=== PATIENT | female | born 1955 | race African-American/Black ===

== ENCOUNTER 2016-05-19 10:50 | Inpatient (IN) | payer MEDICAID ==
[~2016-05-19] VITALS: Ht 160 cm; Wt 102.1 kg
[2016-05-19] VITALS (16 sets, daily range): BP systolic 92–150; BP diastolic 53–95; PULSE 111–154; RESP 22–25; TEMP 98.1–100.8; O2SAT 91–100
[~2016-05-19 10:50] MED LIST: ALBU0.08 NEB; DOXY100C PO; ENAL10TA PO; HYDR-3583 PO; LANTUS2P SQ; LYRI150C PO; NOVOLOGP2 SQ; PRED10PA PO; SYMB160A INH
[2016-05-19] MEDS ORDERED: SODIUM CHLOR 0.9% 1000 ML INJ 1,000 ML IV ONE ×3 (11:00→13:15)
[2016-05-19] MEDS ORDERED: ACETAMINOPHEN 325 MG TAB PO ONE (11:00)
[2016-05-19] MEDS ORDERED: methylPREDNISolone SOD SUCC 125 MG/2 ML VIAL IV PUSH ONE (11:00)
--- NOTE | 2016-05-19 11:05 | PD ---
HPI Chief Complaint: Cold / Flu Symptoms Time Seen by Provider: 11:00 Travel History International Travel<30 days: No Contact w/Intl Traveler<30days: No Traveled to known affect area: No History of Present Illness HPI 61-year-old female with history of COPD, diabetes, hypertension, presents to the ER today for 2 days history of malaise, coughing, shortness of breath, nausea, body aches, lower back discomfort. She is not sure whether she has a fever. She does not know of any sick contacts or any other symptoms. She has tried to use her own nebulizers without significant relief. Modifying Factors: None Associated Signs & Symptoms: Coughing, malaise, shortness of breath, nausea, body aches Risk Factors: COPD PFSH Past Medical History Arthritis: Yes (RHEUMATOID) Asthma: No Autoimmune Disease: Yes Blood Disorders: No Anxiety: No Depression: No Heart Rhythm Problems: No Cancer: No Cardiovascular Problems: Yes (HTN) High Cholesterol: Yes Chemotherapy: No Chest Pain: No Congestive Heart Failure: No COPD: Yes (wears oxygen at home 2L) Cerebrovascular Accident: No Coronary Artery Disease: Yes ("DENIES") Diabetes: Yes Diminished Hearing: No Endocrine: Yes Gastrointestinal Disorders: Yes GERD: No Glaucoma: No Gout: Yes Genitourinary: No Headaches: Yes Hepatitis: Yes (HEPATITIS C) Hiatal Hernia: No Hypertension: Yes Immune Disorder: No Implanted Vascular Access Dvce: No Kidney Stones: No Musculoskeletal: Yes (chronic pain, RA, Gout ) Neurologic: Yes Psychiatric: No Reproductive: No Respiratory: Yes (COPD) Immunizations Current: Yes Migraines: No Myocardial Infarction: No Pneumonia: Yes Radiation Therapy: No Renal Failure: No Seizures: No Sickle Cell Disease: No Sleep Apnea: No Thyroid Disease: No Ulcer: No PNEUMOCCOCAL Vaccine (Year): 2 ?: Not Menopausal: Yes : 0 Para: 0 Miscarriage: 0 : 0 Past Surgical History Abdominal Surgery: No AICD: No Appendectomy: No Arteriovenous Shunt: No Cardiac Surgery: Yes Cholecystectomy: No Ear Surgery: No Endocrine Surgery: No Eye Surgery: No Genitourinary Surgery: No Gynecologic Surgery: No Insulin Pump: No Joint Replacement: No Neurologic Surgery: No Oral Surgery: No Pacemaker: No Thoracic Surgery: No Other Surgery: Yes (right knee gout drain infection) Social History Alcohol Use: No Tobacco Use: No Substance Use: No Allergies-Medications (Allergen,Severity, Reaction): Coded Allergies: *MDRO Multi-Drug Resistant Organism (Verified Adverse Reaction, Unknown, 05/19/16) MRSA wound 11/2012. MRSA PCR Screen negative 11/03/14 and 11/05/14. Cleared per Infection Control MRSA PCR Screen NEGATIVE - 04/30/2015 Reported Meds & Prescriptions Reported Meds & Active Scripts Active Prednisone (21) 10 mg tab Dose Pack (Prednisone) 10 Mg Pack 10 Mg PO DIRECTED Hydrocodone-Acetaminophen 10-325 mg Tab 1 Tab PO TID PRN Reported Indomethacin 50 Mg Cap 50 Mg PO TID Take with food, milk, or antacids to decrease stomach adverse effects. Enalapril (Enalapril Maleate) 10 Mg Tab 10 Mg PO DAILY PRN Lyrica (Pregabalin) 150 Mg Cap 150 Mg PO TID Lantus Inj (Insulin Glargine) 1,000 Unit/10 Ml Vial 40 Units SQ BID Novolog Inj (Insulin Aspart) 1,000 Unit/10 Ml Vial Unknown Dose SQ ACHS Max dose at bedtime ( ) units; sugars less than 70,(0) units; sugars 150-199,(2) units; sugars 200-249,(4) units; sugars 250-299,(7) units; sugars 300-349,(10) units; sugars greater than 349,(12)units Symbicort Inh (Budesonide/Formoterol Fumarate) 160-4.5 Mcg/Act Aero 2 Puff INH DAILY Albuterol Neb (Albuterol Sulfate) 2.5 Mg/3 Ml Neb 2.5 Mg NEB Q6HR PRN While awake Review of Systems Except as stated in HPI: all other systems reviewed are Neg Physical Exam Narrative GENERAL: Well-nourished, well-developed elderly -[place] female patient in mild respiratory distress. SKIN: Warm and dry. HEAD: Normocephalic. EYES: No scleral icterus. No injection or drainage. NECK: Supple, trachea midline. CARDIOVASCULAR: Fast and regular without murmurs, gallops, or rubs. RESPIRATORY: Breath sounds equal but decreased throughout bilaterally. Mild accessory muscle use. GASTROINTESTINAL: Abdomen soft, non-tender, nondistended. MUSCULOSKELETAL: No cyanosis, or edema. BACK: Nontender without obvious deformity. No CVA tenderness. Data Data Last Documented VS Vital Signs Date Time Temp Pulse Resp B/P Pulse Ox O2 Delivery O2 Flow Rate FiO2 05/19/16 12:54 138 22 99/57 95 Nasal Cannula 3 05/19/16 12:03 99.7 Orders Electrocardiogram (05/19/16 11:00) Complete Blood Count With Diff (05/19/16 11:00) Comprehensive Metabolic Panel (05/19/16 11:00) Lactic Acid Sepsis Protocol (05/19/16 11:00) Urinalysis - C+S If Indicated (05/19/16 11:00) Influenzae A/B Antigen (05/19/16 11:00) Blood Culture (05/19/16 11:00) Chest, Single Ap (05/19/16 11:00) Arterial Blood Gas (Abg) (05/19/16 11:00) Blood Glucose (05/19/16 11:00) Ecg Monitoring (05/19/16 11:00) Iv Access Insert/Monitor (05/19/16 11:00) Oximetry (05/19/16 11:00) Oxygen Administration (05/19/16 11:00) Acetaminophen (Tylenol) (05/19/16 11:00) Sodium Chlor 0.9% 1000 Ml Inj (Ns 1000 M (05/19/16 11:00) Methylprednisolone So Succ Inj (Solumedr (05/19/16 11:00) Albuterol-Ipratropium Neb (Duoneb Neb) (05/19/16 11:00) Cefepime Inj (Maxipime Inj) (05/19/16 12:18) Urine Culture (05/19/16 12:22) Albuterol-Ipratropium Neb (Duoneb Neb) (05/19/16 13:00) Admit Order (Ed Use Only) (05/19/16 13:12) Labs Laboratory Tests Test 05/19/16 05/19/16 05/19/16 11:00 12:00 12:22 White Blood Count 17.8 TH/MM3 Red Blood Count 6.73 MIL/MM3 Hemoglobin 17.1 GM/DL Hematocrit 51.4 % Mean Corpuscular Volume 76.3 FL Mean Corpuscular Hemoglobin 25.4 PG Mean Corpuscular Hemoglobin 33.2 % Concent Red Cell Distribution Width 17.1 % Platelet Count 246 TH/MM3 Mean Platelet Volume 9.0 FL Neutrophils (%) (Auto) 78.2 % Lymphocytes (%) (Auto) 9.5 % Monocytes (%) (Auto) 11.8 % Eosinophils (%) (Auto) 0.1 % Basophils (%) (Auto) 0.4 % Neutrophils # (Auto) 13.9 TH/MM3 Lymphocytes # (Auto) 1.7 TH/MM3 Monocytes # (Auto) 2.1 TH/MM3 Eosinophils # (Auto) 0.0 TH/MM3 Basophils # (Auto) 0.1 TH/MM3 CBC Comment DIFF FINAL Differential Comment Sodium Level 140 MEQ/L Potassium Level 3.6 MEQ/L Chloride Level 106 MEQ/L Carbon Dioxide Level 22.6 MEQ/L Anion Gap 11 MEQ/L Blood Urea Nitrogen 11 MG/DL Creatinine 1.16 MG/DL Estimat Glomerular Filtration 57 ML/MIN Rate Random Glucose 75 MG/DL Lactic Acid Level 2.5 mmol/L Calcium Level 8.5 MG/DL Total Bilirubin 0.9 MG/DL Aspartate Amino Transf 46 U/L (AST/SGOT) Alanine Aminotransferase 35 U/L (ALT/SGPT) Alkaline Phosphatase 171 U/L Total Protein 7.8 GM/DL Albumin 2.1 GM/DL Blood Gas Puncture Site RT RADIAL Blood Gas Patient Temperature 98.6 Blood Gas HCO3 20 mmol/L Blood Gas Base Excess -2.7 mmol/L Blood Gas Oxygen Saturation 90 % Arterial Blood pH 7.50 Arterial Blood Partial 26 mmHg Pressure CO2 Arterial Blood Partial 64 mmHG Pressure O2 Arterial Blood Oxygen Content 20.1 Vol % Arterial Blood 2.8 % Carboxyhemoglobin Arterial Blood Methemoglobin 2.4 % Blood Gas Hemoglobin 15.8 G/DL Oxygen Delivery Device NASAL CANNULA Blood Gas Liter Flow 4 L/M Urine Color YELLOW Urine Turbidity HAZY Urine pH 6.0 Urine Specific [place] 1.013 Urine Protein 300 mg/dL Urine Glucose (UA) NEG mg/dL Urine Ketones 10 mg/dL Urine Occult Blood LARGE Urine Nitrite NEG Urine Bilirubin NEG Urine Urobilinogen 2.0 MG/DL Urine Leukocyte Esterase NEG Urine RBC 12 /hpf Urine WBC 4 /hpf Urine Squamous Epithelial 1 /hpf Cells Urine Amorphous Sediment FEW Urine Bacteria MOD /hpf Urine Mucus FEW /lpf Urine Yeast (Budding) OCC Microscopic Urinalysis Comment CATH-CULTURE IND MDM Medical Decision Making Medical Screen Exam Complete: Yes Emergency Medical Condition: Yes Medical Record Reviewed: Yes Interpretation(s) EKG shows sinus tachycardia at a rate of 140 bpm with no signs of acute ST-T changes. Laboratory Tests Test 05/19/16 05/19/16 05/19/16 11:00 12:00 12:22 White Blood Count 17.8 TH/MM3 (4.0-11.0) Red Blood Count 6.73 MIL/MM3 (4.00-5.30) Hemoglobin 17.1 GM/DL (11.6-15.3) Hematocrit 51.4 % (35.0-46.0) Mean Corpuscular Volume 76.3 FL (80.0-100.0) Mean Corpuscular Hemoglobin 25.4 PG (27.0-34.0) Neutrophils (%) (Auto) 78.2 % (16.0-70.0) Monocytes (%) (Auto) 11.8 % (0.0-8.0) Neutrophils # (Auto) 13.9 TH/MM3 (1.8-7.7) Monocytes # (Auto) 2.1 TH/MM3 (0-0.9) Creatinine 1.16 MG/DL (0.50-1.00) Estimat Glomerular Filtration 57 ML/MIN (>89) Rate Lactic Acid Level 2.5 mmol/L (0.4-2.0) Aspartate Amino Transf 46 U/L (15-37) (AST/SGOT) Alkaline Phosphatase 171 U/L (45-117) Albumin 2.1 GM/DL (3.4-5.0) Blood Gas HCO3 20 mmol/L (22-26) Blood Gas Base Excess -2.7 mmol/L (-2-2) Arterial Blood pH 7.50 (7.380-7.420) Arterial Blood Partial 26 mmHg (38-42) Pressure CO2 Arterial Blood Oxygen Content 20.1 Vol % (12.0-20.0) Arterial Blood Methemoglobin 2.4 % (0-2) Urine Turbidity HAZY (CLEAR) Urine Protein 300 mg/dL (NEG-TRACE) Urine Ketones 10 mg/dL (NEG) Urine Occult Blood LARGE (NEG) Urine RBC 12 /hpf (0-3) Urine Bacteria MOD /hpf (NONE) Urine Mucus FEW /lpf (OCC) Urine Yeast (Budding) OCC (NONE) Last 24 hours Impressions Chest X-Ray 05/19/16 1100 Signed Impressions: Service Date/Time: Thursday, May 19, 2016 11:13 - CONCLUSION: No acute disease. Zack Jim MD Differential Diagnosis Cough, shortness of breath, malaise, body aches, nauseainfluenza versus sepsis versus pneumonia versus UTI/pyelonephritis versus dehydration versus metabolic issues versus COPD exacerbation Narrative Course She is febrile in the ER and there is concerns of sepsis. She was given IV antibiotics after cultures were drawn. She was given Solu-Medrol and treatment for COPD. After several doses of DuoNeb's, patient is still feeling short of breath. She has been in recently regarding similar symptoms and had a CTA done which all have been negative so far. At this point, I am uncertain what is causing her sepsis but patient will need further treatment and my plan would be to admit her for further treatment. The case was discussed with Dr. Lucio for admission. She was given IV fluids in the ER. Considering her significant signs of sepsis, my plan would also be to admit her for critical care initially. Sepsis Criteria SIRS Criteria (2 or more): Temp > 100.9 or < 96.8, Heart rate over 90, WBC > 64684, < 4000 or > 10% bands Severe Sepsis (+one): Hypotension, Lactate >2 Criteria Outcome: Meets severe sepsis criteria Diagnosis Primary Impression: COPD (chronic obstructive pulmonary disease) Additional Impression: SEVERE SEPSIS WITHOUT SEPTIC SHOCK Admitting Information Admitting Physician Requests: Admit Demetrio Leary MD May 19, 2016 11:05
[2016-05-19 11:21] LABS: AUTOMATED NEUTROPHIL # 13.9 TH/MM3 (1.8-7.7); BASOPHIL # 0.1 TH/MM3 (0-0.2); BASOPHIL % 0.4 % (0.0-2.0); EOSINOPHIL % 0.1 % (0.0-4.0); HEMATOCRIT 51.4 % (35.0-46.0); HEMO FLAGS DIFF FINAL; LYMPH % 9.5 % (9.0-44.0); LYMPHOCYTE # 1.7 TH/MM3 (1.0-4.8); MEAN CELL VOLUME 76.3 FL (80.0-100.0); MEAN CORPUSCULAR HEMOGLOBIN 25.4 PG (27.0-34.0); MEAN CORPUSCULAR HGB CONC 33.2 % (32.0-36.0); MONO % 11.8 % (0.0-8.0); NEUT % 78.2 % (16.0-70.0); PLATELET COUNT 246 TH/MM3 (150-450); RED BLOOD COUNT 6.73 MIL/MM3 (4.00-5.30); RED CELL DISTRIBUTION WIDTH 17.1 % (11.6-17.2); WHITE BLOOD COUNT 17.8 TH/MM3 (4.0-11.0)
[2016-05-19] MEDS: RESP: ALBUTEROL 2.5 MG/IPRATROPIUM 0.5 MG NEB (SCH) INH ×2 (11:22→13:05)
--- NOTE | 2016-05-19 11:32 | RADRPT ---
EXAM DATE/TIME: 05/19/2016 11:13 [facility] COMPARISON: CHEST SINGLE AP, April 23, 2016, 16:28. INDICATIONS : Shortness of breath for 24 hours MEDICAL HISTORY : Hypertension. Chronic obstructive pulmonary disease. Diabetes mellitus type 2. Cardiovascular disease . SURGICAL HISTORY : None. ENCOUNTER: Initial ACUITY: 1 day PAIN SCORE: 0/10 LOCATION: Bilateral chest FINDINGS: A single view of the chest demonstrates the lungs to be symmetrically aerated without evidence of mas s, infiltrate or effusion. There is mild streaky opacity again noted most consistent with scarring. T he cardiomediastinal contours are unremarkable. Osseous structures are intact. CONCLUSION: No acute disease. Zack Jim MD on May 19, 2016 at 11:26 Board Certified Radiologist. This report was verified electronically.
[2016-05-19 11:45] LABS: ALKALINE PHOSPHATASE 171 U/L (45-117); TOTAL BILIRUBIN ADULT 0.9 MG/DL (0.2-1.0)
[2016-05-19 11:48] LABS: ALT (GPT) 35 U/L (10-53); ANION GAP 11 MEQ/L (5-15); AST (GOT) 46 U/L (15-37); BICARBONATE 22.6 MEQ/L (21.0-32.0); BLOOD UREA NITROGEN 11 MG/DL (7-18); CHLORIDE 106 MEQ/L (98-107); GLOMERULAR FILTRATION RATE 57 ML/MIN (>89); POTASSIUM 3.6 MEQ/L (3.5-5.1); SODIUM (NA) 140 MEQ/L (136-145)
[2016-05-19 12:14] LABS: BLOOD GAS BASE EXCESS -2.7 mmol/L (-2-2); BLOOD GAS CARBOXYHEMOGLOBIN 2.8 % (0-4); BLOOD GAS HCO3 20 mmol/L (22-26); BLOOD GAS METHEMOGLOBIN 2.4 % (0-2); BLOOD GAS O2 HGB SATURATION 90 % (90-100); BLOOD GAS OXYGEN CONTENT 20.1 Vol % (12.0-20.0); BLOOD GAS PCO2 26 mmHg (38-42); BLOOD GAS PO2 64 mmHG (61-120); BLOOD GAS TOTAL HGB 15.8 G/DL (12.0-16.0); TEMP CORR TO 98.6
[2016-05-19 12:15] LABS: CRITICAL VALUE NO; DRAW SITE RT RADIAL; LITER FLOW 4 L/M; NUMBER OF ARTERIAL PUNCTURES 1; OXYGEN DEVICE NASAL CANNULA; STAT YES; ULNAR PULSE PRESENT
[2016-05-19] MEDS ORDERED: CEFEPIME INJ 2,000 MG in SODIUM CHLORIDE 0.9% INJ 100 ML IV STA (12:18)
[2016-05-19] MEDS ORDERED: INDO50CA PO (12:25)
[2016-05-19 12:37] LABS: BACTERIA, URINE MOD /hpf; BLOOD, URINE LARGE (NEG); COMMENT (UR) CATH-CULTURE IND; CULTURE IF INDICATED CATH CULTURE IND; GLUCOSE,URINE NEG (NEG); KETONE, URINE 10 mg/dL (NEG); MUCUS URINE FEW /lpf (OCC); NITRITE,URINE NEG (NEG); SQUAMOUS EPITHELIAL CELL URINE 1 /hpf (0-5); URINE COLOR YELLOW (YELLW/STRAW)
[2016-05-19 13:15] LABS: LACTIC ACID GHOST NOT REPORTABLE
[2016-05-19] MEDS ORDERED: ACETAMINOPHEN 325 MG TAB PO PRN (13:15)
[2016-05-19] MEDS ORDERED: ONDANSETRON HCL 4 MG/2 ML VIAL IVP PRN (13:15)
[2016-05-19] MEDS ORDERED: SENNOSIDES 8.6 MG TAB PO PRN (13:15)
[2016-05-19] MEDS ORDERED: MAGNESIUM HYDROXIDE SUSP 30 ML CUP PO PRN (13:15)
[2016-05-19] MEDS ORDERED: NALOXONE HCL 0.4 MG/ML AMP IV PRN ×2 (13:15→13:30)
[2016-05-19] MEDS ORDERED: BISACODYL 10 MG SUPP PR PRN (13:15)
[2016-05-19] MEDS ORDERED: Custom Consult Pharmacy 1 EA OTHER SCH (13:30)
--- NOTE | 2016-05-19 13:46 | EKG ---
Date Performed: 05/19/2016 Time Performed: 11:04:20 PTAGE: 61 years EKG: SINUS TACHYCARDIA NONSPECIFIC ST WAVE CHANGE ABNORMAL RHYTHM ECG Compared to PREVIOUS TRACING , the heart rate has increased from 131 to 147. Otherwise no significant change. PREVIOUS TRACIN04/23/2016 16.41 DOCTOR: Oj Malhotra Interpretating Date/Time 05/19/2016 13:44:50
[2016-05-19] MEDS ORDERED: LEVOFLOXACIN 750 MG PREMIX INJ 150 ML IV ONE (14:00)
[2016-05-19] MEDS: DOCUSATE SODIUM 100 MG CAP PO SCH ×2 (14:49→19:42)
[2016-05-19] MEDS: HEPARIN SODIUM - SQ 10,000 UNITS/ML VIAL SQ SCH ×2 (14:49→19:43)
--- NOTE | 2016-05-19 15:01 | HHI.HP ---
[facility] Shaggy Landry MD Admission Diagnosis COPD exacerbation/severe sepsis Diagnoses: Chief Complaint: Short of breath Travel History International Travel<30 Days: No Contact w/Intl Traveler <30 Da: No Traveled to Known Affected Are: No History of Present Illness 61 years of Afro-[place] female with history of COPD diabetes mellitus hypertension who recently discharged from the hospital earlier this month, presented with history of malaise cough and short of breath for the last 2 days along with body aching especially in the lower back, patient has been on Medrol Dosepak, also for rheumatoid arthritis. Patient in general poor historian, not sure if she did have fever or chills or pain around people, she uses oxygen and nebulizer at home. Currently she denied chest pain but reported back pain. She is not able to give any further specific info. Review of Systems Other All 10 systems reviewed and was positive for what is mentioned in history of present illness otherwise negative Past Family Social History Past Medical History COPD Rheumatoid arthritis Hypertension Diabetes mellitus Hyperlipidemia Possible coronary artery disease Hepatitis C Past Surgical History Patient is poor historian, there is a mentioning of history of right knee arthroscopy Allergies: Coded Allergies: *MDRO Multi-Drug Resistant Organism (Verified Adverse Reaction, Unknown, 05/19/16) MRSA wound 11/2012. MRSA PCR Screen negative 11/03/14 and 11/05/14. Cleared per Infection Control MRSA PCR Screen NEGATIVE - 04/30/2015 Family History Poor historian, denied being aware of significant disease in the family Social History Used to smoke 2 pack per day since age 14 but stated she quit recently, no alcohol or illicit drug abuse Physical Exam Vital Signs Vital Signs Date Time Temp Pulse Resp B/P Pulse Ox O2 Delivery O2 Flow Rate FiO2 05/19/16 14:35 100.4 05/19/16 14:01 136 24 101/58 100 Nasal Cannula 3 05/19/16 13:27 94 Nasal Cannula 4.00 05/19/16 12:54 138 22 99/57 95 Nasal Cannula 3 05/19/16 12:25 139 25 107/66 94 Nasal Cannula 3 05/19/16 12:03 99.7 144 25 107/61 93 Nasal Cannula 3 05/19/16 11:04 150 25 150/92 96 Room Air 2 05/19/16 11:04 99 Nasal Cannula 2 05/19/16 10:59 100 Nasal Cannula 2 05/19/16 10:59 154 25 150/92 97 Nasal Cannula 2 05/19/16 10:54 100.8 152 126/95 91 Physical Exam GENERAL: This is a well-nourished, well-developed patient, in no apparent distress. SKIN: No rashes, ecchymoses or lesions. Cool and dry. HEAD: Atraumatic. Normocephalic. No temporal or scalp tenderness. EYES: Pupils equal round and reactive. Extraocular motions intact. No scleral icterus. No injection or drainage. ENT: Nose without bleeding, purulent drainage or septal hematoma. Throat without erythema, tonsillar hypertrophy or exudate. Uvula midline. Airway patent. NECK: Trachea midline. No JVD or lymphadenopathy. Supple, CARDIOVASCULAR: Regular tachycardic without murmurs, gallops, or rubs. RESPIRATORY: Slightly diminished breath sounds with bilateral wheezes GASTROINTESTINAL: Abdomen soft, non-tender, nondistended. No hepato-splenomegaly , or palpable masses. No guarding. MUSCULOSKELETAL: Extremities without clubbing, cyanosis, or edema. No joint tenderness, effusion, or edema noted. NEUROLOGICAL: Awake and alert oriented to place and time. Moves all extremities. Normal speech. Laboratory Laboratory Tests Test 05/19/16 05/19/16 05/19/16 11:00 12:00 12:22 White Blood Count 17.8 Red Blood Count 6.73 Hemoglobin 17.1 Hematocrit 51.4 Mean Corpuscular Volume 76.3 Mean Corpuscular Hemoglobin 25.4 Mean Corpuscular Hemoglobin 33.2 Concent Red Cell Distribution Width 17.1 Platelet Count 246 Mean Platelet Volume 9.0 Neutrophils (%) (Auto) 78.2 Lymphocytes (%) (Auto) 9.5 Monocytes (%) (Auto) 11.8 Eosinophils (%) (Auto) 0.1 Basophils (%) (Auto) 0.4 Neutrophils # (Auto) 13.9 Lymphocytes # (Auto) 1.7 Monocytes # (Auto) 2.1 Eosinophils # (Auto) 0.0 Basophils # (Auto) 0.1 CBC Comment DIFF FINAL Differential Comment Sodium Level 140 Potassium Level 3.6 Chloride Level 106 Carbon Dioxide Level 22.6 Anion Gap 11 Blood Urea Nitrogen 11 Creatinine 1.16 Estimat Glomerular Filtration 57 Rate Random Glucose 75 Lactic Acid Level 2.5 Calcium Level 8.5 Total Bilirubin 0.9 Aspartate Amino Transf 46 (AST/SGOT) Alanine Aminotransferase 35 (ALT/SGPT) Alkaline Phosphatase 171 Total Protein 7.8 Albumin 2.1 Blood Gas Puncture Site RT RADIAL Blood Gas Patient Temperature 98.6 Blood Gas HCO3 20 Blood Gas Base Excess -2.7 Blood Gas Oxygen Saturation 90 Arterial Blood pH 7.50 Arterial Blood Partial 26 Pressure CO2 Arterial Blood Partial 64 Pressure O2 Arterial Blood Oxygen Content 20.1 Arterial Blood 2.8 Carboxyhemoglobin Arterial Blood Methemoglobin 2.4 Blood Gas Hemoglobin 15.8 Oxygen Delivery Device NASAL CANNULA Blood Gas Liter Flow 4 Urine Color YELLOW Urine Turbidity HAZY Urine pH 6.0 Urine Specific [place] 1.013 Urine Protein 300 Urine Glucose (UA) NEG Urine Ketones 10 Urine Occult Blood LARGE Urine Nitrite NEG Urine Bilirubin NEG Urine Urobilinogen 2.0 Urine Leukocyte Esterase NEG Urine RBC 12 Urine WBC 4 Urine Squamous Epithelial 1 Cells Urine Amorphous Sediment FEW Urine Bacteria MOD Urine Mucus FEW Urine Yeast (Budding) OCC Microscopic Urinalysis Comment CATH-CULTURE IND Date/Time Procedure Status Source Growth 05/19/16 12:22 Urine Culture Received Urine Clean Catch Pending 05/19/16 11:47 Influenza Types A,B Antigen (JUANITA) - Final Complete Nasal Washing NEGATIVE FOR FLU A AND B ANTIGEN.... 05/19/16 11:10 Aerobic Blood Culture Received Blood Peripheral Pending 05/19/16 11:10 Anaerobic Blood Culture Received Blood Peripheral Pending 05/19/16 11:00 Influenza Types A,B Antigen (JUANITA) Received Nasal Washing Pending Result Diagram: 05/19/16 1100 05/19/16 1100 Imaging Last Impressions Chest X-Ray 05/19/16 1100 Signed Impressions: Service Date/Time: Thursday, May 19, 2016 11:13 - CONCLUSION: No acute disease. Zack Jim MD Assessment and Plan Assessment and Plan 61 years old Afro-[place] female with history of COPD who was recently discharged earlier this month admitted with shortness of breath and chest tightness Sepsis with suspected respiratory infection source(leukocytosis with left shift , tachycardia, hypotension, lactic acidosis) Acute hypoxic respiratory failure COPD exacerbation Lactic acidosis FREDERIC on CKD Leukocytosis with left shift Diabetes mellitus History of rheumatoid arthritis patient on prednisone, possible underlying immunosuppressive status DVT prophylaxis with heparin Plan: Admit to ICU for close monitoring Receive 2 L of normal saline in ED will continue on maintenance Monitor lactic acid level Monitor BMP and CBC Patient received cefepime in ED will continue with Levaquin and vancomycin, considering possible underlying immunosuppressive status, and recent hospitalization Chest x-ray, urinalysis, personally reviewed by me unremarkable ABGs reviewed by me showing respiratory alkalosis Monitor vital signs Consider pulmonology, ID consultation Consider CT chest without contrast due to FREDERIC Accu-Chek and insulin sliding scale, diabetic diet, resume basal insulin from med rec Hold enalapril due to low blood pressure, resume when blood pressure case picker Discussed Condition With ED physician Physician Certification 2 Midnight Certification Type: Admission for Inpatient Services Order for Inpatient Services The services are ordered in accordance with Medicare regulations or non- Medicare payer requirements, as applicable. In the case of services not specified as inpatient-only, they are appropriately provided as inpatient services in accordance with the 2-midnight benchmark. Estimated LOS (days): 3 days is the estimated time the patient will need to remain in the hospital, assuming treatment plan goals are met and no additional complications. Post-Hospital Plan: Not yet determined Yaya Lucio MD May 19, 2016 15:01
[2016-05-19] MEDS: ACETAMINOPHEN/HYDROcodone 325 MG/7.5 MG TAB PO PRN ×2 (15:57→20:35)
[2016-05-19] MEDS: PREGABALIN 75 MG CAP PO SCH (18:35)
[2016-05-19] MEDS: SODIUM CHLORIDE 0.9% FLUSH 5 ML FLUSH FLUSH SCH (19:42)
[2016-05-19] MEDS ORDERED: GLUCAGON 1 MG/ML VIAL OTHER PRN (20:00)
[2016-05-19] MEDS ORDERED: DEXTROSE 50% IN WATER 50 ML VIAL(D50) IV PUSH PRN (20:00)
[2016-05-19] MEDS: INSULIN ASPART SUPPLEMENTAL SCALE SQ SCH (20:35)
[2016-05-20] VITALS (14 sets, daily range): BP systolic 110–136; BP diastolic 69–88; PULSE 97–124; RESP 16–30; TEMP 97.8–98.9; O2SAT 96–100
[2016-05-20] MEDS: ACETAMINOPHEN/HYDROcodone 325 MG/7.5 MG TAB PO PRN ×3 (00:37→21:18)
[2016-05-20] MEDS: ZOLPIDEM TARTRATE 5 MG TAB PO PRN (02:08)
[2016-05-20] MEDS: RESP: ALBUTEROL 2.5 MG/IPRATROPIUM 0.5 MG NEB (PRN) NEB ×4 (02:40→15:30)
[2016-05-20 04:38] LABS: AUTOMATED NEUTROPHIL # 18.8 TH/MM3 (1.8-7.7); BASOPHIL % 0.1 % (0.0-2.0); HEMATOCRIT 42.1 % (35.0-46.0); HEMO FLAGS DIFF FINAL; LYMPH % 4.9 % (9.0-44.0); LYMPHOCYTE # 1.1 TH/MM3 (1.0-4.8); MEAN CELL VOLUME 76.8 FL (80.0-100.0); MEAN CORPUSCULAR HEMOGLOBIN 25.4 PG (27.0-34.0); MONO % 8.8 % (0.0-8.0); NEUT % 86.2 % (16.0-70.0); PLATELET COUNT 199 TH/MM3 (150-450); RED BLOOD COUNT 5.48 MIL/MM3 (4.00-5.30); RED CELL DISTRIBUTION WIDTH 17.2 % (11.6-17.2); WHITE BLOOD COUNT 21.9 TH/MM3 (4.0-11.0)
[2016-05-20] MEDS: HEPARIN SODIUM - SQ 10,000 UNITS/ML VIAL SQ SCH ×3 (05:01→19:56)
[2016-05-20 05:02] LABS: BICARBONATE 18.8 MEQ/L (21.0-32.0); INDIRECT BILIRUBIN 0.3 MG/DL (0.0-0.8); POTASSIUM 3.8 MEQ/L (3.5-5.1); TOTAL BILIRUBIN ADULT 0.5 MG/DL (0.2-1.0)
[2016-05-20] MEDS: INSULIN ASPART SUPPLEMENTAL SCALE SQ SCH ×4 (06:06→19:56)
[2016-05-20] MEDS ORDERED: Vancomycin Consult Pharmacy 1 EA OTHER SCH (08:45)
[2016-05-20] MEDS ORDERED: SODIUM CHLORID 0.9% 500 ML INJ 500 ML IV ONE ×2 (08:45)
[2016-05-20] MEDS ORDERED: INSULIN DETEMIR 100 UNITS/ML VIAL SQ SCH (09:00)
[2016-05-20] MEDS: BUDESONIDE-FORMOTEROL 160/4.5 MCG INHALER INH SCH (09:00)
[2016-05-20] MEDS: DOCUSATE SODIUM 100 MG CAP PO SCH ×2 (09:11→19:56)
[2016-05-20] MEDS: PREGABALIN 75 MG CAP PO SCH ×3 (09:11→19:57)
--- NOTE | 2016-05-20 09:30 | HHI.PR ---
Subjective Remarks Follow up on acute respiratory failure with sepsis Patient still looks sick with wheezing on 3 L oxygen feel tightness in her chest today, she is eating her breakfast Still poor historian, afebrile overnight However leukocytosis and lactic acid worsening Objective Vitals Vital Signs Date Time Temp Pulse Resp B/P Pulse Ox O2 Delivery O2 Flow Rate FiO2 05/20/16 07:55 97 Nasal Cannula 3.00 05/20/16 06:00 108 05/20/16 04:00 97.9 109 19 117/79 96 05/20/16 04:00 109 05/20/16 02:00 114 05/20/16 00:00 110 05/20/16 00:00 98.0 110 30 110/69 98 05/19/16 22:00 111 05/19/16 20:00 120 05/19/16 20:00 98.3 120 24 120/71 96 05/19/16 19:48 98 Nasal Cannula 3.00 05/19/16 18:15 115 24 95/68 98 05/19/16 18:00 117 05/19/16 17:04 96 Nasal Cannula 3.00 05/19/16 15:17 98.1 127 25 92/53 98 05/19/16 14:35 100.4 05/19/16 14:01 136 24 101/58 100 Nasal Cannula 3 05/19/16 13:27 94 Nasal Cannula 4.00 05/19/16 12:54 138 22 99/57 95 Nasal Cannula 3 05/19/16 12:25 139 25 107/66 94 Nasal Cannula 3 05/19/16 12:03 99.7 144 25 107/61 93 Nasal Cannula 3 05/19/16 11:04 150 25 150/92 96 Room Air 2 05/19/16 11:04 99 Nasal Cannula 2 05/19/16 10:59 100 Nasal Cannula 2 05/19/16 10:59 154 25 150/92 97 Nasal Cannula 2 05/19/16 10:54 100.8 152 126/95 91 I/O 05/19/16 05/19/16 05/19/16 05/20/16 05/20/16 05/20/16 07:00 15:00 23:00 07:00 15:00 23:00 Intake Total 1078 ml 1019 ml Output Total 500 ml Balance 1078 ml 519 ml Intake Oral 240 ml 240 ml IV Total 838 ml 779 ml Output Urine Total 500 ml # Voids 1 Result Diagram: 05/20/16 0327 05/20/16 0327 Imaging Last Impressions Chest X-Ray 05/19/16 1100 Signed Impressions: Service Date/Time: Thursday, May 19, 2016 11:13 - CONCLUSION: No acute disease. Zack Jim MD Objective Remarks - - GENERAL: This is a well-nourished, well-developed patient, in no apparent distress. CARDIOVASCULAR: Tachycardic without murmurs, gallops, or rubs. RESPIRATORY: Diffuse expiratory wheezes, diminish breath sounds bilaterally. GASTROINTESTINAL: Abdomen soft, non-tender,nondistended. Normal active bowel sounds MUSCULOSKELETAL: Extremities without clubbing, cyanosis, or edema. NEURO: Awake alert oriented to place. Moves all ext x4 A/P Assessment and Plan 61 years old Afro-Beninese female with history of COPD who was recently discharged earlier this month admitted with shortness of breath and chest tightness Sepsis with suspected respiratory infection source(leukocytosis with left shift , tachycardia, hypotension, lactic acidosis) Acute hypoxic respiratory failure: however hypocapnic COPD exacerbation Lactic acidosis: worsening, will give another liter of fluid, continue on maintenance, continue monitoring lactic acid level FREDERIC on CKD: Baseline creatinine around 0.9-1, Creatinine increasing, possibly due to sepsis avoid nephrotoxins, continue IVF fluid hydration, Leukocytosis with left shift: Worsening Diabetes mellitus: Not controlled History of rheumatoid arthritis patient on prednisone, possible underlying immunosuppressive status: Follow up as an outpatient DVT prophylaxis with heparin Plan: 05/20: resume her basal insulin, Accu-Chek with insulin sliding scale, diabetic diet Ordered BMP, lactic acid, ABG Continue cefepime, Levaquin and Vanco Continue monitoring blood culture and urine culture Ordered CT chest without contrast Low probability for PE, will avoid CTA chest due to FREDERIC pulmonology, ID consultation Also discussed with on either inspector receiving, with her hypocapnia patient may need intubation D/W nurse Admitted to ICU for close monitoring Receive 2 L of normal saline in ED , continued on maintenance Patient received cefepime in ED will continue with Levaquin and vancomycin, considering possible underlying immunosuppressive status, and recent hospitalization Chest x-ray, urinalysis, personally reviewed by me unremarkable ABGs reviewed by me showing respiratory alkalosis Monitor vital signs Hold enalapril due to low blood pressure, resume when blood pressure leaf size picker Addendum: Personally Reviewed ABG, new BMP which showed improvement, resolving of metabolic acidosis, and respiratory alkalosis Awaiting CT chest, lactic acid level Yaya Lucio MD May 20, 2016 09:30
[2016-05-20] MEDS: SODIUM CHLORIDE 0.9% FLUSH 5 ML FLUSH FLUSH SCH ×2 (09:40→19:56)
[2016-05-20] MEDS: INSULIN DETEMIR 100 UNITS/ML VIAL SQ SCH ×2 (09:41→19:55)
[2016-05-20] MEDS: methylPREDNISolone SOD SUCC 40 MG/1 ML VIAL IV PUSH SCH ×3 (09:42→19:56)
[2016-05-20] MEDS ORDERED: INFLUENZA VIRUS VACCINE (QUADRIVALENT) 0.5 ML SYR IM ONE (10:00)
[2016-05-20] MEDS ORDERED: PNEUMOCOCCAL POLYVALENT INJ 25 MCG/0.5 ML SYR IM ONE (10:00)
[2016-05-20] MEDS ORDERED: VANCOMYCIN INJ 1,250 MG in SODIUM CHLOR 0.9% 250 ML INJ 250 ML IV SCH (10:00)
[2016-05-20 10:44] LABS: BICARBONATE 23.1 MEQ/L (21.0-32.0); POTASSIUM 3.6 MEQ/L (3.5-5.1)
[2016-05-20 10:44] LABS: BLOOD GAS BASE EXCESS -4.8 mmol/L (-2-2); BLOOD GAS CARBOXYHEMOGLOBIN 1.4 % (0-4); BLOOD GAS HCO3 19 mmol/L (22-26); BLOOD GAS METHEMOGLOBIN 1.2 % (0-2); BLOOD GAS O2 HGB SATURATION 94 % (90-100); BLOOD GAS OXYGEN CONTENT 19.5 Vol % (12.0-20.0); BLOOD GAS PCO2 34 mmHg (38-42); BLOOD GAS PO2 88 mmHg (61-120); BLOOD GAS TOTAL HGB 14.7 G/DL (12.0-16.0); TEMP CORR TO 98.6
[2016-05-20 10:45] LABS: CRITICAL VALUE NO; DRAW SITE RT RADIAL; LITER FLOW 3 L/M; NUMBER OF ARTERIAL PUNCTURES 1; OXYGEN DEVICE NASAL CANNULA; STAT NO; ULNAR PULSE PRESENT
--- NOTE | 2016-05-20 11:01 | PD.CONS ---
History of Present Illness Service Infectious Disease Consult Requested By Dr Germaine Lucio Reason for Consult Eval patient for sepsis Primary Care Physician Shaggy Landry MD Diagnoses: History of Present Illness Patient seen and examined. Records reviewed. Patient is a 61-year-old female with known COPD, oxygen dependent, admitted to the hospital with 2 day history of cough, increasing shortness of breath, body aches, as well as fevers. She brings up whitish to occasional flecks of green phlegm. She also has some chest tightness when she gets short of breath. Has no exposure to any sick child. She has no pets. Patient was recently hospitalized April 23 to April 27 and at that time she was admitted for worsening shortness of breath. CTA of the chest did not show any infiltrate or pulmonary embolism. She was treated as bronchitis as well as COPD exacerbation. Patient follows with a software development test engineer and she was seen about 3 days prior to admission and she was doing okay at that time. Since admission she has had some low-grade temps. Her initial WBC was 17,000. Chest x-ray did not show any acute infiltrate. Patient denies any GI or any urinary complaints. She complains of myalgias and joint pains which seem to be chronic and related to her known rheumatoid arthritis. She has not really noticed any significant worsening. Her hemodynamics currently are stable. She is currently on 4 L nasal O2. Normally she is on 2 L nasal O2 at home 24 are sedated. Infectious disease consultation has been requested to evaluate the patient for sepsis. Review of Systems Constitutional: COMPLAINS OF: Fever, Chills Eyes: DENIES: Eye pain Ears, nose, mouth, throat: DENIES: Nasal discharge, Oral lesions, Throat pain, Ear Pain, Running Nose, Sinus Pain Respiratory: COMPLAINS OF: Cough, Wheezing, Sputum production, Shortness of breath Cardiovascular: COMPLAINS OF: Chest pain, Palpitations, Dyspnea on Exertion Gastrointestinal: DENIES: Abdominal pain, Diarrhea, Nausea, Vomiting, Difficulty Swallowing Genitourinary: DENIES: Urinary frequency, Dysuria Musculoskeletal: COMPLAINS OF: Joint pain, Muscle aches, Stiffness, Back pain Integumentary: DENIES: Rash Neurologic: DENIES: Headache Psychiatric: COMPLAINS OF: Anxiety, DENIES: Confusion Past Family Social History Allergies: Coded Allergies: *MDRO Multi-Drug Resistant Organism (Verified Adverse Reaction, Unknown, 05/19/16) MRSA wound 11/2012. MRSA PCR Screen negative 11/03/14 and 11/05/14. Cleared per Infection Control MRSA PCR Screen NEGATIVE - 04/30/2015 Past Medical History COPD Rheumatoid arthritis Hypertension Diabetes mellitus Hyperlipidemia Possible coronary artery disease Hepatitis C Gout Osteoporosis Past Surgical History Arthroscopy and washout for right knee septic arthritis. Active Ordered Medications Tylenol Bozman Albuterol Dulcolax Symbicort Cefepime Colace Heparin Insulin Levaquin MOM Solu-Medrol Morphine Zofran Lyrica Senokot Vancomycin Ambien Social History Smoker No alcohol abuse Remote history of using crack cocaine Physical Exam Vital Signs Vital Signs Date Time Temp Pulse Resp B/P Pulse Ox O2 Delivery O2 Flow Rate FiO2 05/20/16 07:55 97 Nasal Cannula 3.00 05/20/16 06:00 108 05/20/16 04:00 97.9 109 19 117/79 96 05/20/16 04:00 109 05/20/16 02:00 114 05/20/16 00:00 110 05/20/16 00:00 98.0 110 30 110/69 98 05/19/16 22:00 111 05/19/16 20:00 120 05/19/16 20:00 98.3 120 24 120/71 96 05/19/16 19:48 98 Nasal Cannula 3.00 05/19/16 18:15 115 24 95/68 98 05/19/16 18:00 117 05/19/16 17:04 96 Nasal Cannula 3.00 05/19/16 15:17 98.1 127 25 92/53 98 05/19/16 14:35 100.4 05/19/16 14:01 136 24 101/58 100 Nasal Cannula 3 05/19/16 13:27 94 Nasal Cannula 4.00 05/19/16 12:54 138 22 99/57 95 Nasal Cannula 3 05/19/16 12:25 139 25 107/66 94 Nasal Cannula 3 05/19/16 12:03 99.7 144 25 107/61 93 Nasal Cannula 3 05/19/16 11:04 150 25 150/92 96 Room Air 2 05/19/16 11:04 99 Nasal Cannula 2 05/19/16 10:59 100 Nasal Cannula 2 05/19/16 10:59 154 25 150/92 97 Nasal Cannula 2 05/19/16 10:54 100.8 152 126/95 91 Physical Exam GENERAL: This is a well-nourished, well-developed female, awake and alert, gets easily SOB with min exertion, ok at rest. SKIN: Cool and dry. No generalized rash or ecchymosis. HEAD: Atraumatic. Normocephalic. No temporal or scalp tenderness. EYES: [place] conjunctivae. Pupils equal round and reactive. Extraocular motions intact. No scleral icterus. Has mild conjunctival injection in the left thigh. ENT: Nose without bleeding, or purulent drainage. Slightly dry oral mucosa with some mild white coating on the tongue. Throat without erythema, or exudate. Uvula midline. Airway patent. NECK: Trachea midline. No JVD or lymphadenopathy. Supple, nontender, no meningeal signs. CARDIOVASCULAR: Regular rate and rhythm without murmurs, gallops, or rubs. RESPIRATORY: Decreased breath sounds on the right side, has wheezing on the left side. GASTROINTESTINAL: Abdomen soft, non-tender, nondistended. Bowel sounds are present and normoactive. No hepato-splenomegaly, or palpable masses. No guarding. MUSCULOSKELETAL: Extremities without clubbing, cyanosis, or edema. No joint tenderness, effusion, or edema noted. No calf tenderness. Negative Homans sign bilaterally. NEUROLOGICAL: Awake and alert. Cranial nerves II through XII intact. Motor and sensory grossly within normal limits. Five out of 5 muscle strength in all muscle groups. Normal speech. PSYCH: Normal affect, calm and cooperative LINE: PIV with no evidence of infection Laboratory Laboratory Tests Test 05/19/16 05/19/16 05/19/16 05/19/16 11:00 12:00 12:22 15:15 White Blood Count 17.8 Red Blood Count 6.73 Hemoglobin 17.1 Hematocrit 51.4 Mean Corpuscular Volume 76.3 Mean Corpuscular Hemoglobin 25.4 Mean Corpuscular Hemoglobin 33.2 Concent Red Cell Distribution Width 17.1 Platelet Count 246 Mean Platelet Volume 9.0 Neutrophils (%) (Auto) 78.2 Lymphocytes (%) (Auto) 9.5 Monocytes (%) (Auto) 11.8 Eosinophils (%) (Auto) 0.1 Basophils (%) (Auto) 0.4 Neutrophils # (Auto) 13.9 Lymphocytes # (Auto) 1.7 Monocytes # (Auto) 2.1 Eosinophils # (Auto) 0.0 Basophils # (Auto) 0.1 CBC Comment DIFF FINAL Differential Comment Sodium Level 140 Potassium Level 3.6 Chloride Level 106 Carbon Dioxide Level 22.6 Anion Gap 11 Blood Urea Nitrogen 11 Creatinine 1.16 Estimat Glomerular Filtration 57 Rate Random Glucose 75 Lactic Acid Level 2.5 Calcium Level 8.5 Total Bilirubin 0.9 Aspartate Amino Transf 46 (AST/SGOT) Alanine Aminotransferase 35 (ALT/SGPT) Alkaline Phosphatase 171 Total Protein 7.8 Albumin 2.1 Blood Gas Puncture Site RT RADIAL Blood Gas Patient Temperature 98.6 Blood Gas HCO3 20 Blood Gas Base Excess -2.7 Blood Gas Oxygen Saturation 90 Arterial Blood pH 7.50 Arterial Blood Partial 26 Pressure CO2 Arterial Blood Partial 64 Pressure O2 Arterial Blood Oxygen Content 20.1 Arterial Blood 2.8 Carboxyhemoglobin Arterial Blood Methemoglobin 2.4 Blood Gas Hemoglobin 15.8 Oxygen Delivery Device NASAL CANNULA Blood Gas Liter Flow 4 Urine Color YELLOW Urine Turbidity HAZY Urine pH 6.0 Urine Specific [place] 1.013 Urine Protein 300 Urine Glucose (UA) NEG Urine Ketones 10 Urine Occult Blood LARGE Urine Nitrite NEG Urine Bilirubin NEG Urine Urobilinogen 2.0 Urine Leukocyte Esterase NEG Urine RBC 12 Urine WBC 4 Urine Squamous Epithelial 1 Cells Urine Amorphous Sediment FEW Urine Bacteria MOD Urine Mucus FEW Urine Yeast (Budding) OCC Microscopic Urinalysis Comment CATH-CULTURE IND Nasal Screen MRSA (PCR) NEGATIVE Test 05/19/16 05/20/16 21:22 03:27 Lactic Acid Level 3.9 White Blood Count 21.9 Red Blood Count 5.48 Hemoglobin 13.9 Hematocrit 42.1 Mean Corpuscular Volume 76.8 Mean Corpuscular Hemoglobin 25.4 Mean Corpuscular Hemoglobin 33.0 Concent Red Cell Distribution Width 17.2 Platelet Count 199 Mean Platelet Volume 9.5 Neutrophils (%) (Auto) 86.2 Lymphocytes (%) (Auto) 4.9 Monocytes (%) (Auto) 8.8 Eosinophils (%) (Auto) 0.0 Basophils (%) (Auto) 0.1 Neutrophils # (Auto) 18.8 Lymphocytes # (Auto) 1.1 Monocytes # (Auto) 1.9 Eosinophils # (Auto) 0.0 Basophils # (Auto) 0.0 CBC Comment DIFF FINAL Differential Comment Sodium Level 138 Potassium Level 3.8 Chloride Level 108 Carbon Dioxide Level 18.8 Anion Gap 11 Blood Urea Nitrogen 19 Creatinine 1.26 Estimat Glomerular Filtration 52 Rate Random Glucose 377 Calcium Level 7.6 Total Bilirubin 0.5 Direct Bilirubin 0.2 Indirect Bilirubin 0.3 Aspartate Amino Transf 17 (AST/SGOT) Alanine Aminotransferase 23 (ALT/SGPT) Alkaline Phosphatase 132 Total Protein 6.4 Albumin 1.6 Date/Time Procedure Status Source Growth 05/19/16 12:22 Urine Culture Received Urine Clean Catch Pending 05/19/16 11:47 Influenza Types A,B Antigen (JUANITA) - Final Complete Nasal Washing NEGATIVE FOR FLU A AND B ANTIGEN.... 05/19/16 11:10 Aerobic Blood Culture Received Blood Peripheral Pending 05/19/16 11:10 Anaerobic Blood Culture Received Blood Peripheral Pending 05/19/16 11:00 Influenza Types A,B Antigen (JUANITA) Received Nasal Washing Pending Result Diagram: 05/20/16 0327 05/20/16 0327 Imaging RADIOLOGY STUDIES/FILMS REVIEWED Chest X-Ray 05/19/16 1100 Signed Impressions: Service Date/Time: Thursday, May 19, 2016 11:13 - CONCLUSION: No acute disease. Zack Jim MD Assessment and Plan Assessment and Plan IMPRESSION Sepsis, with fever, cough, SOB, tachycardia, leukocytosis - CXR clear, ?early PNA O2 dependent COPD, with exacerbation - last CTA Nov with findings of severe emphysema RECOMMENDATION For CT of chest Follow C/S Continue current Abx: Cefepime, Levaquin abd Vancomycin Monitor progress I will determine course of Abx once work-up completed I will follow along with you Thank you for this consultation Discussed Condition With D/W Salud Garner MD May 20, 2016 11:01
[2016-05-20] MEDS: CEFEPIME INJ 1,000 MG in SODIUM CHLORIDE 0.9% INJ 100 ML IV SCH ×3 (12:48)
[2016-05-20] MEDS: ACETAMINOPHEN/HYDROcodone 325 MG/5 MG TAB PO PRN (15:54)
[2016-05-20] MEDS: SODIUM CHLOR 0.9% 1000 ML INJ 1,000 ML IV SCH ×3 (17:20→19:56)
--- NOTE | 2016-05-20 21:54 | MB ---
cc: SANIA LUI M.D. DATE OF CONSULTATION 05/20/2016 REASON FOR CONSULTATION Respiratory failure, COPD exacerbation. HISTORY OF PRESENT ILLNESS Mrs. Negrete is a 61-year-old -[place] female with known COPD admitted with increasing shortness of breath and chest tightness, temperature elevation without evidence of pneumonia. CT angiography is without evidence of pulmonary embolism. The patient generally feels weak, shortness of breath has improved since hospitalization. PAST MEDICAL HISTORY Is that of: 1. COPD. 2. Diabetes mellitus. 3. Hypertension. 4. Hyperlipidemia. 5. Rheumatoid arthritis. 6. Hepatitis C. 7. Gout. 8. Osteoporosis. MEDICATIONS Include: 1. Cefepime. 2. Albuterol. 3. Symbicort twice daily. 4. Levaquin. 5. Morphine. 6. Zofran. 7. Vancomycin. 8. Ambien. 9. Senokot. ALLERGIES NONE KNOWN TO MEDICATIONS. REVIEW OF SYSTEMS 12-point review of systems as per HPI and past history otherwise negative. FAMILY HISTORY Noncontributory. PHYSICAL EXAMINATION GENERAL: On exam the patient is alert. In no acute distress. VITAL SIGNS: Temperature 98 degrees Fahrenheit, pulse 110, respirations 20, blood pressure 136/84. Oxygen saturation 96% on 3 liters oxygen nasal cannula. HEENT: Exam unremarkable. Eyes without icterus. NECK: Without adenopathy, thyroid enlargement. CHEST: Few scattered rhonchi bilaterally. CARDIOVASCULAR: Exam PMI distant. S1-S2 audible. No murmur or rub. ABDOMEN: Lax, audible bowel sounds. EXTREMITIES: No clubbing, cyanosis or edema. SKIN: Normal. No lymphadenopathy. LABORATORY DATA White count of 21,000, hemoglobin 13, hematocrit 42. Sodium 142, potassium 3.6, BUN 19, creatinine 1.1. IMAGING CT angiogram no PE, no pneumonia. IMPRESSION 1. COPD exacerbation. 2. Leukocytosis, fever, underlying infection is suggested. No obvious cause is present at this time. 3. Diabetes mellitus. 4. Hypertension. PLAN The patient has been started on antibiotic therapy, is followed by infectious disease and appropriately so. Oxygen therapy has been initiated. Bronchodilator therapy will be continued. Chest x-ray will be followed. For the possibility of developing pneumonia, although it is negative at this point, it should be monitored closely in the intensive care setting and depending on progress proceed further. I do thank you for asking me to partake in Mrs. Negrete's care. Sania Lui MD WWW/[place]OR[place]ES /2:13 PM /9:41 PM
[2016-05-21] VITALS (14 sets, daily range): BP systolic 15–151; BP diastolic 56–95; PULSE 100–121; RESP 18–28; TEMP 97–98.3; O2SAT 93–100
[2016-05-21] MEDS: ACETAMINOPHEN/HYDROcodone 325 MG/5 MG TAB PO PRN ×2 (00:57→21:34)
[2016-05-21] MEDS: RESP: ALBUTEROL 2.5 MG/IPRATROPIUM 0.5 MG NEB (PRN) NEB ×4 (02:42→22:47)
[2016-05-21] MEDS: methylPREDNISolone SOD SUCC 40 MG/1 ML VIAL IV PUSH SCH ×4 (03:56→21:33)
[2016-05-21] MEDS: HEPARIN SODIUM - SQ 10,000 UNITS/ML VIAL SQ SCH ×3 (05:37→21:34)
[2016-05-21] MEDS: INSULIN ASPART SUPPLEMENTAL SCALE SQ SCH ×4 (05:38→21:35)
[2016-05-21] MEDS: ACETAMINOPHEN/HYDROcodone 325 MG/7.5 MG TAB PO PRN ×2 (05:38→12:14)
[2016-05-21] MEDS: SODIUM CHLOR 0.9% 1000 ML INJ 1,000 ML IV SCH ×3 (05:38→23:05)
[2016-05-21 05:50] LABS: BASOPHIL % 0.1 % (0.0-2.0); HEMATOCRIT 42.1 % (35.0-46.0); LYMPH % 3.9 % (9.0-44.0); LYMPHOCYTE # 0.7 TH/MM3 (1.0-4.8); MEAN CELL VOLUME 75.9 FL (80.0-100.0); MEAN CORPUSCULAR HEMOGLOBIN 24.5 PG (27.0-34.0); MEAN CORPUSCULAR HGB CONC 32.3 % (32.0-36.0); MONO % 7.6 % (0.0-8.0); NEUT % 88.4 % (16.0-70.0); PLATELET COUNT 230 TH/MM3 (150-450); RED BLOOD COUNT 5.55 MIL/MM3 (4.00-5.30); RED CELL DISTRIBUTION WIDTH 17.1 % (11.6-17.2); WHITE BLOOD COUNT 18.1 TH/MM3 (4.0-11.0)
[2016-05-21 06:04] LABS: HEMO FLAGS AUTO DIFF
[2016-05-21 07:09] LABS: SCAN/DIFF AUTO DIFF CONFIRMED
[2016-05-21 07:19] LABS: BICARBONATE 17.6 MEQ/L (21.0-32.0)
[2016-05-21] MEDS: VANCOMYCIN INJ 1,500 MG in SODIUM CHLORID 0.9% 500 ML INJ 500 ML IV SCH (08:17)
[2016-05-21] MEDS: INSULIN DETEMIR 100 UNITS/ML VIAL SQ SCH ×2 (08:17→21:32)
[2016-05-21] MEDS: DOCUSATE SODIUM 100 MG CAP PO SCH ×2 (08:17→21:00)
[2016-05-21] MEDS: SODIUM CHLORIDE 0.9% FLUSH 5 ML FLUSH FLUSH SCH ×2 (08:18→20:25)
[2016-05-21] MEDS: PREGABALIN 75 MG CAP PO SCH ×3 (08:20→17:33)
[2016-05-21] MEDS: BUDESONIDE-FORMOTEROL 160/4.5 MCG INHALER INH SCH ×2 (09:00→10:24)
--- NOTE | 2016-05-21 09:59 | HHI.IDPN ---
Subjective Subjective Remarks Notes reviewed D/W RN Patient very SOB, desats easily She is on nasal O2 Temps ok BP ok, not on pressors Not bringing up any phlegm Antibiotics Vancomycin Cefepime Levaquin Lines PIV Past Medical History COPD Rheumatoid arthritis Hypertension Diabetes mellitus Hyperlipidemia Possible coronary artery disease Hepatitis C Gout Osteoporosis Past Surgical History Arthroscopy and washout for right knee septic arthritis. Allergies: Coded Allergies: *MDRO Multi-Drug Resistant Organism (Verified Adverse Reaction, Unknown, 05/19/16) MRSA wound 11/2012. MRSA PCR Screen negative 11/03/14 and 11/05/14. Cleared per Infection Control MRSA PCR Screen NEGATIVE - 04/30/2015 Objective . Vital Signs Date Time Temp Pulse Resp B/P Pulse Ox O2 Delivery O2 Flow Rate FiO2 05/21/16 07:37 100 Nasal Cannula 4.00 05/21/16 06:00 105 05/21/16 04:00 97.6 109 18 139/89 100 05/21/16 04:00 109 05/21/16 02:00 100 05/21/16 00:00 98.1 109 20 87/56 93 05/21/16 00:00 109 05/20/16 22:00 97 05/20/16 20:00 98.3 115 18 123/70 100 05/20/16 20:00 115 05/20/16 19:15 99 Nasal Cannula 3.00 05/20/16 18:19 24 05/20/16 18:00 124 05/20/16 16:54 26 05/20/16 16:00 122 05/20/16 16:00 98.9 122 24 116/71 99 05/20/16 14:00 124 05/20/16 12:00 98.3 123 22 127/78 99 05/20/16 12:00 123 05/20/16 10:00 116 05/20/16 05/20/16 05/21/16 15:00 23:00 07:00 Intake Total 2314 ml 820 ml 1002 ml Output Total 650 ml 950 ml Balance 1664 ml 820 ml 52 ml Intake Oral 480 ml 240 ml 240 ml IV Total 1834 ml 580 ml 762 ml Output Urine Total 650 ml 950 ml . Laboratory Tests Test 05/19/16 05/20/16 05/21/16 11:00 03:27 05:15 White Blood Count 17.8 TH/MM3 21.9 TH/MM3 18.1 TH/MM3 Red Blood Count 6.73 MIL/MM3 5.48 MIL/MM3 5.55 MIL/MM3 Hemoglobin 17.1 GM/DL 13.9 GM/DL 13.6 GM/DL Hematocrit 51.4 % 42.1 % 42.1 % Mean Corpuscular Volume 76.3 FL 76.8 FL 75.9 FL Mean Corpuscular Hemoglobin 25.4 PG 25.4 PG 24.5 PG Mean Corpuscular Hemoglobin 33.2 % 33.0 % 32.3 % Concent Red Cell Distribution Width 17.1 % 17.2 % 17.1 % Platelet Count 246 TH/MM3 199 TH/MM3 230 TH/MM3 Mean Platelet Volume 9.0 FL 9.5 FL 9.3 FL Neutrophils (%) (Auto) 78.2 % 86.2 % 88.4 % Lymphocytes (%) (Auto) 9.5 % 4.9 % 3.9 % Monocytes (%) (Auto) 11.8 % 8.8 % 7.6 % Eosinophils (%) (Auto) 0.1 % 0.0 % 0.0 % Basophils (%) (Auto) 0.4 % 0.1 % 0.1 % Neutrophils # (Auto) 13.9 TH/MM3 18.8 TH/MM3 16.0 TH/MM3 Lymphocytes # (Auto) 1.7 TH/MM3 1.1 TH/MM3 0.7 TH/MM3 Monocytes # (Auto) 2.1 TH/MM3 1.9 TH/MM3 1.4 TH/MM3 Eosinophils # (Auto) 0.0 TH/MM3 0.0 TH/MM3 0.0 TH/MM3 Basophils # (Auto) 0.1 TH/MM3 0.0 TH/MM3 0.0 TH/MM3 CBC Comment DIFF FINAL DIFF FINAL AUTO DIFF Differential Comment AUTO DIFF CONFIRMED Laboratory Tests Test 05/19/16 05/19/16 05/20/16 05/20/16 11:00 21:22 03:27 09:48 Sodium Level 140 MEQ/L 138 MEQ/L 142 MEQ/L Potassium Level 3.6 MEQ/L 3.8 MEQ/L 3.6 MEQ/L Chloride Level 106 MEQ/L 108 MEQ/L 109 MEQ/L Carbon Dioxide Level 22.6 MEQ/L 18.8 MEQ/L 23.1 MEQ/L Anion Gap 11 MEQ/L 11 MEQ/L 10 MEQ/L Blood Urea Nitrogen 11 MG/DL 19 MG/DL 19 MG/DL Creatinine 1.16 MG/DL 1.26 MG/DL 1.12 MG/DL Estimat Glomerular Filtration 57 ML/MIN 52 ML/MIN 60 ML/MIN Rate Random Glucose 75 MG/DL 377 MG/DL 283 MG/DL Lactic Acid Level 2.5 mmol/L 3.9 mmol/L Calcium Level 8.5 MG/DL 7.6 MG/DL 7.5 MG/DL Total Bilirubin 0.9 MG/DL 0.5 MG/DL Aspartate Amino Transf 46 U/L 17 U/L (AST/SGOT) Alanine Aminotransferase 35 U/L 23 U/L (ALT/SGPT) Alkaline Phosphatase 171 U/L 132 U/L Total Protein 7.8 GM/DL 6.4 GM/DL Albumin 2.1 GM/DL 1.6 GM/DL Direct Bilirubin 0.2 MG/DL Indirect Bilirubin 0.3 MG/DL Test 05/20/16 05/21/16 13:06 05:15 Lactic Acid Level 1.7 mmol/L Sodium Level 140 MEQ/L Potassium Level 4.0 MEQ/L Chloride Level 112 MEQ/L Carbon Dioxide Level 17.6 MEQ/L Anion Gap 10 MEQ/L Blood Urea Nitrogen 23 MG/DL Creatinine 1.15 MG/DL Estimat Glomerular Filtration 58 ML/MIN Rate Random Glucose 355 MG/DL Calcium Level 7.7 MG/DL Microbiology Date/Time Procedure Status Source Growth 05/19/16 11:00 Aerobic Blood Culture - Preliminary Resulted Blood Peripheral NO GROWTH IN 1 DAY 05/19/16 11:00 Anaerobic Blood Culture - Preliminary Resulted Blood Peripheral NO GROWTH IN 1 DAY 05/19/16 11:00 Influenza Types A,B Antigen (JUANITA) Received Nasal Washing Pending 05/19/16 11:10 Aerobic Blood Culture - Preliminary Resulted Blood Peripheral NO GROWTH IN 1 DAY 05/19/16 11:10 Anaerobic Blood Culture - Preliminary Resulted Blood Peripheral NO GROWTH IN 1 DAY 05/19/16 11:47 Influenza Types A,B Antigen (JUANITA) - Final Complete Nasal Washing NEGATIVE FOR FLU A AND B ANTIGEN.... 05/19/16 12:22 Urine Culture - Final Complete Urine Clean Catch NO GROWTH IN 48 HOURS. Imaging Last 72 hours Impressions Chest X-Ray 05/19/16 1100 Signed Impressions: Service Date/Time: Thursday, May 19, 2016 11:13 - CONCLUSION: No acute disease. Zack Jim MD Physical Exam GENERAL: awake and alert, SOB at rest SKIN: Cool and dry. No generalized rash or ecchymosis. HEAD: Atraumatic. Normocephalic. No temporal or scalp tenderness. EYES: [place] conjunctivae. Pupils equal round and reactive. Extraocular motions intact. No scleral icterus. Has mild conjunctival injection in the left eye ENT: Nose without bleeding, or purulent drainage. Slightly dry oral mucosa with some mild white coating on the tongue. Throat without erythema, or exudate. Uvula midline. Airway patent. NECK: Trachea midline. No JVD or lymphadenopathy. Supple, nontender, no meningeal signs. CARDIOVASCULAR: Regular rate and rhythm without murmurs, gallops, or rubs. RESPIRATORY: Decreased breath sounds on the right side, scattered wheezing GASTROINTESTINAL: Abdomen soft, non-tender, nondistended. Bowel sounds are present and normoactive. No hepato-splenomegaly, or palpable masses. No guarding. MUSCULOSKELETAL: Extremities without clubbing, cyanosis, or edema. No joint tenderness, effusion, or edema noted. No calf tenderness. Negative Homans sign bilaterally. NEUROLOGICAL: Non-focal PSYCH: Normal affect, calm and cooperative LINE: PIV with no evidence of infection Assessment & Plan Remarks IMPRESSION Sepsis, with fever, cough, SOB, tachycardia, leukocytosis - CXR clear, ?early PNA O2 dependent COPD, with exacerbation - last CTA Nov with findings of severe emphysema Renal insufficiency, better RECOMMENDATION For CT of chest Follow C/S Continue current Abx: Cefepime, Levaquin and Vancomycin Monitor progress D/W Salud Garnre MD May 21, 2016 09:59
--- NOTE | 2016-05-21 11:44 | RADRPT ---
EXAM DATE/TIME: 05/21/2016 11:13 [facility] COMPARISON: CT PULMONARY ANGIOGRAM, April 23, 2016, 18:44. CHEST SINGLE AP, May 19, 2016, 11:13. INDICATIONS : Sepsis, COPD, rule out underlying infection RADIATION DOSE: 6.75 CTDIvol (mGy) MEDICAL HISTORY : Cardiovascular disease. Hypertension. Diabetes mellitus type 1. SURGICAL HISTORY : None. ENCOUNTER: Initial ACUITY: 1 day PAIN SCALE: 0/10 LOCATION: chest TECHNIQUE: Volumetric scanning of the chest was performed. Using automated exposure control and adjustment of t he mA and/or kV according to patient size, radiation dose was kept as low as reasonably achievable to obtain optimal diagnostic quality images. FINDINGS: LUNGS: There is a new thin walled cavitary lesion in the anterior left upper lobe measuring 4.2 x 4.0 cm. Mi nimal adjacent consolidative changes. There is emphysema. A few scattered bulla are noted. PLEURAE: Small left pleural effusion. MEDIASTINUM: The heart and great vessels demonstrate no acute abnormality. There is no mediastinal or hilar lymph adenopathy. AXILLAE: Within normal limits. No lymphadenopathy. MUSCULOSKELETAL: Within normal limits for patient age. MISCELLANEOUS: The visualized upper abdominal organs demonstrate no acute abnormality. CONCLUSION: 1. No cavitary lesion left upper lobe could be related to a new bulla, could be infectious such as tu berculosis or fungal process. 2. Small left pleural effusion. 3. Emphysema. Delgado Kaur MD on May 21, 2016 at 11:28 Board Certified Radiologist. This report was verified electronically.
[2016-05-21] MEDS: CEFEPIME INJ 1,000 MG in SODIUM CHLORIDE 0.9% INJ 100 ML IV SCH ×4 (12:00→23:30)
[2016-05-21] MEDS ORDERED: LEVOFLOXACIN 750 MG/DEXTROSE 150 ML IV SCH (14:00)
--- NOTE | 2016-05-21 14:20 | HHI.PR ---
Subjective Remarks Feeling slightly better Still on O2 nasal cannula Afebrile D/W pulmonary Objective Vitals Vital Signs Date Time Temp Pulse Resp B/P Pulse Ox O2 Delivery O2 Flow Rate FiO2 05/21/16 12:00 108 05/21/16 12:00 97.4 108 22 147/91 98 05/21/16 10:00 115 05/21/16 08:00 98.3 119 28 115/72 99 05/21/16 08:00 119 05/21/16 07:37 100 Nasal Cannula 4.00 05/21/16 06:00 105 05/21/16 04:00 97.6 109 18 139/89 100 05/21/16 04:00 109 05/21/16 02:00 100 05/21/16 00:00 98.1 109 20 87/56 93 05/21/16 00:00 109 05/20/16 22:00 97 05/20/16 20:00 98.3 115 18 123/70 100 05/20/16 20:00 115 05/20/16 19:15 99 Nasal Cannula 3.00 05/20/16 18:19 24 05/20/16 18:00 124 05/20/16 16:54 26 05/20/16 16:00 122 05/20/16 16:00 98.9 122 24 116/71 99 I/O 05/20/16 05/20/16 05/20/16 05/21/16 05/21/16 05/21/16 06:59 14:59 22:59 06:59 14:59 22:59 Intake Total 1019 ml 2314 ml 820 ml 1002 ml Output Total 500 ml 650 ml 950 ml Balance 519 ml 1664 ml 820 ml 52 ml Intake Oral 240 ml 480 ml 240 ml 240 ml IV Total 779 ml 1834 ml 580 ml 762 ml Output Urine Total 500 ml 650 ml 950 ml Result Diagram: 05/21/1651405/21/16514 Objective Remarks - - GENERAL: This is a well-nourished, well-developed patient, in no apparent distress. CARDIOVASCULAR: Tachycardic without murmurs, gallops, or rubs. RESPIRATORY: Diffuse expiratory wheezes, diminish breath sounds bilaterally. GASTROINTESTINAL: Abdomen soft, non-tender,nondistended. Normal active bowel sounds MUSCULOSKELETAL: Extremities without clubbing, cyanosis, or edema. NEURO: Awake alert oriented to place. Moves all ext x4 A/P Assessment and Plan 61 years old Afro-Chinese female with history of COPD who was recently discharged earlier this month admitted with shortness of breath and chest tightness Sepsis with suspected respiratory infection source(leukocytosis with left shift , tachycardia, hypotension, lactic acidosis) Acute hypoxic respiratory failure: however hypocapnic COPD exacerbation Lactic acidosis: Resolved on on fluid FREDERIC on CKD: Baseline creatinine around 0.9-1, Creatinine trending down, due to sepsis avoid nephrotoxins, continue IVF fluid hydration, Leukocytosis with left shift: Trending down Diabetes mellitus: Not controlled History of rheumatoid arthritis patient on prednisone, possible underlying immunosuppressive status: Follow up as an outpatient DVT prophylaxis with heparin Plan: 05/21: Blood sugar improved after resume her basal insulin, Accu-Chek with insulin sliding scale, diabetic diet Reviewed BMP, lactic acid, ABG Continue cefepime, Levaquin and Vanco Continue monitoring blood culture and urine culture Personally reviewed CT chest without contrast, showing left upper lobe thinwall cavity could be obtainable versus inflammatory process like tuberculosis, ID following Appreciate pulmonology, ID consultation D/W Dr. goldsmith the magazine worker Admitted to ICU for close monitoring Receive 2 L of normal saline in ED , continued on maintenance Patient received cefepime in ED will continue with Levaquin and vancomycin, considering possible underlying immunosuppressive status, and recent hospitalization Chest x-ray, urinalysis, personally reviewed by me unremarkable ABGs reviewed by me showing respiratory alkalosis Monitor vital signs Hold enalapril due to low blood pressure, resume when blood pressure pickle maker Yaya Lucio MD May 21, 2016 14:20
[2016-05-21] MEDS: ACETAMINOPHEN/HYDROcodone 325 MG/10 MG TAB PO PRN (17:34)
[2016-05-21] MEDS: ZOLPIDEM TARTRATE 5 MG TAB PO PRN (21:34)
[2016-05-22] VITALS (14 sets, daily range): BP systolic 136–160; BP diastolic 86–103; PULSE 94–126; RESP 18–25; TEMP 97.8–98.6; O2SAT 95–100
[2016-05-22] MEDS: ACETAMINOPHEN/HYDROcodone 325 MG/10 MG TAB PO PRN ×3 (01:43→17:11)
[2016-05-22] MEDS: methylPREDNISolone SOD SUCC 40 MG/1 ML VIAL IV PUSH SCH ×4 (02:47→20:38)
[2016-05-22] MEDS: HEPARIN SODIUM - SQ 10,000 UNITS/ML VIAL SQ SCH ×3 (04:31→20:38)
[2016-05-22] MEDS: INSULIN ASPART SUPPLEMENTAL SCALE SQ SCH ×3 (05:40→17:11)
[2016-05-22] MEDS: MORPHINE SULFATE 4 MG/ML INJ IV PRN ×2 (06:45→20:38)
[2016-05-22] MEDS: ACETAMINOPHEN/HYDROcodone 325 MG/5 MG TAB PO PRN (06:45)
[2016-05-22 06:51] LABS: AUTOMATED NEUTROPHIL # 12.4 TH/MM3 (1.8-7.7); BASOPHIL % 0.1 % (0.0-2.0); BICARBONATE 16.6 MEQ/L (21.0-32.0); HEMATOCRIT 44.2 % (35.0-46.0); HEMO FLAGS DIFF FINAL; LYMPHOCYTE # 0.7 TH/MM3 (1.0-4.8); MEAN CELL VOLUME 77.3 FL (80.0-100.0); MEAN CORPUSCULAR HEMOGLOBIN 25.1 PG (27.0-34.0); MEAN CORPUSCULAR HGB CONC 32.4 % (32.0-36.0); MONO % 6.7 % (0.0-8.0); NEUT % 88.2 % (16.0-70.0); PLATELET COUNT 264 TH/MM3 (150-450); POTASSIUM 5.5 MEQ/L (3.5-5.1); RED BLOOD COUNT 5.71 MIL/MM3 (4.00-5.30); RED CELL DISTRIBUTION WIDTH 17.5 % (11.6-17.2)
[2016-05-22] MEDS: PREGABALIN 75 MG CAP PO SCH ×3 (08:19→17:10)
[2016-05-22] MEDS: DOCUSATE SODIUM 100 MG CAP PO SCH ×2 (08:19→20:38)
[2016-05-22] MEDS: INSULIN DETEMIR 100 UNITS/ML VIAL SQ SCH ×2 (08:19→20:39)
[2016-05-22] MEDS: SODIUM CHLORIDE 0.9% FLUSH 5 ML FLUSH FLUSH SCH ×2 (08:20→20:38)
[2016-05-22] MEDS: VANCOMYCIN INJ 1,500 MG in SODIUM CHLORID 0.9% 500 ML INJ 500 ML IV SCH (08:20)
--- NOTE | 2016-05-22 10:44 | HHI.IDPN ---
Subjective Subjective Remarks Notes reviewed D/W RN Patient still with SOB, but looks better She is on nasal O2 Temps ok BP ok, not on pressors Not coughing much C/O L sided chest pain when she takes deep breaths C/O blood sugars running high and knee pain CT chest with cavitary lesion in L upper lobe with some surrounding infiltrate, ?infection or new bulla; this was not present in her CTA last March Antibiotics Vancomycin Cefepime Levaquin Lines PIV Past Medical History COPD Rheumatoid arthritis Hypertension Diabetes mellitus Hyperlipidemia Possible coronary artery disease Hepatitis C Gout Osteoporosis Past Surgical History Arthroscopy and washout for right knee septic arthritis. Allergies: Coded Allergies: *MDRO Multi-Drug Resistant Organism (Verified Adverse Reaction, Unknown, 05/19/16) MRSA wound 11/2012. MRSA PCR Screen negative 11/03/14 and 11/05/14. Cleared per Infection Control MRSA PCR Screen NEGATIVE - 04/30/2015 Objective . Vital Signs Date Time Temp Pulse Resp B/P Pulse Ox O2 Delivery O2 Flow Rate FiO2 05/22/16 08:00 97.8 113 20 151/100 97 05/22/16 08:00 113 05/22/16 07:54 100 Nasal Cannula 4.00 05/22/16 06:00 107 05/22/16 04:00 98.1 105 18 155/92 100 05/22/16 04:00 105 05/22/16 02:00 101 05/22/16 00:00 107 05/22/16 00:00 98.0 107 18 158/95 100 05/21/16 22:00 117 05/21/16 21:03 100 Nasal Cannula 4.00 05/21/16 20:00 98.2 112 18 144/77 100 05/21/16 20:00 112 05/21/16 18:00 120 05/21/16 16:00 97.0 119 22 151/95 97 05/21/16 16:00 121 05/21/16 14:00 113 05/21/16 12:00 108 05/21/16 12:00 97.4 108 22 147/91 98 05/21/16 05/21/16 05/22/16 15:00 23:00 07:00 Intake Total 1908 ml 1072 ml 1200 ml Output Total 700 ml 500 ml Balance 1208 ml 1072 ml 700 ml Intake Oral 840 ml 450 ml 550 ml IV Total 1068 ml 622 ml 650 ml Output Urine Total 700 ml 500 ml . Laboratory Tests Test 05/21/16 05/22/16 05:15 04:28 White Blood Count 18.1 TH/MM3 14.0 TH/MM3 Red Blood Count 5.55 MIL/MM3 5.71 MIL/MM3 Hemoglobin 13.6 GM/DL 14.3 GM/DL Hematocrit 42.1 % 44.2 % Mean Corpuscular Volume 75.9 FL 77.3 FL Mean Corpuscular Hemoglobin 24.5 PG 25.1 PG Mean Corpuscular Hemoglobin 32.3 % 32.4 % Concent Red Cell Distribution Width 17.1 % 17.5 % Platelet Count 230 TH/MM3 264 TH/MM3 Mean Platelet Volume 9.3 FL 10.1 FL Neutrophils (%) (Auto) 88.4 % 88.2 % Lymphocytes (%) (Auto) 3.9 % 5.0 % Monocytes (%) (Auto) 7.6 % 6.7 % Eosinophils (%) (Auto) 0.0 % 0.0 % Basophils (%) (Auto) 0.1 % 0.1 % Neutrophils # (Auto) 16.0 TH/MM3 12.4 TH/MM3 Lymphocytes # (Auto) 0.7 TH/MM3 0.7 TH/MM3 Monocytes # (Auto) 1.4 TH/MM3 0.9 TH/MM3 Eosinophils # (Auto) 0.0 TH/MM3 0.0 TH/MM3 Basophils # (Auto) 0.0 TH/MM3 0.0 TH/MM3 CBC Comment AUTO DIFF DIFF FINAL Differential Comment AUTO DIFF CONFIRMED Laboratory Tests Test 05/20/16 05/21/16 05/22/16 05/22/16 13:06 05:15 04:28 07:55 Lactic Acid Level 1.7 mmol/L Sodium Level 140 MEQ/L 137 MEQ/L Potassium Level 4.0 MEQ/L 5.5 MEQ/L 3.9 MEQ/L Chloride Level 112 MEQ/L 112 MEQ/L Carbon Dioxide Level 17.6 MEQ/L 16.6 MEQ/L Anion Gap 10 MEQ/L 8 MEQ/L Blood Urea Nitrogen 23 MG/DL 23 MG/DL Creatinine 1.15 MG/DL 0.99 MG/DL Estimat Glomerular Filtration 58 ML/MIN 69 ML/MIN Rate Random Glucose 355 MG/DL 315 MG/DL Calcium Level 7.7 MG/DL 7.8 MG/DL Microbiology Date/Time Procedure Status Source Growth 05/19/16 11:00 Aerobic Blood Culture - Preliminary Resulted Blood Peripheral NO GROWTH IN 2 DAYS 05/19/16 11:00 Anaerobic Blood Culture - Preliminary Resulted Blood Peripheral NO GROWTH IN 2 DAYS 05/19/16 11:00 Influenza Types A,B Antigen (JUANITA) Received Nasal Washing Pending 05/19/16 11:10 Aerobic Blood Culture - Preliminary Resulted Blood Peripheral NO GROWTH IN 2 DAYS 05/19/16 11:10 Anaerobic Blood Culture - Preliminary Resulted Blood Peripheral NO GROWTH IN 2 DAYS 05/19/16 11:47 Influenza Types A,B Antigen (JUANITA) - Final Complete Nasal Washing NEGATIVE FOR FLU A AND B ANTIGEN.... 05/19/16 12:22 Urine Culture - Final Complete Urine Clean Catch NO GROWTH IN [address] 05/21/16 0000 Signed Impressions: Service Date/Time: Saturday, May 21, 2016 11:13 - CONCLUSION: 1. No cavitary lesion left upper lobe could be related to a new bulla, could be infectious such as tuberculosis or fungal process. 2. Small left pleural effusion. 3. Emphysema. Delgado Kaur MD Chest X-Ray 05/19/16 1100 Signed Impressions: Service Date/Time: Thursday, May 19, 2016 11:13 - CONCLUSION: No acute disease. Zack Jim MD Physical Exam GENERAL: awake and alert, SOB at rest SKIN: Cool and dry. No generalized rash or ecchymosis. HEENT: [place] conjunctivae. No scleral icterus. Has mild conjunctival injection in the left eye. Nose without bleeding, or purulent drainage. Slightly dry oral mucosa with some mild white coating on the tongue. Throat without erythema, or exudate. Uvula midline. Airway patent. NECK: Trachea midline. No JVD or lymphadenopathy. Supple, nontender, no meningeal signs. CARDIOVASCULAR: Regular rate and rhythm without murmurs, gallops, or rubs. RESPIRATORY: Decreased breath sounds on the right side, less wheezing GASTROINTESTINAL: Abdomen soft, non-tender, nondistended. Bowel sounds are present and normoactive. No hepato-splenomegaly, or palpable masses. No guarding. MUSCULOSKELETAL: Extremities without clubbing, cyanosis, or edema. No joint tenderness, effusion, or edema noted. No calf tenderness. Negative Homans sign bilaterally. NEUROLOGICAL: Non-focal PSYCH: Normal affect, calm and cooperative LINE: PIV with no evidence of infection Assessment & Plan Remarks IMPRESSION Sepsis, with fever, cough, SOB, tachycardia, leukocytosis - CXR clear, but has L upper lobe infiltrate and cavity O2 dependent COPD, with exacerbation - last CTA Nov with findings of severe emphysema Renal insufficiency, better RECOMMENDATION Continue Cefepime Continue Levaquin and change to po Stop Vancomycin Monitor progress D/W Salud Garner MD May 22, 2016 10:44
[2016-05-22] MEDS: CEFEPIME INJ 1,000 MG in SODIUM CHLORIDE 0.9% INJ 100 ML IV SCH (11:24)
[2016-05-22] MEDS: SODIUM CHLOR 0.9% 1000 ML INJ 1,000 ML IV SCH ×2 (12:00→17:11)
[2016-05-22] MEDS: RESP: ALBUTEROL 2.5 MG/IPRATROPIUM 0.5 MG NEB (PRN) NEB ×2 (12:37→19:31)
--- NOTE | 2016-05-22 17:02 | HHI.PR ---
Subjective Remarks Laying in bed still on nasal cannula, complain of knee pain, but no chest pain Discussed with her and explain the finding on the CT Also discussed with nurse Objective Vitals Vital Signs Date Time Temp Pulse Resp B/P Pulse Ox O2 Delivery O2 Flow Rate FiO2 05/22/16 16:00 107 05/22/16 14:00 126 05/22/16 12:00 107 05/22/16 12:00 98.2 107 20 160/103 97 05/22/16 10:00 109 05/22/16 08:00 97.8 113 20 151/100 97 05/22/16 08:00 113 05/22/16 07:54 100 Nasal Cannula 4.00 05/22/16 06:00 107 05/22/16 04:00 98.1 105 18 155/92 100 05/22/16 04:00 105 05/22/16 02:00 101 05/22/16 00:00 107 05/22/16 00:00 98.0 107 18 158/95 100 05/21/16 22:00 117 05/21/16 21:03 100 Nasal Cannula 4.00 05/21/16 20:00 98.2 112 18 144/77 100 05/21/16 20:00 112 05/21/16 18:00 120 I/O 05/21/16 05/21/16 05/21/16 05/22/16 05/22/16 05/22/16 06:59 14:59 22:59 06:59 14:59 22:59 Intake Total 1002 ml 1908 ml 1072 ml 1200 ml 1860 ml Output Total 950 ml 700 ml 500 ml 600 ml Balance 52 ml 1208 ml 1072 ml 700 ml 1260 ml Intake Oral 240 ml 840 ml 450 ml 550 ml 720 ml IV Total 762 ml 1068 ml 622 ml 650 ml 1140 ml Output Urine Total 950 ml 700 ml 500 ml 600 ml Result Diagram: 05/22/16 0428 05/22/16 0755 Objective Remarks - - GENERAL: This is a well-nourished, well-developed patient, in no apparent distress. CARDIOVASCULAR: Tachycardic without murmurs, gallops, or rubs. RESPIRATORY: Diffuse expiratory wheezes, diminish breath sounds bilaterally. GASTROINTESTINAL: Abdomen soft, non-tender,nondistended. Normal active bowel sounds MUSCULOSKELETAL: Extremities without clubbing, cyanosis, or edema. NEURO: Awake alert oriented to place. Moves all ext x4 A/P Assessment and Plan 61 years old Afro-[place]ish female with history of COPD who was recently discharged earlier this month admitted with shortness of breath and chest tightness Sepsis with suspected respiratory infection source(leukocytosis with left shift , tachycardia, hypotension, lactic acidosis) Acute hypoxic respiratory failure: however hypocapnic COPD exacerbation Lactic acidosis: Resolved on on fluid FREDERIC on CKD: Baseline creatinine around 0.9-1, Creatinine trending down, due to sepsis avoid nephrotoxins, continue IVF fluid hydration, Leukocytosis with left shift: Trending down Diabetes mellitus: Not controlled History of rheumatoid arthritis patient on prednisone, possible underlying immunosuppressive status: Follow up as an outpatient DVT prophylaxis with heparin Plan: 05/22: CBC BMP in a.m. Tachycardia with increased blood pressure, not improving will add Lopressor and monitor WBC dropped to 14 K, afebrile, hyperkalemia from yesterday resolved today, ID stopped Vanco, switch Levaquin to by mouth, continued cefepime, Blood sugar still not optimized, increase Levemir to 40 units twice a day, Accu- Chek with insulin sliding scale upgrade to high level, diabetic diet ID Continue cefepime, change Levaquin to by mouth and stop Vanco per ID recommendation D/W nurse Continue monitoring blood culture and urine culture CT chest without contrast, showing left upper lobe thinwall cavity could be obtainable versus inflammatory process like tuberculosis, ID following pulmonology, ID following Receive 2 L of normal saline in ED , continued on maintenance Patient received cefepime in ED will continue with Levaquin and vancomycin, considering possible underlying immunosuppressive status, and recent hospitalization Chest x-ray, urinalysis, personally reviewed by me unremarkable ABGs reviewed by me showing respiratory alkalosis Monitor vital signs Hold enalapril due to low blood pressure, 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
[2016-05-22] MEDS ORDERED: PILL SPLITTER OTHER PRN (17:45)
[2016-05-22] MEDS ORDERED: DEXTROSE 50% IN WATER 50 ML VIAL(D50) IV PUSH PRN (18:15)
[2016-05-22] MEDS ORDERED: GLUCAGON 1 MG/ML VIAL OTHER PRN (18:15)
[2016-05-22] MEDS: METOPROLOL TARTRATE 25 MG TAB PO SCH (20:38)
[2016-05-22] MEDS: HIGH DOSE INSULIN NOVOLOG SUPPLEMENTAL SCALE SQ SCH (20:39)
[2016-05-23] VITALS (14 sets, daily range): BP systolic 131–160; BP diastolic 82–104; PULSE 91–106; RESP 10–28; TEMP 97.9–98.4; O2SAT 92–99
[2016-05-23] MEDS: methylPREDNISolone SOD SUCC 40 MG/1 ML VIAL IV PUSH SCH ×3 (02:22→20:09)
[2016-05-23] MEDS: ACETAMINOPHEN/HYDROcodone 325 MG/10 MG TAB PO PRN ×3 (02:24→17:50)
[2016-05-23] MEDS: RESP: ALBUTEROL 2.5 MG/IPRATROPIUM 0.5 MG NEB (PRN) NEB ×4 (03:19→21:13)
[2016-05-23 05:21] LABS: AUTOMATED NEUTROPHIL # 8.4 TH/MM3 (1.8-7.7); BASOPHIL # 0.1 TH/MM3 (0-0.2); BASOPHIL % 0.8 % (0.0-2.0); HEMATOCRIT 43.3 % (35.0-46.0); LYMPH % 5.6 % (9.0-44.0); LYMPHOCYTE # 0.6 TH/MM3 (1.0-4.8); MEAN CELL VOLUME 74.8 FL (80.0-100.0); MEAN CORPUSCULAR HEMOGLOBIN 24.6 PG (27.0-34.0); MEAN CORPUSCULAR HGB CONC 32.9 % (32.0-36.0); MONO % 9.2 % (0.0-8.0); NEUT % 84.4 % (16.0-70.0); PLATELET COUNT 275 TH/MM3 (150-450); RED BLOOD COUNT 5.79 MIL/MM3 (4.00-5.30); RED CELL DISTRIBUTION WIDTH 17.6 % (11.6-17.2)
[2016-05-23 05:25] LABS: HEMO FLAGS AUTO DIFF
[2016-05-23] MEDS: MORPHINE SULFATE 4 MG/ML INJ IV PRN ×4 (05:42→23:21)
[2016-05-23] MEDS: SODIUM CHLORIDE 0.9% FLUSH 5 ML FLUSH FLUSH PRN (05:42)
[2016-05-23] MEDS: HEPARIN SODIUM - SQ 10,000 UNITS/ML VIAL SQ SCH ×3 (05:43→22:38)
[2016-05-23] MEDS: HIGH DOSE INSULIN NOVOLOG SUPPLEMENTAL SCALE SQ SCH ×4 (05:44→20:11)
[2016-05-23 06:15] LABS: BICARBONATE 22.4 MEQ/L (21.0-32.0); POTASSIUM 3.8 MEQ/L (3.5-5.1)
[2016-05-23] MEDS ORDERED: PHARMACY ORDERED LAB XX ONE (07:45)
[2016-05-23] MEDS: PREGABALIN 75 MG CAP PO SCH ×3 (08:31→17:50)
[2016-05-23] MEDS: METOPROLOL TARTRATE 25 MG TAB PO SCH ×2 (08:31→20:10)
[2016-05-23] MEDS: DOCUSATE SODIUM 100 MG CAP PO SCH ×2 (08:31→20:10)
[2016-05-23] MEDS: SODIUM CHLORIDE 0.9% FLUSH 5 ML FLUSH FLUSH SCH ×2 (08:32→20:11)
[2016-05-23] MEDS: BUDESONIDE-FORMOTEROL 160/4.5 MCG INHALER INH SCH (08:32)
[2016-05-23] MEDS: INSULIN DETEMIR 100 UNITS/ML VIAL SQ SCH ×2 (08:32→20:11)
[2016-05-23] MEDS ORDERED: hydrALAZINE HCL 20 MG/ML VIAL IV PRN (09:00)
[2016-05-23 09:05] LABS: SCAN/DIFF AUTO DIFF CONFIRMED
[2016-05-23] MEDS: LISINOPRIL 20 MG TAB PO SCH ×2 (09:14→20:09)
--- NOTE | 2016-05-23 09:50 | HHI.IDPN ---
Subjective Subjective Remarks Notes reviewed D/W RN Patient still with SOB, but looks better She is on nasal O2 Chest pain is better Minimal cough Temps ok BP ok, not on pressors L knee pain with pain, R better C/O blood sugars running high and knee pain CT chest with cavitary lesion in L upper lobe with some surrounding infiltrate, ?infection or new bulla; this was not present in her CTA last March Cultures reviewed Antibiotics Cefepime Levaquin Lines PIV Past Medical History COPD Rheumatoid arthritis Hypertension Diabetes mellitus Hyperlipidemia Possible coronary artery disease Hepatitis C Gout Osteoporosis Past Surgical History Arthroscopy and washout for right knee septic arthritis. Allergies: Coded Allergies: *MDRO Multi-Drug Resistant Organism (Verified Adverse Reaction, Unknown, 05/19/16) MRSA wound 11/2012. MRSA PCR Screen negative 11/03/14 and 11/05/14. Cleared per Infection Control MRSA PCR Screen NEGATIVE - 04/30/2015 Objective . Vital Signs Date Time Temp Pulse Resp B/P Pulse Ox O2 Delivery O2 Flow Rate FiO2 05/23/16 08:44 92 Nasal Cannula 4.00 05/23/16 08:00 97.9 98 20 156/104 93 05/23/16 08:00 98 05/23/16 06:00 104 05/23/16 04:00 98.4 106 28 160/97 92 05/23/16 04:00 100 05/23/16 02:00 91 05/23/16 00:00 98.1 94 10 92 05/23/16 00:00 93 05/22/16 22:00 94 05/22/16 20:00 117 05/22/16 20:00 98.6 117 25 136/86 95 05/22/16 19:31 98 Nasal Cannula 3.00 05/22/16 18:00 112 05/22/16 16:00 98.0 112 20 148/95 99 05/22/16 16:00 107 05/22/16 14:00 126 05/22/16 12:00 107 05/22/16 12:00 98.2 107 20 160/103 97 05/22/16 10:00 109 05/22/16 05/22/16 05/23/16 15:00 23:00 07:00 Intake Total 1860 ml 350 ml 306 ml Output Total 600 ml 500 ml 650 ml Balance 1260 ml -150 ml -344 ml Intake Oral 720 ml 350 ml 200 ml IV Total 1140 ml 0 ml 106 ml Output Urine Total 600 ml 500 ml 650 ml # Bowel Movements 0 0 . Laboratory Tests Test 05/22/16 05/23/16 04:28 04:59 White Blood Count 14.0 TH/MM3 10.0 TH/MM3 Red Blood Count 5.71 MIL/MM3 5.79 MIL/MM3 Hemoglobin 14.3 GM/DL 14.2 GM/DL Hematocrit 44.2 % 43.3 % Mean Corpuscular Volume 77.3 FL 74.8 FL Mean Corpuscular Hemoglobin 25.1 PG 24.6 PG Mean Corpuscular Hemoglobin 32.4 % 32.9 % Concent Red Cell Distribution Width 17.5 % 17.6 % Platelet Count 264 TH/MM3 275 TH/MM3 Mean Platelet Volume 10.1 FL 9.4 FL Neutrophils (%) (Auto) 88.2 % 84.4 % Lymphocytes (%) (Auto) 5.0 % 5.6 % Monocytes (%) (Auto) 6.7 % 9.2 % Eosinophils (%) (Auto) 0.0 % 0.0 % Basophils (%) (Auto) 0.1 % 0.8 % Neutrophils # (Auto) 12.4 TH/MM3 8.4 TH/MM3 Lymphocytes # (Auto) 0.7 TH/MM3 0.6 TH/MM3 Monocytes # (Auto) 0.9 TH/MM3 0.9 TH/MM3 Eosinophils # (Auto) 0.0 TH/MM3 0.0 TH/MM3 Basophils # (Auto) 0.0 TH/MM3 0.1 TH/MM3 CBC Comment DIFF FINAL AUTO DIFF Differential Comment AUTO DIFF CONFIRMED Laboratory Tests Test 05/22/16 05/22/16 05/23/16 04:28 07:55 04:39 Sodium Level 137 MEQ/L 143 MEQ/L Potassium Level 5.5 MEQ/L 3.9 MEQ/L 3.8 MEQ/L Chloride Level 112 MEQ/L 112 MEQ/L Carbon Dioxide Level 16.6 MEQ/L 22.4 MEQ/L Anion Gap 8 MEQ/L 9 MEQ/L Blood Urea Nitrogen 23 MG/DL 26 MG/DL Creatinine 0.99 MG/DL 0.90 MG/DL Estimat Glomerular Filtration 69 ML/MIN 77 ML/MIN Rate Random Glucose 315 MG/DL 172 MG/DL Calcium Level 7.8 MG/DL 8.0 MG/DL Imaging Chest CT 05/21/16 0000 Signed Impressions: Service Date/Time: Saturday, May 21, 2016 11:13 - CONCLUSION: 1. No cavitary lesion left upper lobe could be related to a new bulla, could be infectious such as tuberculosis or fungal process. 2. Small left pleural effusion. 3. Emphysema. Delgado Kaur MD Chest X-Ray 05/19/16 1100 Signed Impressions: Service Date/Time: Thursday, May 19, 2016 11:13 - CONCLUSION: No acute disease. Zack Jim MD Physical Exam GENERAL: awake and alert, SOB with movement SKIN: Cool and dry. No generalized rash HEENT: [place] conjunctivae. No scleral icterus. Has mild conjunctival injection in the left eye. Moist ral mucosa. Throat without erythema, or exudate. NECK: Trachea midline. No JVD or lymphadenopathy. Supple, nontender, no meningeal signs. CARDIOVASCULAR: Regular rate and rhythm without murmurs, gallops, or rubs. RESPIRATORY: Decreased breath sounds bilaterally ABDOMEN: Soft, not tender and not distended. Bowel sounds are present and normoactive. MUSCULOSKELETAL: Extremities without clubbing, cyanosis, or edema. No calf tenderness. Negative Homans sign bilaterally. NEUROLOGICAL: Non-focal PSYCH: Normal affect, calm and cooperative LINE: PIV with no evidence of infection Assessment & Plan Remarks IMPRESSION Sepsis, with fever, cough, SOB, tachycardia, leukocytosis - CXR clear, but has L upper lobe infiltrate and cavity O2 dependent COPD, with exacerbation - last CTA Nov with findings of severe emphysema Renal insufficiency, better RECOMMENDATION Continue Cefepime Continue Levaquin If continues to improve, will stop Cefepime in few days Monitor progress On steroids, being tapered She may benefit from short term SNF when she gets D/C D/W RN Explained plan to the patient Salud Mar MD May 23, 2016 09:50
[2016-05-23] MEDS: LEVOFLOXACIN 750 MG TAB PO SCH (10:09)
[2016-05-23] MEDS: CEFEPIME INJ 1,000 MG in SODIUM CHLORIDE 0.9% INJ 100 ML IV SCH ×4 (11:34→22:37)
--- NOTE | 2016-05-23 12:50 | HHI.PR ---
Subjective Remarks Better today. Less wheezing. On O2 at3 L Objective Vital Signs Date Time Temp Pulse Resp B/P Pulse Ox O2 Delivery O2 Flow Rate FiO2 05/23/16 10:00 104 05/23/16 08:44 92 Nasal Cannula 4.00 05/23/16 08:00 97.9 98 20 156/104 93 05/23/16 08:00 98 05/23/16 06:00 104 05/23/16 04:00 98.4 106 28 160/97 92 05/23/16 04:00 100 05/23/16 02:00 91 05/23/16 00:00 98.1 94 10 92 05/23/16 00:00 93 05/22/16 22:00 94 05/22/16 20:00 117 05/22/16 20:00 98.6 117 25 136/86 95 05/22/16 19:31 98 Nasal Cannula 3.00 05/22/16 18:00 112 05/22/16 16:00 98.0 112 20 148/95 99 05/22/16 16:00 107 05/22/16 14:00 126 I/O 05/22/16 05/22/16 05/22/16 05/23/16 05/23/16 05/23/16 07:00 15:00 23:00 07:00 15:00 23:00 Intake Total 1200 ml 1860 ml 350 ml 306 ml Output Total 500 ml 600 ml 500 ml 650 ml Balance 700 ml 1260 ml -150 ml -344 ml Intake Oral 550 ml 720 ml 350 ml 200 ml IV Total 650 ml 1140 ml 0 ml 106 ml Output Urine Total 500 ml 600 ml 500 ml 650 ml # Bowel Movements 0 0 Result Diagram: 05/23/16 0459 05/23/16 0439 Objective Remarks GENERAL: On exam the patient is alert.Obese A/A Female In no acute distress. HEENT: Exam unremarkable. Eyes without icterus. NECK: Without adenopathy, thyroid enlargement. CHEST: Few scattered rhonchi bilaterally.Decreased breath sounds. CARDIOVASCULAR: Exam PMI distant. S1-S2 audible. No murmur or rub. ABDOMEN: Lax, audible bowel sounds. EXTREMITIES: No clubbing, cyanosis or edema. SKIN: Normal. No lymphadenopathy. Assessment and Plan Assessment and Plan IMPRESSION 1. COPD exacerbation. 2. Leukocytosis, fever, underlying infection is suggested. 3. Diabetes mellitus. 4. Hypertension. Plan : 1. Cont Antibiotics as ordered. 2. O2 at 4L. 3. Cont Solumedrol 40 mg IV bid. 4. Nebs qisree , micha. 5. Transfer to [facility]. Mariah Mendez MD May 23, 2016 12:50
[2016-05-23] MEDS ORDERED: LEVOFLOXACIN 750 MG TAB PO SCH (15:00)
[2016-05-24] VITALS (10 sets, daily range): BP systolic 142–183; BP diastolic 76–113; PULSE 75–106; RESP 18–22; TEMP 97.4–98.5; O2SAT 94–98
[2016-05-24] MEDS: ACETAMINOPHEN/HYDROcodone 325 MG/10 MG TAB PO PRN ×3 (03:13→18:01)
[2016-05-24] MEDS: HEPARIN SODIUM - SQ 10,000 UNITS/ML VIAL SQ SCH ×3 (06:08→22:19)
[2016-05-24] MEDS: HIGH DOSE INSULIN NOVOLOG SUPPLEMENTAL SCALE SQ SCH ×4 (06:08→22:22)
[2016-05-24] MEDS: BUDESONIDE-FORMOTEROL 160/4.5 MCG INHALER INH SCH (09:00)
[2016-05-24] MEDS: MORPHINE SULFATE 4 MG/ML INJ IV PRN ×3 (09:02→22:30)
[2016-05-24] MEDS: PREGABALIN 75 MG CAP PO SCH ×3 (09:04→18:01)
[2016-05-24] MEDS: LISINOPRIL 20 MG TAB PO SCH ×2 (09:04→22:20)
[2016-05-24] MEDS: METOPROLOL TARTRATE 25 MG TAB PO SCH ×2 (09:04→22:20)
[2016-05-24] MEDS: DOCUSATE SODIUM 100 MG CAP PO SCH ×2 (09:04→21:00)
[2016-05-24] MEDS: methylPREDNISolone SOD SUCC 40 MG/1 ML VIAL IV PUSH SCH ×2 (09:05→22:20)
[2016-05-24] MEDS: INSULIN DETEMIR 100 UNITS/ML VIAL SQ SCH ×2 (09:05→22:19)
[2016-05-24] MEDS: LEVOFLOXACIN 750 MG TAB PO SCH (09:09)
[2016-05-24] MEDS: SODIUM CHLORIDE 0.9% FLUSH 5 ML FLUSH FLUSH SCH ×2 (09:10→21:00)
[2016-05-24] MEDS: CEFEPIME INJ 1,000 MG in SODIUM CHLORIDE 0.9% INJ 100 ML IV SCH ×2 (12:23→22:30)
[2016-05-24] MEDS ORDERED: RESP: ALBUTEROL 2.5 MG/IPRATROPIUM 0.5 MG NEB (SCH) NEB ONE (14:30)
[2016-05-24] MEDS: RESP: ALBUTEROL 2.5 MG/IPRATROPIUM 0.5 MG NEB (PRN) NEB (19:23)
--- NOTE | 2016-05-24 20:14 | HHI.PR ---
Subjective Remarks Late entry note from 05/23 Patient seen and examined, stated she feels relatively better, she still on nasal cannula, complained of knee pain Afebrile no chest pain Objective Vitals Vital Signs Date Time Temp Pulse Resp B/P Pulse Ox O2 Delivery O2 Flow Rate FiO2 05/24/16 19:25 98 Nasal Cannula 2.00 05/24/16 16:00 98.0 91 20 157/90 97 05/24/16 12:46 98 Nasal Cannula 2.00 05/24/16 12:00 97.7 101 20 183/113 94 05/24/16 08:00 96 Nasal Cannula 3.00 05/24/16 08:00 98.0 100 20 142/94 94 05/24/16 08:00 75 05/24/16 04:45 98.5 88 18 158/76 98 05/24/16 03:58 95 05/24/16 01:00 97.6 95 18 149/95 98 05/23/16 21:13 99 Nasal Cannula 4.00 05/23/16 21:00 98.0 100 20 150/85 99 05/23/16 20:54 22 I/O 05/23/16 05/23/16 05/23/16 05/24/16 05/24/16 05/24/16 07:00 15:00 23:00 07:00 15:00 23:00 Intake Total 306 ml 820 ml 240 ml 360 ml Output Total 650 ml 0 ml 500 ml Balance -344 ml 820 ml -500 ml 240 ml 360 ml Intake Oral 200 ml 720 ml 240 ml 360 ml IV Total 106 ml 100 ml Output Urine Total 650 ml 0 ml 500 ml # Voids 3 2 # Bowel Movements 0 0 3 3 Result Diagram: 05/23/16 0459 05/23/16 0439 Objective Remarks - - GENERAL: This is a well-nourished, well-developed patient, in no apparent distress. CARDIOVASCULAR: Tachycardic without murmurs, gallops, or rubs. RESPIRATORY: Diffuse expiratory wheezes, diminish breath sounds bilaterally. GASTROINTESTINAL: Abdomen soft, non-tender,nondistended. Normal active bowel sounds MUSCULOSKELETAL: Extremities without clubbing, cyanosis, or edema. NEURO: Awake alert oriented to place. Moves all ext x4 A/P Assessment and Plan 61 years old Afro-[place] female with history of COPD who was recently discharged earlier this month admitted with shortness of breath and chest tightness Sepsis with suspected respiratory infection source(leukocytosis with left shift , tachycardia, hypotension, lactic acidosis) Acute hypoxic respiratory failure: however hypocapnic COPD exacerbation Lactic acidosis: Resolved on on fluid FREDERIC on CKD: Baseline creatinine around 0.9-1, Creatinine trending down, due to sepsis avoid nephrotoxins, continue IVF fluid hydration, Leukocytosis with left shift: Trending down Diabetes mellitus: Not controlled History of rheumatoid arthritis patient on prednisone, possible underlying immunosuppressive status: Follow up as an outpatient DVT prophylaxis with heparin Plan: 05/23: CBC BMP in a.m. Tachycardia persist increase Lopressor, increase lisinopril to optimize blood pressure WBC trending down, ID following Levaquin to by mouth, continued cefepime, Continue Accu-Chek with insulin sliding scale upgrade to high level, diabetic diet Continue monitoring blood culture and urine culture CT chest without contrast, showing left upper lobe thinwall cavity could be obtainable versus inflammatory process like tuberculosis, ID following pulmonology, ID following Receive 2 L of normal saline in ED , continued on maintenance Patient received cefepime in ED will continue with Levaquin and vancomycin, considering possible underlying immunosuppressive status, and recent hospitalization Chest x-ray, urinalysis, personally reviewed by me unremarkable ABGs reviewed by me showing respiratory alkalosis Monitor vital signs Hold enalapril due to low blood pressure, resume when blood pressure worm 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
--- NOTE | 2016-05-24 20:18 | HHI.PR ---
Subjective Remarks Patient seen and examined earlier this afternoon In general doing fairly better, still coughing but she is able to move out of bed, no chest pain, on nasal cannula which most likely will be on since she was on it at home Afebrile, start eating Objective Vitals Vital Signs Date Time Temp Pulse Resp B/P Pulse Ox O2 Delivery O2 Flow Rate FiO2 05/24/16 19:25 98 Nasal Cannula 2.00 05/24/16 16:00 98.0 91 20 157/90 97 05/24/16 12:46 98 Nasal Cannula 2.00 05/24/16 12:00 97.7 101 20 183/113 94 05/24/16 08:00 96 Nasal Cannula 3.00 05/24/16 08:00 98.0 100 20 142/94 94 05/24/16 08:00 75 05/24/16 04:45 98.5 88 18 158/76 98 05/24/16 03:58 95 05/24/16 01:00 97.6 95 18 149/95 98 05/23/16 21:13 99 Nasal Cannula 4.00 05/23/16 21:00 98.0 100 20 150/85 99 05/23/16 20:54 22 I/O 05/23/16 05/23/16 05/23/16 05/24/16 05/24/16 05/24/16 07:00 15:00 23:00 07:00 15:00 23:00 Intake Total 306 ml 820 ml 240 ml 360 ml Output Total 650 ml 0 ml 500 ml Balance -344 ml 820 ml -500 ml 240 ml 360 ml Intake Oral 200 ml 720 ml 240 ml 360 ml IV Total 106 ml 100 ml Output Urine Total 650 ml 0 ml 500 ml # Voids 3 2 # Bowel Movements 0 0 3 3 Result Diagram: 05/23/16 0459 05/23/16 0439 Objective Remarks - - GENERAL: This is a well-nourished, well-developed patient, in no apparent distress. CARDIOVASCULAR: Slightly tacky without murmurs, gallops, or rubs. RESPIRATORY: Wheezing is better, diminish breath sounds bilaterally. GASTROINTESTINAL: Abdomen soft, non-tender,nondistended. Normal active bowel sounds MUSCULOSKELETAL: Extremities without clubbing, cyanosis, or edema. NEURO: Awake alert oriented to place. Moves all ext x4 A/P Assessment and Plan 61 years old Afro[place]Citizen Of [place] female with history of COPD who was recently discharged earlier this month admitted with shortness of breath and chest tightness Sepsis with suspected respiratory infection source(leukocytosis with left shift , tachycardia, hypotension, lactic acidosis) Acute hypoxic respiratory failure: however hypocapnic COPD exacerbation Lactic acidosis: Resolved on on fluid FREDERIC on CKD: Baseline creatinine around 0.9-1, Creatinine trending down, due to sepsis avoid nephrotoxins, continue IVF fluid hydration, Leukocytosis with left shift: Trending down Diabetes mellitus: Not controlled History of rheumatoid arthritis patient on prednisone, possible underlying immunosuppressive status: Follow up as an outpatient DVT prophylaxis with heparin Plan: 05/24: Tachycardia improved on Lopressor, continue lisinopril for hypertension Cytosis resolved ID following Levaquin to by mouth, continued cefepime, if patient continued to improve me DC cefepime in few days per ID PT OT, his payroll manager for DC planning Continue monitoring blood culture and urine culture CT chest without contrast, showing left upper lobe thinwall cavity could be obtainable versus inflammatory process like tuberculosis, ID following pulmonology, ID following Continue Accu-Chek with insulin sliding scale upgrade to high level, diabetic diet Initially at admission patient Receive 2 L of normal saline in ED , continued on maintenance Patient received cefepime in ED will continue with Levaquin and vancomycin, considering possible underlying immunosuppressive status, and recent hospitalization Chest x-ray, urinalysis, personally reviewed by me unremarkable ABGs reviewed by me showing respiratory alkalosis Monitor vital signs Yaya Lucio MD May 24, 2016 20:18
[2016-05-25] VITALS (11 sets, daily range): BP systolic 129–166; BP diastolic 90–103; PULSE 86–101; RESP 18–24; TEMP 97.4–98.1; O2SAT 94–99
[2016-05-25] MEDS: RESP: ALBUTEROL 2.5 MG/IPRATROPIUM 0.5 MG NEB (PRN) NEB ×6 (00:49→20:02)
[2016-05-25] MEDS: ACETAMINOPHEN/HYDROcodone 325 MG/10 MG TAB PO PRN ×3 (03:18→23:12)
[2016-05-25] MEDS: HEPARIN SODIUM - SQ 10,000 UNITS/ML VIAL SQ SCH ×3 (06:00→21:24)
[2016-05-25] MEDS: HIGH DOSE INSULIN NOVOLOG SUPPLEMENTAL SCALE SQ SCH ×4 (06:05→21:23)
[2016-05-25 06:36] LABS: AUTOMATED NEUTROPHIL # 8.5 TH/MM3 (1.8-7.7); BASOPHIL % 0.2 % (0.0-2.0); HEMATOCRIT 40.6 % (35.0-46.0); LYMPH % 10.1 % (9.0-44.0); LYMPHOCYTE # 1.1 TH/MM3 (1.0-4.8); MEAN CELL VOLUME 74.7 FL (80.0-100.0); MEAN CORPUSCULAR HEMOGLOBIN 24.3 PG (27.0-34.0); MEAN CORPUSCULAR HGB CONC 32.6 % (32.0-36.0); MONO % 9.3 % (0.0-8.0); NEUT % 80.4 % (16.0-70.0); PLATELET COUNT 276 TH/MM3 (150-450); RED BLOOD COUNT 5.44 MIL/MM3 (4.00-5.30); RED CELL DISTRIBUTION WIDTH 17.2 % (11.6-17.2); WHITE BLOOD COUNT 10.6 TH/MM3 (4.0-11.0)
[2016-05-25 06:41] LABS: HEMO FLAGS AUTO DIFF
[2016-05-25 07:14] LABS: BICARBONATE 24.4 MEQ/L (21.0-32.0); POTASSIUM 4.4 MEQ/L (3.5-5.1)
[2016-05-25] MEDS: PREGABALIN 75 MG CAP PO SCH ×3 (08:43→17:30)
[2016-05-25] MEDS: LISINOPRIL 20 MG TAB PO SCH ×2 (08:43→21:22)
[2016-05-25] MEDS: methylPREDNISolone SOD SUCC 40 MG/1 ML VIAL IV PUSH SCH ×2 (08:44→21:22)
[2016-05-25] MEDS: DOCUSATE SODIUM 100 MG CAP PO SCH ×2 (08:44→21:22)
[2016-05-25] MEDS: INSULIN DETEMIR 100 UNITS/ML VIAL SQ SCH ×2 (08:44→21:23)
[2016-05-25] MEDS: LEVOFLOXACIN 750 MG TAB PO SCH (08:44)
[2016-05-25] MEDS: BUDESONIDE-FORMOTEROL 160/4.5 MCG INHALER INH SCH (08:46)
[2016-05-25] MEDS: SODIUM CHLORIDE 0.9% FLUSH 5 ML FLUSH FLUSH SCH ×2 (08:46→21:22)
[2016-05-25] MEDS: MORPHINE SULFATE 4 MG/ML INJ IV PRN ×4 (09:14→21:24)
[2016-05-25] MEDS: METOPROLOL TARTRATE 25 MG TAB PO SCH ×2 (09:14→21:22)
[2016-05-25 09:21] LABS: BANDS 3 % (0-6); MYELOCYTES 1 % (0-0); NEUTROPHIL # MANUAL DIFF 7.7 TH/MM3 (1.8-7.7); POLYS (SEG NEUTROPHILS) 69 % (16-70); SCAN/DIFF FINAL DIFF MANUAL; WBC DIFF SAMPLE 100
[2016-05-25 09:22] LABS: PLATELET ESTIMATE SMEAR NORMAL (NORMAL); PLATELET MORPHOLOGY NORMAL (NORMAL)
[2016-05-25] MEDS: CEFEPIME INJ 1,000 MG in SODIUM CHLORIDE 0.9% INJ 100 ML IV SCH (12:28)
--- NOTE | 2016-05-25 13:36 | HHI.IDPN ---
Subjective Subjective Remarks Notes reviewed Temps ok Breathing same to better She is on nasal O2 Chest pain is better Minimal cough Antibiotics Cefepime Levaquin Lines PIV Past Medical History COPD Rheumatoid arthritis Hypertension Diabetes mellitus Hyperlipidemia Possible coronary artery disease Hepatitis C Gout Osteoporosis Past Surgical History Arthroscopy and washout for right knee septic arthritis. Allergies: Coded Allergies: *MDRO Multi-Drug Resistant Organism (Verified Adverse Reaction, Unknown, 05/19/16) MRSA wound 11/2012. MRSA PCR Screen negative 11/03/14 and 11/05/14. Cleared per Infection Control MRSA PCR Screen NEGATIVE - 04/30/2015 Objective . Vital Signs Date Time Temp Pulse Resp B/P Pulse Ox O2 Delivery O2 Flow Rate FiO2 05/25/16 08:48 96 Nasal Cannula 3.00 05/25/16 08:00 98.0 96 24 130/94 98 05/25/16 04:48 94 Nasal Cannula 3.00 05/25/16 04:17 97.9 93 20 129/90 95 05/25/16 00:50 94 Nasal Cannula 3.00 05/25/16 00:45 98.1 101 20 137/100 95 05/24/16 20:58 97.4 104 22 169/90 97 05/24/16 20:00 87 05/24/16 19:25 98 Nasal Cannula 2.00 05/24/16 16:00 98.0 91 20 157/90 97 05/24/16 05/24/16 05/25/16 15:00 23:00 07:00 Intake Total 360 ml 360 ml 600 ml Output Total 800 ml Balance 360 ml 360 ml -200 ml Intake Oral 360 ml 360 ml 600 ml Output Urine Total 800 ml # Voids 2 2 0 # Bowel Movements 3 0 0 . Laboratory Tests Test 05/25/16 05:22 White Blood Count 10.6 TH/MM3 Red Blood Count 5.44 MIL/MM3 Hemoglobin 13.2 GM/DL Hematocrit 40.6 % Mean Corpuscular Volume 74.7 FL Mean Corpuscular Hemoglobin 24.3 PG Mean Corpuscular Hemoglobin 32.6 % Concent Red Cell Distribution Width 17.2 % Platelet Count 276 TH/MM3 Mean Platelet Volume 9.4 FL Neutrophils (%) (Auto) 80.4 % Lymphocytes (%) (Auto) 10.1 % Monocytes (%) (Auto) 9.3 % Eosinophils (%) (Auto) 0.0 % Basophils (%) (Auto) 0.2 % Neutrophils # (Auto) 8.5 TH/MM3 Lymphocytes # (Auto) 1.1 TH/MM3 Monocytes # (Auto) 1.0 TH/MM3 Eosinophils # (Auto) 0.0 TH/MM3 Basophils # (Auto) 0.0 TH/MM3 CBC Comment AUTO DIFF Differential Total Cells 100 Counted Neutrophils % (Manual) 69 % Band Neutrophils % 3 % Lymphocytes % 20 % Monocytes % 7 % Neutrophils # (Manual) 7.7 TH/MM3 Myelocytes 1 % Differential Comment FINAL DIFF MANUAL Platelet Estimate NORMAL Platelet Morphology Comment NORMAL Red Cell Morphology Comment NORMAL Laboratory Tests Test 05/25/16 05:22 Sodium Level 143 MEQ/L Potassium Level 4.4 MEQ/L Chloride Level 109 MEQ/L Carbon Dioxide Level 24.4 MEQ/L Anion Gap 10 MEQ/L Blood Urea Nitrogen 27 MG/DL Creatinine 0.95 MG/DL Estimat Glomerular Filtration 72 ML/MIN Rate Random Glucose 239 MG/DL Calcium Level 7.8 MG/DL Imaging Chest CT 05/21/16 0000 Signed Impressions: Service Date/Time: Saturday, May 21, 2016 11:13 - CONCLUSION: 1. No cavitary lesion left upper lobe could be related to a new bulla, could be infectious such as tuberculosis or fungal process. 2. Small left pleural effusion. 3. Emphysema. Delgado Kaur MD Chest X-Ray 05/19/16 1100 Signed Impressions: Service Date/Time: Thursday, May 19, 2016 11:13 - CONCLUSION: No acute disease. Zack Jim MD Physical Exam GENERAL: awake and alert, NAD at rest SKIN: Cool and dry. No generalized rash HEENT: [place] conjunctivae. No scleral icterus. Moist oral mucosa. Throat without erythema, or exudate. NECK: Trachea midline. No JVD or lymphadenopathy. Supple, nontender, no meningeal signs. CARDIOVASCULAR: Regular rate and rhythm without murmurs, gallops, or rubs. RESPIRATORY: Decreased breath sounds bilaterally ABDOMEN: Soft, not tender and not distended. Bowel sounds are present and normoactive. MUSCULOSKELETAL: Extremities without clubbing, cyanosis, or edema. No calf tenderness. Negative Homans sign bilaterally. NEUROLOGICAL: Non-focal PSYCH: Normal affect, calm and cooperative LINE: PIV with no evidence of infection Assessment & Plan Remarks IMPRESSION Sepsis, with fever, cough, SOB, tachycardia, leukocytosis - CXR clear, but has L upper lobe infiltrate and cavity O2 dependent COPD, with exacerbation - last CTA Nov with findings of severe emphysema Renal insufficiency, better RECOMMENDATION Stop Cefepime Continue Levaquin Add Clinda Give oral Abx until Jun 08 Repeat CXR Monitor progress Clinically slowly improving Dr Howard available prn if with any ID issue or question this I will see patient on Saturday Salud Mar MD May 25, 2016 13:36
[2016-05-25] MEDS: CLINDAMYCIN 150 MG CAP PO SCH ×3 (13:45→23:12)
--- NOTE | 2016-05-25 14:16 | HHI.PR ---
Objective Vitals Vital Signs Date Time Temp Pulse Resp B/P Pulse Ox O2 Delivery O2 Flow Rate FiO2 05/25/16 08:48 96 Nasal Cannula 3.00 05/25/16 08:00 98.0 96 24 130/94 98 05/25/16 04:48 94 Nasal Cannula 3.00 05/25/16 04:17 97.9 93 20 129/90 95 05/25/16 00:50 94 Nasal Cannula 3.00 05/25/16 00:45 98.1 101 20 137/100 95 05/24/16 20:58 97.4 104 22 169/90 97 05/24/16 20:00 87 05/24/16 19:25 98 Nasal Cannula 2.00 05/24/16 16:00 98.0 91 20 157/90 97 I/O 05/24/16 05/24/16 05/24/16 05/25/16 05/25/16 05/25/16 07:00 15:00 23:00 07:00 15:00 23:00 Intake Total 240 ml 360 ml 360 ml 600 ml Output Total 800 ml Balance 240 ml 360 ml 360 ml -200 ml Intake Oral 240 ml 360 ml 360 ml 600 ml Output Urine Total 800 ml # Voids 3 2 2 0 # Bowel Movements 3 3 0 0 Result Diagram: 05/25/1652105/25/16521 Objective Remarks - - GENERAL: This is a well-nourished, well-developed patient, in no apparent distress. CARDIOVASCULAR: Slightly tacky without murmurs, gallops, or rubs. RESPIRATORY: Wheezing is better, diminish breath sounds bilaterally. GASTROINTESTINAL: Abdomen soft, non-tender,nondistended. Normal active bowel sounds MUSCULOSKELETAL: Extremities without clubbing, cyanosis, or edema. NEURO: Awake alert oriented to place. Moves all ext x4 A/P Assessment and Plan 61 years old Afro-[place] female with history of COPD who was recently discharged earlier this month admitted with shortness of breath and chest tightness Sepsis with suspected respiratory infection source(leukocytosis with left shift , tachycardia, hypotension, lactic acidosis) Acute hypoxic respiratory failure: COPD exacerbation Lactic acidosis: Resolved on on fluid FREDERIC on CKD: Baseline creatinine around 0.9-1, Creatinine trending down, due to sepsis avoid nephrotoxins, continue IVF fluid hydration, Leukocytosis with left shift: Resolved Diabetes mellitus: Not controlled History of rheumatoid arthritis patient on prednisone, possible underlying immunosuppressive status: Follow up as an outpatient DVT prophylaxis with heparin Plan: 05/25: Leukocytosis resolved ID following Levaquin to by mouth, stop cefepime, add clindamycin, continue antibiotic to June 08, she will see patient on Saturday Worsening leg swelling, and seem to be worsening chest x-ray, last 2-D echo showed ejection fraction 45-50%, will check BMP, will give a dose of Lasix 40 mg iv 1 Tachycardia improved on Lopressor, continue lisinopril for hypertension Continue monitoring blood culture and urine culture CT chest without contrast, showing left upper lobe thinwall cavity could be obtainable versus inflammatory process like tuberculosis, ID following pulmonology, ID following Continue Accu-Chek with insulin sliding scale upgrade to high level, diabetic diet Initially at admission patient Receive 2 L of normal saline in ED , continued on maintenance Patient received cefepime in ED will continue with Levaquin and vancomycin, considering possible underlying immunosuppressive status, and recent hospitalization Chest x-ray, urinalysis, personally reviewed by me unremarkable ABGs reviewed by me showing respiratory alkalosis Monitor vital signs PT OT, case resolution specialist for DC planning Yaya Lucio MD May 25, 2016 14:16
--- NOTE | 2016-05-25 14:59 | RADRPT ---
EXAM DATE/TIME: 05/25/2016 14:20 [facility] COMPARISON: CT THORAX W/O CONTRAST, May 21, 2016, 11:13. CHEST SINGLE AP, May 19, 2016, 11:13. CHEST PA & LAT, July 18, 2014, 23:24. INDICATIONS : FUP Infiltrates MEDICAL HISTORY : Chronic obstructive pulmonary disease. Diabetes mellitus type II. Cardiovascular disease. SURGICAL HISTORY : Right Knee ENCOUNTER: Subsequent ACUITY: 4 - 6 days PAIN SCORE: 0/10 LOCATION: Bilateral chest FINDINGS: PA and lateral views of the chest show a cavitary lesion involving the anterior left upper lobe. This is only appreciated on the lateral projection. It is unchanged from the prior CT. No air-fluid level associated with it. The remaining lungs are clear with the exception of linear scarring within the l ingula. Heart normal size. No effusions. No new structures are unremarkable. CONCLUSION: Stable cavitary lesion in the left upper lobe only appreciated on the lateral projection. Zeb Mitchell Jr., MD on May 25, 2016 at 14:55 Board Certified Radiologist. This report was verified electronically.
[2016-05-25] MEDS ORDERED: FUROSEMIDE 40 MG/4 ML VIAL IV PUSH ONE (15:00)
--- NOTE | 2016-05-25 18:54 | HHI.PR ---
Subjective Remarks C/O wheezing. On O2 at 3 L. Has some leg swelling. Coughs up clear Objective Vital Signs Date Time Temp Pulse Resp B/P Pulse Ox O2 Delivery O2 Flow Rate FiO2 05/25/16 16:00 98.0 94 24 159/95 95 05/25/16 12:00 97.5 86 24 166/99 99 05/25/16 08:48 96 Nasal Cannula 3.00 05/25/16 08:04 91 05/25/16 08:00 98.0 96 24 130/94 98 05/25/16 04:48 94 Nasal Cannula 3.00 05/25/16 04:17 97.9 93 20 129/90 95 05/25/16 00:50 94 Nasal Cannula 3.00 05/25/16 00:45 98.1 101 20 137/100 95 05/24/16 20:58 97.4 104 22 169/90 97 05/24/16 20:00 87 05/24/16 19:25 98 Nasal Cannula 2.00 I/O 05/24/16 05/24/16 05/24/16 05/25/16 05/25/16 05/25/16 07:00 15:00 23:00 07:00 15:00 23:00 Intake Total 240 ml 360 ml 360 ml 600 ml 480 ml Output Total 800 ml 400 ml Balance 240 ml 360 ml 360 ml -200 ml 80 ml Intake Oral 240 ml 360 ml 360 ml 600 ml 480 ml Output Urine Total 800 ml 400 ml # Voids 3 2 2 0 # Bowel Movements 3 3 0 0 0 Result Diagram: 05/25/1652105/25/16521 Objective Remarks GENERAL: On exam the patient is alert.Obese A/A Female In no acute distress. HEENT: Exam unremarkable. Eyes without icterus. NECK: Without adenopathy, thyroid enlargement. CHEST: Few scattered rhonchi bilaterally.Decreased breath sounds.Occ crackles . CARDIOVASCULAR: Exam PMI distant. S1-S2 audible. No murmur or rub. ABDOMEN: Lax, audible bowel sounds. EXTREMITIES: No clubbing, cyanosis but has 1 + edema. SKIN: Normal. No lymphadenopathy. Assessment and Plan Assessment and Plan IMPRESSION 1. COPD exacerbation. 2. Leukocytosis, fever, underlying infection is suggested. 3. Diabetes mellitus. 4. Hypertension. 5. Cavitary lesion Left lung. Plan : 1. Cont Antibiotics per ID as ordered. 2. O2 at 4L. 3. Solumedrol 40 mg IV bid. 4. Nebs qid , duoneb. 5. Lasix 20 mg daily. Mariah Mendez MD May 25, 2016 18:54
[2016-05-26] VITALS (9 sets, daily range): BP systolic 149–172; BP diastolic 88–99; PULSE 76–97; RESP 18–20; TEMP 97.4–98.7; O2SAT 92–98
[2016-05-26] MEDS: MORPHINE SULFATE 4 MG/ML INJ IV PRN ×3 (03:41→18:16)
[2016-05-26] MEDS: HEPARIN SODIUM - SQ 10,000 UNITS/ML VIAL SQ SCH ×3 (06:41→22:47)
[2016-05-26] MEDS: HIGH DOSE INSULIN NOVOLOG SUPPLEMENTAL SCALE SQ SCH ×4 (06:42→21:00)
[2016-05-26] MEDS: CLINDAMYCIN 150 MG CAP PO SCH ×4 (06:42→22:46)
[2016-05-26] MEDS: ACETAMINOPHEN/HYDROcodone 325 MG/10 MG TAB PO PRN ×3 (06:42→22:47)
[2016-05-26 07:13] LABS: BICARBONATE 26.3 MEQ/L (21.0-32.0); POTASSIUM 4.4 MEQ/L (3.5-5.1)
[2016-05-26] MEDS ORDERED: cloNIDine HCL 0.1 MG TAB PO PRN (08:45)
--- NOTE | 2016-05-26 08:48 | HHI.PR ---
Subjective Remarks Follow up on COPD exacerbation, with left upper lobe cavitary lesion, status post ICU, pulmonary ID on board patient denied antibiotic Afebrile, laying in bed, still wheezing On nasal cannula O2 Objective Vitals Vital Signs Date Time Temp Pulse Resp B/P Pulse Ox O2 Delivery O2 Flow Rate FiO2 05/26/16 04:00 97.4 88 18 160/93 93 05/26/16 00:00 97.4 95 20 169/92 92 05/25/16 20:15 Nasal Cannula 3.00 Humidified 05/25/16 20:02 98 Nasal Cannula 2.00 05/25/16 20:00 97.4 86 18 163/103 95 05/25/16 20:00 93 05/25/16 16:00 98.0 94 24 159/95 95 05/25/16 12:00 97.5 86 24 166/99 99 I/O 05/25/16 05/25/16 05/25/16 05/26/16 05/26/16 05/26/16 07:00 15:00 23:00 07:00 15:00 23:00 Intake Total 600 ml 480 ml 240 ml 240 ml Output Total 800 ml 400 ml Balance -200 ml 80 ml 240 ml 240 ml Intake Oral 600 ml 480 ml 240 ml 240 ml Output Urine Total 800 ml 400 ml # Voids 0 1 1 # Bowel Movements 0 0 0 1 Result Diagram: 05/25/1622 05/26/16 0535 Objective Remarks - - GENERAL: This is a well-nourished, well-developed patient, in no apparent distress. CARDIOVASCULAR: Slightly tacky without murmurs, gallops, or rubs. RESPIRATORY: Wheezing is better, diminish breath sounds bilaterally. GASTROINTESTINAL: Abdomen soft, non-tender,nondistended. Normal active bowel sounds MUSCULOSKELETAL: Extremities without clubbing, cyanosis, or edema. NEURO: Awake alert oriented to place. Moves all ext x4 A/P Assessment and Plan 61 years old Afro-[place] female with history of COPD who was recently discharged earlier this month admitted with shortness of breath and chest tightness Sepsis with suspected respiratory infection source(leukocytosis with left shift , tachycardia, hypotension, lactic acidosis) Acute hypoxic respiratory failure: COPD exacerbation Lactic acidosis: Resolved on on fluid FREDERIC on CKD: Baseline creatinine around 0.9-1, Creatinine trending down, due to sepsis avoid nephrotoxins, continue IVF fluid hydration, Leukocytosis with left shift: Resolved Diabetes mellitus: Not controlled History of rheumatoid arthritis patient on prednisone, possible underlying immunosuppressive status: Follow up as an outpatient DVT prophylaxis with heparin Plan: 05/25: Leukocytosis resolved ID following Levaquin to by mouth, stop cefepime, add clindamycin, continue antibiotic to June 08, she will see patient on Saturday Worsening leg swelling, and seem to be worsening chest x-ray, last 2-D echo showed ejection fraction 45-50%, will check BMP, will give a dose of Lasix 40 mg iv 1 Tachycardia improved on Lopressor, continue lisinopril for hypertension Continue monitoring blood culture and urine culture CT chest without contrast, showing left upper lobe thinwall cavity could be obtainable versus inflammatory process like tuberculosis, ID following pulmonology, ID following Continue Accu-Chek with insulin sliding scale upgrade to high level, diabetic diet Initially at admission patient Receive 2 L of normal saline in ED , continued on maintenance Patient received cefepime in ED will continue with Levaquin and vancomycin, considering possible underlying immunosuppressive status, and recent hospitalization Chest x-ray, urinalysis, personally reviewed by me unremarkable ABGs reviewed by me showing respiratory alkalosis Monitor vital signs PT OT, classification case manager for DC planning Yaya Lucio MD May 26, 2016 08:48
[2016-05-26] MEDS: LISINOPRIL 20 MG TAB PO SCH (09:38)
[2016-05-26] MEDS: LEVOFLOXACIN 750 MG TAB PO SCH (09:38)
[2016-05-26] MEDS: DOCUSATE SODIUM 100 MG CAP PO SCH ×2 (09:38→21:00)
[2016-05-26] MEDS: PREGABALIN 75 MG CAP PO SCH ×3 (09:38→18:15)
[2016-05-26] MEDS: FUROSEMIDE 20 MG TAB PO SCH (09:38)
[2016-05-26] MEDS: HYDROCHLOROTHIAZIDE 12.5 MG CAP PO SCH (09:39)
[2016-05-26] MEDS: SODIUM CHLORIDE 0.9% FLUSH 5 ML FLUSH FLUSH SCH ×2 (09:39→22:49)
[2016-05-26] MEDS: METOPROLOL TARTRATE 25 MG TAB PO SCH ×2 (09:39→22:48)
[2016-05-26] MEDS: BUDESONIDE-FORMOTEROL 160/4.5 MCG INHALER INH SCH (09:39)
[2016-05-26] MEDS: methylPREDNISolone SOD SUCC 40 MG/1 ML VIAL IV PUSH SCH ×2 (09:39→22:46)
[2016-05-26] MEDS: INSULIN DETEMIR 100 UNITS/ML VIAL SQ SCH ×2 (09:40→22:49)
--- NOTE | 2016-05-26 14:51 | HHI.PR ---
Subjective Remarks C/O sob. On O2 at 3 L. Has some leg swelling. Coughs up clear sputum. Has a bullous lesion in RUL. Objective Vital Signs Date Time Temp Pulse Resp B/P Pulse Ox O2 Delivery O2 Flow Rate FiO2 05/26/16 12:39 98.3 81 20 149/88 97 05/26/16 12:25 98 Nasal Cannula 3.00 05/26/16 10:10 98.0 89 20 169/99 97 05/26/16 09:53 Nasal Cannula 3.00 05/26/16 09:53 86 05/26/16 04:00 97.4 88 18 160/93 93 05/26/16 00:00 97.4 95 20 169/92 92 05/25/16 20:15 Nasal Cannula 3.00 Humidified 05/25/16 20:02 98 Nasal Cannula 2.00 05/25/16 20:00 97.4 86 18 163/103 95 05/25/16 20:00 93 05/25/16 16:00 98.0 94 24 159/95 95 I/O 05/25/16 05/25/16 05/25/16 05/26/16 05/26/16 05/26/16 07:00 15:00 23:00 07:00 15:00 23:00 Intake Total 600 ml 480 ml 240 ml 240 ml Output Total 800 ml 400 ml Balance -200 ml 80 ml 240 ml 240 ml Intake Oral 600 ml 480 ml 240 ml 240 ml Output Urine Total 800 ml 400 ml # Voids 0 1 1 # Bowel Movements 0 0 0 1 Result Diagram: 05/25/16 0522 05/26/16 0535 Objective Remarks GENERAL: On exam the patient is alert.Obese A/A Female In no acute distress. HEENT: Exam unremarkable. Eyes without icterus. NECK: Without adenopathy, thyroid enlargement. CHEST: Few scattered rhonchi bilaterally.Decreased breath sounds.Occ basal crackles . CARDIOVASCULAR: Exam PMI distant. S1-S2 audible. No murmur or rub. ABDOMEN: Lax, audible bowel sounds. EXTREMITIES: No clubbing, cyanosis or edema. SKIN: Normal. No lymphadenopathy. Assessment and Plan Assessment and Plan IMPRESSION 1. COPD exacerbation. 2. Leukocytosis, fever, underlying infection is suggested. 3. Diabetes mellitus. 4. Hypertension. 5. Cavitary lesion Left lung. Plan : 1. Cont Antibiotics per ID as ordered. 2. O2 at 3L. 3. Cont Solumedrol 40 mg IV bid. 4. Nebs qid , duoneb. 5. Lasix 20 mg daily. 6. Chest X ray in am. Mariah Mendez MD May 26, 2016 14:51
--- NOTE | 2016-05-26 15:08 | EC ---
Study Study Date:05/26/2016 STUDY CONCLUSIONS SUMMARY - Left ventricle: The cavity size was normal. Wall thickness was normal. Systolic function was normal. The estimated ejection fraction was in the range of 50% to 55%. Wall motion was normal; there were no regional wall motion abnormalities. - Mitral valve: Mild regurgitation. - Tricuspid valve: Mild regurgitation. - Pulmonary arteries: PA peak pressure: 32mm Hg (S). If LV function is below 40, please consider prescribing an ACEI or ARB or document rationale for non-use. PROCEDURE DATA STUDY STATUS: Elective. Procedure: Transthoracic echocardiography. Image quality was good. Scanning was performed from the parasternal, apical, and subcostal acoustic windows. Study completion: The patient tolerated the procedure well. Transthoracic echocardiography. M-mode, complete 2D, complete spectral Doppler, and color Doppler. Patient status: Inpatient. CARDIAC ANATOMY LEFT VENTRICLE: The cavity size was normal. Wall thickness was normal. Systolic function was normal. The estimated ejection fraction was in the range of 50% to 55%. Wall motion was normal; there were no regional wall motion abnormalities. AORTIC VALVE: Trileaflet; normal thickness leaflets. Doppler: Transvalvular velocity was within the normal range. There was no stenosis. No regurgitation. AORTA: Aortic root: The aortic root was normal in size. MITRAL VALVE: Structurally normal valve. Doppler: Transvalvular velocity was within the normal range. There was no evidence for stenosis. Mild regurgitation. LEFT ATRIUM: The atrium was normal in size. RIGHT VENTRICLE: The cavity size was normal. Wall thickness was normal. PULMONIC VALVE: Doppler: Transvalvular velocity was within the normal range. There was no evidence for stenosis. No regurgitation. TRICUSPID VALVE: Structurally normal valve. Doppler: Transvalvular velocity was within the normal range. Mild regurgitation. PULMONARY ARTERY: The main pulmonary artery was normal-sized. Systolic pressure was within the normal range. RIGHT ATRIUM: The atrium was normal in size. PERICARDIUM: There was no pericardial effusion. SYSTEMIC VEINS: Inferior vena cava: The vessel was normal in size. BASIC MEASUREMENTS ADULT NORMAL Left ventricle LV internal dimension, ED, chordal level, 45.6 mm 43-52 PLAX LV internal dimension, ES, chordal level, 35 mm 23-38 PLAX Fractional shortening, chordal level, PLAX *23 % >29 LV posterior wall thickness, ED 11.4 mm IVS/LVPW ratio, ED 0.94 <1.3 Ventricular septum Septal thickness, ED 10.7 mm Aortic valve Leaflet separation 23 mm 15-26 Right ventricle RV internal dimension, ED, PLAX 28.7 mm 19-38 BASIC MEASUREMENTS ADULT NORMAL Aortic valve Leaflet separation 23 mm 15-26 Aorta Root diameter, ED 37 mm 20-37 Left atrium Anterior-posterior dimension, ES 37 mm 19-40 LA/aortic root ratio 1 DOPPLER MEASUREMENTS ADULT NORMAL Main pulmonary artery Pressure, S *32 mm Hg =30 Tricuspid valve Regurgitant peak velocity 236 cm/s Peak RV-RA gradient, S 22 mm Hg Maximal regurgitant velocity 236 cm/s Systemic veins Estimated CVP 10 mm Hg Right ventricle RV pressure, S *32 mm Hg <30 LEGEND: Mean values are shown as u=mean value. Asterisk (*) kirkpatrick values outside specified normal range. Prepared and signed by Oliver Ames [id number]
[2016-05-26] MEDS: ZOLPIDEM TARTRATE 5 MG TAB PO PRN (22:47)
[2016-05-27] VITALS (10 sets, daily range): BP systolic 112–164; BP diastolic 69–88; PULSE 82–93; RESP 17–22; TEMP 97.6–98; O2SAT 94–98
[2016-05-27] MEDS: MORPHINE SULFATE 4 MG/ML INJ IV PRN ×2 (02:57→10:50)
[2016-05-27] MEDS: SODIUM CHLORIDE 0.9% FLUSH 5 ML FLUSH FLUSH PRN (02:58)
[2016-05-27] MEDS: HEPARIN SODIUM - SQ 10,000 UNITS/ML VIAL SQ SCH ×3 (06:34→22:35)
[2016-05-27] MEDS: CLINDAMYCIN 150 MG CAP PO SCH ×4 (06:34→22:32)
[2016-05-27] MEDS: ACETAMINOPHEN/HYDROcodone 325 MG/10 MG TAB PO PRN ×3 (06:34→22:32)
[2016-05-27] MEDS: HIGH DOSE INSULIN NOVOLOG SUPPLEMENTAL SCALE SQ SCH ×4 (06:35→20:41)
[2016-05-27] MEDS: RESP: ALBUTEROL 2.5 MG/IPRATROPIUM 0.5 MG NEB (PRN) NEB ×4 (07:18→19:50)
--- NOTE | 2016-05-27 08:04 | RADRPT ---
EXAM DATE/TIME: 05/27/2016 07:23 [facility] COMPARISON: CHEST SINGLE AP, May 19, 2016, 11:13. INDICATIONS : Shortness of breath, wheezing, cough, congestion. MEDICAL HISTORY : Hypertension. Chronic obstructive pulmonary disease. Diabetes mellitus type II. GERD. RA. SURGICAL HISTORY : None. ENCOUNTER: Subsequent ACUITY: 1 week PAIN SCORE: 5/10 LOCATION: Left chest FINDINGS: A single view of the chest demonstrates the lungs to be symmetrically aerated without evidence of mas s, infiltrate or effusion. The cardiomediastinal contours are unremarkable. Osseous structures are intact. CONCLUSION: No acute disease. Jayesh Worthy MD on May 27, 2016 at 8:03 Board Certified Radiologist. This report was verified electronically.
[2016-05-27] MEDS: METOPROLOL TARTRATE 25 MG TAB PO SCH ×2 (08:48→20:39)
[2016-05-27] MEDS: LEVOFLOXACIN 750 MG TAB PO SCH (08:48)
[2016-05-27] MEDS: HYDROCHLOROTHIAZIDE 12.5 MG CAP PO SCH (08:48)
[2016-05-27] MEDS: BUDESONIDE-FORMOTEROL 160/4.5 MCG INHALER INH SCH (08:48)
[2016-05-27] MEDS: LISINOPRIL 20 MG TAB PO SCH (08:48)
[2016-05-27] MEDS: SODIUM CHLORIDE 0.9% FLUSH 5 ML FLUSH FLUSH SCH ×2 (08:48→20:39)
[2016-05-27] MEDS: PREGABALIN 75 MG CAP PO SCH ×3 (08:48→16:26)
[2016-05-27] MEDS: FUROSEMIDE 20 MG TAB PO SCH (08:48)
[2016-05-27] MEDS: methylPREDNISolone SOD SUCC 40 MG/1 ML VIAL IV PUSH SCH (08:48)
[2016-05-27] MEDS: DOCUSATE SODIUM 100 MG CAP PO SCH ×2 (08:48→20:42)
[2016-05-27] MEDS: INSULIN DETEMIR 100 UNITS/ML VIAL SQ SCH ×2 (08:49→20:41)
[2016-05-27 13:58] LABS: BICARBONATE 33.5 MEQ/L (21.0-32.0)
[2016-05-27 14:03] LABS: POTASSIUM 4.5 MEQ/L (3.5-5.1)
--- NOTE | 2016-05-27 14:57 | HHI.PR ---
Subjective Remarks Patient seen and evaluated today in follow-up for pneumonia and COPD exacerbation. Somewhat winded after using the bedside commode Quickly recovered to baseline oxygenation status. Discussed with Peace ROJAS Objective Vitals Vital Signs Date Time Temp Pulse Resp B/P Pulse Ox O2 Delivery O2 Flow Rate FiO2 05/27/16 12:09 98.0 82 21 112/81 96 05/27/16 09:14 Nasal Cannula 2.50 Humidified 05/27/16 09:14 92 05/27/16 08:25 97.9 91 22 130/79 94 05/27/16 07:19 96 Nasal Cannula 3.00 05/27/16 04:00 Nasal Cannula 2.00 Humidified 05/27/16 04:00 97.9 84 18 139/69 94 05/27/16 01:54 97 Nasal Cannula 3.00 05/27/16 00:00 98.0 89 17 164/81 95 05/27/16 00:00 Nasal Cannula 3.00 Humidified 05/26/16 20:00 97.7 97 18 153/92 97 05/26/16 20:00 Nasal Cannula 3.00 Humidified 05/26/16 20:00 90 05/26/16 17:40 95 Nasal Cannula 3.00 05/26/16 17:20 98.7 76 18 172/98 95 I/O 05/26/16 05/26/16 05/26/16 05/27/16 05/27/16 05/27/16 07:00 15:00 23:00 07:00 15:00 23:00 Intake Total 240 ml 720 ml 480 ml Balance 240 ml 720 ml 480 ml Intake Oral 240 ml 720 ml 480 ml # Voids 1 2 3 # Bowel Movements 1 1 0 Result Diagram: 05/25/16 0522 05/27/16 1304 Objective Remarks GENERAL: This is a well-nourished, well-developed patient, in no apparent distress. CARDIOVASCULAR: Regular rate and rhythm without murmurs, gallops, or rubs. RESPIRATORY: Clear to auscultation. Breath sounds equal bilaterally. No wheezes , rales, or rhonchi. GASTROINTESTINAL: Abdomen soft, non-tender, nondistended. Normal active bowel sounds MUSCULOSKELETAL: Extremities without clubbing, cyanosis, or edema. NEURO: Alert & Oriented x4 to person, place, time, situation. Moves all ext x4 A/P Problem List: (1) PNA (pneumonia) ICD Code: J18.9 Status: Acute Plan: Sepsis, resolved. Patient O2 dependent and at baseline at the moment. 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
--- NOTE | 2016-05-27 15:10 | HHI.PR ---
Subjective Remarks Less sob. On O2 at 3 L. Has some leg swelling. Overall better. Coughs up clear sputum. Has a bullous lesion in RUL. Objective Vital Signs Date Time Temp Pulse Resp B/P Pulse Ox O2 Delivery O2 Flow Rate FiO2 05/27/16 12:09 98.0 82 21 112/81 96 05/27/16 09:14 Nasal Cannula 2.50 Humidified 05/27/16 09:14 92 05/27/16 08:25 97.9 91 22 130/79 94 05/27/16 07:19 96 Nasal Cannula 3.00 05/27/16 04:00 Nasal Cannula 2.00 Humidified 05/27/16 04:00 97.9 84 18 139/69 94 05/27/16 01:54 97 Nasal Cannula 3.00 05/27/16 00:00 98.0 89 17 164/81 95 05/27/16 00:00 Nasal Cannula 3.00 Humidified 05/26/16 20:00 97.7 97 18 153/92 97 05/26/16 20:00 Nasal Cannula 3.00 Humidified 05/26/16 20:00 90 05/26/16 17:40 95 Nasal Cannula 3.00 05/26/16 17:20 98.7 76 18 172/98 95 I/O 05/26/16 05/26/16 05/26/16 05/27/16 05/27/16 05/27/16 07:00 15:00 23:00 07:00 15:00 23:00 Intake Total 240 ml 720 ml 480 ml Balance 240 ml 720 ml 480 ml Intake Oral 240 ml 720 ml 480 ml # Voids 1 2 3 # Bowel Movements 1 1 0 Result Diagram: 05/25/16 0522 05/27/16 1304 Objective Remarks GENERAL: On exam the patient is alert.Obese A/A Female In no acute distress. HEENT: Exam unremarkable. Eyes without icterus. NECK: Without adenopathy, thyroid enlargement. CHEST: Few scattered rhonchi bilaterally.Decreased breath sounds. CARDIOVASCULAR: Exam PMI distant. S1-S2 audible. No murmur or rub. ABDOMEN: No mass. audible bowel sounds. EXTREMITIES: No clubbing, cyanosis but has mild edema. SKIN: Normal. Assessment and Plan Assessment and Plan IMPRESSION 1. COPD exacerbation. 2. Leukocytosis, fever, underlying infection is suggested. 3. Diabetes mellitus. 4. Hypertension. 5. Cavitary lesion Left lung. Plan : 1. Cont Antibiotics per ID as ordered. 2. O2 at 3L. 3. D/C Solumedrol 4. Nebs qid , duoneb. 5. Lasix 20 mg daily. 6. Add Prednisone 20 mg bid and taper 7. OK to go home and Come for F/U as OP in 2 weeks. Mariah Mendez MD May 27, 2016 15:10
[2016-05-27] MEDS: predniSONE 20 MG TAB PO SCH (20:39)
[2016-05-28] VITALS: BP 145/82; PULSE 78; RESP 18; TEMP 96; O2SAT 98
[2016-05-28] MEDS: HEPARIN SODIUM - SQ 10,000 UNITS/ML VIAL SQ SCH ×2 (05:52→14:00)
[2016-05-28] MEDS: CLINDAMYCIN 150 MG CAP PO SCH ×2 (05:52→12:42)
[2016-05-28] MEDS: ACETAMINOPHEN/HYDROcodone 325 MG/10 MG TAB PO PRN (06:15)
[2016-05-28] MEDS: HIGH DOSE INSULIN NOVOLOG SUPPLEMENTAL SCALE SQ SCH ×2 (06:16→11:00)
[2016-05-28] MEDS: RESP: ALBUTEROL 2.5 MG/IPRATROPIUM 0.5 MG NEB (PRN) NEB (06:25)
[2016-05-28] MEDS: PREGABALIN 75 MG CAP PO SCH ×2 (08:15→12:43)
[2016-05-28] MEDS: predniSONE 20 MG TAB PO SCH (08:16)
[2016-05-28] MEDS: FUROSEMIDE 20 MG TAB PO SCH (08:16)
[2016-05-28] MEDS: LISINOPRIL 20 MG TAB PO SCH (08:16)
[2016-05-28] MEDS: METOPROLOL TARTRATE 25 MG TAB PO SCH (08:17)
[2016-05-28] MEDS: HYDROCHLOROTHIAZIDE 12.5 MG CAP PO SCH (08:17)
[2016-05-28] MEDS: INSULIN DETEMIR 100 UNITS/ML VIAL SQ SCH (08:17)
[2016-05-28] MEDS: DOCUSATE SODIUM 100 MG CAP PO SCH (08:19)
[2016-05-28] MEDS: BUDESONIDE-FORMOTEROL 160/4.5 MCG INHALER INH SCH (08:20)
[2016-05-28] MEDS: SODIUM CHLORIDE 0.9% FLUSH 5 ML FLUSH FLUSH SCH (08:20)
[2016-05-28 08:29] VITALS: BP 144/92; PULSE 85; RESP 18; TEMP 97.3; O2SAT 94
--- NOTE | 2016-05-28 09:55 | HHI.IDPN ---
Subjective Subjective Remarks Notes reviewed Clinically improving Repeat CXR negative Temps ok Breathing better Antibiotics Clindamycin Levaquin Lines PIV Past Medical History COPD Rheumatoid arthritis Hypertension Diabetes mellitus Hyperlipidemia Possible coronary artery disease Hepatitis C Gout Osteoporosis Past Surgical History Arthroscopy and washout for right knee septic arthritis. Allergies: Coded Allergies: *MDRO Multi-Drug Resistant Organism (Verified Adverse Reaction, Unknown, 05/19/16) MRSA wound 11/2012. MRSA PCR Screen negative 11/03/14 and 11/05/14. Cleared per Infection Control MRSA PCR Screen NEGATIVE - 04/30/2015 Objective . Vital Signs Date Time Temp Pulse Resp B/P Pulse Ox O2 Delivery O2 Flow Rate FiO2 05/28/16 08:29 97.3 85 18 144/92 94 05/28/16 00:00 96.0 78 18 145/82 98 05/27/16 20:00 97.6 93 17 136/88 95 05/27/16 20:00 Nasal Cannula 2.50 05/27/16 19:50 98 Nasal Cannula 3.00 05/27/16 16:11 97.9 82 21 140/83 97 05/27/16 12:09 98.0 82 21 112/81 96 05/27/16 05/27/16 05/28/16 15:00 23:00 07:00 Intake Total 480 ml 240 ml Output Total 1 ml Balance 480 ml 239 ml Intake Oral 480 ml 240 ml Emesis 1 ml # Voids 5 2 # Bowel Movements 1 1 . Laboratory Tests Test 05/27/16 13:04 Sodium Level 141 MEQ/L Potassium Level 4.5 MEQ/L Chloride Level 101 MEQ/L Carbon Dioxide Level 33.5 MEQ/L Anion Gap 7 MEQ/L Blood Urea Nitrogen 27 MG/DL Creatinine 0.96 MG/DL Estimat Glomerular Filtration 71 ML/MIN Rate Random Glucose 169 MG/DL Calcium Level 8.6 MG/DL Imaging Chest CT 05/21/16 0000 Signed Impressions: Service Date/Time: Saturday, May 21, 2016 11:13 - CONCLUSION: 1. No cavitary lesion left upper lobe could be related to a new bulla, could be infectious such as tuberculosis or fungal process. 2. Small left pleural effusion. 3. Emphysema. Delgado Kaur MD Chest X-Ray 05/19/16 1100 Signed Impressions: Service Date/Time: Thursday, May 19, 2016 11:13 - CONCLUSION: No acute disease. Zack Jim MD Physical Exam GENERAL: awake and alert, NAD SKIN: Cool and dry. No generalized rash HEENT: [place]hen[place] conjunctivae. No scleral icterus. Moist oral mucosa. Throat without erythema, or exudate. NECK: Trachea midline. No JVD or lymphadenopathy. Supple, nontender, no meningeal signs. CARDIOVASCULAR: Regular rate and rhythm without murmurs, gallops, or rubs. RESPIRATORY: Decreased breath sounds bilaterally ABDOMEN: Soft, not tender and not distended. Bowel sounds are present and normoactive. MUSCULOSKELETAL: Extremities without clubbing, cyanosis, or edema. No calf tenderness. NEUROLOGICAL: Non-focal PSYCH: Normal affect, calm and cooperative LINE: PIV with no evidence of infection Assessment & Plan Remarks IMPRESSION Sepsis, with fever, cough, SOB, tachycardia, leukocytosis - CXR clear, but has L upper lobe infiltrate and cavity O2 dependent COPD, with exacerbation - last CTA Nov with findings of severe emphysema Renal insufficiency, better RECOMMENDATION Continue Levaquin Continue Clinda Clinically improving and stable from ID standpoint I will be available prn Please call if with any new ID issue or question Salud Mar MD May 28, 2016 09:55
[2016-05-28] MEDS: LEVOFLOXACIN 750 MG TAB PO SCH (10:19)
[2016-05-28 12:08] VITALS: BP 134/83; PULSE 87; RESP 18; TEMP 98.2; O2SAT 96
[2016-05-28] MEDS ORDERED: LEVA750T PO (13:48)
[2016-05-28] MEDS ORDERED: HYDR-3583 PO (13:48)
[2016-05-28] MEDS ORDERED: PRED20 PO (13:48)
[2016-05-28] MEDS ORDERED: LISI-515 PO (13:48)
[2016-05-28] MEDS ORDERED: CLIN150 PO (13:48)
[2016-05-28] MEDS ORDERED: METO25TA3 PO (13:48)
--- NOTE | 2016-05-28 13:48 | HHI.DCPOC ---
Discharge Care Plan Diagnosis: (1) COPD (chronic obstructive pulmonary disease) (2) DM2 (diabetes mellitus, type 2) (3) HTN (hypertension) (4) COPD exacerbation (5) PNA (pneumonia) Goals to Promote Your Health * To prevent worsening of your condition and complications * To maintain your health at the optimal level Directions to Meet Your Goals Take your medications as prescribed Follow your dietary instruction Follow activity as directed Keep your appointments as scheduled Take your immunizations and boosters as scheduled If your symptoms worsen call your PCP, if no PCP go to Urgent Care Center or Emergency Room Smoking is Dangerous to Your Health. Avoid second hand smoke Call the 24-hour hour crisis hotline for domestic abuse at Kathy Avery MD May 28, 2016 13:48
--- NOTE | 2016-05-28 13:52 | HHI.DS ---
cc: Shaggy Lnadry MD Discharge Summary Admission Date May 19, 2016 at 13:14 Discharge Date: May 28, 2016 Admitting Diagnosis COPD exacerbation/severe sepsis (1) PNA (pneumonia) ICD Code: J18.9 (2) HTN (hypertension) ICD Code: I10 (3) Diabetes mellitus, type 2 ICD Code: E11.9 Procedures none Brief History - From Admission 61 years of Afro[place] female with history of COPD diabetes mellitus hypertension who recently discharged from the hospital earlier this month, presented with history of malaise cough and short of breath for the last 2 days along with body aching especially in the lower back, patient has been on Medrol Dosepak, also for rheumatoid arthritis. Patient in general poor historian, not sure if she did have fever or chills or pain around people, she uses oxygen and nebulizer at home. Currently she denied chest pain but reported back pain. She is not able to give any further specific info. CBC/BMP: 05/25/16 0522 05/27/16 1304 Significant Findings Laboratory Tests Test 05/26/16 05/27/16 05:35 13:04 Blood Urea Nitrogen 29 MG/DL (7-18) 27 MG/DL (7-18) Creatinine 1.06 MG/DL (0.50-1.00) Estimat Glomerular Filtration 64 ML/MIN (>89) 71 ML/MIN (>89) Rate Random Glucose 262 MG/DL 169 MG/DL (74-106) (74-106) Calcium Level 7.9 MG/DL (8.5-10.1) Carbon Dioxide Level 33.5 MEQ/L (21.0-32.0) Imaging Last Impressions Chest X-Ray 05/27/16 0600 Signed Impressions: Service Date/Time: Friday, May 27, 2016 07:23 - CONCLUSION: No acute disease. Jayesh Worthy MD Chest CT 05/21/16 0000 Signed Impressions: Service Date/Time: Saturday, May 21, 2016 11:13 - CONCLUSION: 1. No cavitary lesion left upper lobe could be related to a new bulla, could be infectious such as tuberculosis or fungal process. 2. Small left pleural effusion. 3. Emphysema. Delgado Kaur MD PE at Discharge GENERAL: This is a well-nourished, well-developed patient, in no apparent distress. CARDIOVASCULAR: Regular rate and rhythm without murmurs, gallops, or rubs. RESPIRATORY: Clear to auscultation. Breath sounds equal bilaterally. No wheezes , rales, or rhonchi. GASTROINTESTINAL: Abdomen soft, non-tender, nondistended. Normal active bowel sounds MUSCULOSKELETAL: Extremities without clubbing, cyanosis, or edema. NEURO: Alert & Oriented x4 to person, place, time, situation. Moves all ext x4 Pt update on day of discharge Patient seen and evaluated today. Breathing at baseline. No new complaints. Discharge plans discussed with patient who was agreeable Hospital Course The patient did develop evidence of sepsis and was treated by infectious disease team with antibiotics. Sepsis was manifested with suspected respiratory infection source and the patient has significant leukocytosis with left shift, tachycardia, hypotension, and lactic acidosis. This was an combination of a COPD exacerbation. She did develop acute kidney injury with improvement with IV hydration. Her diabetes became uncontrolled. Patient appeared to be immunosuppressed while on chronic prednisone due to rheumatoid arthritis She continued to improve and was more ambulatory and at her baseline oxygenation status at the time of discharge Pt Condition on Discharge: Good Discharge Disposition: Discharge Home Discharge Time: > 30 minutes Discharge Instructions DIET: Follow Instructions for: Heart Healthy Diet Activities you can perform: Regular-No Restrictions Follow up Referrals: PCP Follow-up - 1 Week New Medications: Clindamycin (Cleocin) 150 Mg Cap 300 MG PO Q6HR Infection #48 CAP Levofloxacin (Levaquin) 750 Mg Tab 750 MG PO Q24H Infection #12 TAB Lisinopril (Lisinopril) 20 Mg Tab 40 MG PO DAILY Blood Pressure Management #31 TAB Metoprolol Tartrate (Metoprolol Tartrate) 25 Mg Tab 25 MG PO Q12HR Blood Pressure Management #62 TAB Prednisone (Prednisone) 20 Mg Tab 20 MG PO BID Take 20 mg twice a day for 3 days then 20 mg daily for 3 days then one half tab for 3 days then stop copd #12 TAB Continued Medications: Albuterol Neb (Albuterol Neb) 2.5 Mg/3 Ml Neb 2.5 MG NEB Q6HR While awake PRN SHORTNESS OF BREATH #60 Ref 0 NEBULE Budesonide-Formoterol Inh (Symbicort Inh) 160-4.5 Mcg/Act Aero 2 PUFF INH DAILY COPD #1 Ref 0 INHALER Enalapril (Enalapril) 10 Mg Tab 10 MG PO DAILY PRN #30 Ref 0 TAB Hydrocodone-Acetaminophen (Hydrocodone-Acetaminophen) 10-325 mg Tab 1 TAB PO TID PRN PAIN #15 Ref 0 TAB (This prescription has been renewed) Indomethacin (Indomethacin) 50 Mg Cap 50 MG PO TID Take with food, milk, or antacids to decrease stomach adverse effects. Ref 0 CAP Insulin Aspart Inj (Novolog Inj) 1,000 Unit/10 Ml Vial Unknown Dose SQ ACHS Max dose at bedtime ( ) units; sugars less than 70,(0) units; sugars 150-199,(2) units; sugars 200-249,(4) units; sugars 250-299,(7) units; sugars 300-349,(10) units; sugars greater than 349,(12)units Blood Sugar Management #10 Ref 0 ML Insulin Glargine Inj (Lantus Inj) 1,000 Unit/10 Ml Vial 40 UNITS SQ BID Blood Sugar Management Ref 0 VIAL Prednisone (21) 10 mg tab Dose Pack (Prednisone (21) 10 mg tab Dose Pack) 10 Mg Pack 10 MG PO DIRECTED Inflammation #1 Ref 0 DSPK Pregabalin (Lyrica) 150 Mg Cap 150 MG PO TID #90 Ref 0 CAP Kathy Avery MD May 28, 2016 13:52
== END 2016-05-28 14:37 | disposition home or self-care (01) | DRG 871 ==
LOC: NEPE 10:50 → NEDA 13:14 → HIME 15:00 → N04A 05-23 20:58
PROVIDERS: ADMIT Hospitalist; ATTEND Hospitalist
DX: A41.9 Sepsis, unspecified organism (principal); J18.9 Pneumonia, unspecified organism; J96.01 Acute respiratory failure with hypoxia; J96.02 Acute respiratory failure with hypercapnia; N17.9 Acute kidney failure, unspecified; E87.4 Mixed disorder of acid-base balance; J44.1 Chronic obstructive pulmonary disease with (acute) exacerbation; E11.22 Type 2 diabetes mellitus with diabetic chronic kidney disease; E11.40 Type 2 diabetes mellitus with diabetic neuropathy, unspecified; R65.20 Severe sepsis without septic shock; N18.9 Chronic kidney disease, unspecified; I12.9 Hypertensive chronic kidney disease with stage 1 through stage 4 chronic kidney disease, or unspecified chronic kidney disease; E78.5 Hyperlipidemia, unspecified; M06.9 Rheumatoid arthritis, unspecified; M10.9 Gout, unspecified; M19.90 Unspecified osteoarthritis, unspecified site; M81.0 Age-related osteoporosis without current pathological fracture; Z99.81 Dependence on supplemental oxygen
CPT/HCPCS: 36600; 71010; 71020; 71250; 76937; 80048; 80053; 80076; 81001; 82805; 82948; 83605; 83880; 84132; 85007; 85025; 85027; 87040; 87086; 87641; 87804; 93005; 93306; 94640; 94664; 96374; J0692; J1644; J1815; J1940; J1956; J2270; J2920; J2930; J3370; J7030; J7040; J7050; J7512; P9612

== ENCOUNTER 2016-06-01 10:14 | Observation (INO) | payer MEDICAID ==
[2016-06-01] VITALS (12 sets, daily range): BP systolic 95–117; BP diastolic 62–81; PULSE 95–133; RESP 18–26; TEMP 98.3–98.5; O2SAT 85–100
[~2016-06-01] VITALS: Ht 160 cm; Wt 97.7 kg
[~2016-06-01 10:14] MED LIST changes: +CLIN150 PO; -DOXY100C PO; +INDO50CA PO; +LEVA750T PO; +LISI-515 PO; +METO25TA3 PO; +PRED20 PO
[2016-06-01] MEDS ORDERED: JANU50TA8 PO (10:35)
[2016-06-01] MEDS ORDERED: RESP: ALBUTEROL 2.5 MG/IPRATROPIUM 0.5 MG NEB (SCH) INH ONE (11:00)
[2016-06-01] MEDS ORDERED: SODIUM CHLORIDE 0.9% FLUSH 5 ML FLUSH IVF PRN (11:00)
--- NOTE | 2016-06-01 11:02 | PD ---
HPI Chief Complaint: Respiratory Symptoms Time Seen by Provider: 10:52 Travel History International Travel<30 days: No Contact w/Intl Traveler<30days: No Traveled to known affect area: No History of Present Illness HPI The patient was seen and examined in the presence of the nurse. She complains of shortness of breath and wheezing. She has history of severe COPD both oxygen and nebulizer dependent. She says she quit smoking 2 months ago. She is a very frequent visitor to the ER for COPD. She was just discharged from the hospital a few days ago for the same thing. She has chronic cough. She denies fever or chest pain. She took her insulin this morning but didn't eat due to lack of appetite and paramedics found her with a sugar of 41 and gave her a half amp of D50. She arrives with a sugar of 90. Symptoms severity is moderate. No alleviating factors. Duration 2 days PFSH Past Medical History Arthritis: Yes (rheumatoid arthritis) Asthma: No Autoimmune Disease: Yes Blood Disorders: No Anxiety: No Depression: No Heart Rhythm Problems: No Cancer: No Cardiovascular Problems: Yes ("not sure, but I was on the heart floor earlier this year") High Cholesterol: No Chemotherapy: No Chest Pain: Yes Congestive Heart Failure: No COPD: Yes Cerebrovascular Accident: No Coronary Artery Disease: Yes ("DENIES") Diabetes: Yes Patient Takes Glucophage: Yes Diminished Hearing: No Endocrine: No Gastrointestinal Disorders: Yes GERD: Yes Glaucoma: No Gout: Yes Genitourinary: No Headaches: Yes Hepatitis: Yes (HEPATITIS C) Hiatal Hernia: No Hypertension: Yes Immune Disorder: No Implanted Vascular Access Dvce: No Kidney Stones: No Musculoskeletal: Yes (osteoporosis & rheumatoid arthritis) Neurologic: No Psychiatric: No Reproductive: No Respiratory: Yes Immunizations Current: Yes Migraines: No Myocardial Infarction: No Pneumonia: Yes Radiation Therapy: No Renal Failure: No Seizures: No Sickle Cell Disease: No Sleep Apnea: No Thyroid Disease: No Ulcer: No PNEUMOCCOCAL Vaccine (Year): 2 Menopausal: Yes : 0 Para: 0 Miscarriage: 0 : 0 Past Surgical History Abdominal Surgery: No AICD: No Appendectomy: No Arteriovenous Shunt: No Cardiac Surgery: No Cholecystectomy: No Ear Surgery: No Endocrine Surgery: No Eye Surgery: Yes (Cataract removal to both eyes) Genitourinary Surgery: No Gynecologic Surgery: No Insulin Pump: No Joint Replacement: No Neurologic Surgery: No Oral Surgery: No Pacemaker: No Thoracic Surgery: No Other Surgery: Yes (right knee gout drain infection) Social History Alcohol Use: No Tobacco Use: No (STOPPED COUPLE MONTHS AGO) Substance Use: Yes (over 25 years ago used crack/cocaine for a total of 5 years ) Allergies-Medications (Allergen,Severity, Reaction): Coded Allergies: *MDRO Multi-Drug Resistant Organism (Verified Adverse Reaction, Unknown, ) MRSA wound 11/2012. MRSA PCR Screen negative 11/03/14 and 11/05/14. Cleared per Infection Control MRSA PCR Screen NEGATIVE - 04/30/2015 Reported Meds & Prescriptions Reported Meds & Active Scripts Active Prednisone 20 Mg Tab 20 Mg PO BID Take 20 mg twice a day for 3 days then 20 mg daily for 3 days then one half tab for 3 days then stop Metoprolol Tartrate 25 Mg Tab 25 Mg PO Q12HR Lisinopril 20 Mg Tab 40 Mg PO DAILY Levaquin (Levofloxacin) 750 Mg Tab 750 Mg PO Q24H Cleocin (Clindamycin HCl) 150 Mg Cap 300 Mg PO Q6HR Hydrocodone-Acetaminophen 10-325 mg Tab 1 Tab PO TID PRN Prednisone (21) 10 mg tab Dose Pack (Prednisone) 10 Mg Pack 10 Mg PO DIRECTED Reported Janumet (Sitagliptin-Metformin) 50-1,000 Mg Tab Unknown Dose PO DAILY Indomethacin 50 Mg Cap 50 Mg PO TID Take with food, milk, or antacids to decrease stomach adverse effects. Enalapril (Enalapril Maleate) 10 Mg Tab 10 Mg PO DAILY PRN Lyrica (Pregabalin) 150 Mg Cap 150 Mg PO TID Lantus Inj (Insulin Glargine) 1,000 Unit/10 Ml Vial 40 Units SQ BID Novolog Inj (Insulin Aspart) 1,000 Unit/10 Ml Vial Unknown Dose SQ ACHS Max dose at bedtime ( ) units; sugars less than 70,(0) units; sugars 150-199,(2) units; sugars 200-249,(4) units; sugars 250-299,(7) units; sugars 300-349,(10) units; sugars greater than 349,(12)units Symbicort Inh (Budesonide/Formoterol Fumarate) 160-4.5 Mcg/Act Aero 2 Puff INH DAILY Albuterol Neb (Albuterol Sulfate) 2.5 Mg/3 Ml Neb 2.5 Mg NEB Q6HR PRN While awake Review of Systems General / Constitutional: No: Fever Eyes: No: Visual changes HENT: No: Headaches Cardiovascular: No: Chest Pain or Discomfort Respiratory: Positive: Cough, Shortness of Breath, Wheezing Gastrointestinal: No: Abdominal Pain Genitourinary: No: Dysuria Musculoskeletal: No: Pain Skin: No Rash Neurologic: No: Weakness Psychiatric: No: Depression Endocrine: No: Polydipsia Hematologic/Lymphatic: No: Easy Bruising Physical Exam Narrative GENERAL: Well-nourished, well-developed patient with shortness of breath . SKIN: Warm and dry. HEAD: Atraumatic. Normocephalic. EYES: Pupils equal and round. No scleral icterus. No injection or drainage. ENT: No nasal bleeding or discharge. Mucous membranes pink and moist. NECK: Trachea midline. No JVD. CARDIOVASCULAR: Regular rate and rhythm. No murmur appreciated. Tachycardic at 120 RESPIRATORY: Positive accessory muscle use. Expiratory wheezing diffusely. Breath sounds equal bilaterally. GASTROINTESTINAL: Abdomen soft, non-tender, nondistended. Hepatic and splenic margins not palpable. MUSCULOSKELETAL: No obvious deformities. No clubbing. No cyanosis. No edema. NEUROLOGICAL: Awake and alert. No obvious cranial nerve deficits. Motor grossly within normal limits. Normal speech. PSYCHIATRIC: Appropriate mood and affect; insight and judgment normal. Data Data Last Documented VS Vital Signs Date Time Temp Pulse Resp B/P Pulse Ox O2 Delivery O2 Flow Rate FiO2 06/01/16 11:14 122 22 116/81 96 Nasal Cannula 4 06/01/16 10:18 98.3 Orders Electrocardiogram (06/01/16 10:38) Complete Blood Count With Diff (06/01/16 10:53) Basic Metabolic Panel (Bmp) (06/01/16 10:53) Iv Access Insert/Monitor (06/01/16 10:53) Ecg Monitoring (06/01/16 10:53) Oximetry (06/01/16 10:53) Oxygen Administration (06/01/16 10:53) Chest, Single Ap (06/01/16 10:53) Sodium Chloride 0.9% Flush (Ns Flush) (06/01/16 11:00) Albuterol-Ipratropium Neb (Duoneb Neb) (06/01/16 11:00) Admit Order (Ed Use Only) (06/01/16 13:07) Labs Laboratory Tests Test 06/01/16 10:55 White Blood Count 16.2 TH/MM3 Red Blood Count 6.35 MIL/MM3 Hemoglobin 15.5 GM/DL Hematocrit 47.4 % Mean Corpuscular Volume 74.7 FL Mean Corpuscular Hemoglobin 24.5 PG Mean Corpuscular Hemoglobin 32.7 % Concent Red Cell Distribution Width 17.0 % Platelet Count 268 TH/MM3 Mean Platelet Volume 9.1 FL Neutrophils (%) (Auto) 88.3 % Lymphocytes (%) (Auto) 5.8 % Monocytes (%) (Auto) 5.3 % Eosinophils (%) (Auto) 0.3 % Basophils (%) (Auto) 0.3 % Neutrophils # (Auto) 14.3 TH/MM3 Lymphocytes # (Auto) 0.9 TH/MM3 Monocytes # (Auto) 0.9 TH/MM3 Eosinophils # (Auto) 0.1 TH/MM3 Basophils # (Auto) 0.0 TH/MM3 CBC Comment AUTO DIFF Differential Comment AUTO DIFF CONFIRMED Platelet Estimate NORMAL Platelet Morphology Comment CLUMPED Sodium Level 143 MEQ/L Potassium Level 3.4 MEQ/L Chloride Level 107 MEQ/L Carbon Dioxide Level 31.5 MEQ/L Anion Gap 5 MEQ/L Blood Urea Nitrogen 13 MG/DL Creatinine 1.01 MG/DL Estimat Glomerular Filtration 67 ML/MIN Rate Random Glucose 66 MG/DL Calcium Level 8.5 MG/DL MDM Medical Decision Making Medical Screen Exam Complete: Yes Emergency Medical Condition: Yes Medical Record Reviewed: Yes Differential Diagnosis Differential diagnosis includes COPD, asthma, pneumonia, bronchitis, CHF Narrative Course I have reviewed the patient's electronic medical record. Reviewed her discharge summary from a few days ago. IV placed She received Solu-Medrol and 2 nebulizers in ambulance I gave her a third nebulizer treatment I reviewed her chest x-ray which shows basilar atelectasis I reviewed her EKG which shows sinus tachycardia without ectopy Extended cardiac monitoring reveals sinus tachycardia without ectopy CBC shows leukocytosis Metabolic profile reasonably normal Gave her some juice/Gatorade and will reassess sugar On reassessment she is still short of breath and tachypneic and wheezing and has tachycardia still in the 120s Does not appear stable for outpatient follow-up She believes she is too short of breath to go home as well Will be 23 hour observation for acute exacerbation of chronic COPD I discussed with medical residents Diagnosis Primary Impression: COPD (chronic obstructive pulmonary disease) Qualified Code: J44.1 - Chronic obstructive pulmonary disease with acute exacerbation Additional Impressions: Tachycardia Hypoglycemic reaction Admitting Information Admitting Physician Requests: Observation Rhett West MD Jun 01, 2016 11:02
[2016-06-01 11:29] LABS: AUTOMATED NEUTROPHIL # 14.3 TH/MM3 (1.8-7.7); BASOPHIL % 0.3 % (0.0-2.0); EOSINOPHIL # 0.1 TH/MM3 (0-0.4); EOSINOPHIL % 0.3 % (0.0-4.0); HEMATOCRIT 47.4 % (35.0-46.0); LYMPH % 5.8 % (9.0-44.0); LYMPHOCYTE # 0.9 TH/MM3 (1.0-4.8); MEAN CELL VOLUME 74.7 FL (80.0-100.0); MEAN CORPUSCULAR HEMOGLOBIN 24.5 PG (27.0-34.0); MEAN CORPUSCULAR HGB CONC 32.7 % (32.0-36.0); MONO % 5.3 % (0.0-8.0); NEUT % 88.3 % (16.0-70.0); PLATELET COUNT 268 TH/MM3 (150-450); RED BLOOD COUNT 6.35 MIL/MM3 (4.00-5.30); WHITE BLOOD COUNT 16.2 TH/MM3 (4.0-11.0)
[2016-06-01 11:30] LABS: HEMO FLAGS AUTO DIFF
[2016-06-01 11:55] LABS: BICARBONATE 31.5 MEQ/L (21.0-32.0); POTASSIUM 3.4 MEQ/L (3.5-5.1)
[2016-06-01 12:16] LABS: PLATELET ESTIMATE SMEAR NORMAL (NORMAL); PLATELET MORPHOLOGY CLUMPED (NORMAL); SCAN/DIFF AUTO DIFF CONFIRMED
--- NOTE | 2016-06-01 12:29 | RADRPT ---
EXAM DATE/TIME: 06/01/2016 11:09 [facility] COMPARISON: CHEST SINGLE AP, May 27, 2016, 7:23. INDICATIONS : Cough, short of breath, chest pains MEDICAL HISTORY : Chronic obstructive pulmonary disease. Diabetes mellitus type II. SURGICAL HISTORY : None. ENCOUNTER: Subsequent ACUITY: 2 weeks PAIN SCORE: 7/10 LOCATION: Bilateral chest FINDINGS: A single view of the chest demonstrates minimal basilar atelectasis. No effusion. No pneumothorax. CONCLUSION: 1. Minimal basilar atelectasis. Sonu Lazcano MD on June 01, 2016 at 12:25 Board Certified Radiologist. This report was verified electronically.
--- NOTE | 2016-06-01 13:48 | HHI.HP ---
[facility] Service Family Medicine Primary Care Physician Shaggy Landry MD Admission Diagnosis copd exac Diagnoses: International Travel<30 Days: No Contact w/Intl Traveler<30days: No Known Affected Area: No History of Present Illness Patient was hospitalized on May 19, 2016 with COPD and exacerbation and severe sepsis with pneumonia, and spent some time in the ICU. She was discharged and went home Saturday. Then on Saturday, she started having cold symptoms with chills, sore throat, runny nose. Then, all of a sudden, Saturday morning, the morning of admission, she hallucinated, which caused her significant distress. She called her boyfriend who called 911. At that time, she was also complaining of chest pain, sweating, diarrhea, inability to breathe , anxiety, palpitations. She reports that these symptoms have never happened before. EMS arrived, noted a blood sugar of 41, administered a half amp of D50 on the way to the hospital. She reports that by the time she got into the ambulance, she felt that everything was okay. She reports not having an appetite since coming home from the hospital on Saturday. What she did eat, she vomited. She also reports a cough associated with diarrhea. She also reports dyspnea on exertion, which she has at baseline. She uses O2 at home 2 L/m all the time and a powerchair. Prior to coming in the hospital, she increased her home O2 from 2 to 3 L/min. Patient endorses chills, chest pain - left sided, coughing up yellow-greenish stuff. She reports that she is still having pain in chest, but it wasn't like when she first came in. She denies fever, but endorses feeling cold. She felt better after receiving steroids and neb's in ED. . (Zack Norton MD R1) Review of Systems ROS Limitations: Poor Historian Constitutional: COMPLAINS OF: Chills, Change in appetite (no appe), DENIES: Fever Endocrine: COMPLAINS OF: Polyuria, DENIES: Polydipsia Eyes: DENIES: Blurred vision, Diplopia, Vision loss, Double Vision Ears, nose, mouth, throat: COMPLAINS OF: Throat pain, Running Nose, DENIES: Hearing loss Respiratory: COMPLAINS OF: Cough, Sputum production, Shortness of breath Cardiovascular: COMPLAINS OF: Chest pain, Palpitations, Dyspnea on Exertion, PND, Lower Extremity Edema, Orthopnea Gastrointestinal: COMPLAINS OF: Abdominal pain, Diarrhea, Nausea, Vomiting, Anorexia, DENIES: Black stools, Bloody stools, Constipation Genitourinary: DENIES: Dysuria Musculoskeletal: COMPLAINS OF: Joint pain (knees), Muscle aches (legs) Integumentary: DENIES: Pruritus, Rash Hematologic/lymphatic: DENIES: Bruising, Lymphadenopathy Neurologic: DENIES: Headache, Localized weakness, Paresthesias Psychiatric: COMPLAINS OF: Anxiety (with SOB), DENIES: Depression (Zack Norton MD R1) Past Family Social History Past Medical History COPD Rheumatoid arthritis Hypertension Diabetes mellitus Hyperlipidemia Possible coronary artery disease Hepatitis C Past Surgical History Per chart review: Osbaldo historian, mention of history of right knee arthroscopy ( Zack Norton MD R1) Allergies: Coded Allergies: *MDRO Multi-Drug Resistant Organism (Verified Adverse Reaction, Unknown, ) MRSA wound 11/2012. MRSA PCR Screen negative 11/03/14 and 11/05/14. Cleared per Infection Control MRSA PCR Screen NEGATIVE - 04/30/2015 Family History Per chart review: Osbaldo historian, denied being aware of significant disease in the family Social History Used to smoke 2 pack per day since age 14 but stated she quit recently, no alcohol or illicit drug abuse Patient reports that she lives by herself. She has a boyfriend who gives a lot of attention to her. She prepares most of her own meals. She does not have any children. She has been retired for 30 years. She reports emphysema from working in dry [employer] roll [employer]. She quit smoking 6 months ago. Denies alcohol. She reports going to muslim. (Zack Norton MD R1) Physical Exam Vital Signs Vital Signs Date Time Temp Pulse Resp B/P Pulse Ox O2 Delivery O2 Flow Rate FiO2 06/01/16 11:14 122 22 116/81 96 Nasal Cannula 4 06/01/16 11:14 96 Nasal Cannula 3.00 06/01/16 11:11 122 22 100 Nasal Cannula 4 06/01/16 11:10 100 Nasal Cannula 4 06/01/16 11:10 22 100 Nasal Cannula 4 06/01/16 10:36 122 06/01/16 10:30 24 93 Nasal Cannula 4 06/01/16 10:18 98.3 133 26 117/76 85 Physical Exam CONSTITUTIONAL/GEN: normally nourished, in mild respiratory distress on 2 l nasal cannula. EYES: conjunctiva normal, PERRLA, EOMI. ENT: Mouth and pharynx normal. MM moist. NECK: Supple, no thyromegaly LUNGS: Expiratory wheezes throughout all lung ellington. CARDIOVASCULAR: RR without murmur or gallop. 1+ edema to knee. GI/ABD: soft without masses, without organomegaly. BS +. Bilateral tenderness to palpation mid-abdomen, no guarding. NEURO: No focal deficits. SKIN: color normal, no rashes noted. HEME/LYMPH: no bruising, petechia or significant adenopathy MUSC: back is normal in appearance. Extremities are normal in appearance with the exception of swan neck deformity of index fingers bilaterally, left > right. PSYCH/MENTAL STATUS: Alert and oriented x 3. Laboratory Laboratory Tests Test 06/01/16 10:55 White Blood Count 16.2 Red Blood Count 6.35 Hemoglobin 15.5 Hematocrit 47.4 Mean Corpuscular Volume 74.7 Mean Corpuscular Hemoglobin 24.5 Mean Corpuscular Hemoglobin 32.7 Concent Red Cell Distribution Width 17.0 Platelet Count 268 Mean Platelet Volume 9.1 Neutrophils (%) (Auto) 88.3 Lymphocytes (%) (Auto) 5.8 Monocytes (%) (Auto) 5.3 Eosinophils (%) (Auto) 0.3 Basophils (%) (Auto) 0.3 Neutrophils # (Auto) 14.3 Lymphocytes # (Auto) 0.9 Monocytes # (Auto) 0.9 Eosinophils # (Auto) 0.1 Basophils # (Auto) 0.0 CBC Comment AUTO DIFF Differential Comment AUTO DIFF CONFIRMED Platelet Estimate NORMAL Platelet Morphology Comment CLUMPED Sodium Level 143 Potassium Level 3.4 Chloride Level 107 Carbon Dioxide Level 31.5 Anion Gap 5 Blood Urea Nitrogen 13 Creatinine 1.01 Estimat Glomerular Filtration 67 Rate Random Glucose 66 Calcium Level 8.5 (Zack Norton MD R1) Result Diagram: 06/01/16 1055 06/01/16 1055 Imaging Last Impressions Chest X-Ray 06/01/16 1053 Signed Impressions: Service Date/Time: Wednesday, June 01, 2016 11:09 - CONCLUSION: 1. Minimal basilar atelectasis. Sonu Lazcano MD Course In the emergency department, patient received DuoNeb 1, chest x-ray, oxygen, BMP, CBC, EKG. (Zack Norton MD R1) Assessment and Plan Assessment and Plan Patient is a 61-year-old female with a history of COPD who presents with an episode of symptomatic hypoglycemia and likely COPD exacerbation. Code Status Full code Discussed Condition With Patient seen and discussed with Dr. Enrrique Ramos and Dr. Brittany Ramos. (Zack Norton MD R1) Attending Attestation Patient seen and examined. Case reviewed and discussed with the resident team. Agree with plan of care as discussed with me and documented in the resident note. (Brittany Ramos MD) Problem List: (1) COPD exacerbation Status: Acute Plan: Patient presents with likely COPD exacerbation. CBC, CMP in the morning Normal saline IV at 140 mL/h Continue home COPD meds * Continue home Symbicort * Continue albuterol nebs, change dosing to 2.5 mg inhaled every 2 hours when necessary for shortness breath or wheezing DuoNeb 1 amp inhaled every 4 hours Solu-Medrol 40 mg IV every 12 hours Zofran 4 mg IV every 6 hours when necessary for nausea or vomiting Levaquin 750 mg by mouth daily Monitor vital signs Administer oxygen as necessary Encourage incentive spirometer use (2) Hypokalemia Status: Acute Plan: Patient percent with potassium 3.4. History of hypokalemia KCl 30 mEq by mouth daily (3) RA (rheumatoid arthritis) Status: Chronic Plan: Continue home medications as below: Celor[place] 325-10 mg 1 tab by mouth 3 times a day when necessary for pain Indomethacin 50 mg by mouth 3 times a day (4) HTN (hypertension) Status: Chronic Plan: Continue home medications as below: Metoprolol tartrate 25 mg by mouth every 12 hours Added when necessary medication: Hydralazine when necessary for hypertension (5) DM2 (diabetes mellitus, type 2) Status: Chronic Plan: Patient reports using Lantus 40 units subcutaneous twice a day at home. Low-dose sliding scale insulin NovoLog with Accu-Cheks Continue home Lyrica 150 mg by mouth 3 times a day Holding patient's home Lantus given her hypoglycemia (6) Nutrition, metabolism, and development symptoms Status: Acute Plan: Fluids: Maintenance fluids with normal saline IV at 140 mL per hour Electrolytes: Monitor and replete as necessary and as above Nutrition: Regular basic diet GI prophylaxis: None indicated at this time (7) DVT prophylaxis Status: Acute Plan: Bilateral SCDs (Zack Norton MD R1) Physician Certification 2 Midnight Certification Type: Admission for Inpatient Services Order for Inpatient Services The services are ordered in accordance with Medicare regulations or non- Medicare payer requirements, as applicable. In the case of services not specified as inpatient-only, they are appropriately provided as inpatient services in accordance with the 2-midnight benchmark. Estimated LOS (days): 2 2 days is the estimated time the patient will need to remain in the hospital, assuming treatment plan goals are met and no additional complications. Post-Hospital Plan: Not yet determined (Zack Norton MD R1) Zack Norton MD R1 Jun 01, 2016 13:48 Brittany Ramos MD Jun 02, 2016 10:54
[2016-06-01] MEDS ORDERED: ONDANSETRON HCL 4 MG/2 ML VIAL IV PRN (14:00)
[2016-06-01] MEDS ORDERED: SODIUM CHLORIDE 0.9% FLUSH 5 ML FLUSH FLUSH PRN (14:00)
[2016-06-01] MEDS ORDERED: RESP: ALBUTEROL 2.5 MG/3 ML NEB (PRN) INH (14:00)
[2016-06-01] MEDS ORDERED: hydrALAZINE HCL 10 MG TAB PO PRN (14:00)
[2016-06-01] MEDS ORDERED: ACETAMINOPHEN 325 MG TAB PO PRN (14:00)
[2016-06-01] MEDS: SODIUM CHLOR 0.9% 1000 ML INJ 1,000 ML IV SCH ×2 (14:00→23:21)
--- NOTE | 2016-06-01 14:11 | HHI.FPPN ---
Subjective Remarks 61 yo AA female retired [employer] employee with COPD who had an exacerbation of her shortness of breath and anxiety with hallucinations and a feeling she could get no air. She called her boyfriend who called [facility] for her. Reports her glucose was 41. She was recently hospitalized from 05-19-16 to 05-28-16, and the day after she went home she began to have no appetite, nausea and vomiting, chills. She coughs, and loses continence of her bowels. Her SOB was frightening but she improved in the [facility] vehicle. She has been wheezing. Can only walk 3-4 feet at her baseline; uses a motorized chair to get around. She sees Dr. Landry as her PCP. Known COPD, diabetes on insulin, rheumatoid arthritis. Lives alone, no children. Smoked until 6 months ago, no etoh. See H&P for this admission for additional historical details including past, family and social history. Her ROS is + for decreased appetite, poor vision, runny nose, sore throat, cough, left upper chest discomfort, knee pain, nausea, vomiting, loose stools. All the remaining systems are negative. Objective Vitals Vital Signs Date Time Temp Pulse Resp B/P Pulse Ox O2 Delivery O2 Flow Rate FiO2 06/01/16 11:14 122 22 116/81 96 Nasal Cannula 4 06/01/16 11:14 96 Nasal Cannula 3.00 06/01/16 11:11 122 22 100 Nasal Cannula 4 06/01/16 11:10 100 Nasal Cannula 4 06/01/16 11:10 22 100 Nasal Cannula 4 06/01/16 10:36 122 06/01/16 10:30 24 93 Nasal Cannula 4 06/01/16 10:18 98.3 133 26 117/76 85 Result Diagram: 06/01/16 1055 06/01/16 1055 Other Results Laboratory Tests Test 06/01/16 10:55 White Blood Count 16.2 TH/MM3 Red Blood Count 6.35 MIL/MM3 Hemoglobin 15.5 GM/DL Hematocrit 47.4 % Mean Corpuscular Volume 74.7 FL Mean Corpuscular Hemoglobin 24.5 PG Mean Corpuscular Hemoglobin 32.7 % Concent Red Cell Distribution Width 17.0 % Platelet Count 268 TH/MM3 Mean Platelet Volume 9.1 FL Neutrophils (%) (Auto) 88.3 % Lymphocytes (%) (Auto) 5.8 % Monocytes (%) (Auto) 5.3 % Eosinophils (%) (Auto) 0.3 % Basophils (%) (Auto) 0.3 % Neutrophils # (Auto) 14.3 TH/MM3 Lymphocytes # (Auto) 0.9 TH/MM3 Monocytes # (Auto) 0.9 TH/MM3 Eosinophils # (Auto) 0.1 TH/MM3 Basophils # (Auto) 0.0 TH/MM3 CBC Comment AUTO DIFF Differential Comment AUTO DIFF CONFIRMED Platelet Estimate NORMAL Platelet Morphology Comment CLUMPED Sodium Level 143 MEQ/L Potassium Level 3.4 MEQ/L Chloride Level 107 MEQ/L Carbon Dioxide Level 31.5 MEQ/L Anion Gap 5 MEQ/L Blood Urea Nitrogen 13 MG/DL Creatinine 1.01 MG/DL Estimat Glomerular Filtration 67 ML/MIN Rate Random Glucose 66 MG/DL Calcium Level 8.5 MG/DL Imaging Last Impressions Chest X-Ray 06/01/16 1053 Signed Impressions: Service Date/Time: Wednesday, June 01, 2016 11:09 - CONCLUSION: 1. Minimal basilar atelectasis. Sonu Lazcano MD Objective Remarks O. CONSTITUTIONAL/GEN: normally nourished, in mild respiratory distress on 2 l nasal cannula. EYES: conjunctiva normal, PERRLA, EOMI. ENT: Mouth and pharynx normal. MM moist. NECK: Supple, no thyromegaly LUNGS: Expiratory wheezes throughout all lung ellington. CARDIOVASCULAR: RR without murmur or gallop. 1+ edema to knee. GI/ABD: soft without masses, without organomegaly. BS +. Bilateral tenderness to palpation mid-abdomen, no guarding. NEURO: No focal deficits. SKIN: color normal, no rashes noted. HEME/LYMPH: no bruising, petechia or significant adenopathy MUSC: back is normal in appearance. Extremities are normal in appearance with the exception of swan neck deformity of index fingers bilaterally, left > right.. PSYCH/MENTAL STATUS: Alert and oriented x 3. A/P Assessment and Plan 61 yo diaabetic female with chronic COPD here with acute exacerbation COPD and hypoglycemia. Attending Attestation Patient seen and examined. Case reviewed and discussed with the resident team. Agree with plan of care as discussed with me and documented in the resident note. Brittany Ramos MD Jun 01, 2016 14:10
[2016-06-01] MEDS: METOPROLOL TARTRATE 25 MG TAB PO SCH ×2 (14:15→23:25)
[2016-06-01] MEDS: POTASSIUM CHLORIDE 10 MEQ CONTROLLED RELEASE TAB PO SCH (14:30)
[2016-06-01] MEDS ORDERED: DEXTROSE 50% IN WATER 50 ML VIAL(D50) IV PUSH PRN (14:30)
[2016-06-01] MEDS ORDERED: GLUCAGON 1 MG/ML VIAL OTHER PRN (14:30)
[2016-06-01] MEDS ORDERED: LEVOFLOXACIN 750 MG TAB PO SCH (14:30)
--- NOTE | 2016-06-01 14:52 | EKG ---
Date Performed: 06/01/2016 Time Performed: 10:43:08 PTAGE: 61 years EKG: SINUS TACHYCARDIA ABNORMAL RHYTHM ECG PREVIOUS TRACING : 05/19/2016 11.04.20 Since previous tracing, no significant change noted DOCTOR: Bharti Alegria Interpretating Date/Time 06/01/2016 14:52:40
[2016-06-01] MEDS: RESP: ALBUTEROL 2.5 MG/IPRATROPIUM 0.5 MG NEB (SCH) INH ×3 (15:46→23:44)
[2016-06-01] MEDS: INSULIN ASPART SUPPLEMENTAL SCALE SQ SCH ×2 (16:00→23:31)
[2016-06-01] MEDS ORDERED: INDOMETHACIN 50 MG CAP PO SCH (18:00)
[2016-06-01] MEDS: methylPREDNISolone SOD SUCC 40 MG/1 ML VIAL IV SCH (18:00)
[2016-06-01] MEDS: PREGABALIN 75 MG CAP PO SCH (18:00)
[2016-06-01] MEDS ORDERED: INSULIN DETEMIR 100 UNITS/ML VIAL SQ SCH (21:00)
[2016-06-01] MEDS: ACETAMINOPHEN/HYDROcodone 325 MG/10 MG TAB PO PRN (23:22)
[2016-06-02] VITALS (9 sets, daily range): BP systolic 95–116; BP diastolic 65–83; PULSE 91–102; RESP 18–21; TEMP 96.7–97.9; O2SAT 97–100
[2016-06-02] MEDS: SODIUM CHLOR 0.9% 1000 ML INJ 1,000 ML IV SCH (06:16)
[2016-06-02] MEDS: methylPREDNISolone SOD SUCC 40 MG/1 ML VIAL IV SCH ×2 (06:17→18:19)
[2016-06-02] MEDS: ACETAMINOPHEN/HYDROcodone 325 MG/10 MG TAB PO PRN ×3 (06:21→22:27)
[2016-06-02] MEDS: INSULIN ASPART SUPPLEMENTAL SCALE SQ SCH ×4 (06:25→22:40)
[2016-06-02 07:08] LABS: AUTOMATED NEUTROPHIL # 12.9 TH/MM3 (1.8-7.7); BASOPHIL # 0.4 TH/MM3 (0-0.2); BASOPHIL % 2.8 % (0.0-2.0); HEMATOCRIT 40.6 % (35.0-46.0); HEMO FLAGS DIFF FINAL; LYMPH % 8.9 % (9.0-44.0); LYMPHOCYTE # 1.4 TH/MM3 (1.0-4.8); MEAN CELL VOLUME 75.4 FL (80.0-100.0); MEAN CORPUSCULAR HEMOGLOBIN 24.6 PG (27.0-34.0); MEAN CORPUSCULAR HGB CONC 32.7 % (32.0-36.0); MONO % 7.5 % (0.0-8.0); NEUT % 80.8 % (16.0-70.0); PLATELET COUNT 273 TH/MM3 (150-450); RED BLOOD COUNT 5.39 MIL/MM3 (4.00-5.30); WHITE BLOOD COUNT 15.9 TH/MM3 (4.0-11.0)
[2016-06-02 07:19] LABS: CHLORIDE 111 MEQ/L (98-107); POTASSIUM 4.4 MEQ/L (3.5-5.1); SODIUM (NA) 145 MEQ/L (136-145)
[2016-06-02 07:24] LABS: ANION GAP 10 MEQ/L (5-15); BICARBONATE 23.7 MEQ/L (21.0-32.0); BLOOD UREA NITROGEN 25 MG/DL (7-18)
[2016-06-02 07:27] LABS: ALT (GPT) 45 U/L (10-53); AST (GOT) 20 U/L (15-37); GLOMERULAR FILTRATION RATE 46 ML/MIN (>89)
[2016-06-02 07:28] LABS: TOTAL BILIRUBIN ADULT 0.3 MG/DL (0.2-1.0)
[2016-06-02 07:30] LABS: ALKALINE PHOSPHATASE 112 U/L (45-117)
[2016-06-02] MEDS: RESP: ALBUTEROL 2.5 MG/IPRATROPIUM 0.5 MG NEB (SCH) INH ×5 (07:45→23:42)
[2016-06-02] MEDS: LISINOPRIL 20 MG TAB PO SCH (09:37)
[2016-06-02] MEDS: POTASSIUM CHLORIDE 10 MEQ CONTROLLED RELEASE TAB PO SCH (09:38)
[2016-06-02] MEDS: PREGABALIN 75 MG CAP PO SCH ×3 (09:38→18:22)
[2016-06-02] MEDS: METOPROLOL TARTRATE 25 MG TAB PO SCH ×2 (09:39→22:27)
[2016-06-02] MEDS: BUDESONIDE-FORMOTEROL 160/4.5 MCG INHALER INH SCH (11:06)
--- NOTE | 2016-06-02 11:48 | HHI.FPPN ---
Subjective Remarks Pt reports feeling lousy. She is still c/o cough productive of thick, green- yellow sputum and mid-abdominal pain, and diarrhea. She is c/o shortness of breath and DELEON, which is not very different from her baseline. She also reports worse RA pain in her knees and ankles, which she attributed to the weather. She reports eating and drinking without too much nausea and/or vomiting. Objective Vitals Vital Signs Date Time Temp Pulse Resp B/P Pulse Ox O2 Delivery O2 Flow Rate FiO2 06/02/16 08:00 97.5 91 20 95/65 98 06/02/16 04:00 97.0 102 20 100/74 98 06/02/16 02:37 97 06/02/16 00:00 97.1 96 18 108/83 100 06/01/16 23:44 98 Nasal Cannula 3.00 06/01/16 20:48 95 20 111/67 99 Nasal Cannula 4 06/01/16 20:03 18 06/01/16 18:19 98.5 102 20 95/62 97 Nasal Cannula 4 06/01/16 16:34 102 18 96/69 96 Nasal Cannula 4 06/01/16 15:00 104 18 99/65 95 Nasal Cannula 4 06/01/16 14:00 115 22 109/67 99 Nasal Cannula 4 06/01/16 12:30 114 22 112/81 99 Nasal Cannula 4 I/O 06/01/16 06/01/16 06/01/16 06/02/16 06/02/16 06/02/16 07:00 15:00 23:00 07:00 15:00 23:00 Intake Total 240 ml Output Total 300 ml Balance -60 ml Intake Oral 240 ml Output Urine Total 300 ml # Voids 1 3 # Bowel Movements 3 Result Diagram: 06/02/16 0652 06/02/16 0652 Imaging Last Impressions Chest X-Ray 06/01/16 1053 Signed Impressions: Service Date/Time: Wednesday, June 01, 2016 11:09 - CONCLUSION: 1. Minimal basilar atelectasis. Sonu Lazcano MD Objective Remarks CONSTITUTIONAL/GEN: normally nourished, in mild respiratory distress on 2 l nasal cannula. EYES: conjunctiva normal, PERRLA, EOMI. ENT: Mouth and pharynx normal. MM moist. NECK: Supple, no thyromegaly LUNGS: Expiratory wheezes throughout all lung ellington. CARDIOVASCULAR: RRR without murmur or gallop. 1+ edema to knee. GI/ABD: soft without masses, without organomegaly. BS +. Bilateral tenderness to palpation mid-abdomen, no guarding. NEURO: No focal deficits. SKIN: color normal, no rashes noted. HEME/LYMPH: no bruising, petechia or significant adenopathy MUSC: back is normal in appearance. Extremities are normal in appearance with the exception of swan neck deformity of index fingers bilaterally, left > right.. PSYCH/MENTAL STATUS: Alert and oriented x 3. A/P Assessment and Plan Patient is a 61-year-old female with a history of COPD who presents with an episode of symptomatic hypoglycemia and likely COPD exacerbation. Discharge Planning When pt is not audibly wheezing, back to using O2 at 2L/min, can safely be discharged home. Problem List: (1) COPD exacerbation Status: Acute Plan: Patient presents with likely COPD exacerbation. CBC, CMP in the morning Discontinued IVF Continue home COPD meds * Continue home Symbicort * Continue albuterol nebs, change dosing to 2.5 mg inhaled every 2 hours when necessary for shortness breath or wheezing DuoNeb 1 amp inhaled every 4 hours Solu-Medrol 40 mg IV every 12 hours Zofran 4 mg IV every 6 hours when necessary for nausea or vomiting Levaquin 750 mg by mouth daily Monitor vital signs Administer oxygen as necessary Encourage incentive spirometer use (2) Diarrhea Status: Acute Plan: Pt p/w diarrhea after long hospital stay for severe sepsis 2/2 pneumonia s/p course of abx. --rule out C difficile (3) RA (rheumatoid arthritis) Status: Chronic Plan: Continue home medications as below: [place] 325-10 mg 1 tab by mouth 3 times a day when necessary for pain Indomethacin 50 mg by mouth 3 times a day (4) HTN (hypertension) Status: Chronic Plan: Continue home medications as below: Metoprolol tartrate 25 mg by mouth every 12 hours Added when necessary medication: Hydralazine when necessary for hypertension (5) DM2 (diabetes mellitus, type 2) Status: Chronic Plan: Patient reports using Lantus 40 units subcutaneous twice a day at home. Low-dose sliding scale insulin NovoLog with Accu-Cheks Continue home Lyrica 150 mg by mouth 3 times a day Starting patient back on her long-acting insulin tonight because patient is able to keep food down now and because her blood sugars have gone back up. We' ll start with Levemir 30 units subcutaneous daily at bedtime (6) Nutrition, metabolism, and development symptoms Status: Acute Plan: Fluids: Hep-Lock IV as patient is hydrating well. Electrolytes: Monitor and replete as necessary and as above Nutrition: Regular basic diet GI prophylaxis: None indicated at this time (7) DVT prophylaxis Status: Acute Plan: Bilateral SCDs (8) Hypokalemia Status: Resolved Plan: Patient presented with potassium 3.4. History of hypokalemia Discontinued KCl 30 mEq by mouth daily Zack Norton MD R1 Jun 02, 2016 11:48
[2016-06-02] MEDS: INDOMETHACIN 25 MG CAP PO SCH (18:21)
[2016-06-02] MEDS: INSULIN DETEMIR 100 UNITS/ML VIAL SQ SCH (22:40)
[2016-06-02] MEDS: guaiFENesin SOLUTION 200 MG/10 ML CUP PO PRN (23:55)
[2016-06-03] VITALS (8 sets, daily range): BP systolic 104–140; BP diastolic 76–87; PULSE 95–108; RESP 20–22; TEMP 96.5–97.7; O2SAT 97–100
[2016-06-03] MEDS: RESP: ALBUTEROL 2.5 MG/IPRATROPIUM 0.5 MG NEB (SCH) INH ×6 (03:23→23:17)
[2016-06-03] MEDS: ACETAMINOPHEN/HYDROcodone 325 MG/10 MG TAB PO PRN ×2 (06:43→18:43)
[2016-06-03] MEDS: methylPREDNISolone SOD SUCC 40 MG/1 ML VIAL IV SCH (06:44)
[2016-06-03] MEDS: INSULIN ASPART SUPPLEMENTAL SCALE SQ SCH ×5 (06:48→21:00)
[2016-06-03 07:06] LABS: HEMATOCRIT 40.4 % (35.0-46.0); MEAN CELL VOLUME 75.5 FL (80.0-100.0); MEAN CORPUSCULAR HEMOGLOBIN 24.7 PG (27.0-34.0); MEAN CORPUSCULAR HGB CONC 32.7 % (32.0-36.0); PLATELET COUNT 256 TH/MM3 (150-450); RED BLOOD COUNT 5.35 MIL/MM3 (4.00-5.30); RED CELL DISTRIBUTION WIDTH 16.7 % (11.6-17.2); WHITE BLOOD COUNT 12.9 TH/MM3 (4.0-11.0)
[2016-06-03 07:07] LABS: CHLORIDE 110 MEQ/L (98-107); POTASSIUM 4.3 MEQ/L (3.5-5.1); SODIUM (NA) 146 MEQ/L (136-145)
[2016-06-03 07:11] LABS: ANION GAP 12 MEQ/L (5-15); BICARBONATE 23.8 MEQ/L (21.0-32.0)
[2016-06-03 07:12] LABS: REVIEW FLAG FINAL
[2016-06-03 07:24] LABS: ALKALINE PHOSPHATASE 114 U/L (45-117); ALT (GPT) 44 U/L (10-53); AST (GOT) 15 U/L (15-37); BLOOD UREA NITROGEN 21 MG/DL (7-18); GLOMERULAR FILTRATION RATE 61 ML/MIN (>89); TOTAL BILIRUBIN ADULT 0.2 MG/DL (0.2-1.0)
[2016-06-03] MEDS ORDERED: LEVOFLOXACIN 750 MG TAB PO SCH (09:00)
[2016-06-03] MEDS: PREGABALIN 75 MG CAP PO SCH ×3 (10:11→18:41)
[2016-06-03] MEDS: LISINOPRIL 20 MG TAB PO SCH (10:12)
[2016-06-03] MEDS: METOPROLOL TARTRATE 25 MG TAB PO SCH ×2 (10:12→23:21)
[2016-06-03] MEDS: INDOMETHACIN 25 MG CAP PO SCH ×3 (10:12→18:41)
[2016-06-03] MEDS: BUDESONIDE-FORMOTEROL 160/4.5 MCG INHALER INH SCH (10:14)
--- NOTE | 2016-06-03 11:32 | HHI.PR ---
Subjective Remarks Patient was initially admitted to [facility] and simply transferred down to [place] for management. Family practice resident it primary physician, they indicate that they do not comment to [facility] to manage their patients. They asked if [facility] assume medical management today. Patient originally presented to hospital shortness of breath and dyspnea. Patient found to have COPD exacerbation. Patient put on appropriate treatment to include antibiotics , Solu-Medrol, DuoNeb's, O2 supplementation. Patient was seen today with Dr. Watson. Patient states that she does not feel good. She does have chronic respiratory failure which she does have home oxygen already set up. She has good O2 saturations on 2 L nasal cannula. Has coarse forced expiratory wheeze. She states that she is very sick and would like to go back to the [facility] for care. Objective Vitals Vital Signs Date Time Temp Pulse Resp B/P Pulse Ox O2 Delivery O2 Flow Rate FiO2 06/03/16 08:00 97.3 102 20 121/82 97 06/03/16 07:50 98 Nasal Cannula 2.00 06/03/16 04:00 97.3 95 20 137/82 100 06/03/16 00:00 97.3 107 20 122/79 99 06/02/16 20:00 93 06/02/16 20:00 96.7 96 21 116/80 98 06/02/16 19:51 99 Nasal Cannula 2.00 06/02/16 16:00 97.6 100 20 109/78 99 06/02/16 12:00 97.9 98 20 100/76 97 I/O 06/02/16 06/02/16 06/02/16 06/03/16 06/03/16 06/03/16 07:00 15:00 23:00 07:00 15:00 23:00 Intake Total 675 ml 1258 ml 240 ml Output Total 3 ml Balance 675 ml 1255 ml 240 ml Intake Oral 675 ml 480 ml 240 ml IV Total 778 ml Output Urine Total 3 ml # Voids 3 2 2 # Bowel Movements 3 1 0 Result Diagram: 06/03/1662806/03/16628 Objective Remarks GENERAL: Well-developed, well-nourished, in no acute distress. alert and orientated HEENT: Head is normocephalic without any lesions or masses noted. Facial features are symmetric. Eyes:Extraocular muscles are intact. Conjunctivae were clear. NECK: Supple without any masses. Trachea midline no deviation. No JVD, CARDIAC: Regular rhythm, regular rate. S1/S2 are heard. No murmurs gallops or rubs. LUNGS: Coarse end expiratory forced wheeze, no rhonchi or rales. No use of accessory muscles on inspiration or expiration. ABDOMEN: Soft, nontender. Nondistended. Bowel sounds heard in all 4 quadrants. No organomegaly or masses. Negative rebound, negative guarding EXTREMITIES: No edema, pulses are equal bilaterally. No cyanosis or clubbing NEUROLOGY: Mood and affect appear appropriate. Cranial nerves II through XII grossly intact. Moving all extremities, speech is clear Urinary Catheter: No Vascular Central Line Catheter: No A/P Assessment and Plan Systemic inflammatory response syndrome Likely secondary to COPD exacerbation No obvious signs of infection Chest x-ray was negative Check urinalysis Chronic obstructive pulmonary disease exacerbation in a patient with chronic respiratory failure Continue O2 supplementation maintain O2 sats greater than 92% Continue antibiotics Levaquin Continue duo nebs Continue Symbicort Discontinue Solu-Medrol, start by mouth prednisone 20 mg twice daily Chest x-ray does indicate atelectasis, reevaluated patient she does have a poor respiratory effort. She is not taking deep breaths. Would highly recommend patient to continue on incentive spirometry regularly Leukocytosis, improving Continue monitor CBC Hypokalemia Replaced, continue monitor and replace as needed Chronic kidney disease stage III Continue monitor renal functions Avoid nephrotoxins Diarrhea, resolved Patient has not had a bowel movement since being admitted to the hospital Discontinue C. difficile culture, isolation Hypertension, stable Lisinopril 40 mg daily Lopressor 25 mg twice daily Diabetes Accu-Cheks [id number] Patient started on Levemir 30 units at bedtime Low-dose Sliding scale insulin Rheumatoid arthritis Home medications continued to include Indocin, Lortab, Lyrica DVT prevention Sequential compression devices Written by Rhett Haro PA-C, acting as scribe for Dr. Watson on 06/03/16 at 1300. The documentation accurately reflects the work and decisions performed face-to- face by Dr. Watson on 06/03/16 at 1300. Rhett Haro Jun 03, 2016 11:32
[2016-06-03] MEDS: guaiFENesin SOLUTION 200 MG/10 ML CUP PO PRN (13:20)
[2016-06-03] MEDS: predniSONE 20 MG TAB PO SCH (23:21)
[2016-06-03] MEDS: INSULIN DETEMIR 100 UNITS/ML VIAL SQ SCH (23:23)
[2016-06-04] VITALS: BP 119/77; PULSE 113; RESP 20; TEMP 96.7; O2SAT 100
[2016-06-04] MEDS: RESP: ALBUTEROL 2.5 MG/IPRATROPIUM 0.5 MG NEB (SCH) INH ×3 (03:38→11:01)
[2016-06-04 04:00] VITALS: BP 157/98; PULSE 100; RESP 20; TEMP 96.5; O2SAT 97
[2016-06-04] MEDS: ACETAMINOPHEN/HYDROcodone 325 MG/10 MG TAB PO PRN ×2 (04:10→14:47)
[2016-06-04 06:19] LABS: AUTOMATED NEUTROPHIL # 7.8 TH/MM3 (1.8-7.7); BASOPHIL % 0.3 % (0.0-2.0); EOSINOPHIL % 0.1 % (0.0-4.0); HEMATOCRIT 39.2 % (35.0-46.0); HEMO FLAGS DIFF FINAL; LYMPH % 7.2 % (9.0-44.0); LYMPHOCYTE # 0.7 TH/MM3 (1.0-4.8); MEAN CELL VOLUME 75.9 FL (80.0-100.0); MEAN CORPUSCULAR HEMOGLOBIN 25.1 PG (27.0-34.0); MONO % 9.8 % (0.0-8.0); NEUT % 82.6 % (16.0-70.0); PLATELET COUNT 244 TH/MM3 (150-450); RED BLOOD COUNT 5.16 MIL/MM3 (4.00-5.30); RED CELL DISTRIBUTION WIDTH 16.6 % (11.6-17.2); WHITE BLOOD COUNT 9.4 TH/MM3 (4.0-11.0)
[2016-06-04 06:25] LABS: POTASSIUM 4.6 MEQ/L (3.5-5.1)
[2016-06-04 06:29] LABS: BICARBONATE 26.2 MEQ/L (21.0-32.0); MAGNESIUM 2.1 MG/DL (1.5-2.5)
[2016-06-04] MEDS: INSULIN ASPART SUPPLEMENTAL SCALE SQ SCH ×2 (06:45→12:16)
[2016-06-04 07:00] LABS: BLOOD, URINE LARGE (NEG); GLUCOSE,URINE 500 mg/dL (NEG); KETONE, URINE NEG (NEG); NITRITE,URINE NEG (NEG)
[2016-06-04 07:06] LABS: METHOD OF COLLECTION CLEAN CATCH; URINE COLOR YELLOW (YELLW/STRAW); WBC, URINE 0-2 /hpf (0-5)
[2016-06-04 07:07] LABS: BACTERIA, URINE FEW /hpf; COMMENT (UR) CULT NOT INDICATED; CULTURE IF INDICATED CULT NOT INDICATED; SQUAMOUS EPITHELIAL CELL URINE 0-5 /hpf (0-5)
[2016-06-04 07:38] VITALS: O2SAT 99
[2016-06-04 08:00] VITALS: BP 149/100; PULSE 88; RESP 16; TEMP 97.9; O2SAT 99
[2016-06-04] MEDS: LISINOPRIL 20 MG TAB PO SCH (09:04)
[2016-06-04] MEDS: METOPROLOL TARTRATE 25 MG TAB PO SCH (09:04)
[2016-06-04] MEDS: PREGABALIN 75 MG CAP PO SCH ×2 (09:04→12:17)
[2016-06-04 09:05] VITALS: BP 173/88; PULSE 85; RESP 20; TEMP 98; O2SAT 95
[2016-06-04] MEDS: INDOMETHACIN 25 MG CAP PO SCH ×2 (09:05→12:17)
[2016-06-04] MEDS: predniSONE 20 MG TAB PO SCH (09:05)
[2016-06-04] MEDS: BUDESONIDE-FORMOTEROL 160/4.5 MCG INHALER INH SCH (09:06)
--- NOTE | 2016-06-04 10:21 | HHI.PR ---
Subjective Remarks Patient seen and examined today with Dr. Watson. Patient states that she has not had any worsening of her symptoms. Patient states that she is able to walk to the bathroom and back without any problems. Discussed with her that she is not receiving any treatment at the hospital other than what she can do herself at home. She does understand and agrees with discharge home Objective Vitals Vital Signs Date Time Temp Pulse Resp B/P Pulse Ox O2 Delivery O2 Flow Rate FiO2 06/04/16 09:05 98.0 85 20 173/88 95 06/04/16 08:00 97.9 88 16 149/100 99 06/04/16 07:38 99 Nasal Cannula 2.00 06/04/16 04:00 96.5 100 20 157/98 97 06/04/16 00:00 96.7 113 20 119/77 100 06/03/16 20:00 96.5 108 20 111/87 97 06/03/16 19:25 99 Nasal Cannula 2.00 06/03/16 16:00 96.9 102 22 104/76 98 06/03/16 12:00 97.7 103 22 140/87 98 I/O 06/03/16 06/03/16 06/03/16 06/04/16 06/04/16 06/04/16 07:00 15:00 23:00 07:00 15:00 23:00 Intake Total 240 ml 1050 ml 60 ml 120 ml Output Total 125 ml 200 ml Balance 240 ml 1050 ml -65 ml -80 ml Intake Oral 240 ml 1050 ml 60 ml 120 ml Output Urine Total 125 ml 200 ml # Voids 2 4 1 1 # Bowel Movements 0 0 0 Result Diagram: 06/04/16 0550 06/04/16 0550 Objective Remarks GENERAL: Well-developed, well-nourished, in no acute distress. alert and orientated HEENT: Head is normocephalic without any lesions or masses noted. Facial features are symmetric. Eyes:Extraocular muscles are intact. Conjunctivae were clear. NECK: Supple without any masses. Trachea midline no deviation. No JVD, CARDIAC: Regular rhythm, regular rate. S1/S2 are heard. No murmurs gallops or rubs. LUNGS: No wheeze, no rhonchi or rales. No use of accessory muscles on inspiration or expiration. ABDOMEN: Soft, nontender. Nondistended. Bowel sounds heard in all 4 quadrants. No organomegaly or masses. Negative rebound, negative guarding EXTREMITIES: No edema, pulses are equal bilaterally. No cyanosis or clubbing NEUROLOGY: Mood and affect appear appropriate. Cranial nerves II through XII grossly intact. Moving all extremities, speech is clear Urinary Catheter: No Vascular Central Line Catheter: No A/P Assessment and Plan Systemic inflammatory response syndrome Likely secondary to COPD exacerbation No obvious signs of infection Chest x-ray was negative Urinalysis without any signs of infection Chronic obstructive pulmonary disease exacerbation in a patient with chronic respiratory failure Continue O2 supplementation maintain O2 sats greater than 92% Continue antibiotics Levaquin Continue duo nebs Continue Symbicort prednisone 20 mg twice daily Chest x-ray does indicate atelectasis, reevaluated patient she does have a poor respiratory effort. She is not taking deep breaths. Would highly recommend patient to continue on incentive spirometry regularly Leukocytosis, resolved Continue monitor CBC Hypokalemia Replaced, continue monitor and replace as needed Chronic kidney disease stage III Continue monitor renal functions Avoid nephrotoxins Diarrhea, resolved Patient has not had a bowel movement since being admitted to the hospital Discontinue C. difficile culture, isolation Hypertension, stable Lisinopril 40 mg daily Lopressor 25 mg twice daily Diabetes Accu-Cheks [phone] Patient started on Levemir 30 units at bedtime Low-dose Sliding scale insulin Rheumatoid arthritis Home medications continued to include Indocin, Lortab, Lyrica DVT prevention Sequential compression devices Written by Rhett Haro PA-C, acting as scribe for Dr. Watson on 06/04/16 at 1225. The documentation accurately reflects the work and decisions performed face-to- face by Dr. Watson on 06/04/16 at 1225. Discharge Planning Discharge home in stable condition Rhett Haro Jun 04, 2016 10:21
[2016-06-04] MEDS ORDERED: PRED10PA2 PO (10:23)
[2016-06-04] MEDS ORDERED: LEVA750T PO (10:23)
--- NOTE | 2016-06-04 10:24 | HHI.DCPOC ---
Discharge Care Plan Diagnosis: (1) Chronic respiratory failure (2) COPD (chronic obstructive pulmonary disease) Goals to Promote Your Health * To prevent worsening of your condition and complications * To maintain your health at the optimal level Directions to Meet Your Goals Take your medications as prescribed Follow your dietary instruction Follow activity as directed Keep your appointments as scheduled Take your immunizations and boosters as scheduled If your symptoms worsen call your PCP, if no PCP go to Urgent Care Center or Emergency Room Smoking is Dangerous to Your Health. Avoid second hand smoke Call the 24-hour hour crisis hotline for domestic abuse at Rhett Haro Jun 04, 2016 10:24
--- NOTE | 2016-06-04 10:30 | HHI.DS ---
Discharge Summary Admission Date Jun 01, 2016 at 13:09 Discharge Date: Jun 04, 2016 Admitting Diagnosis copd exac (1) COPD exacerbation ICD Code: J44.1 (2) Chronic respiratory failure ICD Code: J96.10 Procedures None Brief History - From Admission Please see family physician's HPI CBC/BMP: 06/04/16 0550 06/04/16 0550 Significant Findings Laboratory Tests Test 06/01/16 06/02/16 06/03/16 06/04/16 10:55 06:52 06:29 05:50 White Blood Count 16.2 TH/MM3 15.9 TH/MM3 12.9 TH/MM3 (4.0-11.0) (4.0-11.0) (4.0-11.0) Red Blood Count 6.35 MIL/MM3 5.39 MIL/MM3 5.35 MIL/MM3 (4.00-5.30) (4.00-5.30) (4.00-5.30) Hemoglobin 15.5 GM/DL (11.6-15.3) Hematocrit 47.4 % (35.0-46.0) Mean Corpuscular Volume 74.7 FL 75.4 FL 75.5 FL 75.9 FL (80.0-100.0) (80.0-100.0) (80.0-100.0) (80.0-100.0) Mean Corpuscular Hemoglobin 24.5 PG 24.6 PG 24.7 PG 25.1 PG (27.0-34.0) (27.0-34.0) (27.0-34.0) (27.0-34.0) Neutrophils (%) (Auto) 88.3 % 80.8 % 82.6 % (16.0-70.0) (16.0-70.0) (16.0-70.0) Lymphocytes (%) (Auto) 5.8 % 8.9 % 7.2 % (9.0-44.0) (9.0-44.0) (9.0-44.0) Neutrophils # (Auto) 14.3 TH/MM3 12.9 TH/MM3 7.8 TH/MM3 (1.8-7.7) (1.8-7.7) (1.8-7.7) Lymphocytes # (Auto) 0.9 TH/MM3 0.7 TH/MM3 (1.0-4.8) (1.0-4.8) Platelet Morphology Comment CLUMPED (NORMAL) Potassium Level 3.4 MEQ/L (3.5-5.1) Creatinine 1.01 MG/DL 1.40 MG/DL 1.10 MG/DL 1.20 MG/DL (0.50-1.00) (0.50-1.00) (0.50-1.00) (0.50-1.00) Estimat Glomerular Filtration 67 ML/MIN (>89) 46 ML/MIN (>89) 61 ML/MIN (>89) 55 ML/MIN (>89) Rate Random Glucose 66 MG/DL 184 MG/DL 290 MG/DL 290 MG/DL (74-106) (74-106) (74-106) (74-106) Basophils (%) (Auto) 2.8 % (0.0-2.0) Monocytes # (Auto) 1.2 TH/MM3 (0-0.9) Basophils # (Auto) 0.4 TH/MM3 (0-0.2) Chloride Level 111 MEQ/L 110 MEQ/L 111 MEQ/L (98-107) (98-107) (98-107) Blood Urea Nitrogen 25 MG/DL (7-18) 21 MG/DL (7-18) 25 MG/DL (7-18) Calcium Level 7.7 MG/DL 8.2 MG/DL 7.8 MG/DL (8.5-10.1) (8.5-10.1) (8.5-10.1) Total Protein 5.8 GM/DL 6.2 GM/DL (6.4-8.2) (6.4-8.2) Albumin 1.8 GM/DL 2.1 GM/DL (3.4-5.0) (3.4-5.0) Sodium Level 146 MEQ/L 146 MEQ/L (136-145) (136-145) Monocytes (%) (Auto) 9.8 % (0.0-8.0) Test 06/04/16 06:50 Urine Protein 100 mg/dL (NEG-TRACE) Urine Glucose (UA) 500 mg/dL (NEG) Urine Occult Blood LARGE (NEG) Urine RBC 10-14 /hpf (0-3) Urine Bacteria FEW /hpf (NONE) Urine Yeast (Budding) OCC (NONE) Imaging Last Impressions Chest X-Ray 06/01/16 1053 Signed Impressions: Service Date/Time: Wednesday, June 01, 2016 11:09 - CONCLUSION: 1. Minimal basilar atelectasis. Sonu Lazcano MD PE at Discharge GENERAL: Well-developed, well-nourished, in no acute distress. alert and orientated HEENT: Head is normocephalic without any lesions or masses noted. Facial features are symmetric. Eyes:Extraocular muscles are intact. Conjunctivae were clear. NECK: Supple without any masses. Trachea midline no deviation. No JVD, CARDIAC: Regular rhythm, regular rate. S1/S2 are heard. No murmurs gallops or rubs. LUNGS: No wheeze, no rhonchi or rales. No use of accessory muscles on inspiration or expiration. ABDOMEN: Soft, nontender. Nondistended. Bowel sounds heard in all 4 quadrants. No organomegaly or masses. Negative rebound, negative guarding EXTREMITIES: No edema, pulses are equal bilaterally. No cyanosis or clubbing NEUROLOGY: Mood and affect appear appropriate. Cranial nerves II through XII grossly intact. Moving all extremities, speech is clear Hospital Course 61-year-old female who originally admitted to [facility] and was transferred to [facility] for continued management. Family practice residents did evaluate the patient originally and requested that [facility] assume medical management in [place]. Patient did resent with shortness of breath and dyspnea. Patient does have history of chronic respiratory failure and COPD. Patient was admitted under COPD exacerbation. Patient was started on antibiotics, Solu-Medrol, DuoNeb's, O2 supplementation. Patient was excessively weaned off Solu-Medrol and is on by mouth prednisone, by mouth Levaquin, DuoNeb's. O2 supplementation. Patient does have any laser at home, she is on oxygen at home at 2 L. Patient has not had a desaturation since being in the hospital. Her lung sounds have improved. Clinically this time she is improved. We are not offering any more care than she can receive at home. Patient does understand that in his agreement with discharge at this time. Will plan discharge accordingly. Pt Condition on Discharge: Stable Discharge Disposition: Discharge Home Discharge Time: <= 30 minutes Discharge Instructions DIET: Follow Instructions for: Diabetic Diet Activities you can perform: Regular-No Restrictions Follow up Referrals: PCP Follow-up - 1 Week New Medications: Prednisone (48) 10 mg tab Dose Pack (Prednisone (48) 10 mg tab Dose Pack) 10 Mg Dspk 10 MG PO DIRECTED Inflammation #1 Ref 0 DSPK Levofloxacin (Levaquin) 750 Mg Tab 750 MG PO Q48H COPD #7 TAB Continued Medications: Albuterol Neb (Albuterol Neb) 2.5 Mg/3 Ml Neb 2.5 MG NEB Q6HR While awake PRN SHORTNESS OF BREATH #60 Ref 0 NEBULE Budesonide-Formoterol Inh (Symbicort Inh) 160-4.5 Mcg/Act Aero 2 PUFF INH DAILY COPD #1 Ref 0 INHALER Enalapril (Enalapril) 10 Mg Tab 10 MG PO DAILY PRN #30 Ref 0 TAB Hydrocodone-Acetaminophen (Hydrocodone-Acetaminophen) 10-325 mg Tab 1 TAB PO TID PRN PAIN #15 Ref 0 TAB Indomethacin (Indomethacin) 50 Mg Cap 50 MG PO TID Take with food, milk, or antacids to decrease stomach adverse effects. Ref 0 CAP Insulin Aspart Inj (Novolog Inj) 1,000 Unit/10 Ml Vial Unknown Dose SQ ACHS Max dose at bedtime ( ) units; sugars less than 70,(0) units; sugars 150-199,(2) units; sugars 200-249,(4) units; sugars 250-299,(7) units; sugars 300-349,(10) units; sugars greater than 349,(12)units Blood Sugar Management #10 Ref 0 ML Insulin Glargine Inj (Lantus Inj) 1,000 Unit/10 Ml Vial 40 UNITS SQ BID Blood Sugar Management Ref 0 VIAL Lisinopril (Lisinopril) 20 Mg Tab 40 MG PO DAILY Blood Pressure Management #31 TAB Metoprolol Tartrate (Metoprolol Tartrate) 25 Mg Tab 25 MG PO Q12HR Blood Pressure Management #62 TAB Pregabalin (Lyrica) 150 Mg Cap 150 MG PO TID #90 Ref 0 CAP Sitagliptin-Metformin (Janumet) 50-1,000 Mg Tab Unknown Dose PO DAILY Blood Sugar Management #0 Ref 0 TAB Discontinued Medications: Clindamycin (Cleocin) 150 Mg Cap 300 MG PO Q6HR Infection #48 CAP Levofloxacin (Levaquin) 750 Mg Tab 750 MG PO Q24H Infection #12 TAB Prednisone (Prednisone) 20 Mg Tab 20 MG PO BID Take 20 mg twice a day for 3 days then 20 mg daily for 3 days then one half tab for 3 days then stop copd #12 TAB Prednisone (21) 10 mg tab Dose Pack (Prednisone (21) 10 mg tab Dose Pack) 10 Mg Pack 10 MG PO DIRECTED Inflammation #1 Ref 0 DSPK Additional Information Written by Rhett Haro PA-C, acting as scribe for Dr. Watson on 06/04/16 at 1225. The documentation accurately reflects the work and decisions performed face-to- face by Dr. Watson on 06/04/16 at 1225. Rhett Haro Jun 04, 2016 10:30 Ignacia Watson MD Jun 04, 2016 15:33
[2016-06-04 12:00] VITALS: BP 142/100; PULSE 102; RESP 16; TEMP 97.1; O2SAT 98
[2016-06-04] MEDS: guaiFENesin SOLUTION 200 MG/10 ML CUP PO PRN (12:22)
== END 2016-06-04 14:52 | disposition home or self-care (01) ==
LOC: NEPC 10:14 → NEDA 13:09 → NEDH 19:12 → PH3A 22:35
PROVIDERS: ADMIT Family Medicine; ATTEND Family Medicine
DX: J44.1 Chronic obstructive pulmonary disease with (acute) exacerbation (principal); J96.10 Chronic respiratory failure, unspecified whether with hypoxia or hypercapnia; J98.11 Atelectasis; I12.9 Hypertensive chronic kidney disease with stage 1 through stage 4 chronic kidney disease, or unspecified chronic kidney disease; N18.3 Chronic kidney disease, stage 3 (moderate); R65.20 Severe sepsis without septic shock; E11.22 Type 2 diabetes mellitus with diabetic chronic kidney disease; E11.649 Type 2 diabetes mellitus with hypoglycemia without coma; E78.5 Hyperlipidemia, unspecified; E87.6 Hypokalemia; R19.7 Diarrhea, unspecified; F41.9 Anxiety disorder, unspecified; K21.9 Gastro-esophageal reflux disease without esophagitis; M10.9 Gout, unspecified; M06.9 Rheumatoid arthritis, unspecified; M19.90 Unspecified osteoarthritis, unspecified site; M81.0 Age-related osteoporosis without current pathological fracture; Z79.4 Long term (current) use of insulin; Z99.81 Dependence on supplemental oxygen; Z87.891 Personal history of nicotine dependence
CPT/HCPCS: 71010; 80048; 80053; 81001; 82948; 83735; 85025; 85027; 93005; 94150; 94640; 94664; 97163; 99285; G0378; G8987; G8988; J1815; J2920; J7030; J7512; J7613

== ENCOUNTER 2016-06-20 17:56 | Inpatient (IN) | payer MEDICAID ==
[~2016-06-20] VITALS: Ht 160 cm; Wt 93.1 kg
[~2016-06-20 17:56] MED LIST changes: -CLIN150 PO; +JANU50TA8 PO; -PRED10PA PO; +PRED10PA2 PO; -PRED20 PO
[2016-06-20 18:07] VITALS: BP 99/61; PULSE 93; RESP 18; TEMP 98.5; O2SAT 93
[2016-06-20 18:12] VITALS: BP 99/61
[2016-06-20] MEDS ORDERED: NOVOLOGP2 SQ (18:41)
[2016-06-20 19:00] LABS: BLOOD GAS BASE EXCESS -0.4 mmol/L (-2-2); BLOOD GAS CARBOXYHEMOGLOBIN 2.6 % (0-4); BLOOD GAS HCO3 23 mmol/L (22-26); BLOOD GAS METHEMOGLOBIN 2.4 % (0-2); BLOOD GAS O2 HGB SATURATION 90 % (90-100); BLOOD GAS OXYGEN CONTENT 20.5 Vol % (12.0-20.0); BLOOD GAS PCO2 32 mmHg (38-42); BLOOD GAS PO2 70 mmHG (61-120); BLOOD GAS TOTAL HGB 16.2 G/DL (12.0-16.0); CRITICAL VALUE NO; TEMP CORR TO 98.6
[2016-06-20] MEDS ORDERED: methylPREDNISolone SOD SUCC 125 MG/2 ML VIAL IVP ONE (19:00)
[2016-06-20] MEDS ORDERED: SODIUM CHLOR 0.9% 1000 ML INJ 1,000 ML IV ONE ×2 (19:00)
[2016-06-20 19:01] LABS: DRAW SITE RT RADIAL; LITER FLOW 2.5 L/M; NUMBER OF ARTERIAL PUNCTURES 1; OXYGEN DEVICE NASAL CANNULA; STAT YES; ULNAR PULSE PRESENT
[2016-06-20] MEDS: RESP: ALBUTEROL 2.5 MG/IPRATROPIUM 0.5 MG NEB (SCH) INH ×2 (19:05→19:06)
--- NOTE | 2016-06-20 19:28 | PD ---
HPI Chief Complaint: Respiratory Symptoms Time Seen by Provider: 18:44 Travel History International Travel<30 days: No Contact w/Intl Traveler<30days: No Traveled to known affect area: No History of Present Illness HPI Is a 61-year-old woman who presents to the emergency department saying that she is having cough shortness of breath fevers and feeling sick for the past month or so. She's been admitted twice for what sounds like COPD exacerbation and pneumonia. She finished antibiotics. She has COPD and she is on home oxygen and chronic steroids. She is on her chronic 10 mg of prednisone daily. She states she still having fevers, starting lightheadedness dizziness especially when she coughs, started nausea and vomiting. She states she was worse today and so her family called the ambulance. History Past Medical History Narrative Medical COPD, home oxygen, chronic steroids Rheumatoid arthritis, hypertension Diabetes mellitus hyperlipidemia Hepatitis C Previous charts a possible CAD, patient denies any history of heart disease. PNEUMOCCOCAL Vaccine (Year): 2 Menopausal: Yes : 0 Para: 0 Social History Alcohol Use: No Tobacco Use: No (STOPPED COUPLE MONTHS AGO) Allergies-Medications (Allergen,Severity, Reaction): Coded Allergies: *MDRO Multi-Drug Resistant Organism (Verified Adverse Reaction, Unknown, ) MRSA wound 11/2012. MRSA PCR Screen negative 11/03/14 and 11/05/14. Cleared per Infection Control MRSA PCR Screen NEGATIVE - 04/30/2015 Reported Meds & Prescriptions Reported Meds & Active Scripts Active Metoprolol Tartrate 25 Mg Tab 25 Mg PO Q12HR Lisinopril 20 Mg Tab 40 Mg PO DAILY Hydrocodone-Acetaminophen 10-325 mg Tab 1 Tab PO TID PRN Reported Novolog Inj (Insulin Aspart) 1,000 Unit/10 Ml Vial 0 SQ DIRECTED Sliding Scale as directed. Janumet (Sitagliptin-Metformin) 50-1,000 Mg Tab Unknown Dose PO DAILY Indomethacin 50 Mg Cap 50 Mg PO TID Take with food, milk, or antacids to decrease stomach adverse effects. Enalapril (Enalapril Maleate) 10 Mg Tab 10 Mg PO DAILY PRN Lyrica (Pregabalin) 150 Mg Cap 150 Mg PO TID Lantus Inj (Insulin Glargine) 1,000 Unit/10 Ml Vial 40 Units SQ BID Symbicort Inh (Budesonide/Formoterol Fumarate) 160-4.5 Mcg/Act Aero 2 Puff INH DAILY Albuterol Neb (Albuterol Sulfate) 2.5 Mg/3 Ml Neb 2.5 Mg NEB Q6HR PRN While awake Review of Systems Except as stated in HPI: all other systems reviewed are Neg Physical Exam Narrative GENERAL: Well-appearing 61-year-old woman, appears anxious, moderate respiratory distress SKIN: Warm and dry. HEAD: Atraumatic. Normocephalic. EYES: Pupils equal and round. No scleral icterus. No injection or drainage. ENT: No nasal bleeding or discharge. Mucous membranes pink and moist. NECK: Trachea midline. No JVD. CARDIOVASCULAR: Rapid heart rate in the 130s, regular, no appreciable murmurs. RESPIRATORY: Moderate tachypnea and increased respiratory accessory muscle use. Squeaky wheezes or the posterior lung ellington. No Rales or rhonchi. GASTROINTESTINAL: Abdomen soft, non-tender, nondistended. Hepatic and splenic margins not palpable. MUSCULOSKELETAL: No obvious deformities. No significant edema. NEUROLOGICAL: Awake and alert. No obvious cranial nerve deficits. Motor grossly within normal limits. Normal speech. PSYCHIATRIC: Appropriate mood and affect; insight and judgment normal. Data Data Last Documented VS Vital Signs Date Time Temp Pulse Resp B/P Pulse Ox O2 Delivery O2 Flow Rate FiO2 06/20/16 19:29 98 Nasal Cannula 2 06/20/16 19:29 132 22 98/62 06/20/16 18:07 98.5 Orders Complete Blood Count With Diff (06/20/16 18:46) Comprehensive Metabolic Panel (06/20/16 18:46) Lactic Acid Sepsis Protocol (06/20/16 18:46) Lipase (06/20/16 18:46) Urinalysis - C+S If Indicated (06/20/16 18:46) Influenzae A/B Antigen (06/20/16 18:46) Blood Culture (06/20/16 18:46) Sputum Culture And Gram Stain (06/20/16 18:46) Chest, Single Ap (06/20/16 18:46) Blood Glucose (06/20/16 18:46) Ecg Monitoring (06/20/16 18:46) Iv Access Insert/Monitor (06/20/16 18:46) Oximetry (06/20/16 18:46) Oxygen Administration (06/20/16 18:46) Arterial Blood Gas (Abg) (06/20/16 ) Sodium Chlor 0.9% 1000 Ml Inj (Ns 1000 M (06/20/16 19:00) Sodium Chlor 0.9% 1000 Ml Inj (Ns 1000 M (06/20/16 19:00) Methylprednisolone So Succ Inj (Solumedr (06/20/16 19:00) Albuterol-Ipratropium Neb (Duoneb Neb) (06/20/16 19:00) Troponin I (06/20/16 20:02) Levofloxacin 500 Mg Premix Inj (Levaquin (06/20/16 21:00) Potassium Chlor 20 Meq Premix (Kcl 20 Me (06/20/16 20:45) Admit To Inpatient (06/20/16 ) Vital Signs (Adult) Q4H (06/20/16 20:50) Activity Oob With Assistance (06/20/16 20:50) Supervisor Advice / Telemetry .CONTINUOUS (06/20/16 20:50) Diet 1800 Ada Cons Carb (06/21/16 Breakfast) Diet Heart Healthy (06/21/16 Breakfast) Sodium Chloride 0.9% Flush (Ns Flush) (06/20/16 21:00) Sodium Chloride 0.9% Flush (Ns Flush) (06/20/16 21:00) Ondansetron Inj (Zofran Inj) (06/20/16 21:00) Basic Metabolic Panel (Bmp) (06/21/16 06:00) Complete Blood Count With Diff (06/21/16 06:00) Resp Oxygen Clyde C Titrat 1-4 L (06/20/16 ) Pt Request For Service (06/20/16 20:50) Case Management Consult (06/20/16 20:50) Heparin Inj (Heparin Inj) (06/20/16 21:00) Naloxone Inj (Narcan Inj) (06/20/16 21:00) Inpatient Certification (06/20/16 ) Bedside Glucose REUBEN.Q1H (06/20/16 20:53) Dextrose 50% In Chilo (Vial) Inj (D50w (Vi (06/20/16 21:00) ^ Watch For Or Notify (06/20/16 20:53) Ipratropium Neb (Atrovent Neb) (06/20/16 22:00) Ipratropium Neb (Atrovent Neb) (06/20/16 21:00) Methylprednisolone So Succ Inj (Solumedr (06/21/16 00:00) Pantoprazole (Protonix) (06/21/16 09:00) Potassium Chloride Eff (K-Lyte Cl Eff) (06/20/16 21:00) Magnesium Sulfate 1 Gm Premix (Magnesium (06/20/16 21:00) Magnesium (Mg) (06/20/16 20:56) Labs Laboratory Tests Test 06/20/16 06/20/16 18:55 19:15 Blood Gas Puncture Site RT RADIAL Blood Gas Patient Temperature 98.6 Blood Gas HCO3 23 mmol/L Blood Gas Base Excess -0.4 mmol/L Blood Gas Oxygen Saturation 90 % Arterial Blood pH 7.47 Arterial Blood Partial 32 mmHg Pressure CO2 Arterial Blood Partial 70 mmHG Pressure O2 Arterial Blood Oxygen Content 20.5 Vol % Arterial Blood 2.6 % Carboxyhemoglobin Arterial Blood Methemoglobin 2.4 % Blood Gas Hemoglobin 16.2 G/DL Oxygen Delivery Device NASAL CANNULA Blood Gas Liter Flow 2.5 L/M White Blood Count 11.6 TH/MM3 Red Blood Count 6.33 MIL/MM3 Hemoglobin 15.7 GM/DL Hematocrit 47.1 % Mean Corpuscular Volume 74.4 FL Mean Corpuscular Hemoglobin 24.8 PG Mean Corpuscular Hemoglobin 33.3 % Concent Red Cell Distribution Width 17.4 % Platelet Count 307 TH/MM3 Mean Platelet Volume 9.3 FL Neutrophils (%) (Auto) 51.6 % Lymphocytes (%) (Auto) 37.3 % Monocytes (%) (Auto) 10.2 % Eosinophils (%) (Auto) 0.4 % Basophils (%) (Auto) 0.5 % Neutrophils # (Auto) 6.0 TH/MM3 Lymphocytes # (Auto) 4.3 TH/MM3 Monocytes # (Auto) 1.2 TH/MM3 Eosinophils # (Auto) 0.0 TH/MM3 Basophils # (Auto) 0.1 TH/MM3 CBC Comment AUTO DIFF Differential Comment AUTO DIFF CONFIRMED Platelet Estimate NORMAL Platelet Morphology Comment NORMAL Sodium Level 144 MEQ/L Potassium Level 2.9 MEQ/L Chloride Level 109 MEQ/L Carbon Dioxide Level 26.7 MEQ/L Anion Gap 8 MEQ/L Blood Urea Nitrogen 8 MG/DL Creatinine 1.13 MG/DL Estimat Glomerular Filtration 59 ML/MIN Rate Random Glucose 43 MG/DL Lactic Acid Level 2.0 mmol/L Calcium Level 8.4 MG/DL Total Bilirubin 0.4 MG/DL Aspartate Amino Transf 36 U/L (AST/SGOT) Alanine Aminotransferase 32 U/L (ALT/SGPT) Alkaline Phosphatase 177 U/L Troponin I LESS THAN 0.02 NG/ML Total Protein 7.3 GM/DL Albumin 2.2 GM/DL Lipase 58 U/L [facility] Medical Decision Making Medical Screen Exam Complete: Yes Emergency Medical Condition: Yes Interpretation(s) Review of EKG: Regular narrow complex rhythm at a rate of 146, likely sinus, possible a flutter, normal axis, normal intervals, no definite evidence of acute ischemia. LABS: CBC remarkable for mild leukocytosis, hemoglobin 15.7 CMP Glucose 43, otherwise unremarkable Troponin pending Lactate 2.0 Lipase 58 ABG 7.47/32/70/23 A chest x-ray: Mild streaky opacity now present in both lung bases no definite consolidation. Differential Diagnosis Infection, pneumonia, arrhythmia, PE, COPD, other Narrative Course Medical decision making 61-year-old woman with a history of COPD presents emergent arm worsening respiratory distress and cough cold symptoms suggestive of pneumonia. Her previous admission show she is some bullous lesions in her upper lung, she's had CT pulmonary angiograms that were negative. Her gas shows acute respiratory alkalosis without significant CO2 retention. We'll check x-ray, labs, breathing treatments, steroids, reassess. FINAL: Patient worsening respiratory distress, labored on exam with tachycardia. Possibly COPD exacerbation but doesn't seem entirely clear. She' s been worked up for PE before in its been negative. She has used tachyarrhythmia that may be a primary arrhythmia although it appears to be sinus. Hypokalemia likely related to albuterol use. We will replete potassium , treat for COPD exacerbation, admitted for further evaluation. Diagnosis Primary Impression: COPD (chronic obstructive pulmonary disease) Qualified Code: J44.1 - Chronic obstructive pulmonary disease with acute exacerbation Additional Impression: Acute bronchitis Qualified Code: J20.9 - Acute bronchitis, unspecified organism Oliver Abbasi MD Jun 20, 2016 19:28
[2016-06-20 19:29] VITALS: BP 98/62; PULSE 132; RESP 22; O2SAT 98
--- NOTE | 2016-06-20 19:31 | RADRPT ---
EXAM DATE/TIME: 06/20/2016 19:11 [facility] COMPARISON: CHEST SINGLE AP, June 01, 2016, 11:09. INDICATIONS : Short of breath. MEDICAL HISTORY : Chronic obstructive pulmonary disease. Diabetes mellitus type II. SURGICAL HISTORY : None. ENCOUNTER: Initial ACUITY: 1 day PAIN SCORE: 0/10 LOCATION: chest FINDINGS: A single view of the chest demonstrates the lungs to be symmetrically aerated without evidence of mas s, consolidative infiltrate or effusion. There are mild streaky opacities at both lung bases. There a re line electrocardiogram leads. The cardiomediastinal contours are unremarkable. Osseous structures are intact. CONCLUSION: Mild streaky opacity is now present at both lung bases with no definite consolidation . Zakc Jim MD on June 20, 2016 at 19:28 Board Certified Radiologist. This report was verified electronically.
[2016-06-20 19:44] LABS: BASOPHIL # 0.1 TH/MM3 (0-0.2); BASOPHIL % 0.5 % (0.0-2.0); EOSINOPHIL % 0.4 % (0.0-4.0); HEMATOCRIT 47.1 % (35.0-46.0); LYMPH % 37.3 % (9.0-44.0); LYMPHOCYTE # 4.3 TH/MM3 (1.0-4.8); MEAN CELL VOLUME 74.4 FL (80.0-100.0); MEAN CORPUSCULAR HEMOGLOBIN 24.8 PG (27.0-34.0); MEAN CORPUSCULAR HGB CONC 33.3 % (32.0-36.0); MONO % 10.2 % (0.0-8.0); NEUT % 51.6 % (16.0-70.0); PLATELET COUNT 307 TH/MM3 (150-450); RED BLOOD COUNT 6.33 MIL/MM3 (4.00-5.30); RED CELL DISTRIBUTION WIDTH 17.4 % (11.6-17.2); WHITE BLOOD COUNT 11.6 TH/MM3 (4.0-11.0)
[2016-06-20 19:51] LABS: HEMO FLAGS AUTO DIFF
[2016-06-20 20:13] LABS: ALKALINE PHOSPHATASE 177 U/L (45-117); ALT (GPT) 32 U/L (10-53); ANION GAP 8 MEQ/L (5-15); AST (GOT) 36 U/L (15-37); BICARBONATE 26.7 MEQ/L (21.0-32.0); BLOOD UREA NITROGEN 8 MG/DL (7-18); CHLORIDE 109 MEQ/L (98-107); GLOMERULAR FILTRATION RATE 59 ML/MIN (>89); SODIUM (NA) 144 MEQ/L (136-145); TOTAL BILIRUBIN ADULT 0.4 MG/DL (0.2-1.0)
[2016-06-20 20:16] LABS: POTASSIUM 2.9 MEQ/L (3.5-5.1)
[2016-06-20 20:34] LABS: SCAN/DIFF AUTO DIFF CONFIRMED
[2016-06-20 20:35] LABS: PLATELET ESTIMATE SMEAR NORMAL (NORMAL); PLATELET MORPHOLOGY NORMAL (NORMAL)
[2016-06-20] MEDS ORDERED: SODIUM CHLORIDE 0.9% FLUSH 5 ML FLUSH FLUSH PRN (21:00)
[2016-06-20] MEDS ORDERED: NALOXONE HCL 0.4 MG/ML AMP IV PRN (21:00)
[2016-06-20] MEDS ORDERED: POTASSIUM CHLORIDE 25 MEQ EFFERVESCENT TAB PO ONE (21:00)
[2016-06-20] MEDS ORDERED: LEVOFLOXACIN 500 MG PREMIX INJ 100 ML IV ONE (21:00)
[2016-06-20] MEDS ORDERED: RESP: IPRATROPIUM 0.5 MG/2.5 ML NEB NEB PRN (21:00)
[2016-06-20] MEDS ORDERED: HEPARIN SODIUM - SQ 10,000 UNITS/ML VIAL SQ SCH (21:00)
[2016-06-20] MEDS ORDERED: ONDANSETRON HCL 4 MG/2 ML VIAL IVP PRN (21:00)
[2016-06-20] MEDS ORDERED: DEXTROSE 50% IN WATER 50 ML VIAL(D50) IV PUSH PRN (21:00)
[2016-06-20] MEDS ORDERED: MAGNESIUM SULFATE 1 GM PREMIX 100 ML IV ONE (21:00)
[2016-06-20] MEDS: RESP: IPRATROPIUM 0.5 MG/2.5 ML NEB NEB SCH (21:30)
--- NOTE | 2016-06-20 22:36 | HHI.HP ---
[facility] Service [facility] Primary Care Physician Shaggy Landry MD Admission Diagnosis COPD exacerbation, shortness of breath, arrhythmia Diagnoses: (1) COPD exacerbation (2) Diabetes mellitus, type 2 (3) Hypoglycemic reaction (4) Hypokalemia Chief Complaint: Short of breath with minimal exertion Travel History International Travel<30 Days: No Contact w/Intl Traveler <30 Da: No Traveled to Known Affected Are: No History of Present Illness Ms. Negrete is a 61 y/o female with a medical history including type 2 diabetes mellitus x 6 years, rheumatoid arthritis, oxygen dependent COPD ( follows with Dr. Vincent), hepatitis C (untreated but sees GI specialist once yearly), hypertension, and obesity who presented to the ER today with worsening shortness of breath despite treatment. She has had numerous hospitalizations over the past year with the last hospitalization occurring 06/01/2016 through 2016 for COPD exacerbation. She is on home oxygen therapy, has completed antibiotics, and is on daily prednisone. The patient returns to the ER 06/20/2016 complaining of persistent symptoms despite treatment. She states she has continued to feel severely short of breath at rest and worsening with minimal exertion such as walking down the hallway at home. Her symptoms are accompanied by chest pain described as a tightness and severe fatigue that is also worse with exertion and dizziness with ambulation. She states that her shortness of breath is so severe that when she walks down the hallway, it takes her 20 minutes of rest to recover so she can make it back to her chair . She describes a chronic cough that is accompanied by green, yellow, and white mucus. Had severe fatigue gets worse with exertion. Her blood glucose was also noted at 43 upon arrival in the ER. Potassium was 2.9 and is been replaced. Chest x-ray shows mild streaky opacity now present at both lung bases with no definite consolidation. Troponin I was negative upon arrival. . Review of Systems Constitutional: COMPLAINS OF: Fatigue (worse with exertion), Dizziness (with ambulation), DENIES: Fever Respiratory: COMPLAINS OF: Cough, Sputum production, Shortness of breath Cardiovascular: COMPLAINS OF: Chest pain (chest tightness), Lower Extremity Edema (right post op) Gastrointestinal: COMPLAINS OF: Abdominal pain (abdomen feels tight), DENIES: Black stools, Bloody stools, Diarrhea, Nausea, Vomiting Genitourinary: DENIES: Hematuria, Dysuria Musculoskeletal: COMPLAINS OF: Joint pain (right knee), Joint Swelling Neurologic: COMPLAINS OF: Headache Other ten point system reviewed and is otherwise negative Past Family Social History Past Medical History Type 2 diabetes mellitus x 6 1/2 years Rheumatoid Arthritis COPD Hepatitis C Hypertension Obesity Gout Sinus Tachycardia Osteoporosis . Past Surgical History Right knee septic arthritis requiring washout and debridement 2008 . Reported Medications Reported Meds & Active Scripts Active Metoprolol Tartrate 25 Mg Tab 25 Mg PO Q12HR Lisinopril 20 Mg Tab 40 Mg PO DAILY Hydrocodone-Acetaminophen 10-325 mg Tab 1 Tab PO TID PRN Reported Novolog Inj (Insulin Aspart) 1,000 Unit/10 Ml Vial 0 SQ DIRECTED Sliding Scale as directed. Janumet (Sitagliptin-Metformin) 50-1,000 Mg Tab Unknown Dose PO DAILY Indomethacin 50 Mg Cap 50 Mg PO TID Take with food, milk, or antacids to decrease stomach adverse effects. Enalapril (Enalapril Maleate) 10 Mg Tab 10 Mg PO DAILY PRN Lyrica (Pregabalin) 150 Mg Cap 150 Mg PO TID Lantus Inj (Insulin Glargine) 1,000 Unit/10 Ml Vial 40 Units SQ BID Symbicort Inh (Budesonide/Formoterol Fumarate) 160-4.5 Mcg/Act Aero 2 Puff INH DAILY Albuterol Neb (Albuterol Sulfate) 2.5 Mg/3 Ml Neb 2.5 Mg NEB Q6HR PRN While awake Allergies: Coded Allergies: *MDRO Multi-Drug Resistant Organism (Verified Adverse Reaction, Unknown, ) MRSA wound 11/2012. MRSA PCR Screen negative 11/03/14 and 11/05/14. Cleared per Infection Control MRSA PCR Screen NEGATIVE - 04/30/2015 Active Ordered Medications Current Medications Sodium Chloride 1,000 ml @ 2,000 mls/hr Q30M ONCE IV Last administered on 06/20t 20:51; Start 06/20/16 at 19:00; Stop 06/20/16 at 19:29; Status DC Sodium Chloride (NS 1000 ml Inj) 1,000 ml @ 2,000 mls/hr Q30M ONCE IV Last administered on 06/20/16 20:52; Start 06/20/16 at 19:00; Stop 06/20/16 at 19:29 ; Status DC Methylprednisolone Sodium Succinate (SoluMEDROL INJ) 125 mg ONCE ONCE IVP ; Start 06/20/16 at 19:00; Stop 06/20/16 at 19:01; Status DC Albuterol/ Ipratropium 1 ampule 1 ampule Q15M INH Last administered on 19:06; Start 06/20/16 at 19:00; Stop 06/20/16 at 19:31; Status DC Levofloxacin/ Dextrose 100 ml @ 100 mls/hr ONCE ONCE IV Last administered on 06/20/16 20:52; Start 06/20/16 at 21:00; Stop 06/20/16 at 21:59; Status DC Potassium Chloride (KCl 20 Meq Premix Inj) 100 ml @ 50 mls/hr Q2H IV ; Start at 20:45; Stop 06/21/16 at 00:44 IV Flush (NS Flush) 2 ml UNSCH PRN FLUSH FLUSH AFTER USING IV ACCESS; Start at 21:00 IV Flush (NS Flush) 2 ml BID FLUSH ; Start 06/20/16 at 21:00 Ondansetron HCl (Zofran Inj) 4 mg Q6H PRN IVP NAUSEA OR VOMITING; Start at 21:00 Heparin Sodium (Porcine) (Heparin Inj) 5,000 units Q8H SQ ; Start 06/20/16 at 21 :00 Naloxone HCl (Narcan Inj) 0.4 mg UNSCH PRN IV SEE LABEL COMMENTS; Start at 21:00 Dextrose (D50w (Vial) Inj) 50 ml Q1HR PRN IV PUSH bs<100; Start 06/20/16 at 21: 00 Ipratropium Carbon (Atrovent Neb) 0.5 mg Q6HR NEB NEB Last administered on 21:30; Start 06/20/16 at 22:00 Ipratropium Carbon (Atrovent Neb) 0.5 mg Q2HR NEB PRN NEB wheezing; Start at 21:00 Methylprednisolone Sodium Succinate (SoluMEDROL INJ) 40 mg Q6HR IV PUSH ; Start 06/21/16 at 00:00 Pantoprazole Sodium (Protonix) 40 mg DAILY PO ; Start 06/21/16 at 09:00 Potassium Bicarb/ Potassium Chloride 50 meq 50 meq ONCE ONCE PO ; Start at 21:00; Stop 06/20/16 at 21:11; Status DC Magnesium Sulfate/ Dextrose (Magnesium Sulfate 1 Gm Premix) 100 ml @ 100 mls/ hr ONCE ONCE IV ; Start 06/20/16 at 21:00; Stop 06/20/16 at 21:59; Status DC Family History Mother with COPD Social History Tobacco: quit smoking January 2016. . Physical Exam Vital Signs Vital Signs Date Time Temp Pulse Resp B/P Pulse Ox O2 Delivery O2 Flow Rate FiO2 06/20/16 19:29 98 Nasal Cannula 2 06/20/16 19:29 132 22 98/62 98 Nasal Cannula 2 06/20/16 18:12 99/61 06/20/16 18:12 92 Nasal Cannula 2 06/20/16 18:07 98.5 93 18 99/61 93 Physical Exam GENERAL: This is a well-nourished, well-developed patient, in no apparent distress. Slightly dyspneic at rest and worsened with exertion. SKIN: No rashes, ecchymoses or lesions. Cool and dry. HEAD: Atraumatic. Normocephalic. EYES: No scleral icterus. No injection or drainage. ENT: Nose without bleeding, purulent drainage. NECK: Trachea midline. No JVD or lymphadenopathy. CARDIOVASCULAR: Regular rate and rhythm without murmurs, gallops, or rubs. No peripheral edema noted. RESPIRATORY: Clear to auscultation. Breath sounds equal bilaterally. No wheezes , rales, or rhonchi. Slightly dyspneic at rest and worsened with exertion. GASTROINTESTINAL: Abdomen soft, non-tender, nondistended. No guarding. MUSCULOSKELETAL: Extremities without clubbing, cyanosis, or edema. No calf tenderness. NEUROLOGICAL: Awake and alert. Motor and sensory grossly within normal limits. Normal speech. . Dyspneic at rest and with exertion No peripheral edema . Laboratory Laboratory Tests Test 06/20/16 06/20/16 18:55 19:15 Blood Gas Puncture Site RT RADIAL Blood Gas Patient Temperature 98.6 Blood Gas HCO3 23 Blood Gas Base Excess -0.4 Blood Gas Oxygen Saturation 90 Arterial Blood pH 7.47 Arterial Blood Partial 32 Pressure CO2 Arterial Blood Partial 70 Pressure O2 Arterial Blood Oxygen Content 20.5 Arterial Blood 2.6 Carboxyhemoglobin Arterial Blood Methemoglobin 2.4 Blood Gas Hemoglobin 16.2 Oxygen Delivery Device NASAL CANNULA Blood Gas Liter Flow 2.5 White Blood Count 11.6 Red Blood Count 6.33 Hemoglobin 15.7 Hematocrit 47.1 Mean Corpuscular Volume 74.4 Mean Corpuscular Hemoglobin 24.8 Mean Corpuscular Hemoglobin 33.3 Concent Red Cell Distribution Width 17.4 Platelet Count 307 Mean Platelet Volume 9.3 Neutrophils (%) (Auto) 51.6 Lymphocytes (%) (Auto) 37.3 Monocytes (%) (Auto) 10.2 Eosinophils (%) (Auto) 0.4 Basophils (%) (Auto) 0.5 Neutrophils # (Auto) 6.0 Lymphocytes # (Auto) 4.3 Monocytes # (Auto) 1.2 Eosinophils # (Auto) 0.0 Basophils # (Auto) 0.1 CBC Comment AUTO DIFF Differential Comment AUTO DIFF CONFIRMED Platelet Estimate NORMAL Platelet Morphology Comment NORMAL Sodium Level 144 Potassium Level 2.9 Chloride Level 109 Carbon Dioxide Level 26.7 Anion Gap 8 Blood Urea Nitrogen 8 Creatinine 1.13 Estimat Glomerular Filtration 59 Rate Random Glucose 43 Lactic Acid Level 2.0 Calcium Level 8.4 Magnesium Level 2.1 Total Bilirubin 0.4 Aspartate Amino Transf 36 (AST/SGOT) Alanine Aminotransferase 32 (ALT/SGPT) Alkaline Phosphatase 177 Troponin I LESS THAN 0.02 Total Protein 7.3 Albumin 2.2 Lipase 58 Date/Time Procedure Status Source Growth 06/20/16 19:30 Influenza Types A,B Antigen (JUANITA) - Final Complete Nasal Washing NEGATIVE FOR FLU A AND B ANTIGEN.... 06/20/16 19:30 Gram Stain Received Sputum Expectorated Sputum Pending 06/20/16 19:30 Sputum Culture Received Sputum Expectorated Sputum Pending 06/20/16 19:15 Aerobic Blood Culture Received Blood Peripheral Pending 06/20/16 19:15 Anaerobic Blood Culture Received Blood Peripheral Pending Result Diagram: 06/20/16191406/20/161914 Imaging Last Impressions Chest X-Ray 06/20/161845 Signed Impressions: Service Date/Time: Monday, June 20, 2016 19:11 - CONCLUSION: Mild streaky opacity is now present at both lung bases with no definite consolidation. Zack Jim MD Assessment and Plan Problem List: (1) COPD exacerbation ICD Code: J44.1 Status: Acute (2) DM2 (diabetes mellitus, type 2) ICD Code: E11.9 Status: Chronic (3) Dyspnea on exertion ICD Code: R06.09 Status: Acute (4) Hypoglycemia ICD Code: E16.2 Status: Acute (5) Hypokalemia ICD Code: E87.6 Status: Acute Assessment and Plan Ms. Negrete is a 61 y/o female with a medical history including type 2 diabetes mellitus x 6 years, rheumatoid arthritis, oxygen dependent COPD ( follows with Dr. Vincent), hepatitis C (untreated but sees GI specialist once yearly), hypertension, and obesity who presented to the ER today with worsening shortness of breath despite treatment. She has had numerous hospitalizations over the past year with the last hospitalization occurring 06/01/2016 through 2016 for COPD exacerbation. She is on home oxygen therapy, has completed antibiotics, and is on daily prednisone. COPD exacerbation - Duo nebulizers every 6 hours [id number] and every 2 hours as needed for shortness of breath/wheezing - IV Solu-Medrol 40 mg every 6 hours IV - Supplemental oxygen titrated to maintain oxygen saturation greater than 92% - Consider consulting Dr. Vincent patient's tubular splitting machine tender Chest pain and Dyspnea with exertion - Initial troponin I is less than 0.02, reviewed all prior hospitalizations and troponin I has never been elevated, but will recheck level now - Consult cardiology, patient has risk factors for coronary artery disease and has not been worked up by a agricultural equipment salesperson - Echocardiogram performed 04/24/2016 shows EF of 45-50% - We'll check VQ scan to rule out PE (some concern regarding renal insufficiency and ordering pulmonary angiogram given negative test angiogram in March; cannot check d-dimer as it will be elevated due to rheumatoid arthritis) Type 2 diabetes mellitus, poorly controlled with hypoglycemia -Blood glucose 43 on admission - Check blood glucose every hour until greater than 100, then check every 4 hours - D50 W IV every hour for blood glucose less than 100 - Hold insulins for now Hypokalemia - Potassium 2.9 on admission - Replaced potassium - Recheck BMP in a.m. and follow potassium level, replace as indicated DVT prophylaxis - Given therapeutic dose of Lovenox, will await results of VQ scan and determine whether to give prophylactic or therapeutic dose for next treatment Written by Maribel Loving, acting as scribe for Dr. Collins on 06/20/16 at 22:26. At around 2:30 in the morning on 06/22/2016, the patient developed severe shortness of breath and required placement on BiPAP. The patient had received a liter normal saline IV fluid bolus in the ER and there is some concern for fluid overload and therefore Lasix 40 mg IV and potassium 40 mEq by mouth administered to the patient. We'll continue to monitor. The documentation accurately reflects the work performed [id number] by me on 06/20/16 at 2226 Additionally, patient's dyspnea was much improved after the BiPAP treatment. Griffin catheter was placed. However she did not diurese much in the Griffin because she already had gone on the bed and that can prior to this episode. Her echocardiogram in December 2015 did reveal an EF of 50-55%. Suspects patient also has diastolic dysfunction. Will need to rule out angina equivalent/ongoing ischemia. Discussed Condition With ER physician and patient . Physician Certification 2 Midnight Certification Type: Admission for Inpatient Services Order for Inpatient Services The services are ordered in accordance with Medicare regulations or non- Medicare payer requirements, as applicable. In the case of services not specified as inpatient-only, they are appropriately provided as inpatient services in accordance with the 2-midnight benchmark. Estimated LOS (days): 3 days is the estimated time the patient will need to remain in the hospital, assuming treatment plan goals are met and no additional complications. Post-Hospital Plan: Not yet determined Maribel Loving Jun 20, 2016 22:36 Richard Collins MD Jun 21, 2016 07:58
[2016-06-20] MEDS ORDERED: ENOXAPARIN SODIUM 80 MG/0.8 ML SYRINGE SQ ONE (22:45)
[2016-06-20] MEDS: POTASSIUM CHLOR 20 MEQ PREMIX 100 ML IV SCH (22:45)
[2016-06-20] MEDS: SODIUM CHLORIDE 0.9% FLUSH 5 ML FLUSH FLUSH SCH (23:26)
[2016-06-21] VITALS (12 sets, daily range): BP systolic 129–144; BP diastolic 76–104; PULSE 108–134; RESP 19–30; TEMP 97.6–97.9; O2SAT 92–100
[2016-06-21] MEDS: POTASSIUM CHLOR 20 MEQ PREMIX 100 ML IV SCH (02:07)
[2016-06-21] MEDS: methylPREDNISolone SOD SUCC 40 MG/1 ML VIAL IV PUSH SCH ×4 (02:16→17:20)
[2016-06-21] MEDS ORDERED: FUROSEMIDE 40 MG/4 ML VIAL IV PUSH ONE (02:45)
[2016-06-21] MEDS ORDERED: POTASSIUM CHLORIDE 20 MEQ CONTROLLED RELEASE TAB PO ONE (02:45)
[2016-06-21 02:53] LABS: BLOOD, URINE MOD (NEG); GLUCOSE,URINE 150 mg/dL (NEG); KETONE, URINE NEG (NEG); MUCUS URINE FEW /lpf (OCC); NITRITE,URINE NEG (NEG); RENAL EPITHELIAL CELLS <1 /hpf; SQUAMOUS EPITHELIAL CELL URINE <1 /hpf (0-5); URINE COLOR YELLOW (YELLW/STRAW)
[2016-06-21 02:54] LABS: COMMENT (UR) CATH-CULT NOT IND; CULTURE IF INDICATED CATH CULTURE NOT IND
[2016-06-21] MEDS: RESP: IPRATROPIUM 0.5 MG/2.5 ML NEB NEB SCH ×4 (03:00→23:30)
[2016-06-21 04:51] LABS: AUTOMATED NEUTROPHIL # 9.4 TH/MM3 (1.8-7.7); BASOPHIL % 0.5 % (0.0-2.0); EOSINOPHIL % 0.1 % (0.0-4.0); LYMPH % 7.7 % (9.0-44.0); LYMPHOCYTE # 0.8 TH/MM3 (1.0-4.8); MEAN CELL VOLUME 76.8 FL (80.0-100.0); MEAN CORPUSCULAR HEMOGLOBIN 24.8 PG (27.0-34.0); MEAN CORPUSCULAR HGB CONC 32.3 % (32.0-36.0); MONO % 2.4 % (0.0-8.0); NEUT % 89.3 % (16.0-70.0); PLATELET COUNT 316 TH/MM3 (150-450); RED BLOOD COUNT 6.12 MIL/MM3 (4.00-5.30); WHITE BLOOD COUNT 10.5 TH/MM3 (4.0-11.0)
[2016-06-21 04:56] LABS: HEMO FLAGS AUTO DIFF
[2016-06-21 05:20] LABS: BICARBONATE 20.7 MEQ/L (21.0-32.0); POTASSIUM 5.9 MEQ/L (3.5-5.1)
[2016-06-21 07:05] LABS: PLATELET ESTIMATE SMEAR NORMAL (NORMAL); PLATELET MORPHOLOGY ENLARGED (NORMAL); SCAN/DIFF AUTO DIFF CONFIRMED
[2016-06-21] MEDS: METOPROLOL TARTRATE 25 MG TAB PO SCH ×2 (07:54→21:28)
[2016-06-21] MEDS: PANTOPRAZOLE SOD 40 MG DELAYED RELEASE TAB PO SCH (07:54)
[2016-06-21] MEDS ORDERED: INSULIN GLARGINE 1,000 UNITS/10 ML VIAL SQ SCH (09:00)
--- NOTE | 2016-06-21 09:13 | HHI.PR ---
Subjective Remarks on BiPaP. denies any chest pain. no fever. Objective Vitals Vital Signs Date Time Temp Pulse Resp B/P Pulse Ox O2 Delivery O2 Flow Rate FiO2 06/21/16 08:00 115 19 144/95 98 BiPAP 06/21/16 07:58 98 35 06/21/16 05:30 114 20 134/81 99 BiPAP 06/21/16 03:00 132 98 Nasal Cannula 06/21/16 02:50 134 28 132/76 96 BiPAP 06/21/16 02:46 100 35 06/20/16 19:29 98 Nasal Cannula 2.00 06/20/16 19:29 98 Nasal Cannula 2 06/20/16 19:29 132 22 98/62 98 Nasal Cannula 2 06/20/16 18:12 99/61 06/20/16 18:12 92 Nasal Cannula 2 06/20/16 18:07 98.5 93 18 99/61 93 I/O 06/20/16 06/20/16 06/20/16 06/21/16 06/21/16 06/21/16 07:00 15:00 23:00 07:00 15:00 23:00 Output Total 700 ml Balance -700 ml Output Urine Total 700 ml # Voids 0 Result Diagram: 06/21/16 0429 06/21/16 0429 Imaging Last Impressions Chest X-Ray 06/20/16 1846 Signed Impressions: Service Date/Time: Monday, June 20, 2016 19:11 - CONCLUSION: Mild streaky opacity is now present at both lung bases with no definite consolidation. Zack Jim MD Objective Remarks GENERAL: currently on BiPaP CARDIOVASCULAR: Regular rate and irregular rhythm without murmurs, gallops, or rubs. RESPIRATORY: Clear to auscultation. Breath sounds equal bilaterally. No wheezes , rales, or rhonchi. GASTROINTESTINAL: Abdomen soft, non-tender, nondistended. Normal, active bowel sounds MUSCULOSKELETAL: Extremities without clubbing, cyanosis, or edema. NEURO: Alert & Oriented x4 to person, place, time, situation. Moves all ext x4 Procedures none Medications and IVs Current Medications Sodium Chloride 1,000 ml @ 2,000 mls/hr Q30M ONCE IV Last administered on 06/20t 20:51; Start 06/20/16 at 19:00; Stop 06/20/16 at 19:29; Status DC Sodium Chloride (NS 1000 ml Inj) 1,000 ml @ 2,000 mls/hr Q30M ONCE IV Last administered on 06/20/16 20:52; Start 06/20/16 at 19:00; Stop 06/20/16 at 19:29 ; Status DC Methylprednisolone Sodium Succinate (SoluMEDROL INJ) 125 mg ONCE ONCE IVP ; Start 06/20/16 at 19:00; Stop 06/20/16 at 19:01; Status DC Albuterol/ Ipratropium 1 ampule 1 ampule Q15M INH Last administered on 19:06; Start 06/20/16 at 19:00; Stop 06/20/16 at 19:31; Status DC Levofloxacin/ Dextrose 100 ml @ 100 mls/hr ONCE ONCE IV Last administered on 06/20/16 20:52; Start 06/20/16 at 21:00; Stop 06/20/16 at 21:59; Status DC Potassium Chloride (KCl 20 Meq Premix Inj) 100 ml @ 50 mls/hr Q2H IV Last administered on 06/21/16 02:07; Start 06/20/16 at 20:45; Stop 06/21/16 at 00:44 ; Status DC IV Flush (NS Flush) 2 ml UNSCH PRN FLUSH FLUSH AFTER USING IV ACCESS; Start at 21:00 IV Flush (NS Flush) 2 ml BID FLUSH Last administered on 06/20/16 23:26; Start 06/20/16 at 21:00 Ondansetron HCl (Zofran Inj) 4 mg Q6H PRN IVP NAUSEA OR VOMITING; Start at 21:00 Heparin Sodium (Porcine) (Heparin Inj) 5,000 units Q8H SQ ; Start 06/20/16 at 21 :00; Stop 06/21/16 at 00:39; Status DC Naloxone HCl (Narcan Inj) 0.4 mg UNSCH PRN IV SEE LABEL COMMENTS; Start at 21:00 Dextrose (D50w (Vial) Inj) 50 ml Q1HR PRN IV PUSH bs<100; Start 06/20/16 at 21: 00 Ipratropium Ernest (Atrovent Neb) 0.5 mg Q6HR NEB NEB Last administered on 07:57; Start 06/20/16 at 22:00 Ipratropium Ernest (Atrovent Neb) 0.5 mg Q2HR NEB PRN NEB wheezing; Start at 21:00 Methylprednisolone Sodium Succinate (SoluMEDROL INJ) 40 mg Q6HR IV PUSH Last administered on 06/21/16 06:07; Start 06/21/16 at 00:00 Pantoprazole Sodium (Protonix) 40 mg DAILY PO Last administered on 06/21/16 07 :54; Start 06/21/16 at 09:00 Potassium Bicarb/ Potassium Chloride 50 meq 50 meq ONCE ONCE PO Last administered on 06/21/16 02:07; Start 06/20/16 at 21:00; Stop 06/20/16 at 21:11 ; Status DC Magnesium Sulfate/ Dextrose (Magnesium Sulfate 1 Gm Premix) 100 ml @ 100 mls/ hr ONCE ONCE IV Last administered on 06/21/16 02:07; Start 06/20/16 at 21:00 ; Stop 06/20/16 at 21:59; Status DC Enoxaparin Sodium (Lovenox Inj) 80 mg ONCE ONCE SQ Last administered on 02:07; Start 06/20/16 at 22:45; Stop 06/20/16 at 22:46; Status DC Furosemide (Lasix Inj) 40 mg ONCE ONCE IV PUSH Last administered on 06/21/16 02:47; Start 06/21/16 at 02:45; Stop 06/21/16 at 02:46; Status DC Potassium Chloride (KCl) 40 meq ONCE ONCE PO Last administered on 06/21/16 02 :47; Start 06/21/16 at 02:45; Stop 06/21/16 at 02:46; Status DC Budesonide/ Formoterol Fumarate (Symbicort 160-4.5 Inh) 2 puff DAILY INH ; Start 06/21/16 at 09:00 Metoprolol Tartrate (Lopressor) 25 mg Q12HR PO Last administered on 06/21/16 07:54; Start 06/21/16 at 09:00 A/P Assessment and Plan A/P COPD exacerbation - Duo nebulizers every 6 hours [id number] and every 2 hours as needed for shortness of breath/wheezing - IV Solu-Medrol 40 mg every 6 hours IV - Supplemental oxygen titrated to maintain oxygen saturation greater than 92%; will try to take him off BiPaP and switch to N/C if he tolerates. - will consult pulmonary Chest pain and Dyspnea with exertion - Consult cardiology, patient has risk factors for coronary artery disease and has not been worked up by a oil and gas principal - We'll check VQ scan to rule out PE (some concern regarding renal insufficiency and ordering pulmonary angiogram given negative test angiogram in March; cannot check d-dimer as it will be elevated due to rheumatoid arthritis) Type 2 diabetes mellitus, poorly controlled with hypoglycemia- now hypoglycemia has resolved -Blood glucose 43 on admission - Check blood glucose every hour until greater than 100, then check every 4 hours - D50 W IV every hour for blood glucose less than 100 - Hold long acting insulins for now -accu-check with SSI acute kidney injury with hyperkalemia; will recheck the BMP today- monitor renal function and eletrolytes closely. DVT prophylaxis - Given therapeutic dose of Lovenox, will await results of VQ scan and determine whether to give prophylactic or therapeutic dose for next treatment Trip Driscoll MD Jun 21, 2016 09:13
[2016-06-21] MEDS: SODIUM CHLORIDE 0.9% FLUSH 5 ML FLUSH FLUSH SCH ×2 (09:14→21:00)
[2016-06-21] MEDS ORDERED: DEXTROSE 50% IN WATER 50 ML VIAL(D50) IV PUSH PRN (09:15)
[2016-06-21] MEDS ORDERED: GLUCAGON 1 MG/ML VIAL OTHER PRN (09:15)
[2016-06-21] MEDS: BUDESONIDE-FORMOTEROL 160/4.5 MCG INHALER INH SCH (09:58)
--- NOTE | 2016-06-21 11:18 | PD.CONS ---
HPI Service Cardiology Consult Requested By ER Reason for Consult SOB Primary Care Physician Shaggy Landry MD History of Present Illness 61 y/o female with pmhx significant for COPD on home O2, hepatitis C, HTN, and DM admitted with worsening shortness of breath despite been compliant with COPD medical treatment. She reports severe short of breath at rest, worsening with minimal exertion and sometimes associated with chest pains. She describes the chest pains as a tightness, nonradiating. SOB with associated with chronic cough with yellow sputum. Cardiology has been consulted for continued SOB. She has an unremarkable 2Decho done on 05/26/16 showing preserved LV systolic function of 60% and no wall motion abnormalities. Troponin negative on this admission. EKG shows sinus tachycardia. No ischemic work up in this institutions. She denies having had one in the past. Review of Systems Consitutional: COMPLAINS OF: Fatigue Eyes: DENIES: Amaurosis Fugax, Change in vision HEENT: DENIES: Lightheadedness, Change in hearing Respiratory: COMPLAINS OF: Cough, Shortness of breath, Sputum production Cardiovascular: COMPLAINS OF: Chest pain, DENIES: See HPI, Palpitations, Syncope, Tachycardia Gastrointestinal: DENIES: Nausea, Vomiting, Change in bowel habits, Reflux, Bloody stools, Melena Genitourinary: DENIES: Urinary incontinence, Difficulty voiding Integumentary: DENIES: Rash Neurologic: DENIES: Tingling or numbness, Memory problems, Poor Balance, Stroke symptoms Musculoskeletal: DENIES: Joint pain, Muscle pain, Limited range of motion, Back pain Psychiatric: DENIES: Anxiety, Depression, Sleep disturbances Hematologic: DENIES: Bruising tendencies, Bleeding tendencies Endocrine: DENIES: Weight gain, Weight loss, Thyroid disease Past Family Social History Allergies: Coded Allergies: *MDRO Multi-Drug Resistant Organism (Verified Adverse Reaction, Unknown, ) MRSA wound 11/2012. MRSA PCR Screen negative 11/03/14 and 11/05/14. Cleared per Infection Control MRSA PCR Screen NEGATIVE - 04/30/2015 Past Medical History Type 2 diabetes mellitus x 6 1/2 years Rheumatoid Arthritis COPD Hepatitis C Hypertension Obesity Gout Sinus Tachycardia Osteoporosis Reported Medications Reported Meds & Active Scripts Active Metoprolol Tartrate 25 Mg Tab 25 Mg PO Q12HR Lisinopril 20 Mg Tab 40 Mg PO DAILY Hydrocodone-Acetaminophen 10-325 mg Tab 1 Tab PO TID PRN Reported Novolog Inj (Insulin Aspart) 1,000 Unit/10 Ml Vial 0 SQ DIRECTED Sliding Scale as directed. Janumet (Sitagliptin-Metformin) 50-1,000 Mg Tab Unknown Dose PO DAILY Indomethacin 50 Mg Cap 50 Mg PO TID Take with food, milk, or antacids to decrease stomach adverse effects. Lyrica (Pregabalin) 150 Mg Cap 150 Mg PO TID Lantus Inj (Insulin Glargine) 1,000 Unit/10 Ml Vial 40 Units SQ BID Symbicort Inh (Budesonide/Formoterol Fumarate) 160-4.5 Mcg/Act Aero 2 Puff INH DAILY Albuterol Neb (Albuterol Sulfate) 2.5 Mg/3 Ml Neb 2.5 Mg NEB Q6HR PRN While awake Active Ordered Medications Current Medications Medications (Trade) Dose Ordered Sig/Dillan Route Start Time Stop Time Status Last Admin (NS Flush) 2 ml UNSCH PRN FLUSH 06/20/16 21:00 (NS Flush) 2 ml BID FLUSH 06/20/16 21:00 06/21/16 09:14 (Zofran Inj) 4 mg Q6H PRN IVP 06/20/16 21:00 (Narcan Inj) 0.4 mg UNSCH PRN IV 06/20/16 21:00 (D50w (Vial) Inj) 50 ml Q1HR PRN IV PUSH 06/20/16 21:00 (SoluMEDROL INJ) 40 mg Q6HR IV PUSH 06/21/16 00:00 06/21/16 06:07 (Protonix) 40 mg DAILY PO 06/21/16 09:00 06/21/16 07:54 (Symbicort 160-4.5 Inh) 2 puff DAILY INH 06/21/16 09:00 06/21/16 09:58 (Lopressor) 25 mg Q12HR PO 06/21/16 09:00 06/21/16 07:54 (D50w (Vial) Inj) 25 ml UNSCH PRN IV PUSH 06/21/16 09:15 (Glucagon Inj) 1 mg UNSCH PRN OTHER 06/21/16 09:15 Physical Exam Vital Signs Vital Signs Date Time Temp Pulse Resp B/P Pulse Ox O2 Delivery O2 Flow Rate FiO2 06/21/16 09:30 95 Nasal Cannula 4.00 06/21/16 08:00 115 19 144/95 98 BiPAP 06/21/16 07:58 98 35 06/21/16 05:30 114 20 134/81 99 BiPAP 06/21/16 03:00 132 98 Nasal Cannula 06/21/16 02:50 134 28 132/76 96 BiPAP 06/21/16 02:46 100 35 06/20/16 19:29 98 Nasal Cannula 2.00 06/20/16 19:29 98 Nasal Cannula 2 06/20/16 19:29 132 22 98/62 98 Nasal Cannula 2 06/20/16 18:12 99/61 06/20/16 18:12 92 Nasal Cannula 2 06/20/16 18:07 98.5 93 18 99/61 93 Laboratory Laboratory Tests Test 06/20/16 06/20/16 06/21/16 06/21/16 18:55 19:15 02:40 04:00 Blood Gas Puncture Site RT RADIAL Blood Gas Patient Temperature 98.6 Blood Gas HCO3 23 Blood Gas Base Excess -0.4 Blood Gas Oxygen Saturation 90 Arterial Blood pH 7.47 Arterial Blood Partial 32 Pressure CO2 Arterial Blood Partial 70 Pressure O2 Arterial Blood Oxygen Content 20.5 Arterial Blood 2.6 Carboxyhemoglobin Arterial Blood Methemoglobin 2.4 Blood Gas Hemoglobin 16.2 Oxygen Delivery Device NASAL CANNULA Blood Gas Liter Flow 2.5 White Blood Count 11.6 Red Blood Count 6.33 Hemoglobin 15.7 Hematocrit 47.1 Mean Corpuscular Volume 74.4 Mean Corpuscular Hemoglobin 24.8 Mean Corpuscular Hemoglobin 33.3 Concent Red Cell Distribution Width 17.4 Platelet Count 307 Mean Platelet Volume 9.3 Neutrophils (%) (Auto) 51.6 Lymphocytes (%) (Auto) 37.3 Monocytes (%) (Auto) 10.2 Eosinophils (%) (Auto) 0.4 Basophils (%) (Auto) 0.5 Neutrophils # (Auto) 6.0 Lymphocytes # (Auto) 4.3 Monocytes # (Auto) 1.2 Eosinophils # (Auto) 0.0 Basophils # (Auto) 0.1 CBC Comment AUTO DIFF Differential Comment AUTO DIFF CONFIRMED Platelet Estimate NORMAL Platelet Morphology Comment NORMAL Sodium Level 144 Potassium Level 2.9 Chloride Level 109 Carbon Dioxide Level 26.7 Anion Gap 8 Blood Urea Nitrogen 8 Creatinine 1.13 Estimat Glomerular Filtration 59 Rate Random Glucose 43 Lactic Acid Level 2.0 Calcium Level 8.4 Magnesium Level 2.1 Total Bilirubin 0.4 Aspartate Amino Transf 36 (AST/SGOT) Alanine Aminotransferase 32 (ALT/SGPT) Alkaline Phosphatase 177 Troponin I LESS THAN 0.02 LESS THAN 0.02 Total Protein 7.3 Albumin 2.2 Lipase 58 Urine Color YELLOW Urine Turbidity CLEAR Urine pH 6.0 Urine Specific [place] 1.011 Urine Protein 300 Urine Glucose (UA) 150 Urine Ketones NEG Urine Occult Blood MOD Urine Nitrite NEG Urine Bilirubin NEG Urine Urobilinogen LESS THAN 2.0 Urine Leukocyte Esterase NEG Urine RBC 12 Urine WBC 2 Urine Squamous Epithelial <1 Cells Urine Renal Epithelial Cells <1 Urine Amorphous Sediment RARE Urine Mucus FEW Microscopic Urinalysis Comment CATH-CULT NOT IND Test 06/21/16 04:29 White Blood Count 10.5 Red Blood Count 6.12 Hemoglobin 15.2 Hematocrit 47.0 Mean Corpuscular Volume 76.8 Mean Corpuscular Hemoglobin 24.8 Mean Corpuscular Hemoglobin 32.3 Concent Red Cell Distribution Width 18.0 Platelet Count 316 Mean Platelet Volume 9.0 Neutrophils (%) (Auto) 89.3 Lymphocytes (%) (Auto) 7.7 Monocytes (%) (Auto) 2.4 Eosinophils (%) (Auto) 0.1 Basophils (%) (Auto) 0.5 Neutrophils # (Auto) 9.4 Lymphocytes # (Auto) 0.8 Monocytes # (Auto) 0.3 Eosinophils # (Auto) 0.0 Basophils # (Auto) 0.0 CBC Comment AUTO DIFF Differential Comment AUTO DIFF CONFIRMED Platelet Estimate NORMAL Platelet Morphology Comment ENLARGED Sodium Level 139 Potassium Level 5.9 Chloride Level 108 Carbon Dioxide Level 20.7 Anion Gap 10 Blood Urea Nitrogen 18 Creatinine 1.72 Estimat Glomerular Filtration 36 Rate Random Glucose 387 Calcium Level 8.1 Date/Time Procedure Status Source Growth 06/20/16 19:30 Influenza Types A,B Antigen (JUANITA) - Final Complete Nasal Washing NEGATIVE FOR FLU A AND B ANTIGEN.... 06/20/16 19:30 Gram Stain - Final Resulted Sputum Expectorated Sputum 06/20/16 19:30 Sputum Culture Resulted Sputum Expectorated Sputum Pending 06/20/16 19:15 Aerobic Blood Culture Received Blood Peripheral Pending 06/20/16 19:15 Anaerobic Blood Culture Received Blood Peripheral Pending Result Diagram: 06/21/16 0429 06/21/16 0429 Imaging Last Impressions Chest X-Ray 06/20/16 1846 Signed Impressions: Service Date/Time: Monday, June 20, 2016 19:11 - CONCLUSION: Mild streaky opacity is now present at both lung bases with no definite consolidation. Zack Jim MD Assessment and Plan Problem List: (1) Chest pain Assessment and Plan: Cardiac risk factors: DM, HTN, Age presenting with with worsening SOB. DDx COPD vs PE vs Angina Equivalent. Negative cardiac markers. Unremarkable recent ECHO with good LV function. Will pursue Dobutamine Stress test to further risk stratify CAD. In the meantime continue aggressive medical management and pulmonology follow up. V/Q scan results pending. If V/Q negative pursue stress test. Thank you for the opportunity to take part in the care of this patient. (2) COPD exacerbation (3) HTN (hypertension) (4) RA (rheumatoid arthritis) (5) Dyspnea on exertion Problem Qualifiers (1) Chest pain: (2) HTN (hypertension): Qualified Code: I10 - Essential hypertension Varghese Gilliam MD Jun 21, 2016 11:18
[2016-06-21] MEDS: INSULIN ASPART SUPPLEMENTAL SCALE SQ SCH ×3 (11:43→21:28)
[2016-06-21 12:53] LABS: POTASSIUM 5.4 MEQ/L (3.5-5.1)
--- NOTE | 2016-06-21 13:18 | RADRPT ---
EXAM DATE/TIME: 06/21/2016 08:39 [facility] COMPARISON: No previous studies available for comparison. INDICATIONS : Syncope. MEDICAL HISTORY : Hypertension. Chronic obstructive pulmonary disease. Gastroesophageal reflux disease. Headache. Synco pe. Dyspnea. Rheumatiod arthritis. Gout. Diabetes. Hepatitis C. MRSA. SURGICAL HISTORY : Bilateral cataract removal. Eye Prosthesis. ENCOUNTER: Initial ACUITY: 1 day PAIN SCORE: 2/10 LOCATION: Bilateral neck PEAK SYSTOLIC VELOCITIES (cm/sec): ICA/CCA RATIO: Right: 0.9 Left: 0.6 ICA: Right: 94 Left: 61 CCA: Right: 107 Left: 102 ECA: Right: 75 Left: 74 VERTEBRAL: Right: 54 antegrade Left: 56 antegrade Elevated flow velocities and ICA/CCA ratios have been found to correlate with increased degrees of vessel stenosis, calculated as percentage of diameter relative to a normal segment of distal ICA/CCA FINDINGS: RIGHT CAROTID: No significant stenosis is visualized. The waveforms are within normal limits. LEFT CAROTID: No significant stenosis is visualized. The waveforms are within normal limits. VERTEBRAL ARTERIES: Antegrade flow is seen in both vertebral arteries. MISCELLANEOUS: None. CONCLUSION: Normal examination. Melissa Washington MD on June 21, 2016 at 13:16 Board Certified Radiologist. This report was verified electronically.
--- NOTE | 2016-06-21 13:37 | RADRPT ---
EXAM DATE/TIME: 06/21/2016 10:54 [facility] COMPARISON: CHEST SINGLE AP, June 20, 2016, 19:11. INDICATIONS : Shortness of breath for 1 day. DOSE: 8.1 mCi Tc99m MAA IV 0.5 mCi Tc99m DTPA aerosol MEDICAL HISTORY : Hepatitis C. Hypertension. Chronic obstructive pulmonary disease. SURGICAL HISTORY : Right knee drain. ENCOUNTER: Initial ACUITY: 1 day PAIN SCALE: 3/10 LOCATION: Bilateral chest TECHNIQUE: Following five minutes of tidal breathing of DTPA aerosol, planar images of the lungs were performed in eight projections. The patient was then injected with MAA, and eight-view perfusion scan was perf ormed. FINDINGS: There is mildly heterogeneous pattern of aerosol delivery to both lungs with some clumping of activit y within the central airways. There is activity within the stomach. No definite focal ventilatory de fects are seen. The perfusion lung scan demonstrates a mildly heterogeneous pattern of uptake in both lungs. There i s a large multi-segmental area of decreased perfusion in the left lower lobe. No other definite perfu fawn abnormalities are identified. Recent chest x-ray demonstrates underinflation with bibasilar airspace opacity which may represent at electasis or consolidation.. CONCLUSION: There is a single large ventilation/perfusion mismatch in the left lower lobe without a correlate fin ding on chest x-ray. By PIOPED 2 criteria, this is high probability for PE and is suspicious for PE. Shaggy Bryson MD on June 21, 2016 at 13:31 Board Certified Radiologist. This report was verified electronically.
--- NOTE | 2016-06-21 16:39 | EKG ---
Date Performed: 06/20/2016 Time Performed: 18:32:19 PTAGE: 61 years EKG: SINUS TACHYCARDIA WITH SHORT AL INTERVAL, POSSIBLE ATRIAL FLUTTER MODERATE ST DEPRESSION Wh en compared to prior tracing, sinus rate has increased. ABNORMAL ECG PREVIOUS TRACING : 06/01/2016 10.43 DOCTOR: Chuck Gates Interpretating Date/Time 06/21/2016 16:38:57
--- NOTE | 2016-06-21 16:44 | EKG ---
Date Performed: 06/21/2016 Time Performed: 04:09:07 PTAGE: 61 years EKG: ECTOPIC ATRIAL TACHYCARDIA WITH FIRST DEGREE AV BLOCK INDETERMINATE AXIS When compared to p rior tracing,origin of the tachycardia may be An ectopic focus, and rate is now slower. First Degree AV block is new. ABNORMAL ECG PREVIOUS TRACING : 06/20/2016 18.32 DOCTOR: Chuck Gates Interpretating Date/Time 06/21/2016 16:43:06
--- NOTE | 2016-06-21 21:16 | RADRPT ---
EXAM DATE/TIME: 06/21/2016 19:21 [facility] COMPARISON: No previous studies available for comparison. INDICATIONS : Bilateral leg swelling. MEDICAL HISTORY : Hypercholesterolemia. Emphysema. Rheumatoid arthritis. Migraines. COPD. Pneumonia. Sputum production. Sleep apnea. Dyspnea. HTN. Osteoporosis. Hepatitis C. MRSA. SURGICAL HISTORY : Eye prosthesis. Orthopedic surgery, right knee. ENCOUNTER: Subsequent ACUITY: 1 day PAIN SCORE: 6/10 LOCATION: Bilateral leg. TECHNIQUE: Venous ultrasound of the left and right leg was performed from the inguinal ligament to the proximal calf. Real-time, color Doppler and spectral tracing, compression and augmentation techniques were us ed. FINDINGS: RIGHT LEG: There is normal compressibility of the deep venous system from the inguinal region to the proximal ca lf. No echogenic clot is seen in the lumen of the common femoral, femoral, popliteal, and posterior tibial veins. There is a normal response of the venous system to proximal and distal augmentation an d respiration. LEFT LEG: There is normal compressibility of the deep venous system from the inguinal region to the proximal ca lf. No echogenic clot is seen in the lumen of the common femoral, femoral, popliteal, and posterior tibial veins. There is a normal response of the venous system to proximal and distal augmentation an d respiration. CONCLUSION: Normal examination. Shaggy Maza MD on June 21, 2016 at 21:15 Board Certified Radiologist. This report was verified electronically.
[2016-06-22] VITALS (9 sets, daily range): BP systolic 124–156; BP diastolic 78–90; PULSE 98–116; RESP 18–20; TEMP 97.7–98; O2SAT 92–100
[2016-06-22] MEDS: methylPREDNISolone SOD SUCC 40 MG/1 ML VIAL IV PUSH SCH ×5 (00:07→22:57)
[2016-06-22] MEDS: ACETAMINOPHEN/HYDROcodone 325 MG/10 MG TAB PO PRN ×3 (00:50→15:34)
[2016-06-22] MEDS ORDERED: ENOXAPARIN SODIUM 80 MG/0.8 ML SYRINGE SQ SCH (02:00)
[2016-06-22] MEDS: RESP: IPRATROPIUM 0.5 MG/2.5 ML NEB NEB SCH ×4 (05:02→20:57)
[2016-06-22] MEDS: INSULIN ASPART SUPPLEMENTAL SCALE SQ SCH ×4 (06:22→22:56)
--- NOTE | 2016-06-22 07:53 | MB ---
cc: HIWOT DRISCOLL MD, ARJUN D. MD DATE OF CONSULTATION: 06/21/2016 REASON FOR CONSULTATION COPD exacerbation. HISTORY OF PRESENT ILLNESS Ms. Negrete is a pleasant 61-year-old -[place] female with a longstanding history of COPD and asthma. She has frequent exacerbation. She was being maintained on 10-20 mg of prednisone. She started having worsening of her shortness of breath. She was recently seen in the office and she was unwell. Blood sugar runs high because of the steroids. Because of worsening shortness of breath and also mild chest discomfort she was evaluated in the emergency room. She had a V/Q scan done which was high probability for pulmonary embolism. Her chest x-ray shows mild streaky opacities. Her CBC showed WBC count of 10.5, hemoglobin 15.2, hematocrit 47, MCV 76, platelet count 316. Sodium 140, potassium 5.4, chloride 107, CO2 23, BUN 22, creatinine 1.59. Blood gas pH 7.47, PCO2 32, PO2 70, bicarb 23. PAST MEDICAL HISTORY 1. COPD. 2. Bronchial asthma. 3. Hypertension. 4. Diabetes mellitus. 5. Rheumatoid arthritis. 6. History of hepatitis. MEDICATIONS She is currently takin. Lovenox 80 mg daily. 2. Insulin. 3. Protonix 40 mg daily. 4. Symbicort 160/4.5, two puffs twice a day. 5. Lopressor 25 mg q.12h. 6. Solu-Medrol 40 mg q.6h. 7. Atrovent nebulizer treatment. ALLERGIES No known drug allergies. SOCIAL HISTORY She has a history of smoking which she quit. No alcohol use. FAMILY HISTORY Noncontributory. REVIEW OF SYSTEMS She walks only a short distance, has no fever or chills. No hemoptysis. No prior DVT or pulmonary embolism. No bleeding from any site. PHYSICAL EXAMINATION GENERAL: A well-built, well-nourished female mildly short of breath. NECK: Supple. JVP not raised. CHEST: She has expiratory rhonchi. CARDIOVASCULAR: S1, S2 normal. ABDOMEN: Soft, nondistended. Bowel sounds are present. EXTREMITIES: No edema. IMPRESSION 1. COPD exacerbation. 2. Pulmonary embolism . 3. Renal insufficiency. 4. Diabetes mellitus. 5. Hepatitis C. 6. Rheumatoid arthritis. PLAN I will check an ultrasound of the left leg. She is on Lovenox 80 mg q.24h. Continue IV steroid, Symbicort twice a day aerosol treatment. Monitor blood sugar. Supplemental oxygen. Will keep the saturation greater than 90%. Further treatment will depend on her course in the hospital. Thank you Dr. Driscoll for this consult. MD NEVILLE Fernandez/BT /6:35 PM /7:29 AM CASIE
[2016-06-22 08:13] LABS: APTT (PATIENT) 33.4 SEC (24.3-30.1); INTERNATIONAL NORMALIZED RATIO 1.1 RATIO; PROTHROMBIN TIME - PATIENT 11.8 SEC (9.8-11.6)
[2016-06-22 08:28] LABS: BICARBONATE 23.2 MEQ/L (21.0-32.0); POTASSIUM 4.9 MEQ/L (3.5-5.1)
[2016-06-22] MEDS: PANTOPRAZOLE SOD 40 MG DELAYED RELEASE TAB PO SCH (08:59)
[2016-06-22] MEDS: SODIUM CHLORIDE 0.9% FLUSH 5 ML FLUSH FLUSH SCH ×2 (08:59→22:56)
[2016-06-22] MEDS: METOPROLOL TARTRATE 25 MG TAB PO SCH ×2 (08:59→22:55)
[2016-06-22] MEDS: BUDESONIDE-FORMOTEROL 160/4.5 MCG INHALER INH SCH (08:59)
--- NOTE | 2016-06-22 12:37 | HHI.PR ---
Subjective Remarks still with sob. denies chest pain. no fever. Objective Vitals Vital Signs Date Time Temp Pulse Resp B/P Pulse Ox O2 Delivery O2 Flow Rate FiO2 06/22/16 12:00 98.0 107 18 124/89 92 06/22/16 08:52 93 Nasal Cannula 2.00 06/22/16 08:00 97.9 108 20 134/78 97 06/22/16 04:00 97.7 102 20 137/79 94 06/22/16 00:00 97.8 116 20 129/88 94 06/21/16 23:30 95 Nasal Cannula 2.50 06/21/16 20:00 97.6 108 20 134/79 93 06/21/16 16:00 97.9 110 20 130/84 92 06/21/16 14:00 124 30 129/95 93 Nasal Cannula 4 I/O 06/21/16 06/21/16 06/21/16 06/22/16 06/22/16 06/22/16 07:00 15:00 23:00 07:00 15:00 23:00 Intake Total 240 ml 360 ml Output Total 700 ml 1000 ml 850 ml Balance -700 ml -760 ml -490 ml Intake Oral 240 ml 360 ml Output Urine Total 700 ml 1000 ml 850 ml # Voids 0 # Bowel Movements 1 1 2 Result Diagram: 06/21/16 0429 06/22/16 0634 Imaging Last Impressions Lung Scan-V Nuclear Medicine 06/21/16 0000 Signed Impressions: Service Date/Time: May 10:54 - CONCLUSION: There is a single large ventilation/perfusion mismatch in the left lower lobe without a correlate finding on chest x-ray. By PIOPED 2 criteria, this is high probability for PE and is suspicious for PE. Shaggy Bryson MD Lower Extremity Ultrasound 06/21/16 0000 Signed Impressions: Service Date/Time: May 19:21 - CONCLUSION: Normal examination. Shaggy Maza MD Carotid Artery Ultrasound 06/21/16 0000 Signed Impressions: Service Date/Time: May 08:39 - CONCLUSION: Normal examination. Melissa Washington MD Chest X-Ray 06/20/16 1846 Signed Impressions: Service Date/Time: Monday, June 20, 2016 19:11 - CONCLUSION: Mild streaky opacity is now present at both lung bases with no definite consolidation. Zack Jim MD Objective Remarks GENERAL: currently on BiPaP CARDIOVASCULAR: Regular rate and irregular rhythm without murmurs, gallops, or rubs. RESPIRATORY: Clear to auscultation. Breath sounds equal bilaterally. No wheezes , rales, or rhonchi. GASTROINTESTINAL: Abdomen soft, non-tender, nondistended. Normal, active bowel sounds MUSCULOSKELETAL: Extremities without clubbing, cyanosis, or edema. NEURO: Alert & Oriented x4 to person, place, time, situation. Moves all ext x4 Procedures none Medications and IVs Current Medications Sodium Chloride 1,000 ml @ 2,000 mls/hr Q30M ONCE IV Last administered on 06/20 20:51; Start 06/20/16 at 19:00; Stop 06/20/16 at 19:29; Status DC Sodium Chloride (NS 1000 ml Inj) 1,000 ml @ 2,000 mls/hr Q30M ONCE IV Last administered on 06/20/16 20:52; Start 06/20/16 at 19:00; Stop 06/20/16 at 19:29 ; Status DC Methylprednisolone Sodium Succinate (SoluMEDROL INJ) 125 mg ONCE ONCE IVP ; Start 06/20/16 at 19:00; Stop 06/20/16 at 19:01; Status DC Albuterol/ Ipratropium 1 ampule 1 ampule Q15M INH Last administered on 19:06; Start 06/20/16 at 19:00; Stop 06/20/16 at 19:31; Status DC Levofloxacin/ Dextrose 100 ml @ 100 mls/hr ONCE ONCE IV Last administered on 06/20/16 20:52; Start 06/20/16 at 21:00; Stop 06/20/16 at 21:59; Status DC Potassium Chloride (KCl 20 Meq Premix Inj) 100 ml @ 50 mls/hr Q2H IV Last administered on 06/21/16 02:07; Start 06/20/16 at 20:45; Stop 06/21/16 at 00:44 ; Status DC IV Flush (NS Flush) 2 ml UNSCH PRN FLUSH FLUSH AFTER USING IV ACCESS; Start at 21:00 IV Flush (NS Flush) 2 ml BID FLUSH Last administered on 06/22/16 08:59; Start 06/20/16 at 21:00 Ondansetron HCl (Zofran Inj) 4 mg Q6H PRN IVP NAUSEA OR VOMITING; Start at 21:00 Heparin Sodium (Porcine) (Heparin Inj) 5,000 units Q8H SQ ; Start 06/20/16 at 21 :00; Stop 06/21/16 at 00:39; Status DC Naloxone HCl (Narcan Inj) 0.4 mg UNSCH PRN IV SEE LABEL COMMENTS; Start at 21:00 Dextrose (D50w (Vial) Inj) 50 ml Q1HR PRN IV PUSH bs<100; Start 06/20/16 at 21: 00 Ipratropium [place] (Atrovent Neb) 0.5 mg Q6HR NEB NEB Last administered on 08:51; Start 06/20/16 at 22:00 Ipratropium [place] (Atrovent Neb) 0.5 mg Q2HR NEB PRN NEB wheezing; Start at 21:00 Methylprednisolone Sodium Succinate (SoluMEDROL INJ) 40 mg Q6HR IV PUSH Last administered on 06/22/16 11:58; Start 06/21/16 at 00:00 Pantoprazole Sodium (Protonix) 40 mg DAILY PO Last administered on 06/22/16 08 :59; Start 06/21/16 at 09:00 Potassium Bicarb/ Potassium Chloride 50 meq 50 meq ONCE ONCE PO Last administered on 06/21/16 02:07; Start 06/20/16 at 21:00; Stop 06/20/16 at 21:11 ; Status DC Magnesium Sulfate/ Dextrose (Magnesium Sulfate 1 Gm Premix) 100 ml @ 100 mls/ hr ONCE ONCE IV Last administered on 06/21/16 02:07; Start 06/20/16 at 21:00 ; Stop 06/20/16 at 21:59; Status DC Enoxaparin Sodium (Lovenox Inj) 80 mg ONCE ONCE SQ Last administered on 02:07; Start 06/20/16 at 22:45; Stop 06/20/16 at 22:46; Status DC Furosemide (Lasix Inj) 40 mg ONCE ONCE IV PUSH Last administered on 06/21/16 02:47; Start 06/21/16 at 02:45; Stop 06/21/16 at 02:46; Status DC Potassium Chloride (KCl) 40 meq ONCE ONCE PO Last administered on 06/21/16 02 :47; Start 06/21/16 at 02:45; Stop 06/21/16 at 02:46; Status DC Budesonide/ Formoterol Fumarate (Symbicort 160-4.5 Inh) 2 puff DAILY INH Last administered on 06/22/16 08:59; Start 06/21/16 at 09:00 Metoprolol Tartrate (Lopressor) 25 mg Q12HR PO Last administered on 06/22/16 08:59; Start 06/21/16 at 09:00 Insulin Glargine (Lantus Inj) 40 units BID SQ ; Start 06/21/16 at 09:00; Stop at 09:12; Status DC Dextrose (D50w (Vial) Inj) 25 ml UNSCH PRN IV PUSH HYPOGLYCEMIA-SEE COMMENTS; Start 06/21/16 at 09:15 Glucagon (Glucagon Inj) 1 mg UNSCH PRN OTHER HYPOGLYCEMIA-SEE COMMENTS; Start 06/21/16 at 09:15 Insulin Aspart (NovoLOG SUPPLEMENTAL SCALE) 1 ACHS SLIDING SCALE SQ Last administered on 06/22/16 11:58; Start 06/21/16 at 11:00 Enoxaparin Sodium (Lovenox Inj) 80 mg Q24H SQ Last administered on 06/22/16 00 :50; Start 06/22/16 at 02:00 Acetaminophen/ Hydrocodone Bitart ([place] 10-325 Mg) 1 tab TID PRN PO PAIN Last administered on 06/22/16 07:07; Start 06/22/16 at 00:45 A/P Assessment and Plan A/P COPD exacerbation - continue neb treatment -continue IV Solu-Medrol - Supplemental oxygen titrated to maintain oxygen saturation greater than 92%; will try to take him off BiPaP and switch to N/C if he tolerates. - pulmonary consult appreciated PE started on subq lovenox will convert to xarelto Chest pain and Dyspnea with exertion-likely due to PE - continue anticoagulation -cardiology consulted Type 2 diabetes mellitus, poorly controlled with hypoglycemia- now hypoglycemia has resolved -resume long acting insulins for now -accu-check with SSI acute kidney injury with hyperkalemia; improved. DVT prophylaxis - on lovenox; will switch to xarelto. Trip Driscoll MD Jun 22, 2016 12:36
--- NOTE | 2016-06-22 18:09 | HHI.PR ---
Subjective Remarks 61 YOAA female with COPD exac, new PE Still has sob on NC Started on Xarelto Objective Vital Signs Vital Signs Date Time Temp Pulse Resp B/P Pulse Ox O2 Delivery O2 Flow Rate FiO2 06/22/16 16:00 98.0 100 18 136/86 100 06/22/16 12:00 98.0 107 18 124/89 92 06/22/16 08:52 93 Nasal Cannula 2.00 06/22/16 08:00 97.9 108 20 134/78 97 06/22/16 04:00 97.7 102 20 137/79 94 06/22/16 00:00 97.8 116 20 129/88 94 06/21/16 23:30 95 Nasal Cannula 2.50 06/21/16 20:00 97.6 108 20 134/79 93 I/O 06/21/16 06/21/16 06/21/16 06/22/16 06/22/16 06/22/16 07:00 15:00 23:00 07:00 15:00 23:00 Intake Total 240 ml 360 ml 960 ml Output Total 700 ml 1000 ml 850 ml 1800 ml Balance -700 ml -760 ml -490 ml -840 ml Intake Oral 240 ml 360 ml 960 ml Output Urine Total 700 ml 1000 ml 850 ml 1800 ml # Voids 0 # Bowel Movements 1 1 2 0 Result Diagram: 06/21/16 0429 06/22/16 0634 Objective Remarks GENERAL: WBWN AA female with sob SKIN: Warm and dry. HEAD: Normocephalic. EYES: No scleral icterus. No injection or drainage. NECK: Supple, trachea midline. No JVD or lymphadenopathy. CARDIOVASCULAR: Regular rate and rhythm without murmurs, gallops, or rubs. RESPIRATORY: Breath sounds equal bilaterally. No accessory muscle use. Exp rhonchi GASTROINTESTINAL: Abdomen soft, non-tender, nondistended. MUSCULOSKELETAL: No cyanosis, or edema. BACK: Nontender without obvious deformity. No CVA tenderness. A/P Assessment and Plan COPD Exac PE DM HTN RA H/O Hepatitis PLAN: IV Solumedrol Cont Abx monitor BS Xarelto 15 mg bid Available prn over weekend. Keshawn Vincent MD Jun 22, 2016 18:09
[2016-06-22] MEDS: INSULIN DETEMIR 100 UNITS/ML VIAL SQ SCH (22:56)
[2016-06-22] MEDS: RIVAROXABAN 15 MG TAB PO SCH (22:56)
[2016-06-23] VITALS (11 sets, daily range): BP systolic 119–156; BP diastolic 78–96; PULSE 80–108; RESP 17–18; TEMP 97.5–98.2; O2SAT 93–100
[2016-06-23] MEDS: ACETAMINOPHEN/HYDROcodone 325 MG/10 MG TAB PO PRN ×3 (00:21→19:11)
[2016-06-23] MEDS: RESP: IPRATROPIUM 0.5 MG/2.5 ML NEB NEB SCH ×4 (03:42→21:00)
[2016-06-23] MEDS: INSULIN ASPART SUPPLEMENTAL SCALE SQ SCH ×4 (05:27→21:22)
[2016-06-23] MEDS: methylPREDNISolone SOD SUCC 40 MG/1 ML VIAL IV PUSH SCH ×3 (05:30→21:21)
[2016-06-23] MEDS: RIVAROXABAN 15 MG TAB PO SCH ×2 (08:10→21:21)
[2016-06-23] MEDS: METOPROLOL TARTRATE 25 MG TAB PO SCH ×2 (08:10→21:21)
[2016-06-23] MEDS: PANTOPRAZOLE SOD 40 MG DELAYED RELEASE TAB PO SCH (08:10)
[2016-06-23] MEDS: SODIUM CHLORIDE 0.9% FLUSH 5 ML FLUSH FLUSH SCH ×2 (08:10→21:21)
[2016-06-23] MEDS: BUDESONIDE-FORMOTEROL 160/4.5 MCG INHALER INH SCH (08:11)
[2016-06-23] MEDS: INSULIN DETEMIR 100 UNITS/ML VIAL SQ SCH ×2 (08:11→21:22)
--- NOTE | 2016-06-23 09:41 | HHI.PR ---
Subjective Remarks in no acute distress but still with some sob and cough. no fever. Objective Vitals Vital Signs Date Time Temp Pulse Resp B/P Pulse Ox O2 Delivery O2 Flow Rate FiO2 06/23/16 09:18 Nasal Cannula 3.00 35 06/23/16 07:44 98.0 80 18 151/96 97 06/23/16 04:00 Nasal Cannula 3.00 06/23/16 04:00 97.7 100 17 137/84 94 06/23/16 03:43 97 Nasal Cannula 2.00 06/23/16 00:00 97.7 108 18 156/88 93 06/23/16 00:00 Room Air 06/22/16 20:57 98 Nasal Cannula 2.00 06/22/16 20:01 104 06/22/16 20:00 98.0 108 18 138/90 92 06/22/16 20:00 Nasal Cannula 2.00 06/22/16 16:00 98.0 100 18 136/86 100 06/22/16 12:00 98.0 107 18 124/89 92 I/O 06/22/16 06/22/16 06/22/16 06/23/16 06/23/16 06/23/16 07:00 15:00 23:00 07:00 15:00 23:00 Intake Total 360 ml 960 ml 480 ml 280 ml Output Total 850 ml 1800 ml 750 ml 1000 ml Balance -490 ml -840 ml -270 ml -720 ml Intake Oral 360 ml 960 ml 480 ml 280 ml Output Urine Total 850 ml 1800 ml 750 ml 1000 ml # Bowel Movements 2 0 0 0 Result Diagram: 06/21/16 0429 06/22/16 0634 Imaging Last Impressions Lung Scan-VQ Nuclear Medicine 06/21/16 0000 Signed Impressions: Service Date/Time: May 10:54 - CONCLUSION: There is a single large ventilation/perfusion mismatch in the left lower lobe without a correlate finding on chest x-ray. By PIOPED 2 criteria, this is high probability for PE and is suspicious for PE. Shaggy Bryson MD Lower Extremity Ultrasound 06/21/16 0000 Signed Impressions: Service Date/Time: May 19:21 - CONCLUSION: Normal examination. Shaggy Maza MD Carotid Artery Ultrasound 06/21/16 0000 Signed Impressions: Service Date/Time: May 08:39 - CONCLUSION: Normal examination. Melissa Washington MD Chest X-Ray 06/20/16 1846 Signed Impressions: Service Date/Time: Monday, June 20, 2016 19:11 - CONCLUSION: Mild streaky opacity is now present at both lung bases with no definite consolidation. Zack Jim MD Objective Remarks GENERAL: currently on BiPaP CARDIOVASCULAR: Regular rate and irregular rhythm without murmurs, gallops, or rubs. RESPIRATORY: Clear to auscultation. Breath sounds equal bilaterally. No wheezes , rales, or rhonchi. GASTROINTESTINAL: Abdomen soft, non-tender, nondistended. Normal, active bowel sounds MUSCULOSKELETAL: Extremities without clubbing, cyanosis, or edema. NEURO: Alert & Oriented x4 to person, place, time, situation. Moves all ext x4 Procedures none Medications and IVs Current Medications Sodium Chloride 1,000 ml @ 2,000 mls/hr Q30M ONCE IV Last administered on 06/20 20:51; Start 06/20/16 at 19:00; Stop 06/20/16 at 19:29; Status DC Sodium Chloride (NS 1000 ml Inj) 1,000 ml @ 2,000 mls/hr Q30M ONCE IV Last administered on 06/20/16 20:52; Start 06/20/16 at 19:00; Stop 06/20/16 at 19:29 ; Status DC Methylprednisolone Sodium Succinate (SoluMEDROL INJ) 125 mg ONCE ONCE IVP ; Start 06/20/16 at 19:00; Stop 06/20/16 at 19:01; Status DC Albuterol/ Ipratropium 1 ampule 1 ampule Q15M INH Last administered on 19:06; Start 06/20/16 at 19:00; Stop 06/20/16 at 19:31; Status DC Levofloxacin/ Dextrose 100 ml @ 100 mls/hr ONCE ONCE IV Last administered on 06/20/16 20:52; Start 06/20/16 at 21:00; Stop 06/20/16 at 21:59; Status DC Potassium Chloride (KCl 20 Meq Premix Inj) 100 ml @ 50 mls/hr Q2H IV Last administered on 06/21/16 02:07; Start 06/20/16 at 20:45; Stop 06/21/16 at 00:44 ; Status DC IV Flush (NS Flush) 2 ml UNSCH PRN FLUSH FLUSH AFTER USING IV ACCESS; Start at 21:00 IV Flush (NS Flush) 2 ml BID FLUSH Last administered on 06/23/16 08:10; Start 06/20/16 at 21:00 Ondansetron HCl (Zofran Inj) 4 mg Q6H PRN IVP NAUSEA OR VOMITING; Start at 21:00 Heparin Sodium (Porcine) (Heparin Inj) 5,000 units Q8H SQ ; Start 06/20/16 at 21 :00; Stop 06/21/16 at 00:39; Status DC Naloxone HCl (Narcan Inj) 0.4 mg UNSCH PRN IV SEE LABEL COMMENTS; Start at 21:00 Dextrose (D50w (Vial) Inj) 50 ml Q1HR PRN IV PUSH bs<100; Start 06/20/16 at 21: 00 Ipratropium [place] (Atrovent Neb) 0.5 mg Q6HR NEB NEB Last administered on 03:42; Start 06/20/16 at 22:00 Ipratropium [place] (Atrovent Neb) 0.5 mg Q2HR NEB PRN NEB wheezing; Start at 21:00 Methylprednisolone Sodium Succinate (SoluMEDROL INJ) 40 mg Q6HR IV PUSH Last administered on 06/23/16 05:30; Start 06/21/16 at 00:00 Pantoprazole Sodium (Protonix) 40 mg DAILY PO Last administered on 06/23/16 08 :10; Start 06/21/16 at 09:00 Potassium Bicarb/ Potassium Chloride 50 meq 50 meq ONCE ONCE PO Last administered on 06/21/16 02:07; Start 06/20/16 at 21:00; Stop 06/20/16 at 21:11 ; Status DC Magnesium Sulfate/ Dextrose (Magnesium Sulfate 1 Gm Premix) 100 ml @ 100 mls/ hr ONCE ONCE IV Last administered on 06/21/16 02:07; Start 06/20/16 at 21:00 ; Stop 06/20/16 at 21:59; Status DC Enoxaparin Sodium (Lovenox Inj) 80 mg ONCE ONCE SQ Last administered on 02:07; Start 06/20/16 at 22:45; Stop 06/20/16 at 22:46; Status DC Furosemide (Lasix Inj) 40 mg ONCE ONCE IV PUSH Last administered on 06/21/16 02:47; Start 06/21/16 at 02:45; Stop 06/21/16 at 02:46; Status DC Potassium Chloride (KCl) 40 meq ONCE ONCE PO Last administered on 06/21/16 02 :47; Start 06/21/16 at 02:45; Stop 06/21/16 at 02:46; Status DC Budesonide/ Formoterol Fumarate (Symbicort 160-4.5 Inh) 2 puff DAILY INH Last administered on 06/23/16 08:11; Start 06/21/16 at 09:00 Metoprolol Tartrate (Lopressor) 25 mg Q12HR PO Last administered on 06/23/16 08:10; Start 06/21/16 at 09:00 Insulin Glargine (Lantus Inj) 40 units BID SQ ; Start 06/21/16 at 09:00; Stop at 09:12; Status DC Dextrose (D50w (Vial) Inj) 25 ml UNSCH PRN IV PUSH HYPOGLYCEMIA-SEE COMMENTS; Start 06/21/16 at 09:15 Glucagon (Glucagon Inj) 1 mg UNSCH PRN OTHER HYPOGLYCEMIA-SEE COMMENTS; Start 06/21/16 at 09:15 Insulin Aspart (NovoLOG SUPPLEMENTAL SCALE) 1 ACHS SLIDING SCALE SQ Last administered on 06/23/16 05:27; Start 06/21/16 at 11:00 Enoxaparin Sodium (Lovenox Inj) 80 mg Q24H SQ Last administered on 06/22/16 00 :50; Start 06/22/16 at 02:00; Stop 06/22/16 at 12:44; Status DC Acetaminophen/ Hydrocodone Bitart ([place] 10-325 Mg) 1 tab TID PRN PO PAIN Last administered on 06/23/16 08:11; Start 06/22/16 at 00:45 Rivaroxaban (Xarelto) 15 mg BID PO Last administered on 06/23/16 08:10; Start 06/22/16 at 21:00 Insulin Detemir (Levemir Inj) 20 units BID SQ Last administered on 06/23/16t 08 :11; Start 06/22/16 at 21:00 A/P Assessment and Plan A/P COPD exacerbation - continue neb treatment -taper down IV Solu-Medrol - Supplemental oxygen titrated to maintain oxygen saturation greater than 92%; will try to take him off BiPaP and switch to N/C if he tolerates. - pulmonary following PE started on Xarelto Chest pain and Dyspnea with exertion-likely due to PE - continue anticoagulation -cardiology consulted Type 2 diabetes mellitus, poorly controlled . -increase levemir -accu-check with SSI -the blood sugar levels expected to improve as steroid is being tapered down. acute kidney injury with hyperkalemia; improved. DVT prophylaxis - on BridgetterelTrip Clemente MD Jun 23, 2016 09:41 Trip Driscoll MD Jun 23, 2016 09:41
[2016-06-24] VITALS (9 sets, daily range): BP systolic 107–157; BP diastolic 68–97; PULSE 84–108; RESP 17–18; TEMP 97.5–98; O2SAT 91–98
[2016-06-24] MEDS ORDERED: INSULIN HUMAN REGULAR 1,000 UNITS/10 ML VIAL IV PUSH ONE
[2016-06-24] MEDS: RESP: IPRATROPIUM 0.5 MG/2.5 ML NEB NEB SCH ×4 (03:41→20:05)
[2016-06-24] MEDS: ACETAMINOPHEN/HYDROcodone 325 MG/10 MG TAB PO PRN ×3 (05:36→22:28)
[2016-06-24] MEDS: methylPREDNISolone SOD SUCC 40 MG/1 ML VIAL IV PUSH SCH ×2 (05:37→20:32)
[2016-06-24] MEDS: INSULIN ASPART SUPPLEMENTAL SCALE SQ SCH ×2 (05:40→12:56)
[2016-06-24] MEDS: BUDESONIDE-FORMOTEROL 160/4.5 MCG INHALER INH SCH (09:12)
[2016-06-24] MEDS: RIVAROXABAN 15 MG TAB PO SCH ×2 (09:12→20:33)
[2016-06-24] MEDS: INSULIN DETEMIR 100 UNITS/ML VIAL SQ SCH ×2 (09:12→22:28)
[2016-06-24] MEDS: METOPROLOL TARTRATE 25 MG TAB PO SCH ×2 (09:12→20:33)
[2016-06-24] MEDS: PANTOPRAZOLE SOD 40 MG DELAYED RELEASE TAB PO SCH (09:12)
[2016-06-24] MEDS: SODIUM CHLORIDE 0.9% FLUSH 5 ML FLUSH FLUSH SCH ×2 (09:15→20:33)
--- NOTE | 2016-06-24 09:36 | HHI.PR ---
Subjective Remarks in no acute distress. oxygen was tapered down to 2 lit/ min. blood sugar levels elevated and received a dose of IV insulin over night. d/w the RN. Objective Vitals Vital Signs Date Time Temp Pulse Resp B/P Pulse Ox O2 Delivery O2 Flow Rate FiO2 06/24/16 08:00 98.0 90 18 141/89 94 06/24/16 06:00 2.00 06/24/16 04:00 Nasal Cannula 3.00 06/24/16 04:00 97.5 84 18 157/97 93 06/24/16 00:00 Nasal Cannula 3.00 06/24/16 00:00 97.7 101 17 134/79 98 06/23/16 21:02 98 Nasal Cannula 2.50 06/23/16 20:05 104 06/23/16 20:00 97.5 102 18 142/93 95 06/23/16 20:00 Nasal Cannula 3.00 06/23/16 16:00 98.1 99 18 119/79 97 06/23/16 11:50 98.2 97 18 120/78 100 06/23/16 09:42 95 Nasal Cannula 2.00 I/O 06/23/16 06/23/16 06/23/16 06/24/16 06/24/16 06/24/16 07:00 15:00 23:00 07:00 15:00 23:00 Intake Total 280 ml 240 ml 480 ml Output Total 1000 ml Balance -720 ml 240 ml 480 ml Intake Oral 280 ml 240 ml 480 ml Output Urine Total 1000 ml # Voids 2 3 # Bowel Movements 0 3 Result Diagram: 06/21/16 0429 06/23/16 2225 Imaging Last Impressions Lung Scan-VQ Nuclear Medicine 06/21/16 0000 Signed Impressions: Service Date/Time: May 10:54 - CONCLUSION: There is a single large ventilation/perfusion mismatch in the left lower lobe without a correlate finding on chest x-ray. By PIOPED 2 criteria, this is high probability for PE and is suspicious for PE. Shaggy Bryson MD Lower Extremity Ultrasound 06/21/16 0000 Signed Impressions: Service Date/Time: May 19:21 - CONCLUSION: Normal examination. Shaggy Maza MD Carotid Artery Ultrasound 06/21/16 0000 Signed Impressions: Service Date/Time: May 08:39 - CONCLUSION: Normal examination. Melissa Washington MD Chest X-Ray 06/20/16 1846 Signed Impressions: Service Date/Time: Monday, June 20, 2016 19:11 - CONCLUSION: Mild streaky opacity is now present at both lung bases with no definite consolidation. Zack Jim MD Objective Remarks GENERAL: on oxygen via N/C. CARDIOVASCULAR: Regular rate and irregular rhythm without murmurs, gallops, or rubs. RESPIRATORY: Clear to auscultation. Breath sounds equal bilaterally. No wheezes , rales, or rhonchi. GASTROINTESTINAL: Abdomen soft, non-tender, nondistended. Normal, active bowel sounds MUSCULOSKELETAL: Extremities without clubbing, cyanosis, or edema. NEURO: Alert & Oriented x4 to person, place, time, situation. Moves all ext x4 Procedures none Medications and IVs Current Medications Sodium Chloride 1,000 ml @ 2,000 mls/hr Q30M ONCE IV Last administered on 06/20 20:51; Start 06/20/16 at 19:00; Stop 06/20/16 at 19:29; Status DC Sodium Chloride (NS 1000 ml Inj) 1,000 ml @ 2,000 mls/hr Q30M ONCE IV Last administered on 06/20/16 20:52; Start 06/20/16 at 19:00; Stop 06/20/16 at 19:29 ; Status DC Methylprednisolone Sodium Succinate (SoluMEDROL INJ) 125 mg ONCE ONCE IVP ; Start 06/20/16 at 19:00; Stop 06/20/16 at 19:01; Status DC Albuterol/ Ipratropium 1 ampule 1 ampule Q15M INH Last administered on 19:06; Start 06/20/16 at 19:00; Stop 06/20/16 at 19:31; Status DC Levofloxacin/ Dextrose 100 ml @ 100 mls/hr ONCE ONCE IV Last administered on 06/20/16 20:52; Start 06/20/16 at 21:00; Stop 06/20/16 at 21:59; Status DC Potassium Chloride (KCl 20 Meq Premix Inj) 100 ml @ 50 mls/hr Q2H IV Last administered on 06/21/16 02:07; Start 06/20/16 at 20:45; Stop 06/21/16 at 00:44 ; Status DC IV Flush (NS Flush) 2 ml UNSCH PRN FLUSH FLUSH AFTER USING IV ACCESS; Start at 21:00 IV Flush (NS Flush) 2 ml BID FLUSH Last administered on 06/24/16 09:15; Start 06/20/16 at 21:00 Ondansetron HCl (Zofran Inj) 4 mg Q6H PRN IVP NAUSEA OR VOMITING; Start at 21:00 Heparin Sodium (Porcine) (Heparin Inj) 5,000 units Q8H SQ ; Start 06/20/16 at 21 :00; Stop 06/21/16 at 00:39; Status DC Naloxone HCl (Narcan Inj) 0.4 mg UNSCH PRN IV SEE LABEL COMMENTS; Start at 21:00 Dextrose (D50w (Vial) Inj) 50 ml Q1HR PRN IV PUSH bs<100; Start 06/20/16 at 21: 00 Ipratropium [place] (Atrovent Neb) 0.5 mg Q6HR NEB NEB Last administered on 03:41; Start 06/20/16 at 22:00 Ipratropium [place] (Atrovent Neb) 0.5 mg Q2HR NEB PRN NEB wheezing; Start at 21:00 Methylprednisolone Sodium Succinate (SoluMEDROL INJ) 40 mg Q6HR IV PUSH Last administered on 06/23/16 05:30; Start 06/21/16 at 00:00; Stop 06/23/16 at 09:39 ; Status DC Pantoprazole Sodium (Protonix) 40 mg DAILY PO Last administered on 06/24/16 09 :12; Start 06/21/16 at 09:00 Potassium Bicarb/ Potassium Chloride 50 meq 50 meq ONCE ONCE PO Last administered on 06/21/16 02:07; Start 06/20/16 at 21:00; Stop 06/20/16 at 21:11 ; Status DC Magnesium Sulfate/ Dextrose (Magnesium Sulfate 1 Gm Premix) 100 ml @ 100 mls/ hr ONCE ONCE IV Last administered on 06/21/16 02:07; Start 06/20/16 at 21:00 ; Stop 06/20/16 at 21:59; Status DC Enoxaparin Sodium (Lovenox Inj) 80 mg ONCE ONCE SQ Last administered on 02:07; Start 06/20/16 at 22:45; Stop 06/20/16 at 22:46; Status DC Furosemide (Lasix Inj) 40 mg ONCE ONCE IV PUSH Last administered on 06/21/16 02:47; Start 06/21/16 at 02:45; Stop 06/21/16 at 02:46; Status DC Potassium Chloride (KCl) 40 meq ONCE ONCE PO Last administered on 06/21/16 02 :47; Start 06/21/16 at 02:45; Stop 06/21/16 at 02:46; Status DC Budesonide/ Formoterol Fumarate (Symbicort 160-4.5 Inh) 2 puff DAILY INH Last administered on 06/24/16 09:12; Start 06/21/16 at 09:00 Metoprolol Tartrate (Lopressor) 25 mg Q12HR PO Last administered on 06/24/16 09:12; Start 06/21/16 at 09:00 Insulin Glargine (Lantus Inj) 40 units BID SQ ; Start 06/21/16 at 09:00; Stop at 09:12; Status DC Dextrose (D50w (Vial) Inj) 25 ml UNSCH PRN IV PUSH HYPOGLYCEMIA-SEE COMMENTS; Start 06/21/16 at 09:15 Glucagon (Glucagon Inj) 1 mg UNSCH PRN OTHER HYPOGLYCEMIA-SEE COMMENTS; Start 06/21/16 at 09:15 Insulin Aspart (NovoLOG SUPPLEMENTAL SCALE) 1 ACHS SLIDING SCALE SQ Last administered on 06/23/16 21:22; Start 06/21/16 at 11:00; Stop 06/24/16 at 01:55 ; Status DC Enoxaparin Sodium (Lovenox Inj) 80 mg Q24H SQ Last administered on 06/22/16 00 :50; Start 06/22/16 at 02:00; Stop 06/22/16 at 12:44; Status DC Acetaminophen/ Hydrocodone Bitart ([place] 10-325 Mg) 1 tab TID PRN PO PAIN Last administered on 06/24/16 05:36; Start 06/22/16 at 00:45 Rivaroxaban (Xarelto) 15 mg BID PO Last administered on 06/24/16 09:12; Start 06/22/16 at 21:00 Insulin Detemir (Levemir Inj) 20 units BID SQ Last administered on 06/23/16 08 :11; Start 06/22/16 at 21:00; Stop 06/23/16 at 09:40; Status DC Insulin Detemir (Levemir Inj) 24 units BID SQ Last administered on 06/24/16 09 :12; Start 06/23/16 at 21:00 Methylprednisolone Sodium Succinate (SoluMEDROL INJ) 40 mg Q8HR IV PUSH Last administered on 06/24/16 05:37; Start 06/23/16 at 14:00 Insulin Human Regular (NovoLIN R INJ) 8 units ONCE ONCE IV PUSH Last administered on 06/24/16 00:08; Start 06/24/16 at 00:00; Stop 06/24/16 at 00:01 ; Status DC Insulin Aspart (NovoLOG SUPPLEMENTAL SCALE) 1 ACHS SLIDING SCALE SQ Last administered on 06/24/16 05:40; Start 06/24/16 at 07:00 A/P Assessment and Plan A/P COPD exacerbation- improving - continue neb treatment -continue to taper down IV Solu-Medrol - Supplemental oxygen titrated to maintain oxygen saturation greater than 92%; will try to take him off BiPaP and switch to N/C if he tolerates. - pulmonary following PE started on Xarelto Chest pain and Dyspnea with exertion-likely due to PE - continue anticoagulation -cardiology consulted Type 2 diabetes mellitus, poorly controlled . -increase levemir -accu-check with SSI -the blood sugar levels expected to improve as steroid is being tapered down. acute kidney injury with hyperkalemia; improved. DVT prophylaxis - on Xarelto consulted PT. Discharge Planning possible discharge within the next one-two days. Trip Driscoll MD Jun 24, 2016 09:36
[2016-06-24] MEDS ORDERED: DEXTROSE 50% IN WATER 50 ML VIAL(D50) IV PUSH PRN (18:00)
[2016-06-24] MEDS ORDERED: GLUCAGON 1 MG/ML VIAL OTHER PRN (18:00)
[2016-06-24] MEDS: HIGH DOSE INSULIN NOVOLOG SUPPLEMENTAL SCALE SQ SCH ×2 (18:14→22:29)
[2016-06-25] VITALS (9 sets, daily range): BP systolic 128–151; BP diastolic 72–97; PULSE 85–110; RESP 14–18; TEMP 97.5–98.1; O2SAT 95–100
[2016-06-25] MEDS: RESP: IPRATROPIUM 0.5 MG/2.5 ML NEB NEB SCH ×4 (04:01→20:02)
[2016-06-25] MEDS: HIGH DOSE INSULIN NOVOLOG SUPPLEMENTAL SCALE SQ SCH ×4 (06:39→22:00)
[2016-06-25] MEDS: METOPROLOL TARTRATE 25 MG TAB PO SCH ×2 (08:02→21:59)
[2016-06-25] MEDS: methylPREDNISolone SOD SUCC 40 MG/1 ML VIAL IV PUSH SCH (08:03)
[2016-06-25] MEDS: RIVAROXABAN 15 MG TAB PO SCH ×2 (08:03→21:59)
[2016-06-25] MEDS: ACETAMINOPHEN/HYDROcodone 325 MG/10 MG TAB PO PRN ×3 (08:03→22:59)
[2016-06-25] MEDS: PANTOPRAZOLE SOD 40 MG DELAYED RELEASE TAB PO SCH (08:03)
[2016-06-25] MEDS: BUDESONIDE-FORMOTEROL 160/4.5 MCG INHALER INH SCH (08:04)
[2016-06-25] MEDS: SODIUM CHLORIDE 0.9% FLUSH 5 ML FLUSH FLUSH SCH ×2 (08:04→21:59)
[2016-06-25] MEDS: INSULIN DETEMIR 100 UNITS/ML VIAL SQ SCH ×2 (08:06→22:00)
--- NOTE | 2016-06-25 08:06 | HHI.PR ---
Subjective Remarks with mild sob and wheezing. on two liters of oxygen via N/C. blood sugar better today. d/w the RN. Objective Vitals Vital Signs Date Time Temp Pulse Resp B/P Pulse Ox O2 Delivery O2 Flow Rate FiO2 06/25/16 04:00 97.5 85 18 151/97 100 06/25/16 04:00 Nasal Cannula 2.00 06/25/16 00:00 Nasal Cannula 2.00 06/25/16 00:00 98.0 96 17 144/86 95 06/24/16 20:05 94 Nasal Cannula 2.00 06/24/16 20:00 105 06/24/16 20:00 97.5 104 18 107/68 96 06/24/16 20:00 Nasal Cannula 2.00 06/24/16 16:00 97.5 108 18 121/72 95 06/24/16 12:30 97.7 93 18 124/78 91 06/24/16 12:23 107 06/24/16 09:46 97 Nasal Cannula 2.00 06/24/16 09:17 94 Nasal Cannula 2.00 I/O 06/24/16 06/24/16 06/24/16 06/25/16 06/25/16 06/25/16 07:00 15:00 23:00 07:00 15:00 23:00 Intake Total 480 ml 480 ml 260 ml Balance 480 ml 480 ml 260 ml Intake Oral 480 ml 480 ml 260 ml # Voids 3 3 2 # Bowel Movements 2 0 Result Diagram: 06/21/16 0429 06/24/16 1744 Imaging Last Impressions Lung Scan-V Nuclear Medicine 06/21/16 0000 Signed Impressions: Service Date/Time: May 10:54 - CONCLUSION: There is a single large ventilation/perfusion mismatch in the left lower lobe without a correlate finding on chest x-ray. By PIOPED 2 criteria, this is high probability for PE and is suspicious for PE. Shaggy Bryson MD Lower Extremity Ultrasound 06/21/16 0000 Signed Impressions: Service Date/Time: May 19:21 - CONCLUSION: Normal examination. Shaggy Maza MD Carotid Artery Ultrasound 06/21/16 0000 Signed Impressions: Service Date/Time: May 08:39 - CONCLUSION: Normal examination. Melissa Washington MD Chest X-Ray 06/20/16 1846 Signed Impressions: Service Date/Time: Monday, June 20, 2016 19:11 - CONCLUSION: Mild streaky opacity is now present at both lung bases with no definite consolidation. Zack Jim MD Objective Remarks GENERAL: on oxygen via N/C. CARDIOVASCULAR: Regular rate and regular rhythm without murmurs, gallops, or rubs. RESPIRATORY: Clear to auscultation. Breath sounds equal bilaterally. No wheezes , rales, or rhonchi. GASTROINTESTINAL: Abdomen soft, non-tender, nondistended. Normal, active bowel sounds MUSCULOSKELETAL: Extremities without clubbing, cyanosis, or edema. NEURO: Alert & Oriented x4 to person, place, time, situation. Moves all ext x4 Procedures none Medications and IVs Current Medications Sodium Chloride 1,000 ml @ 2,000 mls/hr Q30M ONCE IV Last administered on 06/20 20:51; Start 06/20/16 at 19:00; Stop 06/20/16 at 19:29; Status DC Sodium Chloride (NS 1000 ml Inj) 1,000 ml @ 2,000 mls/hr Q30M ONCE IV Last administered on 06/20/16 20:52; Start 06/20/16 at 19:00; Stop 06/20/16 at 19:29 ; Status DC Methylprednisolone Sodium Succinate (SoluMEDROL INJ) 125 mg ONCE ONCE IVP ; Start 06/20/16 at 19:00; Stop 06/20/16 at 19:01; Status DC Albuterol/ Ipratropium 1 ampule 1 ampule Q15M INH Last administered on 19:06; Start 06/20/16 at 19:00; Stop 06/20/16 at 19:31; Status DC Levofloxacin/ Dextrose 100 ml @ 100 mls/hr ONCE ONCE IV Last administered on 06/20/16 20:52; Start 06/20/16 at 21:00; Stop 06/20/16 at 21:59; Status DC Potassium Chloride (KCl 20 Meq Premix Inj) 100 ml @ 50 mls/hr Q2H IV Last administered on 06/21/16 02:07; Start 06/20/16 at 20:45; Stop 06/21/16 at 00:44 ; Status DC IV Flush (NS Flush) 2 ml UNSCH PRN FLUSH FLUSH AFTER USING IV ACCESS; Start at 21:00 IV Flush (NS Flush) 2 ml BID FLUSH Last administered on 06/24/16 20:33; Start 06/20/16 at 21:00 Ondansetron HCl (Zofran Inj) 4 mg Q6H PRN IVP NAUSEA OR VOMITING; Start at 21:00 Heparin Sodium (Porcine) (Heparin Inj) 5,000 units Q8H SQ ; Start 06/20/16 at 21 :00; Stop 06/21/16 at 00:39; Status DC Naloxone HCl (Narcan Inj) 0.4 mg UNSCH PRN IV SEE LABEL COMMENTS; Start at 21:00 Dextrose (D50w (Vial) Inj) 50 ml Q1HR PRN IV PUSH bs<100; Start 06/20/16 at 21: 00 Ipratropium Mondamin (Atrovent Neb) 0.5 mg Q6HR NEB NEB Last administered on 04:01; Start 06/20/16 at 22:00 Ipratropium Mondamin (Atrovent Neb) 0.5 mg Q2HR NEB PRN NEB wheezing; Start at 21:00 Methylprednisolone Sodium Succinate (SoluMEDROL INJ) 40 mg Q6HR IV PUSH Last administered on 06/23/16 05:30; Start 06/21/16 at 00:00; Stop 06/23/16 at 09:39 ; Status DC Pantoprazole Sodium (Protonix) 40 mg DAILY PO Last administered on 06/24/16 09 :12; Start 06/21/16 at 09:00 Potassium Bicarb/ Potassium Chloride 50 meq 50 meq ONCE ONCE PO Last administered on 06/21/16 02:07; Start 06/20/16 at 21:00; Stop 06/20/16 at 21:11 ; Status DC Magnesium Sulfate/ Dextrose (Magnesium Sulfate 1 Gm Premix) 100 ml @ 100 mls/ hr ONCE ONCE IV Last administered on 06/21/16 02:07; Start 06/20/16 at 21:00 ; Stop 06/20/16 at 21:59; Status DC Enoxaparin Sodium (Lovenox Inj) 80 mg ONCE ONCE SQ Last administered on 02:07; Start 06/20/16 at 22:45; Stop 06/20/16 at 22:46; Status DC Furosemide (Lasix Inj) 40 mg ONCE ONCE IV PUSH Last administered on 06/21/16 02:47; Start 06/21/16 at 02:45; Stop 06/21/16 at 02:46; Status DC Potassium Chloride (KCl) 40 meq ONCE ONCE PO Last administered on 06/21/16 02 :47; Start 06/21/16 at 02:45; Stop 06/21/16 at 02:46; Status DC Budesonide/ Formoterol Fumarate (Symbicort 160-4.5 Inh) 2 puff DAILY INH Last administered on 06/24/16 09:12; Start 06/21/16 at 09:00 Metoprolol Tartrate (Lopressor) 25 mg Q12HR PO Last administered on 06/24/16 20:33; Start 06/21/16 at 09:00 Insulin Glargine (Lantus Inj) 40 units BID SQ ; Start 06/21/16 at 09:00; Stop at 09:12; Status DC Dextrose (D50w (Vial) Inj) 25 ml UNSCH PRN IV PUSH HYPOGLYCEMIA-SEE COMMENTS; Start 06/21/16 at 09:15; Stop 06/24/16 at 17:58; Status DC Glucagon (Glucagon Inj) 1 mg UNSCH PRN OTHER HYPOGLYCEMIA-SEE COMMENTS; Start 06/21/16 at 09:15; Stop 06/24/16 at 17:58; Status DC Insulin Aspart (NovoLOG SUPPLEMENTAL SCALE) 1 ACHS SLIDING SCALE SQ Last administered on 06/23/16 21:22; Start 06/21/16 at 11:00; Stop 06/24/16 at 01:55 ; Status DC Enoxaparin Sodium (Lovenox Inj) 80 mg Q24H SQ Last administered on 06/22/16 00 :50; Start 06/22/16 at 02:00; Stop 06/22/16 at 12:44; Status DC Acetaminophen/ Hydrocodone Bitart ([place] 10-325 Mg) 1 tab TID PRN PO PAIN Last administered on 06/24/16 22:28; Start 06/22/16 at 00:45 Rivaroxaban (Xarelto) 15 mg BID PO Last administered on 06/24/16 20:33; Start 06/22/16 at 21:00 Insulin Detemir (Levemir Inj) 20 units BID SQ Last administered on 06/23/16 08 :11; Start 06/22/16 at 21:00; Stop 06/23/16 at 09:40; Status DC Insulin Detemir (Levemir Inj) 24 units BID SQ Last administered on 06/24/16 09 :12; Start 06/23/16 at 21:00; Stop 06/24/16 at 09:34; Status DC Methylprednisolone Sodium Succinate (SoluMEDROL INJ) 40 mg Q8HR IV PUSH Last administered on 06/24/16 05:37; Start 06/23/16 at 14:00; Stop 06/24/16 at 09:34 ; Status DC Insulin Human Regular (NovoLIN R INJ) 8 units ONCE ONCE IV PUSH Last administered on 06/24/16 00:08; Start 06/24/16 at 00:00; Stop 06/24/16 at 00:01 ; Status DC Insulin Aspart (NovoLOG SUPPLEMENTAL SCALE) 1 ACHS SLIDING SCALE SQ Last administered on 06/24/16 12:56; Start 06/24/16 at 07:00; Stop 06/24/16 at 17:58 ; Status DC Insulin Detemir (Levemir Inj) 30 units BID SQ Last administered on 06/24/16 22 :28; Start 06/24/16 at 21:00 Methylprednisolone Sodium Succinate (SoluMEDROL INJ) 20 mg Q12HR IV PUSH Last administered on 06/24/16 20:32; Start 06/24/16 at 21:00 Dextrose (D50w (Vial) Inj) 25 ml UNSCH PRN IV PUSH HYPOGLYCEMIA - SEE COMMENTS ; Start 06/24/16 at 18:00 Glucagon (Glucagon Inj) 1 mg UNSCH PRN OTHER HYPOGLYCEMIA-SEE COMMENTS; Start 06/24/16 at 18:00 Insulin Aspart (NovoLOG SUPPLEMENTAL SCALE) 1 ACHS SLIDING SCALE SQ Last administered on 06/25/16 06:39; Start 06/24/16 at 18:00 A/P Assessment and Plan A/P COPD exacerbation- improving - continue neb treatment -continue IV Solu-Medrol - will switch to po prednisone soon. - Supplemental oxygen titrated to maintain oxygen saturation greater than 92%; will try to take him off BiPaP and switch to N/C if he tolerates. - pulmonary following PE started on Xarelto Chest pain and Dyspnea with exertion-likely due to PE - continue anticoagulation -cardiology consulted Type 2 diabetes mellitus, poorly controlled . -continue levemir -accu-check with SSI -the blood sugar levels expected to improve as steroid is being tapered down. acute kidney injury with hyperkalemia; improved. DVT prophylaxis - on Xarelto consulted PT. Discharge Planning possible discharge within the next one-two days. Trip Driscoll MD Jun 25, 2016 08:06
--- NOTE | 2016-06-25 16:18 | HHI.PR ---
Subjective Remarks 61 YOAA female with COPD exac, new PE Still has sob on NC on Xarelto No fever or chills Breathing better Objective Vital Signs Vital Signs Date Time Temp Pulse Resp B/P Pulse Ox O2 Delivery O2 Flow Rate FiO2 06/25/16 12:07 98.1 99 16 141/93 95 06/25/16 09:28 96 Nasal Cannula 2.00 06/25/16 09:00 94 Nasal Cannula 2.00 06/25/16 08:00 97.7 87 14 149/77 99 06/25/16 04:00 97.5 85 18 151/97 100 06/25/16 04:00 Nasal Cannula 2.00 06/25/16 00:00 Nasal Cannula 2.00 06/25/16 00:00 98.0 96 17 144/86 95 06/24/16 20:05 94 Nasal Cannula 2.00 06/24/16 20:00 105 06/24/16 20:00 97.5 104 18 107/68 96 06/24/16 20:00 Nasal Cannula 2.00 I/O 06/24/16 06/24/16 06/24/16 06/25/16 06/25/16 06/25/16 07:00 15:00 23:00 07:00 15:00 23:00 Intake Total 480 ml 480 ml 260 ml Balance 480 ml 480 ml 260 ml Intake Oral 480 ml 480 ml 260 ml # Voids 3 3 2 # Bowel Movements 2 0 Result Diagram: 06/21/16 0429 06/24/16 1744 Objective Remarks GENERAL: WBWN AA female with sob SKIN: Warm and dry. HEAD: Normocephalic. EYES: No scleral icterus. No injection or drainage. NECK: Supple, trachea midline. No JVD or lymphadenopathy. CARDIOVASCULAR: Regular rate and rhythm without murmurs, gallops, or rubs. RESPIRATORY: Breath sounds equal bilaterally. No accessory muscle use. Exp rhonchi GASTROINTESTINAL: Abdomen soft, non-tender, nondistended. MUSCULOSKELETAL: No cyanosis, or edema. BACK: Nontender without obvious deformity. No CVA tenderness. A/P Assessment and Plan COPD Exac PE DM HTN RA H/O Hepatitis PLAN: DC Solumedrol Prednisone 10 mg bid Cont Abx monitor BS Xarelto 15 mg bid Keshawn Vincent MD Jun 25, 2016 16:18
[2016-06-25] MEDS: predniSONE 10 MG TAB PO SCH (21:59)
[2016-06-26] VITALS (10 sets, daily range): BP systolic 104–140; BP diastolic 68–95; PULSE 89–109; RESP 18; TEMP 97–98.4; O2SAT 92–98
[2016-06-26] MEDS: RESP: IPRATROPIUM 0.5 MG/2.5 ML NEB NEB SCH ×4 (05:00→20:53)
[2016-06-26] MEDS: HIGH DOSE INSULIN NOVOLOG SUPPLEMENTAL SCALE SQ SCH ×4 (06:11→21:23)
[2016-06-26] MEDS: ACETAMINOPHEN/HYDROcodone 325 MG/10 MG TAB PO PRN ×2 (06:57→21:24)
[2016-06-26] MEDS: BUDESONIDE-FORMOTEROL 160/4.5 MCG INHALER INH SCH (07:40)
[2016-06-26] MEDS: METOPROLOL TARTRATE 25 MG TAB PO SCH ×2 (07:40→21:22)
[2016-06-26] MEDS: predniSONE 10 MG TAB PO SCH ×2 (07:40→21:22)
[2016-06-26] MEDS: RIVAROXABAN 15 MG TAB PO SCH ×2 (07:41→21:22)
[2016-06-26] MEDS: PANTOPRAZOLE SOD 40 MG DELAYED RELEASE TAB PO SCH (07:41)
[2016-06-26] MEDS: INSULIN DETEMIR 100 UNITS/ML VIAL SQ SCH ×2 (07:42→21:23)
[2016-06-26] MEDS: SODIUM CHLORIDE 0.9% FLUSH 5 ML FLUSH FLUSH SCH ×2 (07:46→21:24)
--- NOTE | 2016-06-26 10:25 | HHI.PR ---
Subjective Remarks still with exertional dyspnea while walking in the room. afebrile. Objective Vitals Vital Signs Date Time Temp Pulse Resp B/P Pulse Ox O2 Delivery O2 Flow Rate FiO2 06/26/16 10:18 98 Nasal Cannula 2.00 06/26/16 08:00 97.4 89 18 140/88 95 06/26/16 08:00 94 Nasal Cannula 2.00 06/26/16 07:45 16 06/26/16 05:01 98 Nasal Cannula 2.00 06/26/16 04:30 97.2 91 18 129/77 98 06/26/16 00:20 98.0 91 18 121/82 95 06/25/16 21:12 97.5 98 18 128/72 95 06/25/16 20:10 99 06/25/16 20:03 98 Nasal Cannula 2.00 06/25/16 19:45 Nasal Cannula 2.00 06/25/16 16:07 98.1 110 16 136/75 96 06/25/16 12:07 98.1 99 16 141/93 95 I/O 06/25/16 06/25/16 06/25/16 06/26/16 06/26/16 06/26/16 07:00 15:00 23:00 07:00 15:00 23:00 Intake Total 480 ml 240 ml 240 ml Output Total 840 ml 500 ml 550 ml Balance -360 ml -260 ml -310 ml Intake Oral 480 ml 240 ml 240 ml Output Urine Total 840 ml 500 ml 550 ml # Bowel Movements 2 0 0 Result Diagram: 06/25/16 1735 Imaging Last Impressions Lung Scan-V Nuclear Medicine 06/21/16 0000 Signed Impressions: Service Date/Time: May 10:54 - CONCLUSION: There is a single large ventilation/perfusion mismatch in the left lower lobe without a correlate finding on chest x-ray. By PIOPED 2 criteria, this is high probability for PE and is suspicious for PE. Shaggy Bryson MD Lower Extremity Ultrasound 06/21/16 0000 Signed Impressions: Service Date/Time: May 19:21 - CONCLUSION: Normal examination. Shaggy Maza MD Carotid Artery Ultrasound 06/21/16 0000 Signed Impressions: Service Date/Time: May 08:39 - CONCLUSION: Normal examination. Melissa Washington MD Chest X-Ray 06/20/16 1846 Signed Impressions: Service Date/Time: Monday, June 20, 2016 19:11 - CONCLUSION: Mild streaky opacity is now present at both lung bases with no definite consolidation. Zack Jim MD Objective Remarks GENERAL: on oxygen via N/C- with some sob. CARDIOVASCULAR: Regular rate and regular rhythm without murmurs, gallops, or rubs. RESPIRATORY: Clear to auscultation. Breath sounds equal bilaterally. No wheezes , rales, or rhonchi. GASTROINTESTINAL: Abdomen soft, non-tender, nondistended. Normal, active bowel sounds MUSCULOSKELETAL: Extremities without clubbing, cyanosis, or edema. NEURO: Alert & Oriented x4 to person, place, time, situation. Moves all ext x4 Procedures none Medications and IVs Current Medications Sodium Chloride 1,000 ml @ 2,000 mls/hr Q30M ONCE IV Last administered on 06/20 20:51; Start 06/20/16 at 19:00; Stop 06/20/16 at 19:29; Status DC Sodium Chloride (NS 1000 ml Inj) 1,000 ml @ 2,000 mls/hr Q30M ONCE IV Last administered on 06/20/16 20:52; Start 06/20/16 at 19:00; Stop 06/20/16 at 19:29 ; Status DC Methylprednisolone Sodium Succinate (SoluMEDROL INJ) 125 mg ONCE ONCE IVP ; Start 06/20/16 at 19:00; Stop 06/20/16 at 19:01; Status DC Albuterol/ Ipratropium 1 ampule 1 ampule Q15M INH Last administered on 19:06; Start 06/20/16 at 19:00; Stop 06/20/16 at 19:31; Status DC Levofloxacin/ Dextrose 100 ml @ 100 mls/hr ONCE ONCE IV Last administered on 06/20/16 20:52; Start 06/20/16 at 21:00; Stop 06/20/16 at 21:59; Status DC Potassium Chloride (KCl 20 Meq Premix Inj) 100 ml @ 50 mls/hr Q2H IV Last administered on 06/21/16 02:07; Start 06/20/16 at 20:45; Stop 06/21/16 at 00:44 ; Status DC IV Flush (NS Flush) 2 ml UNSCH PRN FLUSH FLUSH AFTER USING IV ACCESS; Start at 21:00 IV Flush (NS Flush) 2 ml BID FLUSH Last administered on 06/26/16 07:46; Start 06/20/16 at 21:00 Ondansetron HCl (Zofran Inj) 4 mg Q6H PRN IVP NAUSEA OR VOMITING; Start at 21:00 Heparin Sodium (Porcine) (Heparin Inj) 5,000 units Q8H SQ ; Start 06/20/16 at 21 :00; Stop 06/21/16 at 00:39; Status DC Naloxone HCl (Narcan Inj) 0.4 mg UNSCH PRN IV SEE LABEL COMMENTS; Start at 21:00 Dextrose (D50w (Vial) Inj) 50 ml Q1HR PRN IV PUSH bs<100; Start 06/20/16 at 21: 00 Ipratropium [place] (Atrovent Neb) 0.5 mg Q6HR NEB NEB Last administered on 10:00; Start 06/20/16 at 22:00 Ipratropium [place] (Atrovent Neb) 0.5 mg Q2HR NEB PRN NEB wheezing; Start at 21:00 Methylprednisolone Sodium Succinate (SoluMEDROL INJ) 40 mg Q6HR IV PUSH Last administered on 06/23/16 05:30; Start 06/21/16 at 00:00; Stop 06/23/16 at 09:39 ; Status DC Pantoprazole Sodium (Protonix) 40 mg DAILY PO Last administered on 06/26/16 07 :41; Start 06/21/16 at 09:00 Potassium Bicarb/ Potassium Chloride 50 meq 50 meq ONCE ONCE PO Last administered on 06/21/16 02:07; Start 06/20/16 at 21:00; Stop 06/20/16 at 21:11 ; Status DC Magnesium Sulfate/ Dextrose (Magnesium Sulfate 1 Gm Premix) 100 ml @ 100 mls/ hr ONCE ONCE IV Last administered on 06/21/16 02:07; Start 06/20/16 at 21:00 ; Stop 06/20/16 at 21:59; Status DC Enoxaparin Sodium (Lovenox Inj) 80 mg ONCE ONCE SQ Last administered on 02:07; Start 06/20/16 at 22:45; Stop 06/20/16 at 22:46; Status DC Furosemide (Lasix Inj) 40 mg ONCE ONCE IV PUSH Last administered on 06/21/16 02:47; Start 06/21/16 at 02:45; Stop 06/21/16 at 02:46; Status DC Potassium Chloride (KCl) 40 meq ONCE ONCE PO Last administered on 06/21/16 02 :47; Start 06/21/16 at 02:45; Stop 06/21/16 at 02:46; Status DC Budesonide/ Formoterol Fumarate (Symbicort 160-4.5 Inh) 2 puff DAILY INH Last administered on 06/26/16 07:40; Start 06/21/16 at 09:00 Metoprolol Tartrate (Lopressor) 25 mg Q12HR PO Last administered on 06/26/16 07:40; Start 06/21/16 at 09:00 Insulin Glargine (Lantus Inj) 40 units BID SQ ; Start 06/21/16 at 09:00; Stop at 09:12; Status DC Dextrose (D50w (Vial) Inj) 25 ml UNSCH PRN IV PUSH HYPOGLYCEMIA-SEE COMMENTS; Start 06/21/16 at 09:15; Stop 06/24/16 at 17:58; Status DC Glucagon (Glucagon Inj) 1 mg UNSCH PRN OTHER HYPOGLYCEMIA-SEE COMMENTS; Start 06/21/16 at 09:15; Stop 06/24/16 at 17:58; Status DC Insulin Aspart (NovoLOG SUPPLEMENTAL SCALE) 1 ACHS SLIDING SCALE SQ Last administered on 06/23/16 21:22; Start 06/21/16 at 11:00; Stop 06/24/16 at 01:55 ; Status DC Enoxaparin Sodium (Lovenox Inj) 80 mg Q24H SQ Last administered on 06/22/16 00 :50; Start 06/22/16 at 02:00; Stop 06/22/16 at 12:44; Status DC Acetaminophen/ Hydrocodone Bitart ([place] 10-325 Mg) 1 tab TID PRN PO PAIN Last administered on 06/26/16 06:57; Start 06/22/16 at 00:45 Rivaroxaban (Xarelto) 15 mg BID PO Last administered on 06/26/16 07:41; Start 06/22/16 at 21:00 Insulin Detemir (Levemir Inj) 20 units BID SQ Last administered on 06/23/16 08 :11; Start 06/22/16 at 21:00; Stop 06/23/16 at 09:40; Status DC Insulin Detemir (Levemir Inj) 24 units BID SQ Last administered on 06/24/16 09 :12; Start 06/23/16 at 21:00; Stop 06/24/16 at 09:34; Status DC Methylprednisolone Sodium Succinate (SoluMEDROL INJ) 40 mg Q8HR IV PUSH Last administered on 06/24/16 05:37; Start 06/23/16 at 14:00; Stop 06/24/16 at 09:34 ; Status DC Insulin Human Regular (NovoLIN R INJ) 8 units ONCE ONCE IV PUSH Last administered on 06/24/16 00:08; Start 06/24/16 at 00:00; Stop 06/24/16 at 00:01 ; Status DC Insulin Aspart (NovoLOG SUPPLEMENTAL SCALE) 1 ACHS SLIDING SCALE SQ Last administered on 06/24/16 12:56; Start 06/24/16 at 07:00; Stop 06/24/16 at 17:58 ; Status DC Insulin Detemir (Levemir Inj) 30 units BID SQ Last administered on 06/26/16 07 :42; Start 06/24/16 at 21:00 Methylprednisolone Sodium Succinate (SoluMEDROL INJ) 20 mg Q12HR IV PUSH Last administered on 06/25/16 08:03; Start 06/24/16 at 21:00; Stop 06/25/16 at 16:17 ; Status DC Dextrose (D50w (Vial) Inj) 25 ml UNSCH PRN IV PUSH HYPOGLYCEMIA - SEE COMMENTS ; Start 06/24/16 at 18:00 Glucagon (Glucagon Inj) 1 mg UNSCH PRN OTHER HYPOGLYCEMIA-SEE COMMENTS; Start 06/24/16 at 18:00 Insulin Aspart (NovoLOG SUPPLEMENTAL SCALE) 1 ACHS SLIDING SCALE SQ Last administered on 06/25/16 22:00; Start 06/24/16 at 18:00 Prednisone (Deltasone) 10 mg BID PO Last administered on 06/26/16t 07:40; Start 06/25/16 at 21:00 A/P Assessment and Plan A/P COPD exacerbation- improving slowly - continue neb treatment -switched to prednisone- - Supplemental oxygen titrated to maintain oxygen saturation greater than 92%. - pulmonary following PE started on Xarelto Chest pain and Dyspnea with exertion-likely due to PE - continue anticoagulation -cardiology consulted Type 2 diabetes mellitus-overall better accu-checks reading . -continue levemir -accu-check with SSI -the blood sugar levels expected to improve as steroid is being tapered down. acute kidney injury with hyperkalemia; improved. DVT prophylaxis - on Xarelto consulted PT. Discharge Planning dc planning to rehab in am if stable. Trip Driscoll MD Jun 26, 2016 10:25
--- NOTE | 2016-06-26 11:23 | HHI.FF ---
Face to Face Verification Diagnosis: (1) COPD (chronic obstructive pulmonary disease) Physical Therapy Order: Evaluate and Treat Home Health Nursing Order: Medical education Signs/symptoms of disease process Medication education-adverse effect Nursing assessment with vital signs I have seen patient Jina Negrete on 06/26/16. My clinical findings support the need for the requested home health care services because: Ltd mobility - disease progression Patient has SOB I certify that my clinical findings support that this patient is homebound because: Hx COPD- exertion dyspnea/weakness Trip Driscoll MD Jun 26, 2016 11:23
--- NOTE | 2016-06-26 19:44 | HHI.PR ---
Subjective Remarks 61 YOAA female with COPD exac, new PE on NC on Xarelto No fever or chills Breathing better " I am going home in AM' Objective Vital Signs Vital Signs Date Time Temp Pulse Resp B/P Pulse Ox O2 Delivery O2 Flow Rate FiO2 06/26/16 16:06 97 Nasal Cannula 2.00 06/26/16 16:00 97.0 109 18 104/76 92 06/26/16 12:00 97.3 105 18 135/95 97 06/26/16 10:18 98 Nasal Cannula 2.00 06/26/16 08:00 97.4 89 18 140/88 95 06/26/16 08:00 93 06/26/16 08:00 94 Nasal Cannula 2.00 06/26/16 07:45 16 06/26/16 05:01 98 Nasal Cannula 2.00 06/26/16 04:30 97.2 91 18 129/77 98 06/26/16 00:20 98.0 91 18 121/82 95 06/25/16 21:12 97.5 98 18 128/72 95 06/25/16 20:10 99 06/25/16 20:03 98 Nasal Cannula 2.00 06/25/16 19:45 Nasal Cannula 2.00 I/O 06/25/16 06/25/16 06/25/16 06/26/16 06/26/16 06/26/16 07:00 15:00 23:00 07:00 15:00 23:00 Intake Total 480 ml 240 ml 240 ml 480 ml Output Total 840 ml 500 ml 550 ml 600 ml Balance -360 ml -260 ml -310 ml -120 ml Intake Oral 480 ml 240 ml 240 ml 480 ml Output Urine Total 840 ml 500 ml 550 ml 600 ml # Bowel Movements 2 0 0 1 Result Diagram: 06/25/16 1735 Objective Remarks GENERAL: WBWN AA female with sob SKIN: Warm and dry. HEAD: Normocephalic. EYES: No scleral icterus. No injection or drainage. NECK: Supple, trachea midline. No JVD or lymphadenopathy. CARDIOVASCULAR: Regular rate and rhythm without murmurs, gallops, or rubs. RESPIRATORY: Breath sounds equal bilaterally. No accessory muscle use. Exp rhonchi GASTROINTESTINAL: Abdomen soft, non-tender, nondistended. MUSCULOSKELETAL: No cyanosis, or edema. BACK: Nontender without obvious deformity. No CVA tenderness. A/P Assessment and Plan COPD Exac PE DM HTN RA H/O Hepatitis PLAN: Prednisone 10 mg bid Cont Abx monitor BS Xarelto 15 mg bid DC Plans for home Keshawn Vincent MD Jun 26, 2016 19:44
[2016-06-27] MEDS: RESP: IPRATROPIUM 0.5 MG/2.5 ML NEB NEB SCH ×2 (04:26→08:08)
[2016-06-27 04:27] VITALS: O2SAT 98
[2016-06-27 04:54] VITALS: BP 125/84; PULSE 88; RESP 18; TEMP 97.7; O2SAT 94
[2016-06-27] MEDS: HIGH DOSE INSULIN NOVOLOG SUPPLEMENTAL SCALE SQ SCH (06:10)
[2016-06-27] MEDS: ACETAMINOPHEN/HYDROcodone 325 MG/10 MG TAB PO PRN (06:11)
[2016-06-27 08:00] VITALS: BP 127/94; PULSE 85; RESP 20; TEMP 97.6; O2SAT 97
[2016-06-27 08:09] VITALS: O2SAT 98
[2016-06-27] MEDS: BUDESONIDE-FORMOTEROL 160/4.5 MCG INHALER INH SCH (09:02)
[2016-06-27] MEDS: RIVAROXABAN 15 MG TAB PO SCH (09:03)
[2016-06-27] MEDS: PANTOPRAZOLE SOD 40 MG DELAYED RELEASE TAB PO SCH (09:03)
[2016-06-27] MEDS: INSULIN DETEMIR 100 UNITS/ML VIAL SQ SCH (09:03)
[2016-06-27] MEDS: METOPROLOL TARTRATE 25 MG TAB PO SCH (09:03)
[2016-06-27] MEDS: predniSONE 10 MG TAB PO SCH (09:03)
[2016-06-27] MEDS: SODIUM CHLORIDE 0.9% FLUSH 5 ML FLUSH FLUSH SCH (09:04)
--- NOTE | 2016-06-27 10:19 | HHI.PR ---
Subjective Remarks resting comfortably with no distress. sob has improved. no new complaints. she says that she's good enough to go home today. Objective Vitals Vital Signs Date Time Temp Pulse Resp B/P Pulse Ox O2 Delivery O2 Flow Rate FiO2 06/27/16 08:09 98 Nasal Cannula 2.00 06/27/16 08:00 97.6 85 20 127/94 97 06/27/16 04:54 97.7 88 18 125/84 94 06/27/16 04:27 98 Nasal Cannula 2.00 06/26/16 23:50 97.8 92 18 116/70 96 06/26/16 21:10 98.4 107 18 111/68 94 06/26/16 19:45 Nasal Cannula 2.00 06/26/16 16:06 97 Nasal Cannula 2.00 06/26/16 16:00 97.0 109 18 104/76 92 06/26/16 12:00 97.3 105 18 135/95 97 06/26/16 10:18 98 Nasal Cannula 2.00 I/O 06/26/16 06/26/16 06/26/16 06/27/16 06/27/16 06/27/16 07:00 15:00 23:00 07:00 15:00 23:00 Intake Total 240 ml 480 ml 240 ml 240 ml Output Total 550 ml 600 ml 250 ml 550 ml Balance -310 ml -120 ml -10 ml -310 ml Intake Oral 240 ml 480 ml 240 ml 240 ml Output Urine Total 550 ml 600 ml 250 ml 550 ml # Bowel Movements 0 1 0 0 Result Diagram: 06/25/16 1735 Imaging Last Impressions Lung Scan-V Nuclear Medicine 06/21/16 0000 Signed Impressions: Service Date/Time: May 10:54 - CONCLUSION: There is a single large ventilation/perfusion mismatch in the left lower lobe without a correlate finding on chest x-ray. By PIOPED 2 criteria, this is high probability for PE and is suspicious for PE. Shaggy Bryson MD Lower Extremity Ultrasound 06/21/16 0000 Signed Impressions: Service Date/Time: May 19:21 - CONCLUSION: Normal examination. Shaggy Maza MD Carotid Artery Ultrasound 06/21/16 0000 Signed Impressions: Service Date/Time: May 08:39 - CONCLUSION: Normal examination. Melissa Washington MD Chest X-Ray 06/20/16 1846 Signed Impressions: Service Date/Time: Monday, June 20, 2016 19:11 - CONCLUSION: Mild streaky opacity is now present at both lung bases with no definite consolidation. Zack Jim MD Objective Remarks GENERAL: on oxygen via N/C- sob has improved. CARDIOVASCULAR: Regular rate and regular rhythm without murmurs, gallops, or rubs. RESPIRATORY: Clear to auscultation. Breath sounds equal bilaterally. No wheezes , rales, or rhonchi. GASTROINTESTINAL: Abdomen soft, non-tender, nondistended. Normal, active bowel sounds MUSCULOSKELETAL: Extremities without clubbing, cyanosis, or edema. NEURO: Alert & Oriented x4 to person, place, time, situation. Moves all ext x4 Procedures none Medications and IVs Current Medications Sodium Chloride 1,000 ml @ 2,000 mls/hr Q30M ONCE IV Last administered on 06/20 20:51; Start 06/20/16 at 19:00; Stop 06/20/16 at 19:29; Status DC Sodium Chloride (NS 1000 ml Inj) 1,000 ml @ 2,000 mls/hr Q30M ONCE IV Last administered on 06/20/16 20:52; Start 06/20/16 at 19:00; Stop 06/20/16 at 19:29 ; Status DC Methylprednisolone Sodium Succinate (SoluMEDROL INJ) 125 mg ONCE ONCE IVP ; Start 06/20/16 at 19:00; Stop 06/20/16 at 19:01; Status DC Albuterol/ Ipratropium 1 ampule 1 ampule Q15M INH Last administered on 19:06; Start 06/20/16 at 19:00; Stop 06/20/16 at 19:31; Status DC Levofloxacin/ Dextrose 100 ml @ 100 mls/hr ONCE ONCE IV Last administered on 06/20/16 20:52; Start 06/20/16 at 21:00; Stop 06/20/16 at 21:59; Status DC Potassium Chloride (KCl 20 Meq Premix Inj) 100 ml @ 50 mls/hr Q2H IV Last administered on 06/21/16 02:07; Start 06/20/16 at 20:45; Stop 06/21/16 at 00:44 ; Status DC IV Flush (NS Flush) 2 ml UNSCH PRN FLUSH FLUSH AFTER USING IV ACCESS; Start at 21:00 IV Flush (NS Flush) 2 ml BID FLUSH Last administered on 06/27/16 09:04; Start 06/20/16 at 21:00 Ondansetron HCl (Zofran Inj) 4 mg Q6H PRN IVP NAUSEA OR VOMITING; Start at 21:00 Heparin Sodium (Porcine) (Heparin Inj) 5,000 units Q8H SQ ; Start 06/20/16 at 21 :00; Stop 06/21/16 at 00:39; Status DC Naloxone HCl (Narcan Inj) 0.4 mg UNSCH PRN IV SEE LABEL COMMENTS; Start at 21:00 Dextrose (D50w (Vial) Inj) 50 ml Q1HR PRN IV PUSH bs<100; Start 06/20/16 at 21: 00 Ipratropium Furman (Atrovent Neb) 0.5 mg Q6HR NEB NEB Last administered on 08:08; Start 06/20/16 at 22:00 Ipratropium Furman (Atrovent Neb) 0.5 mg Q2HR NEB PRN NEB wheezing; Start at 21:00 Methylprednisolone Sodium Succinate (SoluMEDROL INJ) 40 mg Q6HR IV PUSH Last administered on 06/23/16 05:30; Start 06/21/16 at 00:00; Stop 06/23/16 at 09:39 ; Status DC Pantoprazole Sodium (Protonix) 40 mg DAILY PO Last administered on 06/27/16 09: 03; Start 06/21/16 at 09:00 Potassium Bicarb/ Potassium Chloride 50 meq 50 meq ONCE ONCE PO Last administered on 06/21/16 02:07; Start 06/20/16 at 21:00; Stop 06/20/16 at 21:11 ; Status DC Magnesium Sulfate/ Dextrose (Magnesium Sulfate 1 Gm Premix) 100 ml @ 100 mls/ hr ONCE ONCE IV Last administered on 06/21/16 02:07; Start 06/20/16 at 21:00 ; Stop 06/20/16 at 21:59; Status DC Enoxaparin Sodium (Lovenox Inj) 80 mg ONCE ONCE SQ Last administered on 02:07; Start 06/20/16 at 22:45; Stop 06/20/16 at 22:46; Status DC Furosemide (Lasix Inj) 40 mg ONCE ONCE IV PUSH Last administered on 06/21/16 02:47; Start 06/21/16 at 02:45; Stop 06/21/16 at 02:46; Status DC Potassium Chloride (KCl) 40 meq ONCE ONCE PO Last administered on 06/21/16 02 :47; Start 06/21/16 at 02:45; Stop 06/21/16 at 02:46; Status DC Budesonide/ Formoterol Fumarate (Symbicort 160-4.5 Inh) 2 puff DAILY INH Last administered on 06/27/16 09:02; Start 06/21/16 at 09:00 Metoprolol Tartrate (Lopressor) 25 mg Q12HR PO Last administered on 06/27/16 09 :03; Start 06/21/16 at 09:00 Insulin Glargine (Lantus Inj) 40 units BID SQ ; Start 06/21/16 at 09:00; Stop at 09:12; Status DC Dextrose (D50w (Vial) Inj) 25 ml UNSCH PRN IV PUSH HYPOGLYCEMIA-SEE COMMENTS; Start 06/21/16 at 09:15; Stop 06/24/16 at 17:58; Status DC Glucagon (Glucagon Inj) 1 mg UNSCH PRN OTHER HYPOGLYCEMIA-SEE COMMENTS; Start 06/21/16 at 09:15; Stop 06/24/16 at 17:58; Status DC Insulin Aspart (NovoLOG SUPPLEMENTAL SCALE) 1 ACHS SLIDING SCALE SQ Last administered on 06/23/16 21:22; Start 06/21/16 at 11:00; Stop 06/24/16 at 01:55 ; Status DC Enoxaparin Sodium (Lovenox Inj) 80 mg Q24H SQ Last administered on 06/22/16 00 :50; Start 06/22/16 at 02:00; Stop 06/22/16 at 12:44; Status DC Acetaminophen/ Hydrocodone Bitart (Falun 10-325 Mg) 1 tab TID PRN PO PAIN Last administered on 06/27/16 06:11; Start 06/22/16 at 00:45 Rivaroxaban (Xarelto) 15 mg BID PO Last administered on 06/27/16 09:03; Start 06/22/16 at 21:00 Insulin Detemir (Levemir Inj) 20 units BID SQ Last administered on 06/23/16 08 :11; Start 06/22/16 at 21:00; Stop 06/23/16 at 09:40; Status DC Insulin Detemir (Levemir Inj) 24 units BID SQ Last administered on 06/24/16 09 :12; Start 06/23/16 at 21:00; Stop 06/24/16 at 09:34; Status DC Methylprednisolone Sodium Succinate (SoluMEDROL INJ) 40 mg Q8HR IV PUSH Last administered on 06/24/16 05:37; Start 06/23/16 at 14:00; Stop 06/24/16 at 09:34 ; Status DC Insulin Human Regular (NovoLIN R INJ) 8 units ONCE ONCE IV PUSH Last administered on 06/24/16 00:08; Start 06/24/16 at 00:00; Stop 06/24/16 at 00:01 ; Status DC Insulin Aspart (NovoLOG SUPPLEMENTAL SCALE) 1 ACHS SLIDING SCALE SQ Last administered on 06/24/16 12:56; Start 06/24/16 at 07:00; Stop 06/24/16 at 17:58 ; Status DC Insulin Detemir (Levemir Inj) 30 units BID SQ Last administered on 06/27/16 09: 03; Start 06/24/16 at 21:00 Methylprednisolone Sodium Succinate (SoluMEDROL INJ) 20 mg Q12HR IV PUSH Last administered on 06/25/16 08:03; Start 06/24/16 at 21:00; Stop 06/25/16 at 16:17 ; Status DC Dextrose (D50w (Vial) Inj) 25 ml UNSCH PRN IV PUSH HYPOGLYCEMIA - SEE COMMENTS ; Start 06/24/16 at 18:00 Glucagon (Glucagon Inj) 1 mg UNSCH PRN OTHER HYPOGLYCEMIA-SEE COMMENTS; Start 06/24/16 at 18:00 Insulin Aspart (NovoLOG SUPPLEMENTAL SCALE) 1 ACHS SLIDING SCALE SQ Last administered on 06/27/16 06:10; Start 1/29/17 at 18:00 Prednisone (Deltasone) 10 mg BID PO Last administered on 06/27/16t 09:03; Start 06/25/16 at 21:00 A/P Assessment and Plan A/P COPD exacerbation- improving - continue neb treatment -switched to prednisone- - Supplemental oxygen titrated to maintain oxygen saturation greater than 92%. - pulmonary following PE started on Xarelto Chest pain and Dyspnea with exertion-likely due to PE - continue anticoagulation -cardiology consulted Type 2 diabetes mellitus-overall better accu-checks reading . -continue levemir -accu-check with SSI -the blood sugar levels expected to improve as steroid is being tapered down. acute kidney injury with hyperkalemia; improved. DVT prophylaxis - on Xarelto consulted PT. Discharge Planning dc home today - consulted case management for HHC. see med list. f/u; pcp and pulmonary. d/w the patient. Trip Driscoll MD Jun 27, 2016 10:19
[2016-06-27] MEDS ORDERED: PRED5TAB PO ×2 (10:22→10:23)
[2016-06-27] MEDS ORDERED: XARE15TA PO (10:22)
--- NOTE | 2016-06-27 10:30 | HHI.DCPOC ---
Discharge Care Plan Diagnosis: (1) Chronic respiratory failure (2) Pulmonary embolism Your Health Problems Are: Shortness of Breath Goals to Promote Your Health * To prevent worsening of your condition and complications * To maintain your health at the optimal level Directions to Meet Your Goals Take your medications as prescribed Follow your dietary instruction Follow activity as directed Keep your appointments as scheduled Take your immunizations and boosters as scheduled If your symptoms worsen call your PCP, if no PCP go to Urgent Care Center or Emergency Room Smoking is Dangerous to Your Health. Avoid second hand smoke Call the 24-hour hour crisis hotline for domestic abuse at Trip Driscoll MD Jun 27, 2016 10:30
--- NOTE | 2016-06-27 10:31 | HHI.DS ---
Discharge Summary Admission Date Jun 20, 2016 at 21:10 Discharge Date: Jun 27, 2016 Admitting Diagnosis COPD exacerbation, shortness of breath, arrhythmia (1) COPD exacerbation ICD Code: J44.1 Diagnosis: Principal (2) DM2 (diabetes mellitus, type 2) ICD Code: E11.9 Diagnosis: Secondary (3) Dyspnea on exertion ICD Code: R06.09 Diagnosis: Principal (4) Hypoglycemia ICD Code: E16.2 Diagnosis: Secondary (5) Hypokalemia ICD Code: E87.6 Diagnosis: Secondary (6) Pulmonary embolism ICD Code: I26.99 Diagnosis: Principal Procedures none Brief History - From Admission Ms. Negrete is a 61 y/o female with a medical history including type 2 diabetes mellitus x 6 years, rheumatoid arthritis, oxygen dependent COPD ( follows with Dr. Vincent), hepatitis C (untreated but sees GI specialist once yearly), hypertension, and obesity who presented to the ER today with worsening shortness of breath despite treatment. She has had numerous hospitalizations over the past year with the last hospitalization occurring 06/01/2016 through 2016 for COPD exacerbation. She is on home oxygen therapy, has completed antibiotics, and is on daily prednisone. The patient returns to the ER 06/20/2016 complaining of persistent symptoms despite treatment. She states she has continued to feel severely short of breath at rest and worsening with minimal exertion such as walking down the hallway at home. Her symptoms are accompanied by chest pain described as a tightness and severe fatigue that is also worse with exertion and dizziness with ambulation. She states that her shortness of breath is so severe that when she walks down the hallway, it takes her 20 minutes of rest to recover so she can make it back to her chair . She describes a chronic cough that is accompanied by green, yellow, and white mucus. Had severe fatigue gets worse with exertion. Her blood glucose was also noted at 43 upon arrival in the ER. Potassium was 2.9 and is been replaced. Chest x-ray shows mild streaky opacity now present at both lung bases with no definite consolidation. Troponin I was negative upon arrival. . CBC/BMP: 06/25/16 1735 Significant Findings Laboratory Tests Test 06/24/16 06/25/16 17:44 17:35 Random Glucose 497 MG/DL 508 MG/DL (74-106) (74-106) Imaging Last Impressions Lung Scan-VQ Nuclear Medicine 06/21/16 0000 Signed Impressions: Service Date/Time: May 10:54 - CONCLUSION: There is a single large ventilation/perfusion mismatch in the left lower lobe without a correlate finding on chest x-ray. By PIOPED 2 criteria, this is high probability for PE and is suspicious for PE. Shaggy Bryson MD Lower Extremity Ultrasound 06/21/16 0000 Signed Impressions: Service Date/Time: May 19:21 - CONCLUSION: Normal examination. Shaggy Maza MD Carotid Artery Ultrasound 06/21/16 0000 Signed Impressions: Service Date/Time: May 08:39 - CONCLUSION: Normal examination. Melissa Washington MD Chest X-Ray 06/20/16 1846 Signed Impressions: Service Date/Time: Monday, June 20, 2016 19:11 - CONCLUSION: Mild streaky opacity is now present at both lung bases with no definite consolidation. Zack Jim MD PE at Discharge GENERAL: on oxygen via N/C- sob has improved. CARDIOVASCULAR: Regular rate and regular rhythm without murmurs, gallops, or rubs. RESPIRATORY: Clear to auscultation. Breath sounds equal bilaterally. No wheezes , rales, or rhonchi. GASTROINTESTINAL: Abdomen soft, non-tender, nondistended. Normal, active bowel sounds MUSCULOSKELETAL: Extremities without clubbing, cyanosis, or edema. NEURO: Alert & Oriented x4 to person, place, time, situation. Moves all ext x4 Hospital Course COPD exacerbation- improving - continue neb treatment -switched to prednisone- - Supplemental oxygen titrated to maintain oxygen saturation greater than 92%. - pulmonary following PE started on Xarelto Chest pain and Dyspnea with exertion-likely due to PE - continue anticoagulation -cardiology consulted Type 2 diabetes mellitus-overall better accu-checks reading . -continue levemir -accu-check with SSI -the blood sugar levels expected to improve as steroid is being tapered down. acute kidney injury with hyperkalemia; improved. DVT prophylaxis - on Xarelto consulted PT. Pt Condition on Discharge: Fair Discharge Disposition: Disch w/ Home Health Serv Discharge Time: <= 30 minutes Discharge Instructions DIET: Follow Instructions for: Heart Healthy Diet, Diabetic Diet Activities you can perform: Regular-No Restrictions Follow up Referrals: PCP Follow-up Pulmonology New Medications: Prednisone (Prednisone) 5 Mg Tab 5 MG PO DIRECTED 20 mg po daily for two days then 10 mg po daily for two days then 5 mg po daily for two days then stop. copd Days 6 Ref 0 TAB Rivaroxaban (Xarelto) 15 Mg Tab 15 MG PO DIRECTED 15 mg po twice daily for sixteen days then 20 mg po daily. PE Days 30 TAB Continued Medications: Albuterol Neb (Albuterol Neb) 2.5 Mg/3 Ml Neb 2.5 MG NEB Q6HR While awake PRN SHORTNESS OF BREATH #60 Ref 0 NEBULE Budesonide-Formoterol Inh (Symbicort Inh) 160-4.5 Mcg/Act Aero 2 PUFF INH DAILY COPD #1 Ref 0 INHALER Hydrocodone-Acetaminophen (Hydrocodone-Acetaminophen) 10-325 mg Tab 1 TAB PO TID PRN PAIN #15 Ref 0 TAB Insulin Aspart Inj (Novolog Inj) 1,000 Unit/10 Ml Vial 0 SQ DIRECTED Sliding Scale as directed. Blood Sugar Management #10 Ref 0 ML Insulin Glargine Inj (Lantus Inj) 1,000 Unit/10 Ml Vial 40 UNITS SQ BID Blood Sugar Management Ref 0 VIAL Metoprolol Tartrate (Metoprolol Tartrate) 25 Mg Tab 25 MG PO Q12HR Blood Pressure Management #62 TAB Pregabalin (Lyrica) 150 Mg Cap 150 MG PO TID #90 Ref 0 CAP Sitagliptin-Metformin (Janumet) 50-1,000 Mg Tab Unknown Dose PO DAILY Blood Sugar Management #0 Ref 0 TAB Discontinued Medications: Indomethacin (Indomethacin) 50 Mg Cap 50 MG PO TID Take with food, milk, or antacids to decrease stomach adverse effects. Ref 0 CAP Lisinopril (Lisinopril) 20 Mg Tab 40 MG PO DAILY Blood Pressure Management #31 TAB Trip Driscoll MD Jun 27, 2016 10:31
[2016-06-27 11:01] VITALS: PULSE 86
== END 2016-06-27 12:50 | disposition home health service (06) | DRG 190 ==
LOC: NEPE 17:56 → NEDA 21:10 → NEDH 06-21 01:45 → N04B 06-21 15:01
PROVIDERS: ADMIT Internal Medicine; ATTEND Internal Medicine
PROC: 5A09357 Assistance with Respiratory Ventilation, Less than 24 Consecutive Hours, Continuous Positive Airway Pressure (ICD-10-PCS; principal; 2016-06-21)
DX: J44.1 Chronic obstructive pulmonary disease with (acute) exacerbation (principal); I26.99 Other pulmonary embolism without acute cor pulmonale; N17.9 Acute kidney failure, unspecified; E87.5 Hyperkalemia; E11.649 Type 2 diabetes mellitus with hypoglycemia without coma; Z99.81 Dependence on supplemental oxygen; E11.65 Type 2 diabetes mellitus with hyperglycemia; Z79.4 Long term (current) use of insulin; E87.6 Hypokalemia; M81.0 Age-related osteoporosis without current pathological fracture; M06.9 Rheumatoid arthritis, unspecified; I10 Essential (primary) hypertension; E66.9 Obesity, unspecified; Z68.36 Body mass index [BMI] 36.0-36.9, adult; B19.20 Unspecified viral hepatitis C without hepatic coma; Z87.891 Personal history of nicotine dependence
CPT/HCPCS: 36600; 71010; 78582; 80048; 80053; 81001; 82805; 82947; 82948; 83605; 83690; 83735; 84484; 85025; 85610; 85730; 87040; 87070; 87205; 87804; 93005; 93880; 93970; 94002; 94640; 94664; 96365; A9540; A9567; J1650; J1815; J1940; J1956; J2920; J3475; J3480; J7030; J7512; J7644

== ENCOUNTER 2016-12-22 11:10 | Emergency (ER) | payer MEDICAID ==
[~2016-12-22] VITALS: Ht 160 cm; Wt 92.0 kg
[~2016-12-22 11:10] MED LIST changes: -ENAL10TA PO; -INDO50CA PO; -LEVA750T PO; -LISI-515 PO; -PRED10PA2 PO; +PRED5TAB PO; +XARE15TA PO
[2016-12-22 11:29] VITALS: BP 143/98; PULSE 125; RESP 15; TEMP 97.8; O2SAT 98
[2016-12-22] MEDS ORDERED: methylPREDNISolone SOD SUCC 125 MG/2 ML VIAL IVP ONE (11:30)
[2016-12-22] MEDS ORDERED: SODIUM CHLORIDE 0.9% FLUSH 10 ML FLUSH IVF PRN (11:30)
--- NOTE | 2016-12-22 11:35 | PD ---
HPI Chief Complaint: Fall Time Seen by Provider: 11:32 Travel History International Travel<30 days: No Contact w/Intl Traveler<30days: No Traveled to known affect area: No History of Present Illness HPI 61 YO F with PMH of COPD, DMT2, HTN, RA on 2L O2 [place] presents to the ED via EMS for evaluation of LEFT knee pain and LLE swelling x 1 week. The patient uses a scooter, is minimally ambulatory. She states that while taking a few steps from the car today her left knee "came out from under me." She fell to her buttocks. She endorses increased SOB and DELEON over the same week. She denies fever, chills, worsening non-productive cough, CP, palpitations, back pain, acute injury to the knee, numbness, tingling, weakness of the LLE. PCP Dr. Landry. [facility] Past Medical History Arthritis: Yes Asthma: No Autoimmune Disease: No Blood Disorders: No Anxiety: No Depression: No Heart Rhythm Problems: No Cancer: No Cardiovascular Problems: Yes High Cholesterol: Yes Chemotherapy: No Chest Pain: Yes Congestive Heart Failure: No COPD: Yes Cerebrovascular Accident: No Coronary Artery Disease: No Diabetes: Yes (insulin ) Patient Takes Glucophage: No Diminished Hearing: No Endocrine: Yes Gastrointestinal Disorders: Yes GERD: No Glaucoma: No Gout: Yes Genitourinary: No Headaches: Yes Hepatitis: Yes (HEPATITIS C) Hiatal Hernia: No Hypertension: Yes Immune Disorder: No Implanted Vascular Access Dvce: Yes Kidney Stones: No Musculoskeletal: Yes Neurologic: Yes Psychiatric: No Reproductive: No Respiratory: Yes Immunizations Current: Yes Migraines: Yes Myocardial Infarction: No Pneumonia: Yes Radiation Therapy: No Renal Failure: No Seizures: No Sickle Cell Disease: No Sleep Apnea: Yes Thyroid Disease: No Ulcer: No PNEUMOCCOCAL Vaccine (Year): 2 Menopausal: Yes : 0 Para: 0 Miscarriage: 0 : 0 Past Surgical History Abdominal Surgery: No AICD: No Appendectomy: No Arteriovenous Shunt: No Cardiac Surgery: No Cholecystectomy: No Ear Surgery: No Endocrine Surgery: No Eye Surgery: No Genitourinary Surgery: No Gynecologic Surgery: No Insulin Pump: No Joint Replacement: No Neurologic Surgery: No Oral Surgery: No Pacemaker: No Thoracic Surgery: No Other Surgery: Yes (right knee gout drain infection) Social History Alcohol Use: No Tobacco Use: No (quit O) Substance Use: No Allergies-Medications (Allergen,Severity, Reaction): Coded Allergies: *MDRO Multi-Drug Resistant Organism (Verified Adverse Reaction, Unknown, ) MRSA wound 11/2012. MRSA PCR Screen negative 11/03/14 and 11/05/14. Cleared per Infection Control MRSA PCR Screen NEGATIVE - 04/30/2015 Reported Meds & Prescriptions Reported Meds & Active Scripts Active Prednisone 5 Mg Tab 5 Mg PO DIRECTED 6 Days 20 mg po daily for two days then 10 mg po daily for two days then 5 mg po daily for two days then stop. Xarelto (Rivaroxaban) 15 Mg Tab 15 Mg PO DIRECTED 30 Days 15 mg po twice daily for sixteen days then 20 mg po daily. Metoprolol Tartrate 25 Mg Tab 25 Mg PO Q12HR Hydrocodone-Acetaminophen 10-325 mg Tab 1 Tab PO TID PRN Reported Novolog Inj (Insulin Aspart) 1,000 Unit/10 Ml Vial 0 SQ DIRECTED Sliding Scale as directed. Janumet (Sitagliptin-Metformin) 50-1,000 Mg Tab Unknown Dose PO DAILY Lyrica (Pregabalin) 150 Mg Cap 150 Mg PO TID Lantus Inj (Insulin Glargine) 1,000 Unit/10 Ml Vial 35 Units SQ BID Albuterol Neb (Albuterol Sulfate) 2.5 Mg/3 Ml Neb 2.5 Mg NEB Q6HR PRN While awake Review of Systems Except as stated in HPI: all other systems reviewed are Neg Physical Exam Narrative GENERAL: Well-nourished, well-developed black female on 2 L by nasal cannula in no acute distress. SKIN: Focused skin assessment warm/dry. HEAD: Normocephalic. EYES: No scleral icterus. No injection or drainage. NECK: Supple, trachea midline. No JVD or lymphadenopathy. CARDIOVASCULAR: Regular rate and rhythm without murmurs, gallops, or rubs. RESPIRATORY: Breath sounds coarse, equal bilaterally. No accessory muscle use. GASTROINTESTINAL: Abdomen soft, non-tender, nondistended. MUSCULOSKELETAL: No cyanosis. 2+ edema to the knees bilaterally. Positive Homans sign on the left. Left knee is edematous, warm, tender to palpation. + popliteal TTP. BACK: No midline tenderness. No obvious deformity. No CVA tenderness. Data Data Last Documented VS Vital Signs Date Time Temp Pulse Resp B/P Pulse Ox O2 Delivery O2 Flow Rate FiO2 12/22/16 14:37 120 19 138/84 98 Nasal Cannula 2 12/22/16 11:29 97.8 Orders Knee, Complete (4vws) (12/22/16 11:25) Ice/Cold Pack (12/22/16 11:25) Complete Blood Count With Diff (12/22/16 11:25) Comprehensive Metabolic Panel (12/22/16 11:25) B-Type Natriuretic Peptide (12/22/16 11:25) Act Partial Throm Time (Ptt) (12/22/16 11:25) Prothrombin Time / Inr (Pt) (12/22/16 11:25) Iv Access Insert/Monitor (12/22/16 11:25) Electrocardiogram (12/22/16 11:25) Ecg Monitoring (12/22/16 11:25) Oximetry (12/22/16 11:25) Oxygen Administration (12/22/16 11:25) Chest, Single Ap (12/22/16 11:25) Us Leg Venous Doppler (12/22/16 11:25) Sodium Chloride 0.9% Flush (Ns Flush) (12/22/16 11:30) Methylprednisolone So Succ Inj (Solumedr (12/22/16 11:30) Albuterol-Ipratropium Neb (Duoneb Neb) (12/22/16 11:30) D-Dimer (12/22/16 11:25) Morphine Inj (Morphine Inj) (12/22/16 11:45) Ckmb (Isoenzyme) Profile (12/22/16 11:46) Troponin I (12/22/16 11:46) Calcium Carbonate Chew (Tums Chew) (12/22/16 12:30) Lidocaine 1% Inj (50 Ml) (Xylocaine 1% I (12/22/16 13:15) Lidocaine Pf 1% Inj (Xylocaine-Mpf 1% In (12/22/16 13:16) Synovial Fl Cell Count + Diff (12/22/16 13:43) Acetamin-Hydrocod 325-5 Mg ([place] 5-325 (12/22/16 14:00) [place] Bandage (12/22/16 13:47) Fluid Culture And Gram Stain (12/22/16 13:58) Labs Laboratory Tests Test 12/22/16 12/22/16 11:30 13:50 White Blood Count 10.8 TH/MM3 Red Blood Count 4.62 MIL/MM3 Hemoglobin 12.4 GM/DL Hematocrit 35.5 % Mean Corpuscular Volume 76.9 FL Mean Corpuscular Hemoglobin 26.8 PG Mean Corpuscular Hemoglobin 34.8 % Concent Red Cell Distribution Width 17.7 % Platelet Count 264 TH/MM3 Mean Platelet Volume 9.1 FL Neutrophils (%) (Auto) 78.5 % Lymphocytes (%) (Auto) 13.2 % Monocytes (%) (Auto) 7.5 % Eosinophils (%) (Auto) 0.1 % Basophils (%) (Auto) 0.7 % Neutrophils # (Auto) 8.4 TH/MM3 Lymphocytes # (Auto) 1.4 TH/MM3 Monocytes # (Auto) 0.8 TH/MM3 Eosinophils # (Auto) 0.0 TH/MM3 Basophils # (Auto) 0.1 TH/MM3 CBC Comment AUTO DIFF Differential Comment AUTO DIFF CONFIRMED Prothrombin Time 16.0 SEC Prothromb Time International 1.4 RATIO Ratio Activated Partial 38.4 SEC Thromboplast Time D-Dimer Quantitative (PE/DVT) 2.36 MG/L FEU Sodium Level 142 MEQ/L Potassium Level 4.4 MEQ/L Chloride Level 110 MEQ/L Carbon Dioxide Level 24.1 MEQ/L Anion Gap 8 MEQ/L Blood Urea Nitrogen 17 MG/DL Creatinine 1.18 MG/DL Estimat Glomerular Filtration 56 ML/MIN Rate Random Glucose 190 MG/DL Calcium Level 8.2 MG/DL Total Bilirubin 0.3 MG/DL Aspartate Amino Transf 39 U/L (AST/SGOT) Alanine Aminotransferase 37 U/L (ALT/SGPT) Alkaline Phosphatase 155 U/L Total Creatine Kinase 94 U/L Troponin I LESS THAN 0.02 NG/ML B-Type Natriuretic Peptide 29 PG/ML Total Protein 6.9 GM/DL Albumin 2.3 GM/DL Synovial Fluid Color RED Synovial Fluid Appearance MARKED Synovial Fluid WBC 2400 /MM3 Synovial Fluid RBC 5663008 /MM3 Synovial Fluid Neutrophils 88 % Synovial Fluid Lymphocytes 11 % Synovial Fluid Monocytes 1 % Synovial Fluid Differential Comment [facility] Medical Decision Making Medical Screen Exam Complete: Yes Emergency Medical Condition: Yes Differential Diagnosis COPD exacerbation versus CHF versus PE versus DVT versus RA flare versus septic arthritis versus internal derangement versus other Narrative Course 61 YO F with PMH of COPD, DMT2, HTN, RA on 2L O2 [place] presents to the ED via EMS for evaluation of LEFT knee pain and LLE swelling x 1 week. The patient uses a scooter, is minimally ambulatory. She states that while taking a few steps from the car today her left knee "came out from under me." She fell to her buttocks. She endorses increased SOB and DELEON over the same week. She denies fever, chills, worsening cough, CP, palpitations, back pain, acute injury to the knee, numbness, tingling, weakness of the LLE. PCP Dr. Landry. Patient is tachycardic and hypertensive on presentation. Tachycardia chronic per record review. There are coarse breath sounds bilaterally, the LEFT knee is warm, edematous, TTP. Hohmann sign ++ on the LEFT. 2+BLE edema to the knees. Patient was administered IV Solu-Medrol, DuoNeb 3, 4 mg morphine. CBC: WBC 10.9, hemoglobin 12.4 CMP: BUN 17, creatinine 1.18. INR 1.4 Cardiac enzymes:negative x 1 D dimer: 2.36, nonspecific in the setting of chronic disease CXR: No acute disease EKG: Rate 109, sinus tachycardia. No acute ST changes. Reviewed by Dr. Gonzalez. XR LEFT knee: Joint effusion with medial compartment degenerative changes US LEFT leg: No DVT. Arthrocentesis performed. Please see Dr. Gonzalez's procedure note for details. Synovial Fluid Analysis: 2400 WBCs, [address] Gonzalez spoke with Dr. Perez who feels that the patient is safe for discharge and outpatient follow up. Please see Dr. Gonzalez's note for disposition. Diagnosis Primary Impression: Hemarthrosis involving knee joint Qualified Code: M25.062 - Hemarthrosis involving knee joint, left Patient Instructions: General Instructions, Knee Pain (ED) Angelina Romero Dec 22, 2016 11:35
[2016-12-22] MEDS ORDERED: MORPHINE SULFATE 4 MG/ML INJ IV PUSH ONE (11:45)
[2016-12-22 11:59] LABS: AUTOMATED NEUTROPHIL # 8.4 TH/MM3 (1.8-7.7); BASOPHIL # 0.1 TH/MM3 (0-0.2); BASOPHIL % 0.7 % (0.0-2.0); EOSINOPHIL % 0.1 % (0.0-4.0); HEMATOCRIT 35.5 % (35.0-46.0); LYMPH % 13.2 % (9.0-44.0); LYMPHOCYTE # 1.4 TH/MM3 (1.0-4.8); MEAN CELL VOLUME 76.9 FL (80.0-100.0); MEAN CORPUSCULAR HEMOGLOBIN 26.8 PG (27.0-34.0); MEAN CORPUSCULAR HGB CONC 34.8 % (32.0-36.0); MONO % 7.5 % (0.0-8.0); NEUT % 78.5 % (16.0-70.0); PLATELET COUNT 264 TH/MM3 (150-450); RED BLOOD COUNT 4.62 MIL/MM3 (4.00-5.30); RED CELL DISTRIBUTION WIDTH 17.7 % (11.6-17.2); WHITE BLOOD COUNT 10.8 TH/MM3 (4.0-11.0)
[2016-12-22] MEDS: RESP: ALBUTEROL 2.5 MG/IPRATROPIUM 0.5 MG NEB (SCH) INH (11:59)
[2016-12-22 12:01] LABS: HEMO FLAGS AUTO DIFF
--- NOTE | 2016-12-22 12:05 | RADRPT ---
EXAM DATE/TIME: 12/22/2016 11:42 [facility] COMPARISON: CHEST SINGLE AP, June 20, 2016, 19:11. INDICATIONS : Shortness of breath. MEDICAL HISTORY : Hepatitis C. Chronic obstructive pulmonary disease. Emphysema. Diabetes, Hypertension. SURGICAL HISTORY : None. ENCOUNTER: Initial ACUITY: 1 day PAIN SCORE: 0/10 LOCATION: Bilateral chest FINDINGS: A single view of the chest demonstrates the lungs to be symmetrically aerated without evidence of mas s, infiltrate or effusion. The cardiomediastinal contours are unremarkable. Osseous structures are intact. CONCLUSION: No acute disease. Mark Simon MD FACR on December 22, 2016 at 12:04 Board Certified Radiologist. This report was verified electronically.
--- NOTE | 2016-12-22 12:09 | RADRPT ---
EXAM DATE/TIME: 12/22/2016 11:43 [facility] COMPARISON: No previous studies available for comparison. INDICATIONS : Left knee pain and swelling after fall. Pain around patella. MEDICAL HISTORY : Rheumatoid arthritis. SURGICAL HISTORY : None. ENCOUNTER: Initial ACUITY: 1 week PAIN SCORE: 10/10 LOCATION: Left Knee. FINDINGS: There is no joint effusion evident with loss of articular cartilage medial compartment. Fracture is not appreciated. Bones are osteoporotic CONCLUSION: Joint effusion with degenerative changes medial compartment. Mark Simon MD FACR on December 22, 2016 at 12:04 Board Certified Radiologist. This report was verified electronically.
--- NOTE | 2016-12-22 12:18 | RADRPT ---
EXAM DATE/TIME: 12/22/2016 11:52 [facility] COMPARISON: No previous studies available for comparison. INDICATIONS : Left leg edema. MEDICAL HISTORY : Hypercholesterolemia. Hypertension. Chronic obstructive pulmonary disease. Dizziness. Migraine. Emphysema. Osteoporosis. Gout. Arthritis. Diabetes. Hepatits. SURGICAL HISTORY : Right knee gout drain. ENCOUNTER: Initial ACUITY: 1 month PAIN SCORE: 9/10 LOCATION: Left leg. TECHNIQUE: Venous ultrasound of the leg was performed from the inguinal ligament to the proximal calf. Real-gorge e, color Doppler and spectral tracing, compression and augmentation techniques were used. FINDINGS: There is normal compressibility of the deep venous system from the inguinal region to the proximal ca lf. No echogenic clot is seen in the lumen of the common femoral, femoral, popliteal, and posterior tibial veins. There is a normal response of the venous system to proximal and distal augmentation an d respiration. CONCLUSION: No evidence of deep venous thrombosis within the left lower extremity. Dylan Mccartney MD on December 22, 2016 at 12:16 Board Certified Radiologist. This report was verified electronically.
[2016-12-22 12:20] LABS: APTT (PATIENT) 38.4 SEC (24.3-30.1); INTERNATIONAL NORMALIZED RATIO 1.4 RATIO
[2016-12-22 12:21] LABS: ALT (GPT) 37 U/L (10-53)
[2016-12-22 12:22] LABS: ANION GAP 8 MEQ/L (5-15); AST (GOT) 39 U/L (15-37); BICARBONATE 24.1 MEQ/L (21.0-32.0); BLOOD UREA NITROGEN 17 MG/DL (7-18); CHLORIDE 110 MEQ/L (98-107); GLOMERULAR FILTRATION RATE 56 ML/MIN (>89); POTASSIUM 4.4 MEQ/L (3.5-5.1); SODIUM (NA) 142 MEQ/L (136-145)
[2016-12-22 12:23] LABS: ALKALINE PHOSPHATASE 155 U/L (45-117); TOTAL BILIRUBIN ADULT 0.3 MG/DL (0.2-1.0)
[2016-12-22 12:25] LABS: SCAN/DIFF AUTO DIFF CONFIRMED
[2016-12-22] MEDS ORDERED: CALCIUM CARBONATE 500 MG CHEWABLE TAB CHEW ONE (12:30)
[2016-12-22 13:11] LABS: CREATINE KINASE 94 U/L (26-192)
[2016-12-22] MEDS ORDERED: LIDOCAINE HCL 1% 50 ML VIAL INFIL ONE (13:15)
[2016-12-22] MEDS ORDERED: LIDOCAINE HCL 1% PF 30 ML VIAL ONE (13:16)
[2016-12-22] MEDS ORDERED: ACETAMINOPHEN/HYDROcodone 325 MG/5 MG TAB PO ONE (14:00)
[2016-12-22 14:37] VITALS: BP 138/84; PULSE 120; RESP 19; O2SAT 98
[2016-12-22 15:01] LABS: WBC, SYNOVIAL FLUID 2400 /MM3 (0-200)
--- NOTE | 2016-12-22 15:36 | PD ---
Data Data Last Documented VS Vital Signs Date Time Temp Pulse Resp B/P Pulse Ox O2 Delivery O2 Flow Rate FiO2 12/22/16 14:37 120 19 138/84 98 Nasal Cannula 2 12/22/16 11:29 97.8 Orders Knee, Complete (4vws) (12/22/16 11:25) Ice/Cold Pack (12/22/16 11:25) Complete Blood Count With Diff (12/22/16 11:25) Comprehensive Metabolic Panel (12/22/16 11:25) B-Type Natriuretic Peptide (12/22/16 11:25) Act Partial Throm Time (Ptt) (12/22/16 11:25) Prothrombin Time / Inr (Pt) (12/22/16 11:25) Iv Access Insert/Monitor (12/22/16 11:25) Electrocardiogram (12/22/16 11:25) Ecg Monitoring (12/22/16 11:25) Oximetry (12/22/16 11:25) Oxygen Administration (12/22/16 11:25) Chest, Single Ap (12/22/16 11:25) Us Leg Venous Doppler (12/22/16 11:25) Sodium Chloride 0.9% Flush (Ns Flush) (12/22/16 11:30) Methylprednisolone So Succ Inj (Solumedr (12/22/16 11:30) Albuterol-Ipratropium Neb (Duoneb Neb) (12/22/16 11:30) D-Dimer (12/22/16 11:25) Morphine Inj (Morphine Inj) (12/22/16 11:45) Ckmb (Isoenzyme) Profile (12/22/16 11:46) Troponin I (12/22/16 11:46) Calcium Carbonate Chew (Tums Chew) (12/22/16 12:30) Lidocaine 1% Inj (50 Ml) (Xylocaine 1% I (12/22/16 13:15) Lidocaine Pf 1% Inj (Xylocaine-Mpf 1% In (12/22/16 13:16) Synovial Fl Cell Count + Diff (12/22/16 13:43) Acetamin-Hydrocod 325-5 Mg ([place] 5-325 (12/22/16 14:00) [place] Bandage (12/22/16 13:47) Fluid Culture And Gram Stain (12/22/16 13:58) Labs Laboratory Tests Test 12/22/16 12/22/16 11:30 13:50 White Blood Count 10.8 TH/MM3 Red Blood Count 4.62 MIL/MM3 Hemoglobin 12.4 GM/DL Hematocrit 35.5 % Mean Corpuscular Volume 76.9 FL Mean Corpuscular Hemoglobin 26.8 PG Mean Corpuscular Hemoglobin 34.8 % Concent Red Cell Distribution Width 17.7 % Platelet Count 264 TH/MM3 Mean Platelet Volume 9.1 FL Neutrophils (%) (Auto) 78.5 % Lymphocytes (%) (Auto) 13.2 % Monocytes (%) (Auto) 7.5 % Eosinophils (%) (Auto) 0.1 % Basophils (%) (Auto) 0.7 % Neutrophils # (Auto) 8.4 TH/MM3 Lymphocytes # (Auto) 1.4 TH/MM3 Monocytes # (Auto) 0.8 TH/MM3 Eosinophils # (Auto) 0.0 TH/MM3 Basophils # (Auto) 0.1 TH/MM3 CBC Comment AUTO DIFF Differential Comment AUTO DIFF CONFIRMED Prothrombin Time 16.0 SEC Prothromb Time International 1.4 RATIO Ratio Activated Partial 38.4 SEC Thromboplast Time D-Dimer Quantitative (PE/DVT) 2.36 MG/L FEU Sodium Level 142 MEQ/L Potassium Level 4.4 MEQ/L Chloride Level 110 MEQ/L Carbon Dioxide Level 24.1 MEQ/L Anion Gap 8 MEQ/L Blood Urea Nitrogen 17 MG/DL Creatinine 1.18 MG/DL Estimat Glomerular Filtration 56 ML/MIN Rate Random Glucose 190 MG/DL Calcium Level 8.2 MG/DL Total Bilirubin 0.3 MG/DL Aspartate Amino Transf 39 U/L (AST/SGOT) Alanine Aminotransferase 37 U/L (ALT/SGPT) Alkaline Phosphatase 155 U/L Total Creatine Kinase 94 U/L Troponin I LESS THAN 0.02 NG/ML B-Type Natriuretic Peptide 29 PG/ML Total Protein 6.9 GM/DL Albumin 2.3 GM/DL Synovial Fluid Color RED Synovial Fluid Appearance MARKED Synovial Fluid WBC 2400 /MM3 Synovial Fluid RBC 3109018 /MM3 Synovial Fluid Neutrophils 88 % Synovial Fluid Lymphocytes 11 % Synovial Fluid Monocytes 1 % Synovial Fluid Differential Comment [facility] Medical Record Reviewed: Yes Supervised Visit with YOEL: Yes Narrative Course I, Dr. Gonzalez, have reviewed the advance practice practitioner's documentation and am in agreement unless stated otherwise below, met with the patient face to face, made the diagnosis, and the medical decision making was done by me. *My assessment and Findings: CBC & BMP Diagram 12/22/16 11:30 AST 39 Tn < 0.02 BNP 29 Synovial fluid WBCs 2400, RBCs 1.9M, Neutrophils 88%, color red DDimer for this 61 yo F w RA, BMI of 36 is not surprisingly elevated, as non- specific a study as it is. Additionally, pt is on Xarelto such that further diagnostic evaluation into potential PE will be deferred. Last Impressions Lower Extremity Ultrasound 12/22/161124 Signed Impressions: Service Date/Time: Thursday, December 22, 2016 11:52 - CONCLUSION: No evidence of deep venous thrombosis within the left lower extremity. Dylan Mccartney MD Knee X-Ray 12/22/161124 Signed Impressions: Service Date/Time: Thursday, December 22, 2016 11:43 - CONCLUSION: Joint effusion with degenerative changes medial compartment. Mark Simon MD FACR Chest X-Ray 12/22/161124 Signed Impressions: Service Date/Time: Thursday, December 22, 2016 11:42 - CONCLUSION: No acute disease. Mark Simon MD FACR Pt ok to go home. Follow up with Dr Perez early next week. Tachycardia is observed today as it has been on the majority of heart rate measurements over the past several years reflecting a non-specific variance. Diagnosis Primary Impression: Hemarthrosis involving knee joint Qualified Code: M25.062 - Hemarthrosis involving knee joint, left Referrals: Edmund Perez Jr., MD 3 days Patient Instructions: General Instructions, Knee Pain (ED) Additional Instruction: Rest, ice, elevate the extremity. Apply ice no longer than 10-15 minutes per hour a few times a day. Return to normal, gentle activity as tolerated. Follow up with orthopedist or your primary care provider. Return to the ED for any urgent or emergent medical condition. FOLLOW UP WITH DR PEREZ OF ORTHOPEDICS EARLY THIS WEEK. PLEASE RETURN TO THE ER IF YOU DEVELOP CONSTANT WORSENING KNEE PAIN, FEVER, OF IF REDNESS FORMS AROUND THE KNEE. Med/Other Pt SpecificInfo: No Change to Meds Disposition: 01 DISCHARGE HOME Condition: Stable Estevan Gonzalez MD Dec 22, 2016 15:36
--- NOTE | 2016-12-23 14:43 | EKG ---
Date Performed: 12/22/2016 Time Performed: 12:15:55 PTAGE: 61 years EKG: Sinus tachycardia Since PREVIOUS TRACING , no significant change. PREVIOUS TRACIN06/21/2016 04.09 DOCTOR: Oj Malhotra Interpretating Date/Time 12/23/2016 14:41:05
== END 2016-12-22 16:13 | disposition home or self-care (01) ==
LOC: NEPE 11:10
DX: M25.062 Hemarthrosis, left knee (principal); R00.0 Tachycardia, unspecified; J44.9 Chronic obstructive pulmonary disease, unspecified; E11.9 Type 2 diabetes mellitus without complications; I10 Essential (primary) hypertension; M06.9 Rheumatoid arthritis, unspecified; E78.00 Pure hypercholesterolemia, unspecified; M10.9 Gout, unspecified; B19.20 Unspecified viral hepatitis C without hepatic coma
CPT/HCPCS: 71010; 73564; 80053; 82550; 83880; 84484; 85025; 85379; 85610; 85730; 87070; 87205; 89051; 93005; 93971; 94640; 94664; 96374; 96375; 99285; J2270; J2930

== ENCOUNTER 2017-01-07 11:11 | Inpatient (IN) | payer MEDICAID ==
[2017-01-07] VITALS (10 sets, daily range): BP systolic 106–127; BP diastolic 60–81; PULSE 109–130; RESP 12–20; TEMP 97.2–98.4; O2SAT 95–100
[~2017-01-07] VITALS: Ht 160 cm; Wt 99.3 kg
[~2017-01-07 11:11] MED LIST changes: -SYMB160A INH
[2017-01-07] MEDS ORDERED: SODIUM CHLORIDE 0.9% FLUSH 10 ML FLUSH IVF PRN (11:45)
[2017-01-07] MEDS ORDERED: methylPREDNISolone SOD SUCC 125 MG/2 ML VIAL IVP ONE (11:45)
[2017-01-07] MEDS ORDERED: MORPHINE SULFATE 4 MG/ML INJ IV PUSH ONE ×2 (11:45→13:45)
--- NOTE | 2017-01-07 12:06 | PD ---
HPI Chief Complaint: Respiratory Symptoms Time Seen by Provider: 12:01 Travel History International Travel<30 days: No Contact w/Intl Traveler<30days: No Traveled to known affect area: No History of Present Illness HPI 62-year-old female that presents to the ED for evaluation of shortness of breath and leg swelling. Per patient she's had the shortness of breath for the past 4 days. She denies any chest pain. She states that she had a mechanical fall about a week ago. Patient suffered injuries to both lower legs. Patient has significant swelling to both lower legs from this in the recent apparently per patient is not getting better. Per patient and her legs are very sensitive to touch. She denies ever having any swelling like this before. No history of heart disease or heart failure. She does have a significant history of rheumatoid arthritis and takes Xarelto. She denies any head injury. She denies any falls. She states is compliant with her medications but states that the shortness of breath continues. She does have significant history of COPD and has been admitted to the hospital multiple times for same. She was last seen here about a week ago for evaluation of the leg injuries. Patient had a arthrocentesis that show hemarthrosis. Per patient she still has pain in her buttocks as well as her legs which is 10 out of 10. She does usually not ambulate and uses a scooter to get about. PFSH Past Medical History Arthritis: Yes Asthma: No Autoimmune Disease: No Blood Disorders: No Anxiety: No Depression: No Heart Rhythm Problems: No Cancer: No Cardiovascular Problems: Yes High Cholesterol: Yes Chemotherapy: No Chest Pain: Yes Congestive Heart Failure: No COPD: Yes Cerebrovascular Accident: No Coronary Artery Disease: No Diabetes: Yes (insulin ) Patient Takes Glucophage: No Diminished Hearing: No Endocrine: Yes Gastrointestinal Disorders: Yes GERD: No Glaucoma: No Gout: Yes Genitourinary: No Headaches: Yes Hepatitis: Yes (HEPATITIS C) Hiatal Hernia: No Hypertension: Yes Immune Disorder: No Implanted Vascular Access Dvce: Yes Kidney Stones: No Musculoskeletal: Yes Neurologic: Yes Psychiatric: No Reproductive: No Respiratory: Yes (COPD) Immunizations Current: Yes Migraines: Yes Myocardial Infarction: No Pneumonia: Yes Radiation Therapy: No Renal Failure: No Seizures: No Sickle Cell Disease: No Sleep Apnea: Yes Thyroid Disease: No Ulcer: No Influenza Vaccination: Yes PNEUMOCCOCAL Vaccine (Year): 2 ?: Not Menopausal: Yes : 0 Para: 0 Miscarriage: 0 : 0 Past Surgical History Abdominal Surgery: No AICD: No Appendectomy: No Arteriovenous Shunt: No Cardiac Surgery: No Cholecystectomy: No Ear Surgery: No Endocrine Surgery: No Eye Surgery: No Genitourinary Surgery: No Gynecologic Surgery: No Insulin Pump: No Joint Replacement: No Neurologic Surgery: No Oral Surgery: No Pacemaker: No Thoracic Surgery: No Other Surgery: Yes (right knee gout drain infection) Social History Alcohol Use: No Tobacco Use: No Substance Use: No Allergies-Medications (Allergen,Severity, Reaction): Coded Allergies: *MDRO Multi-Drug Resistant Organism (Verified Adverse Reaction, Unknown, ) MRSA wound 11/2012. MRSA PCR Screen negative 11/03/14 and 11/05/14. Cleared per Infection Control MRSA PCR Screen NEGATIVE - 04/30/2015 Reported Meds & Prescriptions Reported Meds & Active Scripts Active Potassium Chloride ER (Potassium Chloride) 20 Meq Tab 20 Meq PO DAILY 5 Days Lasix (Furosemide) 40 Mg Tab 40 Mg PO BID 7 Days Prednisone 5 Mg Tab 5 Mg PO DIRECTED 6 Days 20 mg po daily for two days then 10 mg po daily for two days then 5 mg po daily for two days then stop. Hydrocodone-Acetaminophen 10-325 mg Tab 1 Tab PO TID PRN Reported Novolog Inj (Insulin Aspart) 1,000 Unit/10 Ml Vial 0 SQ DIRECTED Sliding Scale as directed. Janumet (Sitagliptin-Metformin) 50-1,000 Mg Tab Unknown Dose PO DAILY Lyrica (Pregabalin) 150 Mg Cap 150 Mg PO TID Lantus Inj (Insulin Glargine) 1,000 Unit/10 Ml Vial 35 Units SQ BID Albuterol Neb (Albuterol Sulfate) 2.5 Mg/3 Ml Neb 2.5 Mg NEB Q6HR PRN While awake Review of Systems Except as stated in HPI: all other systems reviewed are Neg Physical Exam Narrative GENERAL: SKIN: Warm and dry. HEAD: Atraumatic. Normocephalic. EYES: Pupils equal and round. No scleral icterus. No injection or drainage. ENT: No nasal bleeding or discharge. Mucous membranes pink and moist. Tongue is midline. No uvula deviation. NECK: Trachea midline. No JVD. CARDIOVASCULAR: Regular rate and rhythm. No murmurs, S3, S4. RESPIRATORY: No accessory muscle use. Clear to auscultation. Breath sounds equal bilaterally. GASTROINTESTINAL: Abdomen soft, non-tender, nondistended. Hepatic and splenic margins not palpable. MUSCULOSKELETAL: Extremities without clubbing, cyanosis, or edema. No obvious deformities. Full range of motion of the upper and lower extremities bilaterally. Patient does have 1+ pitting edema on the lower extremities compared to the upper. Patient does have significant swelling more noted on the left than the right. Most of the swelling appears to be on the prepatellar aspect of the left knee. Not warm to touch. No erythema noted. Sensitive to touch. NEUROLOGICAL: Awake and alert. No obvious cranial nerve deficits. Motor grossly within normal limits. Five out of 5 muscle strength in the arms and legs. Normal speech. PSYCHIATRIC: Appropriate mood and affect; insight and judgment normal. Data Data Last Documented VS Vital Signs Date Time Temp Pulse Resp B/P Pulse Ox O2 Delivery O2 Flow Rate FiO2 01/07/17 16:23 121 16 127/60 97 Nasal Cannula 3 01/07/17 11:23 98.4 Orders Electrocardiogram (01/07/17 11:33) Basic Metabolic Panel (Bmp) (01/07/17 11:33) Complete Blood Count With Diff (01/07/17 11:33) Chest, Single Ap (01/07/17 11:33) Ecg Monitoring (01/07/17 11:33) Iv Access Insert/Monitor (01/07/17 11:33) Oximetry (01/07/17 11:33) Oxygen Administration (01/07/17 11:33) Methylprednisolone So Succ Inj (Solumedr (01/07/17 11:45) Sodium Chloride 0.9% Flush (Ns Flush) (01/07/17 11:45) B-Type Natriuretic Peptide (01/07/17 11:33) Us Leg Venous Doppler Bilat (01/07/17 ) Morphine Inj (Morphine Inj) (01/07/17 11:45) Albuterol-Ipratropium Neb (Duoneb Neb) (01/07/17 11:45) Pelvis, Ap Only (Routine) (01/07/17 ) Ct Pulmonary Angiogram (01/07/17 ) Troponin I (01/07/17 13:09) Morphine Inj (Morphine Inj) (01/07/17 13:45) Ondansetron Inj (Zofran Inj) (01/07/17 13:45) Iohexol 350 Inj (Omnipaque 350 Inj) (01/07/17 13:53) Furosemide Inj (Lasix Inj) (01/07/17 14:30) Ct Abd/Pel W Iv Contrast(Rout) (01/07/17 ) Iodixanol 320 Inj (Rad Ct) (Visipaque 32 (01/07/17 15:46) Labs Laboratory Tests Test 01/07/17 12:10 White Blood Count 9.4 TH/MM3 Red Blood Count 4.36 MIL/MM3 Hemoglobin 10.9 GM/DL Hematocrit 34.1 % Mean Corpuscular Volume 78.2 FL Mean Corpuscular Hemoglobin 25.1 PG Mean Corpuscular Hemoglobin 32.0 % Concent Red Cell Distribution Width 17.8 % Platelet Count 349 TH/MM3 Mean Platelet Volume 8.2 FL Neutrophils (%) (Auto) 57.9 % Lymphocytes (%) (Auto) 26.9 % Monocytes (%) (Auto) 13.0 % Eosinophils (%) (Auto) 1.2 % Basophils (%) (Auto) 1.0 % Neutrophils # (Auto) 5.4 TH/MM3 Lymphocytes # (Auto) 2.5 TH/MM3 Monocytes # (Auto) 1.2 TH/MM3 Eosinophils # (Auto) 0.1 TH/MM3 Basophils # (Auto) 0.1 TH/MM3 CBC Comment DIFF FINAL Differential Comment Sodium Level 144 MEQ/L Potassium Level 3.8 MEQ/L Chloride Level 112 MEQ/L Carbon Dioxide Level 24.4 MEQ/L Anion Gap 8 MEQ/L Blood Urea Nitrogen 14 MG/DL Creatinine 1.02 MG/DL Estimat Glomerular Filtration 66 ML/MIN Rate Random Glucose 58 MG/DL Calcium Level 8.1 MG/DL Troponin I LESS THAN 0.02 NG/ML B-Type Natriuretic Peptide 10 PG/ML MDM Medical Decision Making Medical Screen Exam Complete: Yes Emergency Medical Condition: Yes Medical Record Reviewed: Yes Interpretation(s) CBC & BMP Diagram 01/07/17 12:10 troponin negative BNP WNL Last Impressions Chest X-Ray 01/07/17 1133 Signed Impressions: Service Date/Time: Saturday, January 07, 2017 13:13 - CONCLUSION: No acute cardiopulmonary abnormality is identified. Shaggy Bryson MD Pelvis X-Ray 01/07/17 0000 Signed Impressions: Service Date/Time: Saturday, January 07, 2017 13:14 - CONCLUSION: No acute abnormality is identified. Shaggy Bryson MD Lower Extremity Ultrasound 01/07/17 0000 Signed Impressions: Service Date/Time: Saturday, January 07, 2017 11:55 - CONCLUSION: No DVT is identified within either lower extremity. Shaggy Bryson MD EKg shows sinus tachycardia but no sign of acute ischemia or arrythmia read by me and attending. CT pulm negative for PE but chronic COPD changes and possible malignancy in adrenal gland. Differential Diagnosis Leg swelling versus DVT versus CHF versus COPD exacerbation versus bronchitis versus COPD Narrative Course 62-year-old female that presents to the ED for evaluation of shortness of breath and lower leg edema. Patient was properly examined and was found to have signs and symptoms which appear to be more consistent with COPD exacerbation and what appears to be lower leg edema secondary to injury about a week ago. Possible CHF still in the differential although she has no history of this in the past. Labs and imaging. Patient agrees with plan. Patient was given IV Solu-Medrol, Duonebs, and morphine for pain. Labs and imaging showed no sign of acute disease. Patient still tachycardic and states that she still feels short of breath. Leg edema at this time is believed to be more related to her recent injury likely hematoma or hemarthrosis. No sign of infection at this time. Because of patient's tachycardia and her continued shortness of breath accommodation is for CT scan. Patient does tell me that she has not used her Xarelto since the injury and she could be having a pulmonary embolism. Which she does have a history of it. Labs and imaging were essentially unremarkable and then. Patient does have what appears to be possible lymphoma with a mask to the adrenal gland. She was told this. Patient still very short of breath and symptomatic. Her heart rate still very high. Recommendations for admission for COPD exacerbation. My attending agrees with this plan. Case discussed with Dr. Cabrera who agrees to admission. Diagnosis Primary Impression: COPD (chronic obstructive pulmonary disease) Qualified Code: J44.1 - Chronic obstructive pulmonary disease with acute exacerbation Additional Impression: Bilateral leg edema Admitting Information Admitting Physician Requests: Observation Scripts Potassium Chloride ER 20 Meq Tab20 Meq PO DAILY 5 Days Ref 0 Prov:Pamela Leavitt MD 01/07/17 Furosemide (Lasix)40 Mg Tab40 Mg PO BID 7 Days Ref 0 Prov:Pamela Leavitt MD 01/07/17 Octavio Ch Jan 07, 2017 12:06
[2017-01-07] MEDS: RESP: ALBUTEROL 2.5 MG/IPRATROPIUM 0.5 MG NEB (SCH) INH (12:23)
[2017-01-07 12:29] LABS: AUTOMATED NEUTROPHIL # 5.4 TH/MM3 (1.8-7.7); BASOPHIL # 0.1 TH/MM3 (0-0.2); EOSINOPHIL # 0.1 TH/MM3 (0-0.4); EOSINOPHIL % 1.2 % (0.0-4.0); HEMATOCRIT 34.1 % (35.0-46.0); HEMO FLAGS DIFF FINAL; LYMPH % 26.9 % (9.0-44.0); LYMPHOCYTE # 2.5 TH/MM3 (1.0-4.8); MEAN CELL VOLUME 78.2 FL (80.0-100.0); MEAN CORPUSCULAR HEMOGLOBIN 25.1 PG (27.0-34.0); NEUT % 57.9 % (16.0-70.0); PLATELET COUNT 349 TH/MM3 (150-450); RED BLOOD COUNT 4.36 MIL/MM3 (4.00-5.30); RED CELL DISTRIBUTION WIDTH 17.8 % (11.6-17.2); WHITE BLOOD COUNT 9.4 TH/MM3 (4.0-11.0)
[2017-01-07 12:39] LABS: BICARBONATE 24.4 MEQ/L (21.0-32.0); POTASSIUM 3.8 MEQ/L (3.5-5.1)
--- NOTE | 2017-01-07 13:16 | RADRPT ---
EXAM DATE/TIME: 01/07/2017 11:55 [facility] COMPARISON: US LEG BILATERAL VENOUS DOPPLER, June 21, 2016, 19:21. INDICATIONS : Bilateral leg swelling. MEDICAL HISTORY : Hypercholesterolemia. Emphysema. Rheumatoid arthritis. Migraines. Chest pain. HTN. COPD. Pneumonia. S leep apena. Dyspnea. Osteoporosis. Gout. Diabetes. Hep C. MRSA. SURGICAL HISTORY : Eye prosthesis. Right knee gout drain infection. ENCOUNTER: Subsequent ACUITY: 4 - 6 days PAIN SCORE: 10/10 LOCATION: Bilateral leg. TECHNIQUE: Venous ultrasound of the left and right leg was performed from the inguinal ligament to the proximal calf. Real-time, color Doppler and spectral tracing, compression and augmentation techniques were us ed. FINDINGS: RIGHT LEG: There is normal compressibility of the deep venous system from the inguinal region to the proximal ca lf. No echogenic clot is seen in the lumen of the common femoral, femoral, popliteal, and posterior tibial veins. There is a normal response of the venous system to proximal and distal augmentation an d respiration. LEFT LEG: There is normal compressibility of the deep venous system from the inguinal region to the proximal ca lf. No echogenic clot is seen in the lumen of the common femoral, femoral, popliteal, and posterior tibial veins. There is a normal response of the venous system to proximal and distal augmentation an d respiration. CONCLUSION: No DVT is identified within either lower extremity. Shaggy Bryson MD on January 07, 2017 at 13:14 Board Certified Radiologist. This report was verified electronically.
[2017-01-07] MEDS ORDERED: ONDANSETRON HCL 4 MG/2 ML VIAL IV PUSH ONE (13:45)
[2017-01-07] MEDS ORDERED: IOHEXOL 350 MG/ML 10 ML VIAL (for RAD DIAG) IV ONE (13:53)
--- NOTE | 2017-01-07 13:59 | RADRPT ---
EXAM DATE/TIME: 01/07/2017 13:13 [facility] COMPARISON: CHEST SINGLE AP, December 22, 2016, 11:42. INDICATIONS : Fall last Saturday and has had leg swelling since. MEDICAL HISTORY : Hypercholesterolemia. Hypertension. Chronic obstructive pulmonary disease. SURGICAL HISTORY : Right knee gout drain. ENCOUNTER: Initial ACUITY: 3 days PAIN SCORE: 10/10 LOCATION: Bilateral Femur. FINDINGS: Portable AP view of the chest demonstrates a normal-sized cardiac silhouette. No effusion, consolidat ion, or pneumothorax is visualized. The bones and soft tissues demonstrate no acute abnormality. CONCLUSION: No acute cardiopulmonary abnormality is identified. Shaggy Bryson MD on January 07, 2017 at 13:55 Board Certified Radiologist. This report was verified electronically.
--- NOTE | 2017-01-07 14:00 | RADRPT ---
EXAM DATE/TIME: 01/07/2017 13:14 [facility] COMPARISON: No previous studies available for comparison. INDICATIONS : Fall last Saturday and has had leg swelling since. MEDICAL HISTORY : Hypercholesterolemia. Hypertension. Chronic obstructive pulmonary disease. SURGICAL HISTORY : Right knee gout drain. ENCOUNTER: Initial ACUITY: 3 days PAIN SCORE: 10/10 LOCATION: Bilateral Femur FINDINGS: Single AP view of the pelvis demonstrates no fracture or dislocation. Mineralization is within normal limits. There is no significant arthropathy. No soft tissue abnormality or radiopaque foreign body i s identified. CONCLUSION: No acute abnormality is identified. Shaggy Bryson MD on January 07, 2017 at 13:58 Board Certified Radiologist. This report was verified electronically.
--- NOTE | 2017-01-07 14:14 | RADRPT ---
EXAM DATE/TIME: 01/07/2017 13:45 [facility] COMPARISON: CT THORAX W/O CONTRAST, May 21, 2016, 11:13. INDICATIONS : Dyspnea IV CONTRAST: 73 cc Omnipaque 350 (iohexol) IV RADIATION DOSE: 19.15 CTDIvol (mGy) MEDICAL HISTORY : Cardiovascular disease. Chronic obstructive pulmonary disease. Hypertension.Hep C SURGICAL HISTORY : None. ENCOUNTER: Initial ACUITY: 1 day PAIN SCALE: 0/10 LOCATION: chest TECHNIQUE: Volumetric scanning of the chest was performed using a pulmonary embolism protocol MIP images were re constructed. Using automated exposure control and adjustment of the mA and/or kV according to patien t size, radiation dose was kept as low as reasonably achievable to obtain optimal diagnostic quality images. DICOM format image data is available electronically for review and comparison. Follow-up recommendations for detected pulmonary nodules are based at a minimum on nodule size and pa tient risk factors according to Fleischner Society Guidelines. FINDINGS: The examination is of adequate diagnostic quality. No large or central pulmonary embolus is identifie d. There is no significant hilar or mediastinal adenopathy. The heart is normal in size. No pericardial or pleural effusion is present. There is COPD changes throughout the pulmonary parenchyma. There are emphysematous blebs seen in the anterior aspect of the left upper lobe and the right lower lobe. Imaging through the abdomen demonstrates abnormal soft tissue involving the retroperitoneal kendra kelsey in specifically the left adrenal region. There is a soft tissue mass measuring at least 4.1 x 4.2 cm. This is new compared to previous exam. This is suspicious for malignancy. CT imaging through the abd omen and pelvis with contrast is warranted for further assessment. CONCLUSION: 1. Moderate COPD changes. 2. No large or central pulmonary embolus identified. 3. Abnormal soft tissue mass involving the left adrenal gland and retroperitoneum concerning for aster gnancy. CT imaging through the abdomen is warranted for more definitive assessment. Estevan Simon MD on January 07, 2017 at 14:09 Board Certified Radiologist. This report was verified electronically.
[2017-01-07] MEDS ORDERED: FUROSEMIDE 20 MG/2 ML VIAL IV PUSH ONE (14:30)
[2017-01-07] MEDS ORDERED: IODIXANOL 320 MG/ML 10 ML VIAL (for Rad CT) IV ONE (15:46)
--- NOTE | 2017-01-07 15:52 | RADRPT ---
EXAM DATE/TIME: 01/07/2017 15:18 [facility] COMPARISON: CT PULMONARY ANGIOGRAM, January 07, 2017, 13:45. CT ABDOMEN & PELVIS W CONTRAST, March 06, 2016, 1: 21. INDICATIONS : Evaluate for metastases; abnormal CT today. IV CONTRAST: 50 cc Visipaque (iodixanol) IV ORAL CONTRAST: No oral contrast ingested. RADIATION DOSE: 11.80 CTDIvol (mGy) MEDICAL HISTORY : Hypertension. Chronic obstructive pulmonary disease. Diabetes mellitus type 2. SURGICAL HISTORY : None. ENCOUNTER: Initial ACUITY: 1 day PAIN SCALE: 3/10 LOCATION: Bilateral abdomen. TECHNIQUE: Volumetric scanning of the abdomen and pelvis was performed. Using automated exposure control and ad justment of the mA and/or kV according to patient size, radiation dose was kept as low as reasonably achievable to obtain optimal diagnostic quality images. DICOM format image data is available electro nically for review and comparison. FINDINGS: LOWER LUNGS: There are emphysematous changes at the lung bases. LIVER: There is a mildly nodular liver contour, stable from the prior study, characteristic of cirrhosis. No focal lesion is identified. There is no dilation of the biliary tree. There are questionable nonca lcified stones in the gallbladder. SPLEEN: Normal size without lesion. The low density lesion present previously is no longer visualized. PANCREAS: Well visualized but no abnormality is seen. KIDNEYS: Normal in size and shape. There is no mass, stone or hydronephrosis. ADRENAL GLANDS: There is a mass abutting and potentially arising from the left adrenal gland measuring 3.3 x 3.1 cm. It abuts the left hemidiaphragmatic idalia and abuts the left renal vessels. This lesion is new from prior CT. There is mild thickening of the medial limb of the right adrenal gland. VASCULAR: There is no aortic aneurysm. There is mild atherosclerotic disease. BOWEL/MESENTERY: The stomach, small bowel, and colon demonstrate no acute abnormality. There is no free intraperitone al air or fluid. ABDOMINAL WALL: Within normal limits. RETROPERITONEUM: There is abnormal soft tissue in the hepatoduodenal ligament which I believe represents an enlarged a ortocaval lymph node and lymphadenopathy. It mildly narrows the main portal vein. There are also enla rged lymph nodes in the gastrohepatic ligament. BLADDER: No wall thickening or mass. REPRODUCTIVE: Within normal limits. INGUINAL: There is no lymphadenopathy or hernia. MUSCULOSKELETAL: No acute osseous abnormality is identified. There is a stable small sclerotic lesion in the right inf erior pubic ramus. No concerning lytic or blastic lesion is seen. CONCLUSION: 1. There is an abnormal mass abutting and potentially arising from the left adrenal gland measuring u p to 3.3 cm. This mass is new compared to the February 2016 exam. 2. There is new lymphadenopathy in the hepatoduodenal and gastrohepatic ligaments. These findings cou ld represent metastatic disease or lymphoma. The left adrenal region mass could also represent a prim ko adrenal gland tumor. Suggest correlation with the clinical history. 3. Liver features diagnostic of cirrhosis. No focal liver lesion is identified. Shaggy Bryson MD on January 07, 2017 at 15:41 Board Certified Radiologist. This report was verified electronically.
[2017-01-07] MEDS ORDERED: POTA-163 PO (16:04)
[2017-01-07] MEDS ORDERED: FURO1TAB60 PO (16:04)
[2017-01-07] MEDS ORDERED: PROCHLORPERAZINE 25 MG SUPP RECTAL PRN (17:00)
[2017-01-07] MEDS ORDERED: ENOXAPARIN SODIUM 40 MG/0.4 ML SYRINGE SQ SCH (17:00)
[2017-01-07] MEDS ORDERED: RESP: ALBUTEROL 2.5 MG/3 ML NEB (PRN) INH (17:00)
[2017-01-07] MEDS ORDERED: MAGNESIUM HYDROXIDE SUSP 30 ML CUP PO PRN (17:00)
[2017-01-07] MEDS ORDERED: oxyCODONE/ACETAMINOPHEN 5 MG/325 MG TAB PO PRN (17:00)
[2017-01-07] MEDS ORDERED: RESP: IPRATROPIUM 0.5 MG/2.5 ML NEB INH PRN (17:00)
[2017-01-07] MEDS ORDERED: DEXTROSE 50% IN WATER 50 ML VIAL(D50) IV PRN (17:00)
[2017-01-07] MEDS ORDERED: NALOXONE HCL 0.4 MG/ML AMP IV PRN (17:00)
[2017-01-07] MEDS ORDERED: RESP: ALBUTEROL 2.5 MG/IPRATROPIUM 0.5 MG NEB (PRN) NEB (17:00)
[2017-01-07] MEDS ORDERED: SENNOSIDES 8.6 MG TAB PO PRN (17:00)
[2017-01-07] MEDS ORDERED: LACTULOSE SYRUP 20 GM/30 ML CUP PO PRN (17:00)
[2017-01-07] MEDS ORDERED: ONDANSETRON HCL 4 MG/2 ML VIAL IVP PRN (17:00)
[2017-01-07] MEDS ORDERED: SODIUM CHLORIDE 0.9% FLUSH 10 ML FLUSH IV FLUSH PRN ×2 (17:00)
[2017-01-07] MEDS ORDERED: BISACODYL 10 MG SUPP RECTAL PRN (17:00)
[2017-01-07] MEDS ORDERED: GLUCAGON 1 MG/ML VIAL OTHER PRN (17:00)
[2017-01-07] MEDS ORDERED: MORPHINE SULFATE 4 MG/ML INJ IV PRN ×3 (17:00)
[2017-01-07] MEDS ORDERED: ACETAMINOPHEN 325 MG TAB PO PRN (17:00)
--- NOTE | 2017-01-07 17:18 | HHI.HP ---
HPI Service [facility] Primary Care Physician Shaggy Landry MD Admission Diagnosis COPD Exacerbation, lower leg edema Diagnoses: (1) Edema Diagnosis: Principal (2) DM2 (diabetes mellitus, type 2) Diagnosis: Principal (3) Dyspnea on exertion Diagnosis: Principal (4) Chronic respiratory failure Diagnosis: Principal (5) HTN (hypertension) Diagnosis: Secondary (6) COPD (chronic obstructive pulmonary disease) (7) Bilateral leg edema Diagnosis: Secondary (8) COPD exacerbation Diagnosis: Principal (9) Benign hypertension Diagnosis: Secondary Chief Complaint: Shortness of breath Bilateral leg swelling Travel History International Travel<30 Days: No Contact w/Intl Traveler <30 Da: No Traveled to Known Affected Are: No History of Present Illness Written by Glenis Christianson PA-C acting as scribe for Dr. Cabrera on 01/07/17 at 16:55. This is a 62-year-old female with a past medical history significant for hypertension, diabetes mellitus, COPD, rheumatoid arthritis, dyslipidemia and hepatitis C who presents to [facility] ED with complaints of progressive shortness of breath and bilateral leg swelling. Patient states this has been ongoing for the past 4 days. She denies any associated chest pain. Patient also reports history of mechanical fall about a week ago suffering injuries to both lower legs. Patient states she felt like her legs were "feverish". Patient states she's been compliant with all of her medications. She uses her nebulizer 4 times a day. She does require oxygen use at home. She uses a scooter for ambulation. She has an extensive history of tobacco use but reports quitting 3 weeks ago. In the ED, chest x-ray showed no acute cardiopulmonary abnormality. CTA showed moderate COPD changes no evidence of large or central pulmonary embolus was identified. Bilateral venous Doppler studies were negative for DVTs. Review of Systems Constitutional: COMPLAINS OF: Fatigue, Weight gain, DENIES: Diaphoretic episodes, Fever, Weight loss, Chills, Dizziness, Change in appetite Endocrine: DENIES: Heat/cold intolerance, Polydipsia Eyes: DENIES: Blurred vision, Diplopia, Eye inflammation Ears, nose, mouth, throat: DENIES: Tinnitus, Hearing loss, Vertigo, Nasal discharge Respiratory: COMPLAINS OF: Cough, Wheezing, Sputum production Cardiovascular: COMPLAINS OF: Dyspnea on Exertion, DENIES: Chest pain, Palpitations, Syncope Gastrointestinal: COMPLAINS OF: Abdominal pain, Black stools, Bloody stools, Constipation Musculoskeletal: COMPLAINS OF: Joint pain, Joint Swelling, DENIES: Muscle aches, Stiffness Integumentary: DENIES: Abnormal pigmentation, Pruritus, Rash, Nail changes Immunologic/allergic: DENIES: Eczema, Urticaria Neurologic: COMPLAINS OF: Abnormal gait, Localized weakness, Poor Balance, DENIES: Headache, Paresthesias, Seizures, Speech Problems Psychiatric: COMPLAINS OF: Depression, DENIES: Anxiety, Confusion, Mood changes Except as stated in HPI: all other systems reviewed are Neg Past Family Social History Past Medical History Type 2 diabetes COPD Hepatitis C Rheumatoid arthritis Obesity Gout History of sinus tachycardia Osteoporosis Past Surgical History History of right knee septic arthritis requiring washout and debridement 2008 Reported Medications Potassium Chloride ER (Potassium Chloride) 20 Meq Tab 20 Meq PO DAILY 5 Days Lasix (Furosemide) 40 Mg Tab 40 Mg PO BID 7 Days Prednisone 5 Mg Tab 5 Mg PO DIRECTED 6 Days 20 mg po daily for two days then 10 mg po daily for two days then 5 mg po daily for two days then stop. Hydrocodone-Acetaminophen 10-325 mg Tab 1 Tab PO TID PRN Novolog Inj (Insulin Aspart) 1,000 Unit/10 Ml Vial 0 SQ DIRECTED Sliding Scale as directed. Janumet (Sitagliptin-Metformin) 50-1,000 Mg Tab Unknown Dose PO DAILY Lyrica (Pregabalin) 150 Mg Cap 150 Mg PO TID Lantus Inj (Insulin Glargine) 1,000 Unit/10 Ml Vial 35 Units SQ BID Albuterol Neb (Albuterol Sulfate) 2.5 Mg/3 Ml Neb 2.5 Mg NEB Q6HR PRN While awake Allergies: Coded Allergies: *MDRO Multi-Drug Resistant Organism (Verified Adverse Reaction, Unknown, ) MRSA wound 11/2012. MRSA PCR Screen negative 11/03/14 and 11/05/14. Cleared per Infection Control MRSA PCR Screen NEGATIVE - 04/30/2015 Active Ordered Medications Current Medications Medications (Trade) Dose Ordered Sig/Dillan Route Start Time Stop Time Status Last Admin (NS Flush) 2 ml UNSCH PRN IVF 01/07/17 11:45 Family History Mother, COPD Social History History of tobacco use of 2ppd since the age of 14 but patient reports quitting 3 weeks ago. She denies any alcohol use or illicit drug use. Physical Exam Vital Signs Vital Signs Date Time Temp Pulse Resp B/P Pulse Ox O2 Delivery O2 Flow Rate FiO2 01/07/17 16:23 121 16 127/60 97 Nasal Cannula 3 01/07/17 13:19 125 16 106/64 95 Nasal Cannula 2 01/07/17 12:35 126 16 121/60 100 Nasal Cannula 2 01/07/17 11:26 129 16 121/60 98 Nasal Cannula 2 01/07/17 11:23 98.4 130 12 121/60 98 Physical Exam GENERAL: This is a well-nourished, well-developed patient, in no apparent distress. Awake and alert. SKIN: No rashes, ecchymoses or lesions. Cool and dry. HEAD: Atraumatic. Normocephalic. No temporal or scalp tenderness. EYES: Pupils equal round and reactive. Extraocular motions intact. No scleral icterus. No injection or drainage. ENT: Nose without bleeding or purulent drainage. Throat without erythema, tonsillar hypertrophy or exudate. Uvula midline. Airway patent. NECK: Trachea midline. No lymphadenopathy. Supple, nontender, no meningeal signs. CARDIOVASCULAR: Tachycardic without murmurs, gallops, or rubs. S1, S2 NO S3 OR S4 NO HEAVE OR THRILL RESPIRATORY: Coarse breath sounds throughout. Positive rhonchi. Wheezing noted in all lung ellington. GASTROINTESTINAL: Abdomen soft, non-tender, nondistended. No hepato-splenomegaly , or palpable masses. No guarding.OBESE MUSCULOSKELETAL: Extremities without clubbing or cyanosis. +2-3 edema noted in bilateral lower extremities. No joint tenderness, effusion, or edema noted. Bilateral knees are slightly warm. No appreciable erythema. No calf tenderness. SOME SWELLING OF BL KNEES NEUROLOGICAL: Awake and alert. Able to move all extremities. No focal neurologic findings appreciated.. Normal speech. INSIGHT AND JUDGEMENT ARE GOOD, MOOD AND BEHAVIOR ARE APPROPRIATE Laboratory Laboratory Tests Test 01/07/17 12:10 White Blood Count 9.4 Red Blood Count 4.36 Hemoglobin 10.9 Hematocrit 34.1 Mean Corpuscular Volume 78.2 Mean Corpuscular Hemoglobin 25.1 Mean Corpuscular Hemoglobin 32.0 Concent Red Cell Distribution Width 17.8 Platelet Count 349 Mean Platelet Volume 8.2 Neutrophils (%) (Auto) 57.9 Lymphocytes (%) (Auto) 26.9 Monocytes (%) (Auto) 13.0 Eosinophils (%) (Auto) 1.2 Basophils (%) (Auto) 1.0 Neutrophils # (Auto) 5.4 Lymphocytes # (Auto) 2.5 Monocytes # (Auto) 1.2 Eosinophils # (Auto) 0.1 Basophils # (Auto) 0.1 CBC Comment DIFF FINAL Differential Comment Sodium Level 144 Potassium Level 3.8 Chloride Level 112 Carbon Dioxide Level 24.4 Anion Gap 8 Blood Urea Nitrogen 14 Creatinine 1.02 Estimat Glomerular Filtration 66 Rate Random Glucose 58 Calcium Level 8.1 Troponin I LESS THAN 0.02 B-Type Natriuretic Peptide 10 Result Diagram: 01/07/17 1210 01/07/17 1210 Imaging Last Impressions Chest X-Ray 01/07/17 1133 Signed Impressions: Service Date/Time: Saturday, January 07, 2017 13:13 - CONCLUSION: No acute cardiopulmonary abnormality is identified. Shaggy Bryson MD Pelvis X-Ray 01/07/17 0000 Signed Impressions: Service Date/Time: Saturday, January 07, 2017 13:14 - CONCLUSION: No acute abnormality is identified. Shaggy Bryson MD Lower Extremity Ultrasound 01/07/17 0000 Signed Impressions: Service Date/Time: Saturday, January 07, 2017 11:55 - CONCLUSION: No DVT is identified within either lower extremity. Shaggy Bryson MD CT Angiography 01/07/17 0000 Signed Impressions: Service Date/Time: Saturday, January 07, 2017 13:45 - CONCLUSION: 1. Moderate COPD changes. 2. No large or central pulmonary embolus identified. 3. Abnormal soft tissue mass involving the left adrenal gland and retroperitoneum concerning for malignancy. CT imaging through the abdomen is warranted for more definitive assessment. Estevan Simon MD Abdomen/Pelvis CT 01/07/17 0000 Signed Impressions: Service Date/Time: Saturday, January 07, 2017 15:18 - CONCLUSION: 1. There is an abnormal mass abutting and potentially arising from the left adrenal gland measuring up to 3.3 cm. This mass is new compared to the February 2016 exam. 2. There is new lymphadenopathy in the hepatoduodenal and gastrohepatic ligaments. These findings could represent metastatic disease or lymphoma. The left adrenal region mass could also represent a primary adrenal gland tumor. Suggest correlation with the clinical history. 3. Liver features diagnostic of cirrhosis. No focal liver lesion is identified. Shaggy Bryson MD Assessment and Plan Problem List: (1) Benign hypertension ICD Code: I10 Status: Chronic (2) COPD exacerbation ICD Code: J44.1 Status: Acute (3) Diabetes mellitus, type 2 ICD Code: E11.9 Status: Chronic (4) Tachycardia ICD Code: R00.0 Status: Acute (5) COPD (chronic obstructive pulmonary disease) ICD Code: J44.9 Status: Acute (6) Bilateral leg edema ICD Code: R60.0 Status: Acute (7) Dyspnea on exertion ICD Code: R06.09 Status: Acute (8) Hyperglycemia due to type 2 diabetes mellitus ICD Code: E11.65 Status: Acute Assessment and Plan 62-year-old female with a past medical history significant for hypertension, diabetes mellitus, COPD, rheumatoid arthritis, dyslipidemia and hepatitis C who presents to [facility] ED with complaints of progressive shortness of breath and bilateral leg swelling. COPD exacerbation CTA obtained in the ED personally reviewed and shows moderate COPD changes and no evidence of PE Scheduled DuoNeb IV methylprednisolone 60 mg every 6 COPD educator Resume patient's home bronchodilators Obtain sputum culture Incentive spirometry Supplemental oxygen to keep patient's O2 sats above 92%. Patient does use oxygen at home. 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 Diabetic diet Generalized deconditioning Patient uses a scooter for mobilization PT/OT Incidental finding of abnormal soft tissue mass left adrenal gland concerning for malignancy CT abd/pelvis was obtained following incidental finding of abnormal soft tissue mass of the left adrenal gland as seen on the CTA personally interpreted revealing an abnormal mass abutting and potentially arising from the left adrenal gland measuring up to 3.3 cm new compared to February 2016 exam, new lymphadenopathy in the hepatoduodenal and gastrohepatic ligaments possibly representing metastatic disease or lymphoma. Left adrenal region mass possibly representing primary adrenal gland tumor. Consult interventional radiology for biopsy Hepatitis C CT of the abdomen/pelvis shows liver features diagnosis of cirrhosis Standard precautions DVT prophylaxis Heparin subcutaneous The exam, history, and the medical decision-making described in the above note were completed with the assistance of the mid-level provider. I reviewed and agree with the findings presented. I attest that I had a [id number] encounter with the patient on the same day, and personally performed and documented my assessment and findings in the medical record. Discussed Condition With ED physician, nursing staff and patient Physician Certification 2 Midnight Certification Type: Admission for Inpatient Services Order for Inpatient Services The services are ordered in accordance with Medicare regulations or non- Medicare payer requirements, as applicable. In the case of services not specified as inpatient-only, they are appropriately provided as inpatient services in accordance with the 2-midnight benchmark. Estimated LOS (days): 3 3 days is the estimated time the patient will need to remain in the hospital, assuming treatment plan goals are met and no additional complications. Post-Hospital Plan: Not yet determined Problem Qualifiers (1) COPD (chronic obstructive pulmonary disease): Qualified Code: J44.1 - Chronic obstructive pulmonary disease with acute exacerbation Glenis Christianson Jan 07, 2017 17:18 Mark Cabrera DO Jan 07, 2017 17:36 Glenis Christianson Jan 07, 2017 17:18 Mark Cabrera DO Jan 07, 2017 17:36
--- NOTE | 2017-01-07 17:22 | PD ---
Data Data Last Documented VS Vital Signs Date Time Temp Pulse Resp B/P Pulse Ox O2 Delivery O2 Flow Rate FiO2 01/07/17 16:23 121 16 127/60 97 Nasal Cannula 3 01/07/17 11:23 98.4 Orders Electrocardiogram (01/07/17 11:33) Basic Metabolic Panel (Bmp) (01/07/17 11:33) Complete Blood Count With Diff (01/07/17 11:33) Chest, Single Ap (01/07/17 11:33) Ecg Monitoring (01/07/17 11:33) Iv Access Insert/Monitor (01/07/17 11:33) Oximetry (01/07/17 11:33) Oxygen Administration (01/07/17 11:33) Methylprednisolone So Succ Inj (Solumedr (01/07/17 11:45) Sodium Chloride 0.9% Flush (Ns Flush) (01/07/17 11:45) B-Type Natriuretic Peptide (01/07/17 11:33) Us Leg Venous Doppler Bilat (01/07/17 ) Morphine Inj (Morphine Inj) (01/07/17 11:45) Albuterol-Ipratropium Neb (Duoneb Neb) (01/07/17 11:45) Pelvis, Ap Only (Routine) (01/07/17 ) Ct Pulmonary Angiogram (01/07/17 ) Troponin I (01/07/17 13:09) Morphine Inj (Morphine Inj) (01/07/17 13:45) Ondansetron Inj (Zofran Inj) (01/07/17 13:45) Iohexol 350 Inj (Omnipaque 350 Inj) (01/07/17 13:53) Furosemide Inj (Lasix Inj) (01/07/17 14:30) Ct Abd/Pel W Iv Contrast(Rout) (01/07/17 ) Iodixanol 320 Inj (Rad Ct) (Visipaque 32 (01/07/17 15:46) Admit Order (Ed Use Only) (01/07/17 16:39) Labs Laboratory Tests Test 01/07/17 12:10 White Blood Count 9.4 TH/MM3 Red Blood Count 4.36 MIL/MM3 Hemoglobin 10.9 GM/DL Hematocrit 34.1 % Mean Corpuscular Volume 78.2 FL Mean Corpuscular Hemoglobin 25.1 PG Mean Corpuscular Hemoglobin 32.0 % Concent Red Cell Distribution Width 17.8 % Platelet Count 349 TH/MM3 Mean Platelet Volume 8.2 FL Neutrophils (%) (Auto) 57.9 % Lymphocytes (%) (Auto) 26.9 % Monocytes (%) (Auto) 13.0 % Eosinophils (%) (Auto) 1.2 % Basophils (%) (Auto) 1.0 % Neutrophils # (Auto) 5.4 TH/MM3 Lymphocytes # (Auto) 2.5 TH/MM3 Monocytes # (Auto) 1.2 TH/MM3 Eosinophils # (Auto) 0.1 TH/MM3 Basophils # (Auto) 0.1 TH/MM3 CBC Comment DIFF FINAL Differential Comment Sodium Level 144 MEQ/L Potassium Level 3.8 MEQ/L Chloride Level 112 MEQ/L Carbon Dioxide Level 24.4 MEQ/L Anion Gap 8 MEQ/L Blood Urea Nitrogen 14 MG/DL Creatinine 1.02 MG/DL Estimat Glomerular Filtration 66 ML/MIN Rate Random Glucose 58 MG/DL Calcium Level 8.1 MG/DL Troponin I LESS THAN 0.02 NG/ML B-Type Natriuretic Peptide 10 PG/ML MDM Supervised Visit with YOEL: Yes Narrative Course The history, exam, and medical decision-making in the associated midlevel provider note were completed with my assistance. I reviewed and agree with the findings presented. I attest that I had a [id number] encounter with the patient on the same day, and personally performed and documented my assessment and findings in the medical record. *My assessment and Findings: This is a 62-year-old female with a history of COPD who presents to the emergency department with severe dyspnea particularly on exertion. She was wheezing initially on exam. She has 2+ pitting edema in both lower extremities which she says. She was given serial bronchodilator treatments and steroids but she continues to feel dyspneic. She was given Lasix for her lower extremity edema. She had 3 episodes of urinary incontinence in the bed. At baseline she says she uses a power chair and doesn' t walk independently. I don't think this patient can safely be discharged home. She will be placed in observation for continued bronchodilator treatments and diuresis. Diagnosis Primary Impression: COPD (chronic obstructive pulmonary disease) Qualified Code: J44.1 - Chronic obstructive pulmonary disease with acute exacerbation Additional Impression: Bilateral leg edema Scripts Potassium Chloride ER 20 Meq Tab20 Meq PO DAILY 5 Days Ref 0 Prov:Pamela Leavitt MD 01/07/17 Furosemide (Lasix)40 Mg Tab40 Mg PO BID 7 Days Ref 0 Prov:Pamela Leavitt MD 01/07/17 Pamela Leavitt MD Jan 07, 2017 17:22
[2017-01-07] MEDS: methylPREDNISolone SOD SUCC 125 MG/2 ML VIAL IVP SCH ×2 (17:44→23:19)
[2017-01-07] MEDS: PREGABALIN 75 MG CAP PO SCH (17:54)
[2017-01-07] MEDS: FUROSEMIDE 40 MG/4 ML VIAL IV PUSH SCH (17:57)
[2017-01-07 18:29] LABS: BLOOD, URINE NEG (NEG); GLUCOSE,URINE NEG (NEG); KETONE, URINE NEG (NEG); NITRITE,URINE NEG (NEG); SQUAMOUS EPITHELIAL CELL URINE 1 /hpf (0-5); URINE COLOR LIGHT-YELLOW (YELLW/STRAW)
[2017-01-07 18:34] LABS: COMMENT (UR) CULT NOT INDICATED; CULTURE IF INDICATED CULT NOT INDICATED
--- NOTE | 2017-01-07 18:56 | EKG ---
Date Performed: 01/07/2017 Time Performed: 11:31:24 PTAGE: 62 years EKG: Baseline artifact present SINUS TACHYCARDIA ABNORMAL RHYTHM ECG Compared to the previous tr acing rate has increased NO PREVIOUS TRACING DOCTOR: Slias Rosenbaum Interpretating Date/Time 01/07/2017 18:55:29
[2017-01-07] MEDS ORDERED: SODIUM CHLORIDE 0.9% FLUSH 10 ML FLUSH IV FLUSH SCH (21:00)
[2017-01-07] MEDS: BUDESONIDE-FORMOTEROL 160/4.5 MCG INHALER INH SCH (21:00)
[2017-01-07] MEDS: RESP: ALBUTEROL 2.5 MG/IPRATROPIUM 0.5 MG NEB (SCH) NEB (21:55)
[2017-01-07] MEDS: HEPARIN SODIUM - SQ 10,000 UNITS/ML VIAL SQ SCH (23:13)
[2017-01-07] MEDS: SODIUM CHLORIDE 0.9% FLUSH 10 ML FLUSH IV FLUSH SCH (23:13)
[2017-01-07] MEDS: guaiFENesin E.R. 600 MG TAB PO SCH (23:14)
[2017-01-07] MEDS: DOCUSATE SODIUM 50 MG/SENNA 8.6 MG TAB PO SCH (23:14)
[2017-01-07] MEDS: INSULIN DETEMIR 100 UNITS/ML VIAL SQ SCH (23:15)
[2017-01-07] MEDS: INSULIN ASPART SUPPLEMENTAL SCALE SQ SCH (23:16)
[2017-01-07] MEDS: oxyCODONE/ACETAMINOPHEN 10 MG/325 MG TAB PO PRN (23:24)
[2017-01-08] VITALS (11 sets, daily range): BP systolic 106–174; BP diastolic 56–88; PULSE 85–127; RESP 13–22; TEMP 95.7–100.5; O2SAT 92–99
[2017-01-08 00:45] LABS: BLOOD UREA NITROGEN 15 MG/DL (7-18); GLOMERULAR FILTRATION RATE 52 ML/MIN (>89)
[2017-01-08 00:46] LABS: ALKALINE PHOSPHATASE 147 U/L (45-117); ALT (GPT) 37 U/L (10-53); ANION GAP 9 MEQ/L (5-15); AST (GOT) 47 U/L (15-37); BICARBONATE 23.8 MEQ/L (21.0-32.0); CHLORIDE 105 MEQ/L (98-107); CREATINE KINASE 132 U/L (26-192); FREE T4 1.48 NG/DL (0.76-1.46); POTASSIUM 4.9 MEQ/L (3.5-5.1); SODIUM (NA) 138 MEQ/L (136-145); TOTAL BILIRUBIN ADULT 0.6 MG/DL (0.2-1.0)
[2017-01-08] MEDS: RESP: ALBUTEROL 2.5 MG/IPRATROPIUM 0.5 MG NEB (SCH) NEB ×4 (04:58→21:05)
[2017-01-08 05:17] LABS: AUTOMATED NEUTROPHIL # 7.1 TH/MM3 (1.8-7.7); BASOPHIL % 0.5 % (0.0-2.0); HEMATOCRIT 33.5 % (35.0-46.0); HEMO FLAGS DIFF FINAL; LYMPH % 12.6 % (9.0-44.0); LYMPHOCYTE # 1.1 TH/MM3 (1.0-4.8); MEAN CELL VOLUME 78.7 FL (80.0-100.0); NEUT % 82.9 % (16.0-70.0); PLATELET COUNT 302 TH/MM3 (150-450); RED BLOOD COUNT 4.25 MIL/MM3 (4.00-5.30); RED CELL DISTRIBUTION WIDTH 17.9 % (11.6-17.2); WHITE BLOOD COUNT 8.6 TH/MM3 (4.0-11.0)
[2017-01-08 05:20] LABS: INTERNATIONAL NORMALIZED RATIO 1.1 RATIO
[2017-01-08] MEDS: HEPARIN SODIUM - SQ 10,000 UNITS/ML VIAL SQ SCH ×3 (05:23→20:46)
[2017-01-08] MEDS: methylPREDNISolone SOD SUCC 125 MG/2 ML VIAL IVP SCH ×3 (05:23→17:19)
[2017-01-08] MEDS: INSULIN ASPART SUPPLEMENTAL SCALE SQ SCH ×3 (05:28→20:39)
[2017-01-08 05:38] LABS: CREATINE KINASE 107 U/L (26-192)
[2017-01-08] MEDS: oxyCODONE/ACETAMINOPHEN 10 MG/325 MG TAB PO PRN ×3 (05:40→20:44)
[2017-01-08] MEDS: PREGABALIN 75 MG CAP PO SCH ×3 (08:36→16:59)
[2017-01-08] MEDS: DOCUSATE SODIUM 50 MG/SENNA 8.6 MG TAB PO SCH ×2 (08:36→20:44)
[2017-01-08] MEDS: guaiFENesin E.R. 600 MG TAB PO SCH ×2 (08:36→20:44)
[2017-01-08] MEDS: FUROSEMIDE 40 MG/4 ML VIAL IV PUSH SCH ×2 (08:37→16:59)
[2017-01-08] MEDS: SODIUM CHLORIDE 0.9% FLUSH 10 ML FLUSH IV FLUSH SCH ×2 (08:39→20:44)
[2017-01-08] MEDS ORDERED: POTASSIUM CHLORIDE 20 MEQ CONTROLLED RELEASE TAB PO SCH (09:00)
--- NOTE | 2017-01-08 10:23 | HHI.PR ---
Subjective Remarks Follow up for severe COPD exacerbation. Patient is sitting at the side of the bed. She has difficulty talking in full sentences. No fever, chills. Objective Vitals Vital Signs Date Time Temp Pulse Resp B/P Pulse Ox O2 Delivery O2 Flow Rate FiO2 01/08/17 09:14 92 Nasal Cannula 3.00 01/08/17 08:00 95.7 112 20 106/58 95 01/08/17 04:00 97.7 116 20 123/67 95 01/08/17 00:00 97.6 115 18 107/62 95 01/07/17 22:00 109 01/07/17 21:59 97 Nasal Cannula 3.00 01/07/17 20:00 97.2 117 20 112/81 97 01/07/17 18:44 114 16 113/61 99 Nasal Cannula 3 01/07/17 17:40 98 Nasal Cannula 3.00 01/07/17 16:23 121 16 127/60 97 Nasal Cannula 3 01/07/17 13:19 125 16 106/64 95 Nasal Cannula 2 01/07/17 12:35 126 16 121/60 100 Nasal Cannula 2 01/07/17 11:26 129 16 121/60 98 Nasal Cannula 2 01/07/17 11:23 98.4 130 12 121/60 98 I/O 01/07/17 01/07/17 01/07/17 01/08/17 01/08/17 01/08/17 07:00 15:00 23:00 07:00 15:00 23:00 Intake Total 240 ml 480 ml Balance 240 ml 480 ml Intake Oral 240 ml 480 ml IV Total 0 ml 0 ml # Voids 2 2 # Bowel Movements 0 0 Result Diagram: 01/08/17 0357 01/07/17 2258 Imaging Last Impressions Chest X-Ray 01/07/17 1133 Signed Impressions: Service Date/Time: Saturday, January 07, 2017 13:13 - CONCLUSION: No acute cardiopulmonary abnormality is identified. Shaggy Bryson MD Pelvis X-Ray 01/07/17 0000 Signed Impressions: Service Date/Time: Saturday, January 07, 2017 13:14 - CONCLUSION: No acute abnormality is identified. Shaggy Bryson MD Lower Extremity Ultrasound 01/07/17 0000 Signed Impressions: Service Date/Time: Saturday, January 07, 2017 11:55 - CONCLUSION: No DVT is identified within either lower extremity. Shaggy Bryson MD CT Angiography 01/07/17 0000 Signed Impressions: Service Date/Time: Saturday, January 07, 2017 13:45 - CONCLUSION: 1. Moderate COPD changes. 2. No large or central pulmonary embolus identified. 3. Abnormal soft tissue mass involving the left adrenal gland and retroperitoneum concerning for malignancy. CT imaging through the abdomen is warranted for more definitive assessment. Estevan Siomn MD Abdomen/Pelvis CT 01/07/17 0000 Signed Impressions: Service Date/Time: Saturday, January 07, 2017 15:18 - CONCLUSION: 1. There is an abnormal mass abutting and potentially arising from the left adrenal gland measuring up to 3.3 cm. This mass is new compared to the February 2016 exam. 2. There is new lymphadenopathy in the hepatoduodenal and gastrohepatic ligaments. These findings could represent metastatic disease or lymphoma. The left adrenal region mass could also represent a primary adrenal gland tumor. Suggest correlation with the clinical history. 3. Liver features diagnostic of cirrhosis. No focal liver lesion is identified. Shaggy Bryson MD Objective Remarks GENERAL: Alert, NAD - difficult for her to speak in full sentences. SKIN: Warm and dry. HEAD: Normocephalic. EYES: No scleral icterus. No injection or drainage. NECK: Supple, trachea midline. No JVD or lymphadenopathy. CARDIOVASCULAR: Regular rate and rhythm without murmurs, gallops, or rubs. RESPIRATORY: Poor air entry, no appreciable wheezing. GASTROINTESTINAL: Abdomen soft, non-tender, nondistended. MUSCULOSKELETAL: No cyanosis. 1+ edema bilaterally. BACK: Nontender without obvious deformity. No CVA tenderness. Procedures None. A/P Problem List: (1) Benign hypertension ICD Code: I10 Status: Chronic (2) COPD exacerbation ICD Code: J44.1 Status: Acute (3) Diabetes mellitus, type 2 ICD Code: E11.9 Status: Chronic (4) Tachycardia ICD Code: R00.0 Status: Acute (5) COPD (chronic obstructive pulmonary disease) ICD Code: J44.9 Status: Acute (6) Bilateral leg edema ICD Code: R60.0 Status: Acute (7) Dyspnea on exertion ICD Code: R06.09 Status: Acute (8) Hyperglycemia due to type 2 diabetes mellitus ICD Code: E11.65 Status: Acute Assessment and Plan 62-year-old female with a past medical history significant for hypertension, diabetes mellitus, COPD, rheumatoid arthritis, dyslipidemia and hepatitis C who presents to [facility] ED with complaints of progressive shortness of breath and bilateral leg swelling. COPD exacerbation CTA shows moderate COPD changes and no evidence of PE Scheduled DuoNeb IV methylprednisolone 60 mg every 6 COPD educator Resume patient's home bronchodilators Obtain sputum culture Incentive spirometry Supplemental oxygen to keep patient's O2 sats above 90%. Start Levaquin PO. Consult Pulmonology (Dr. Vincent). Tachycardia EKG personally reviewed showing sinus tachycardia Likely due to COPD exacerbation. CT PE did not show any PE. Bilateral lower extremity swelling Bilateral Dopplers negative for DVT Will discontinue IV lasix. BNP was 10. Continue patient's home dose of potassium chloride 20 mEq daily Monitor electrolytes Monitor I's and O's Insulin-dependent diabetes Hyperglycemia - glucose this afternoon about 490. Continue Levemir 35 units BID. Change sliding scale insulin to Aspart medium scale One time 15 units of Aspart, check blood glucose Q1hr X 2, discussed with RN Start pre-meal insulin Aspart 8 units TIDAC. Generalized deconditioning Patient uses a scooter for mobilization PT/OT Incidental finding of abnormal soft tissue mass left adrenal gland concerning for malignancy CT abd/pelvis was obtained following incidental finding of abnormal soft tissue mass of the left adrenal gland as seen on the CTA personally interpreted revealing an abnormal mass abutting and potentially arising from the left adrenal gland measuring up to 3.3 cm new compared to February 2016 exam, new lymphadenopathy in the hepatoduodenal and gastrohepatic ligaments possibly representing metastatic disease or lymphoma. Left adrenal region mass possibly representing primary adrenal gland tumor. Consult interventional radiology for biopsy Consult Oncology. Appreciate Dr. Mckeon's input. Agree with Dr. Mckeon regarding patient's respiratory status and overall deconditioning. Patient's ECOG score is probably at least 3. Hepatitis C CT of the abdomen/pelvis shows liver features diagnosis of cirrhosis DVT prophylaxis Heparin subcutaneous Discussed with Dr. Vincent (Pulm). Sunshine Madrid DO Jan 08, 2017 10:23
[2017-01-08] MEDS ORDERED: LEVOFLOXACIN 750 MG TAB PO SCH (10:30)
[2017-01-08] MEDS: INSULIN DETEMIR 100 UNITS/ML VIAL SQ SCH ×2 (11:07→20:38)
[2017-01-08] MEDS: BUDESONIDE-FORMOTEROL 160/4.5 MCG INHALER INH SCH ×2 (13:30→21:00)
[2017-01-08 15:48] LABS: HEMOGLOBIN A1a 1.1 %; HEMOGLOBIN A1b 0.8 %; HEMOGLOBIN Ao 53.3 %; HEMOGLOBIN F 1.2 %; HEMOGLOBIN LA1C 2.2 %; HEMOGLOBIN P3 3.1 %
[2017-01-08] MEDS ORDERED: GLUCAGON 1 MG/ML VIAL OTHER PRN (16:45)
[2017-01-08] MEDS ORDERED: DEXTROSE 50% IN WATER 50 ML VIAL(D50) IV PRN (16:45)
[2017-01-08] MEDS ORDERED: INSULIN ASPART 1,000 UNITS/10 ML VIAL SQ ONE (18:00)
[2017-01-08] MEDS: INSULIN ASPART 1,000 UNITS/10 ML VIAL SQ SCH (18:45)
--- NOTE | 2017-01-08 19:59 | MB ---
cc: KESHAWN PATEL,FLORA DATE OF CONSULTATION: 01/08/[address] Flora Madrid REASON FOR CONSULTATION COPD exacerbation. HISTORY OF PRESENT ILLNESS: Ms. Negrete is a 62-year-old female with longstanding history of bronchial asthma and COPD, history of hypertension, diabetes mellitus, and history of Hepatitis C. The patient came to the hospital with worsening of shortness of breath going on for the last 2-3 weeks. She has increased swelling in her leg, has cough, small amount of sputum production, no fever or chills. She has wheezing, no chest pain. The patient was evaluated in the hospital. She had a workup done. CBC showed WBC count 8.6, hemoglobin 11.0, hematocrit 33.5, MCV 78, platelet count 302. Sodium 130, potassium 4.9, chloride 105, CO2 23, BUN 15, creatinine 1.26. Chest x-ray shows no acute cardiopulmonary process. CTA of the chest shows moderate COPD changes, no pulmonary embolism. She has soft tissue mass involving the left adrenal gland and retroperitoneum, concerning for malignancy. PAST MEDICAL HISTORY: Significant for 1. History of COPD. 2. Diabetes mellitus. 3. Hepatitis C 4. Hypertension 5. Gout. 6. Rheumatoid arthritis MEDICATIONS: 1. Levaquin 250 milligrams a day. 2. Insulin. 3. Potassium 20 milliequivalents. 4. Albuterol and atrovent nebulizer treatment. 5. Heparin 5000 q8 hours. 6. Symbicort 160/4.5 two puffs twice a day. 7. Mucinex 600 milligrams twice a day. 8. Detemir insulin 35 units twice a day. 9. Solu-Medrol 60 milligrams q6 hours. 10. Lyrica 150 milligrams 3x a day. 11. Lasix 40 milligrams twice a day. ALLERGIES NO KNOWN DRUG ALLERGIES. SOCIAL HISTORY History of smoking in the past. FAMILY HISTORY: Noncontributory. REVIEW OF SYSTEMS: She is up and around and active, uses oxygen all the time. No recent fever, no chest pain. PHYSICAL EXAMINATION An elderly female with mild shortness of breath. VITAL SIGNS: Blood pressure 107/67, heart rate 114, respiration 14, temperature 96.4. HEENT: Pupils are equal and reactive to light. Extraocular muscles normal. NECK: JVP not raised. CHEST: Expiratory rhonchi. CV: Normal. ABDOMEN: Benign. EXTREMITIES: 1+ pedal edema. MANAGER OF INTERNAL: She is alert and oriented x3. No focal deficit. IMPRESSION 1. COPD exacerbation. 2. Diabetes mellitus. 3. Hypertension. 4. Soft tissue mass involving the left adrenal gland and retroperitoneum concerning for malignancy. 5. History of Hepatitis C. PLAN The patient is scheduled for CT-guided adrenal gland. Will give her IV Solu-Medrol, aerosol treatment, continue antibiotics. Supplemental oxygen, monitor blood sugar. Further treatment will depend on the course in the hospital. Thank you, Dr. Flora Madrid for this consult. Keshawn Patel MD ADA/HOMER /6:27 PM /7:21 PM
[2017-01-08] MEDS ORDERED: INSULIN HUMAN REGULAR 1,000 UNITS/10 ML VIAL IV PUSH ONE ×2 (20:00→23:45)
[2017-01-08] MEDS ORDERED: SODIUM CHLORID 0.9% 500 ML INJ 500 ML IV ONE ×2 (22:15→23:45)
[2017-01-08] MEDS ORDERED: RESP: IPRATROPIUM 0.5 MG/2.5 ML NEB NEB PRN (22:30)
--- NOTE | 2017-01-08 22:53 | MB ---
cc: JOAQUIN CROCKETT DATE OF CONSULTATION: 01/08/2017 REASON FOR CONSULTATION: Patient with advanced COPD with a left adrenal mass. PATIENT PROFILE: The patient is a 62 year-old black female. She is single. She never . She has no children. She lives alone in an apartment with three rooms. She moved to [place] at the age of 12. She is on disability due to end-stage chronic obstructive pulmonary disease. 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 She stopped smoking one month ago. At that time she was smoking a pack of cigarettes per week but prior to this she had smoked at least two packs of cigarettes a day for many years. There is no history of excessive alcohol intake. HISTORY OF PRESENT ILLNESS The patient is a 62 year-old female. She has end-stage chronic obstructive pulmonary disease. She is on continuous O2 at home at 2-3 liters per minute. She is short of breath with minimal exertion and has to pause when she walks from one room to another. She came to the hospital because of worsening breathing. She had a CT angiogram of the chest on 01/07/2017. There is no evidence of pulmonary emboli. There were changes of COPD in both lungs There were emphysematous blebs in the left upper lobe and right lower lobe. There was no hilar or mediastinal adenopathy. Imaging of the abdomen demonstrated abnormal soft tissue involving the retroperitoneal node chain and the left adrenal region. There is a soft tissue mass in the area of the left adrenal gland. CT scan of the abdomen was recommended because of the findings on the CT. On the same day, 01/07/2017, the patient had a CT of the abdomen with IV contrast. There was a mildly nodular liver which was stable from a prior study characteristic of cirrhosis. The spleen was normal. Pancreas was normal. There was a mass abutting and potentially arising from the left adrenal gland measuring 3.3 x 3.1 cm. This lesion was new from a previous ct scan. There was abnormal soft tissue in the hepatoduodenal ligament probably representing enlarged aortocaval lymph nodes and lymphadenopathy which mildly narrows the portal vein. There are also enlarged lymph nodes in the gastrohepatic ligament. This was also felt to be new. In addition to the patient having severe COPD, she also has rheumatoid arthritis, cirrhosis, and she has a history of Hepatitis C. She indicates she has not required any treatment. There has been no fever or night sweats. She has had no symptoms to suggest a pheochromocytoma with a racing heart or episodes of hypertension. PAST SURGICAL HISTORY 06/30/2008 septic right knee drained. PAST MEDICAL HISTORY: 1. COPD. 2. Diabetes 3. Rheumatoid arthritis. 4. Hypertension. 5. Cirrhosis. 6. Hepatitis C. 7. Gout. ALLERGIES No known allergies. MEDICATIONS Prior to admission: 1. Albuterol 2. Lasix. 3. Hydrocodone/acetaminophen 4. Insulin. 5. Prednisone. 6. Lyrica. 7. Janumet. FAMILY HISTORY Mother and father both . Mother of COPD cause of of father unknown. The patient has a sister and three brothers living. A brother who of cancer when he was in [place] [facility]. REVIEW OF SYSTEMS Vision is blurred, hearing is slightly decreased. No chest pain, palpitations. Respiratory: Short of breath with minimal exertion and at rest. GI: No melena, hematochezia, hematemesis. She never had a colonoscopy. : No dysuria or frequency. Musculoskeletal: Significant joint pain, pain in the legs. Neurologic: Slight left leg weakness after a recent fall. PHYSICAL EXAMINATION: Reveals a chronically ill-appearing female. She is on oxygen. She is short of breath at rest and it is difficult for her to complete a sentence. O2 sat is 96% on three liters. VITAL SIGNS: Blood pressure 113/60, respiratory rate 20, pulse 110, afebrile. Head is normocephalic. Sclera and conjunctivae are normal. Oropharynx, there are no mucosal lesions. Several teeth are missing. There is no cervical, supraclavicular, axillary or inguinal adenopathy. Breasts: Without masses. Heart: Regular rhythm, rate 100. Lungs: Diffuse expiratory wheezes. Abdomen: Obese. No hepatosplenomegaly. Extremities: 2+ edema right leg, +1 edema left leg. Musculoskeletal: Diffuse abnormalities of joints consistent with rheumatoid arthritis and chronic swelling of the left knee. Neurologic: Generalized but not focal weakness. Skin: Intact. LABORATORY STUDIES: Hemoglobin 11, white count 8600, platelets 302,000. MCV is 78. Lytes, BUN, creatinine notable for glucose of 349, creatinine is 1.26, alk phos is 147, ALT 37, AST 47. IMAGING STUDIES: Include lower extremity ultrasound, no DVT in either lower extremity. ASSESSMENT: The patient is a 62 year-old female. She has end stage COPD. She is oxygen dependent and short of breath at rest. She continues to smoke. She has a mass either emanating from the left adrenal or adjacent to the left adrenal gland and a small amount of adenopathy. RECOMMENDATIONS CT-guided biopsy of the left adrenal gland has been ordered. Once the results of the biopsy are back, I will be able to make recommendations. Unfortunately she is a poor candidate for any type of treatment. She is only able to walk a few feet before becoming severely short of breath. She is oxygen dependent and continues to smoke. It is not likely that she is going to be a candidate for any type of treatment unless the treatment carries virtually no toxicity. MD JAVI Conrad/HOMER /8:53 PM /10:19 PM CASIE
[2017-01-09] VITALS (10 sets, daily range): BP systolic 114–140; BP diastolic 64–74; PULSE 111–125; RESP 20–21; TEMP 96–98.6; O2SAT 93–98
[2017-01-09] MEDS: methylPREDNISolone SOD SUCC 125 MG/2 ML VIAL IVP SCH ×4 (00:04→16:44)
[2017-01-09] MEDS: RESP: IPRATROPIUM 0.5 MG/2.5 ML NEB NEB SCH ×4 (03:15→20:14)
[2017-01-09] MEDS ORDERED: INSULIN HUMAN REGULAR 1,000 UNITS/10 ML VIAL SQ ONE (04:45)
[2017-01-09] MEDS: HEPARIN SODIUM - SQ 10,000 UNITS/ML VIAL SQ SCH ×3 (04:45→22:29)
[2017-01-09] MEDS: INSULIN ASPART SUPPLEMENTAL SCALE SQ SCH ×4 (06:21→22:31)
[2017-01-09] MEDS ORDERED: LIDOCAINE HCL 1% 30 ML VIAL ONE (08:37)
[2017-01-09] MEDS ORDERED: LIDOCAINE HCL 1% 20 ML VIAL ONE (08:38)
[2017-01-09] MEDS: SODIUM CHLORIDE 0.9% FLUSH 10 ML FLUSH IV FLUSH SCH ×2 (09:00→22:28)
[2017-01-09] MEDS: guaiFENesin E.R. 600 MG TAB PO SCH ×2 (09:50→22:29)
[2017-01-09] MEDS: LEVOFLOXACIN 250 MG TAB PO SCH (09:50)
[2017-01-09] MEDS: DOCUSATE SODIUM 50 MG/SENNA 8.6 MG TAB PO SCH ×2 (09:51→22:29)
[2017-01-09] MEDS: PREGABALIN 75 MG CAP PO SCH ×3 (09:51→16:44)
[2017-01-09] MEDS: BUDESONIDE-FORMOTEROL 160/4.5 MCG INHALER INH SCH ×2 (09:51→22:28)
[2017-01-09] MEDS: INSULIN DETEMIR 100 UNITS/ML VIAL SQ SCH ×2 (09:54→22:31)
[2017-01-09] MEDS: INSULIN ASPART 1,000 UNITS/10 ML VIAL SQ SCH ×3 (09:55→16:50)
[2017-01-09] MEDS: oxyCODONE/ACETAMINOPHEN 10 MG/325 MG TAB PO PRN ×2 (10:19→22:29)
--- NOTE | 2017-01-09 10:46 | RADRPT ---
EXAM DATE/TIME: 01/09/2017 09:02 [facility] COMPARISON: No previous studies available for comparison. INDICATIONS : Left adrenal mass. ORAL CONTRAST: No oral contrast ingested. RADIATION DOSE: 15.39 CTDIvol (mGy) MEDICAL HISTORY : Hepatitis C. Rheumatoid arthritis. Chronic obstructive pulmonary disease.Diabetes. SURGICAL HISTORY : None. ENCOUNTER: Initial ACUITY: 1 day PAIN SCALE: 0/10 LOCATION: Bilateral upper quadrant TECHNIQUE: Volumetric scanning of the abdomen was performed. Using automated exposure control and adjustment of the mA and/or kV according to patient size, radiation dose was kept as low as reasonably achievable to obtain optimal diagnostic quality images. DICOM format image data is available electronically for review and comparison. FINDINGS: Patient was placed in several prone positions trying to obtain the percutaneous access to the retrope ritoneal mass without transgressing the vascular structures. There is no simple percutaneous access to allow us to obtain large cores in attempt to diagnose what may be ] lymphoma. Surgical consultation may be of benefit to see if this is would be amenable to laparoscopic diagnosi s. CONCLUSION: No percutaneous access for safe biopsy. Mass is probably adenopathy and not adrenal.. Mark Simon MD FACR on January 09, 2017 at 10:39 Board Certified Radiologist. This report was verified electronically.
--- NOTE | 2017-01-09 10:48 | HHI.PR ---
Subjective Remarks Follow up for severe COPD exacerbation, left adrenal mass. Patient has significant respiratory problems. She is on oxygen and cannot talk in full sentences. Working with PT. No fever, chills. Objective Vitals Vital Signs Date Time Temp Pulse Resp B/P Pulse Ox O2 Delivery O2 Flow Rate FiO2 01/09/17 10:20 93 Nasal Cannula 3.00 01/09/17 08:00 98.6 111 20 119/72 97 01/09/17 05:30 97.1 118 20 137/64 94 01/09/17 05:03 97.1 118 21 137/64 94 01/09/17 00:05 125 114/66 01/08/17 23:54 98.4 119 21 114/66 94 01/08/17 22:00 118 01/08/17 21:44 20 01/08/17 20:14 97.0 115 20 113/61 96 01/08/17 16:00 96.4 114 14 107/67 99 01/08/17 15:30 96 Nasal Cannula 3.00 01/08/17 15:15 115 01/08/17 12:00 96.6 111 13 110/56 97 I/O 01/08/17 01/08/17 01/08/17 01/09/17 01/09/17 01/09/17 07:00 15:00 23:00 07:00 15:00 23:00 Intake Total 480 ml 960 ml 480 ml 1000 ml Output Total 850 ml Balance 480 ml 110 ml 480 ml 1000 ml Intake Oral 480 ml 960 ml 480 ml IV Total 0 ml 0 ml 1000 ml Output Urine Total 850 ml # Voids 2 2 2 # Bowel Movements 0 Result Diagram: 01/08/17 0357 01/07/17 2258 Imaging Last Impressions Chest X-Ray 01/07/17 1133 Signed Impressions: Service Date/Time: Saturday, January 07, 2017 13:13 - CONCLUSION: No acute cardiopulmonary abnormality is identified. Shaggy Bryson MD Pelvis X-Ray 01/07/17 0000 Signed Impressions: Service Date/Time: Saturday, January 07, 2017 13:14 - CONCLUSION: No acute abnormality is identified. Shagyg Bryson MD Lower Extremity Ultrasound 01/07/17 0000 Signed Impressions: Service Date/Time: Saturday, January 07, 2017 11:55 - CONCLUSION: No DVT is identified within either lower extremity. Shaggy Bryson MD CT Angiography 01/07/17 0000 Signed Impressions: Service Date/Time: Saturday, January 07, 2017 13:45 - CONCLUSION: 1. Moderate COPD changes. 2. No large or central pulmonary embolus identified. 3. Abnormal soft tissue mass involving the left adrenal gland and retroperitoneum concerning for malignancy. CT imaging through the abdomen is warranted for more definitive assessment. Estevan Simon MD Abdomen/Pelvis CT 01/07/17 0000 Signed Impressions: Service Date/Time: Saturday, January 07, 2017 15:18 - CONCLUSION: 1. There is an abnormal mass abutting and potentially arising from the left adrenal gland measuring up to 3.3 cm. This mass is new compared to the February 2016 exam. 2. There is new lymphadenopathy in the hepatoduodenal and gastrohepatic ligaments. These findings could represent metastatic disease or lymphoma. The left adrenal region mass could also represent a primary adrenal gland tumor. Suggest correlation with the clinical history. 3. Liver features diagnostic of cirrhosis. No focal liver lesion is identified. Shaggy Bryson MD Objective Remarks GENERAL: Alert, NAD - difficult for her to speak in full sentences. SKIN: Warm and dry. HEAD: Normocephalic. EYES: No scleral icterus. No injection or drainage. NECK: Supple, trachea midline. No JVD or lymphadenopathy. CARDIOVASCULAR: Regular rate and rhythm without murmurs, gallops, or rubs. RESPIRATORY: Poor air entry, no appreciable wheezing. GASTROINTESTINAL: Abdomen soft, non-tender, nondistended. MUSCULOSKELETAL: No cyanosis. 1+ edema bilaterally. BACK: Nontender without obvious deformity. No CVA tenderness. Procedures None. A/P Problem List: (1) Benign hypertension ICD Code: I10 Status: Chronic (2) COPD exacerbation ICD Code: J44.1 Status: Acute (3) Diabetes mellitus, type 2 ICD Code: E11.9 Status: Chronic (4) Tachycardia ICD Code: R00.0 Status: Acute (5) COPD (chronic obstructive pulmonary disease) ICD Code: J44.9 Status: Acute (6) Bilateral leg edema ICD Code: R60.0 Status: Acute (7) Dyspnea on exertion ICD Code: R06.09 Status: Acute (8) Hyperglycemia due to type 2 diabetes mellitus ICD Code: E11.65 Status: Acute Assessment and Plan 62-year-old female with a past medical history significant for hypertension, diabetes mellitus, COPD, rheumatoid arthritis, dyslipidemia and hepatitis C who presents to [facility] ED with complaints of progressive shortness of breath and bilateral leg swelling. COPD exacerbation CTA shows moderate COPD changes and no evidence of PE Scheduled DuoNeb IV methylprednisolone 60 mg every 6 COPD educator Resume patient's home bronchodilators Obtain sputum culture Incentive spirometry Supplemental oxygen to keep patient's O2 sats above 90%. Continue Levaquin PO. Consulted Pulmonology (Dr. Vincent). Tachycardia EKG personally reviewed showing sinus tachycardia Likely due to COPD exacerbation. CT PE did not show any PE. Bilateral lower extremity swelling Bilateral Dopplers negative for DVT Will discontinue IV lasix. BNP was 10. Continue patient's home dose of potassium chloride 20 mEq daily Monitor electrolytes Monitor I's and O's Insulin-dependent diabetes Hyperglycemia - glucose this afternoon about 490. Continue Levemir 35 units BID. Change sliding scale insulin to Aspart medium scale One time 15 units of Aspart, check blood glucose Q1hr X 2, discussed with RN Start pre-meal insulin Aspart 8 units TIDAC. Generalized deconditioning Patient uses a scooter for mobilization PT/OT Incidental finding of abnormal soft tissue mass left adrenal gland concerning for malignancy CT abd/pelvis was obtained following incidental finding of abnormal soft tissue mass of the left adrenal gland as seen on the CTA personally interpreted revealing an abnormal mass abutting and potentially arising from the left adrenal gland measuring up to 3.3 cm new compared to February 2016 exam, new lymphadenopathy in the hepatoduodenal and gastrohepatic ligaments possibly representing metastatic disease or lymphoma. Left adrenal region mass possibly representing primary adrenal gland tumor. Consult interventional radiology for biopsy Consult Oncology. Appreciate Dr. Mckeon's input. Agree with Dr. Mckeon regarding patient's respiratory status and overall deconditioning. Patient's ECOG score is probably at least 3. I discussed with Radiologist (Dr. Terri Simon) and Dr. Mckeon at length today. We believe surgical bx would be more harmful for this patient at this point. Should her respiratory status improves in future, surgical biopsy could be re- considered. We will ask Palliative care team to come on board. Hepatitis C CT of the abdomen/pelvis shows liver features diagnosis of cirrhosis DVT prophylaxis Heparin subcutaneous Sunshine Madrid DO Jan 09, 2017 10:48 am
--- NOTE | 2017-01-09 11:09 | PD.ONC.PN ---
Subjective Subjective Remarks Afebrile overnight Patient reports being tired She states her breathing treatments wear off before the next one is due Objective Data Date Time Temp Pulse Resp B/P Pulse Ox O2 Delivery O2 Flow Rate FiO2 01/09/17 10:20 93 Nasal Cannula 3.00 01/09/17 08:00 98.6 111 20 119/72 97 01/09/17 05:30 97.1 118 20 137/64 94 01/09/17 05:03 97.1 118 21 137/64 94 01/09/17 00:05 125 114/66 01/08/17 23:54 98.4 119 21 114/66 94 01/08/17 22:00 118 01/08/17 21:44 20 01/08/17 20:14 97.0 115 20 113/61 96 01/08/17 16:00 96.4 114 14 107/67 99 01/08/17 15:30 96 Nasal Cannula 3.00 01/08/17 15:15 115 01/08/17 12:00 96.6 111 13 110/56 97 01/09/17 01/09/17 01/09/17 07:00 15:00 23:00 Intake Total 1000 ml Balance 1000 ml Result Diagram: 01/08/17 0357 01/07/17 2258 Laboratory Results Laboratory Tests Test 01/09/17 06:09 Ferritin 410 NG/ML Carcinoembryonic Antigen 2.2 NG/ML Imaging Studies Last [address] 01/09/17 0000 Signed Impressions: Service Date/Time: Monday, January 09, 2017 09:02 - CONCLUSION: No percutaneous access for safe biopsy. Mass is probably adenopathy and not adrenal.. Mark Simon MD FACR Administered Medications Medications (Trade) Dose Ordered Sig/Dillan Route PRN Reason Start Time Stop Time Status Last Admin Dose Admin Sodium Chloride (NS Flush) 2 ml BID IV FLUSH 01/07/17 21:00 01/09/17 09:00 Oxycodone/ Acetaminophen (Percocet 10-325 Mg) 1 tab Q6H PRN PO PAIN SCALE 6 TO 10 01/07/17 17:00 01/09/17 10:19 Senna/Docusate Sodium (Brianna-Colace) 1 tab BID PO 01/07/17 21:00 01/09/17 09:51 Budesonide/ Formoterol Fumarate (Symbicort 160-4.5 Inh) 2 puff Q12HR INH 01/07/17 21:00 01/09/17 09:51 Methylprednisolone Sodium Succinate (SoluMEDROL INJ) 60 mg Q6H IVP 01/07/17 18:00 01/09/17 04:48 Guaifenesin (Mucinex Er) 600 mg BID PO 01/07/17 21:00 01/09/17 09:50 Heparin Sodium (Porcine) (Heparin Inj) 5,000 units Q8HR SQ 01/07/17 22:00 01/08/17 20:46 Insulin Detemir (Levemir Inj) 35 units BID SQ 01/07/17 21:00 01/09/17 09:54 Pregabalin (Lyrica) 150 mg TID PO 01/07/17 18:00 01/09/17 09:51 Levofloxacin (Levaquin) 250 mg Q24H PO 01/09/17 11:00 01/09/17 09:50 Insulin Aspart (NovoLOG INJ) 8 units TIDAC SQ 01/08/17 18:00 01/09/17 09:55 Objective Remarks GENERAL: This is an obese older female sitting up on bedside commode. She has difficulty finishing a sentence without catching her breath. SKIN: Warm and dry. HEAD: Normocephalic. EYES: No injection or drainage. NECK: Supple, trachea midline. CARDIOVASCULAR: Regular rate and rhythm without murmurs. Tachycardia RESPIRATORY: Occasional wheeze. Breath sounds largely diminished GASTROINTESTINAL: Abdomen soft, non-tender, nondistended. EXTREMITIES: No cyanosis MUSCULOSKELETAL: Adequate muscle tone. NEUROLOGICAL: No obvious focal deficit. Awake, alert, and oriented x3. Assessment/Plan Assessment 62 y/o female admitted to the hospital with COPD exacerbation, found to have 3.3 cm mass on left adrenal gland. Plan 1. Patient is entirely unsafe for a surgical attempted biopsy at this point with her lung function. 2. If her lung function significantly improves, she may be candidate for surgically attempted biopsy at that point. 3. If her lung function states the same, she will likely from respiratory issues before any cancer causes problems. 3. We will consult palliative care to ensure the patient has adequate assistance to help plan for future needs. Attending Statement The exam, history, and the medical decision-making described in the above note were completed with the assistance of the mid-level provider. I reviewed and agree with the findings presented. I attest that I had a [id number] encounter with the patient on the same day, and personally performed and documented my assessment and findings in the medical record. patient very ill and in no position to undergo a surgical procedure to establish dx by doing bx of adrenal mass. She can not finish a sentence without try to catch her breath. Will hold on surgical bx and only consider if she improves significantly which is not likely. She will need a great deal of help and hope that palliative care can intervene. Her exam is unchanged and there is limited movement of air. Peace Jefferson Jan 09, 2017 11:09 Oj Mckeon MD Jan 09, 2017 18:06
--- NOTE | 2017-01-09 12:44 | RADRPT ---
EXAM DATE/TIME: 01/09/2017 09:18 [facility] COMPARISON: No previous studies available for comparison. INDICATIONS : Left adrenal mass. CONSULTATION: As described on the CT scan the abdomen percutaneous access is tenuous at best. If this is indeed ly mphoma large cores would be of benefit. Surgical consultation may be of benefit to see if there is i ndeed the surgical option. Thank you for this consultation. Mark Simon MD FACR on January 09, 2017 at 12:41 Board Certified Radiologist. This report was verified electronically.
--- NOTE | 2017-01-09 17:36 | PD.CONS ---
Consult Service Palliative Care Consult Requested By Dr. [place] Primary Care Physician Shaggy Landry MD Reason for Consultation a. To assist with evaluation and management of symptoms including:dyspnea b. To assist medical decision maker(s) with: better understanding of current medical conditions; weighing benefits/burdens of medical treatment options; making medical treatment decisions. HPI History of Present Illness Patient is a 62 year old with a past medical history significant for end- stage COPD, diabetes, rheumatoid arthritis, hypertension, cirrhosis, hepatitis C , and gout. Patient was a hospice patient, until recently, she had been revoked hospice. Patient came into the hospital on 01/07/2017 for worsening breathing. Patient had workup, which includes a CTA of the chest to rule out PE CT of the chest shows changes associated with COPD, with labs in the left upper lobe and right lower lobe. Imaging demonstrated abnormal soft tissue involving the retroperitoneal node chain and left adrenal region. CT of the abdomen on 01/07/2017 showed there is a abnormal mass abutting the left adrenal gland measuring up to 3.13 cm. This mass is new compared to February 2016 exam. There is new lymphadenopathy in the hepatoduodenal and gastrohepatic ligaments. These findings could represent metastatic disease or lymphoma. The left adrenal region mass could represent a primary adrenal gland tumor. Patient was admitted for COPD exacerbation. Pulmonary was consulted and followed. Oncology was also consulted and followed. Interventional radiology was consulted for possible biopsy. Percutaneous access is tenuous at best, and if indeed his lymphoma a large core biopsy would be that her period interventional radiology recommended surgical consultation for surgical biopsy. Unfortunately given patient's respiratory illness, surgical biopsy is not an option at this time. Oncology continued to followed, and recommends palliative care to review goals of care. T Spoke with patient, who endorses that she is dyspneic, and this has been chronic. She endorsed that she wanted this hospitalization had been in hospice , was revoked. She previously was on methadone, but says she does not like it. Currently she feels her pain medication, and current treatment is controlling her her pain pretty well, and her shortness of breath is relatively better than prior to hospitalization while she was in hospice. Had a long talk with patient regarding her condition, and current clinical findings. I explained the process of COPD, the etiology, and pathology. I told her that unfortunately there is no cure, and that she is likely given the decline and from this respiratory disease. She relates that she understand that, and that her mother from COPD 5 years ago. Her mother was not on hospice. She related however that her mother was a DNR and in [place]. On discussion of CODE STATUS, I told her that the ventilator, CPR, and resuscitation, would not reverse her COPD. I told her I worry that she may get all the trauma and none of the benefit that goes along with it. I discussed with patient about adrenal mass, and how even if they're able to perform biopsy, given her respiratory/functional status she would not tolerate treatment. She related that, what ever keeps me alive for another day, I would be amenable to do. Spoke in more detail with her, and asked her what her definition of feeling alive, and living is? Is someone on a ventilator, who cannot be weaned off, and dependent on artificial nutrition considered living? What type of quality of life that she expects? Patient became very vague, but acknowledged that if she was not responding, she is not talking, and just on"machines" she is okay with letting her go. I asked her if she has spoken to her "" (not legally ) about that. She says she has. She was amenable for me to complete a healthcare surrogate with her today. Function/Cognitive Trajectory Patient has chronic dyspnea, O2 dependent. There are days where she is more didn't dependent and required assistance with bathing and activities of daily living. Today she is a little bit better. Currently even on conversation patient is short of breath. Review of Systems Constitutional: COMPLAINS OF: Fatigue Endocrine: COMPLAINS OF: Polydipsia, DENIES: Heat/cold intolerance Eyes: COMPLAINS OF: Blurred vision, DENIES: Eye inflammation, Eye pain Ears, nose, mouth, throat: DENIES: Tinnitus, Vertigo, Nasal discharge, Oral lesions Respiratory: COMPLAINS OF: Cough, Shortness of breath Cardiovascular: COMPLAINS OF: Lower Extremity Edema, Orthopnea Gastrointestinal: DENIES: Abdominal pain, Bloody stools Musculoskeletal: COMPLAINS OF: Joint pain Past Family Social History Coded Allergies: *MDRO Multi-Drug Resistant Organism (Verified Adverse Reaction, Unknown, ) MRSA wound 11/2012. MRSA PCR Screen negative 11/03/14 and 11/05/14. Cleared per Infection Control MRSA PCR Screen NEGATIVE - 04/30/2015 Past Medical History Type 2 diabetes COPD Hepatitis C Rheumatoid arthritis Obesity Gout History of sinus tachycardia Osteoporosis Past Surgical History History of right knee septic arthritis requiring washout and debridement 2008 Reported Medications Novolog Inj (Insulin Aspart) 1,000 Unit/10 Ml Vial 0 SQ DIRECTED Sliding Scale as directed. Janumet (Sitagliptin-Metformin) 50-1,000 Mg Tab Unknown Dose PO DAILY Lyrica (Pregabalin) 150 Mg Cap 150 Mg PO TID Lantus Inj (Insulin Glargine) 1,000 Unit/10 Ml Vial 35 Units SQ BID Albuterol Neb (Albuterol Sulfate) 2.5 Mg/3 Ml Neb 2.5 Mg NEB Q6HR PRN While awake Current Medications Medications (Trade) Dose Ordered Sig/Dillan Route Start Time Stop Time Status Last Admin (NS Flush) 2 ml UNSCH PRN IV FLUSH 01/07/17 17:00 (NS Flush) 2 ml BID IV FLUSH 01/07/17 21:00 01/09/17 09:00 (Zofran Inj) 4 mg Q6H PRN IVP 01/07/17 17:00 (Compazine Supp) 25 mg Q12H PRN RECTAL 01/07/17 17:00 (Tylenol) 650 mg Q6H PRN PO 01/07/17 17:00 (Percocet 5-325 Mg) 1 tab Q6H PRN PO 01/07/17 17:00 (Percocet 10-325 Mg) 1 tab Q6H PRN PO 01/07/17 17:00 01/09/17 10:19 (Morphine Inj) 2 mg Q3H PRN IV 01/07/17 17:00 (Morphine Inj) 4 mg Q3H PRN IV 01/07/17 17:00 (Morphine Inj) 4 mg Q3H PRN IV 01/07/17 17:00 (Narcan Inj) 0.4 mg UNSCH PRN IV 01/07/17 17:00 (Brianna-Colace) 1 tab BID PO 01/07/17 21:00 01/09/17 09:51 (Milk Of Magnesia Liq) 30 ml Q12H PRN PO 01/07/17 17:00 (Senokot) 17.2 mg Q12H PRN PO 01/07/17 17:00 (Dulcolax Supp) 10 mg DAILY PRN RECTAL 01/07/17 17:00 (Lactulose Liq) 30 ml DAILY PRN PO 01/07/17 17:00 (Symbicort 160-4.5 Inh) 2 puff Q12HR INH 01/07/17 21:00 01/09/17 09:51 (SoluMEDROL INJ) 60 mg Q6H IVP 01/07/17 18:00 01/09/17 12:39 (Mucinex Er) 600 mg BID PO 01/07/17 21:00 01/09/17 09:50 (Heparin Inj) 5,000 units Q8HR SQ 01/07/17 22:00 01/09/17 13:31 (Levemir Inj) 35 units BID SQ 01/07/17 21:00 01/09/17 09:54 (Lyrica) 150 mg TID PO 01/07/17 18:00 01/09/17 13:31 (Levaquin) 250 mg Q24H PO 01/09/17 11:00 01/09/17 09:50 (NovoLOG INJ) 8 units TIDAC SQ 01/08/17 18:00 01/09/17 12:44 (D50w (Vial) Inj) 50 ml UNSCH PRN IV 01/08/17 16:45 (Glucagon Inj) 1 mg UNSCH PRN OTHER 01/08/17 16:45 Family History Mother, COPD Substance Use Tobacco:>40 years of smoking 1.5-2ppd, quit Denies any alcohol or drug use. Psychosocial History Patient is on disability due to end-stage chronic COPD. 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. She has no children. She has been with Gigi Gunter for many years, but they never . The patient has one sister and 3 living brothers. Mother from COPD. Brother of cancer and he was in [facility]. Spiritual/Cultural Factors Yazidism Living Will: Never completed Health Care Surrogate: Never completed Durable Power of Ice Cream Dispenser: Never completed Physical Exam Vital Signs Date Time Temp Pulse Resp B/P Pulse Ox O2 Delivery O2 Flow Rate FiO2 01/09/17 12:00 96.0 125 21 140/72 98 01/09/17 10:20 93 Nasal Cannula 3.00 01/09/17 08:00 98.6 111 20 119/72 97 01/09/17 05:30 97.1 118 20 137/64 94 01/09/17 05:03 97.1 118 21 137/64 94 01/09/17 00:05 125 114/66 01/08/17 23:54 98.4 119 21 114/66 94 01/08/17 22:00 118 01/08/17 21:44 20 01/08/17 20:14 97.0 115 20 113/61 96 01/08/17 01/09/17 19:00 07:00 Intake Total 960 ml 1480 ml Output Total 850 ml Balance 110 ml 1480 ml Intake Oral 960 ml 480 ml IV Total 1000 ml Output Urine Total 850 ml # Voids 4 Exam CONSTITUTIONAL/GENERAL: Middle age lady, some dyspnea, have. Appears to have cushingnoid like features. SKIN: No jaundice, rashes, or lesions. Skin temperature appropriate. Not diaphoretic. HEAD: Atraumatic. Normocephalic. EYES: Extraocular motions intact. No scleral icterus. No injection or drainage. Fundi not examined. ENT: Hearing grossly normal. Nose without bleeding or purulent drainage. Throat without visible erythema, exudates, masses, or lesions. NECK: Trachea midline. Supple, nontender. No palpable thyroid enlargement or nodularity. CARDIOVASCULAR: Regular rate and rhythm without murmurs, gallops, or rubs. RESPIRATORY/CHEST:Wheezing on auscultation. . GASTROINTESTINAL: Abdomen soft, non-tender, nondistended. No guarding. Bowel sounds present. GENITOURINARY: Without palpable bladder distension. Griffin catheter in place. MUSCULOSKELETAL: 2+ edema on lower ext. LYMPHATICS: No palpable cervical or supraclavicular adenopathy. NEUROLOGICAL: Awake and alert. Motor and sensory grossly within normal limits. Follows commands. Cognitively sharp. Moves all extremities. PSYCHIATRIC: No obvious anxiety/depression. no apparent hallucinations or other psychotic thought process. Diagnostic Tests Laboratory Laboratory Tests Test 01/07/17 01/07/17 01/07/17 01/08/17 12:10 18:05 22:58 03:57 White Blood Count 9.4 TH/MM3 8.6 TH/MM3 (4.0-11.0) (4.0-11.0) Red Blood Count 4.36 MIL/MM3 4.25 MIL/MM3 (4.00-5.30) (4.00-5.30) Hemoglobin 10.9 GM/DL 11.0 GM/DL (11.6-15.3) (11.6-15.3) Hematocrit 34.1 % 33.5 % (35.0-46.0) (35.0-46.0) Mean Corpuscular Volume 78.2 FL 78.7 FL (80.0-100.0) (80.0-100.0) Mean Corpuscular Hemoglobin 25.1 PG 26.0 PG (27.0-34.0) (27.0-34.0) Mean Corpuscular Hemoglobin 32.0 % 33.0 % Concent (32.0-36.0) (32.0-36.0) Red Cell Distribution Width 17.8 % 17.9 % (11.6-17.2) (11.6-17.2) Platelet Count 349 TH/MM3 302 TH/MM3 (150-450) (150-450) Mean Platelet Volume 8.2 FL 9.3 FL (7.0-11.0) (7.0-11.0) Neutrophils (%) (Auto) 57.9 % 82.9 % (16.0-70.0) (16.0-70.0) Lymphocytes (%) (Auto) 26.9 % 12.6 % (9.0-44.0) (9.0-44.0) Monocytes (%) (Auto) 13.0 % 4.0 % (0.0-8.0) (0.0-8.0) Eosinophils (%) (Auto) 1.2 % (0.0-4.0) 0.0 % (0.0-4.0) Basophils (%) (Auto) 1.0 % (0.0-2.0) 0.5 % (0.0-2.0) Neutrophils # (Auto) 5.4 TH/MM3 7.1 TH/MM3 (1.8-7.7) (1.8-7.7) Lymphocytes # (Auto) 2.5 TH/MM3 1.1 TH/MM3 (1.0-4.8) (1.0-4.8) Monocytes # (Auto) 1.2 TH/MM3 0.3 TH/MM3 (0-0.9) (0-0.9) Eosinophils # (Auto) 0.1 TH/MM3 0.0 TH/MM3 (0-0.4) (0-0.4) Basophils # (Auto) 0.1 TH/MM3 0.0 TH/MM3 (0-0.2) (0-0.2) CBC Comment DIFF FINAL DIFF FINAL Differential Comment Sodium Level 144 MEQ/L 138 MEQ/L (136-145) (136-145) Potassium Level 3.8 MEQ/L 4.9 MEQ/L (3.5-5.1) (3.5-5.1) Chloride Level 112 MEQ/L 105 MEQ/L (98-107) (98-107) Carbon Dioxide Level 24.4 MEQ/L 23.8 MEQ/L (21.0-32.0) (21.0-32.0) Anion Gap 8 MEQ/L (5-15) 9 MEQ/L (5-15) Blood Urea Nitrogen 14 MG/DL (7-18) 15 MG/DL (7-18) Creatinine 1.02 MG/DL 1.26 MG/DL (0.50-1.00) (0.50-1.00) Estimat Glomerular Filtration 66 ML/MIN (>89) 52 ML/MIN (>89) Rate Random Glucose 58 MG/DL 349 MG/DL (74-106) (74-106) Calcium Level 8.1 MG/DL 8.3 MG/DL (8.5-10.1) (8.5-10.1) Troponin I LESS THAN 0.02 LESS THAN 0.02 LESS THAN 0.02 NG/ML NG/ML NG/ML (0.02-0.05) (0.02-0.05) (0.02-0.05) B-Type Natriuretic Peptide 10 PG/ML (0-100) Urine Color LIGHT-YELLOW (YELLW/STRAW) Urine Turbidity CLEAR (CLEAR) Urine pH 5.0 (5.0-8.5) Urine Specific [place] 1.015 (1.002-1.035) Urine Protein NEG mg/dL (NEG-TRACE) Urine Glucose (UA) NEG mg/dL (NEG) Urine Ketones NEG mg/dL (NEG) Urine Occult Blood NEG (NEG) Urine Nitrite NEG (NEG) Urine Bilirubin NEG (NEG) Urine Urobilinogen LESS THAN 2.0 MG/DL (LESS THAN 2.0) Urine Leukocyte Esterase NEG (NEG) Urine RBC 1 /hpf (0-3) Urine WBC LESS THAN 1 /hpf (0-5) Urine Squamous Epithelial 1 /hpf (0-5) Cells Microscopic Urinalysis Comment CULT NOT INDICATED Hemoglobin A1c 6.9 % (4.3-6.0) Phosphorus Level 4.5 MG/DL (2.5-4.9) Magnesium Level 2.0 MG/DL (1.5-2.5) Total Bilirubin 0.6 MG/DL (0.2-1.0) Aspartate Amino Transf 47 U/L (15-37) (AST/SGOT) Alanine Aminotransferase 37 U/L (10-53) (ALT/SGPT) Alkaline Phosphatase 147 U/L (45-117) Total Creatine Kinase 132 U/L 107 U/L (26-192) (26-192) Total Protein 7.6 GM/DL (6.4-8.2) Albumin 2.2 GM/DL (3.4-5.0) Free Thyroxine 1.48 NG/DL (0.76-1.46) Thyroid Stimulating Hormone 0.320 uIU/ML 3rd Gen (0.358-3.740) Prothrombin Time 12.0 SEC (9.8-11.6) Prothromb Time International 1.1 RATIO Ratio Test 01/09/17 06:09 Ferritin 410 NG/ML (8-252) Carcinoembryonic Antigen 2.2 NG/ML (0.2-5.0) Result Diagram: 01/08/17 0357 01/07/17 2258 Imaging Last Impressions Abdomen CT 01/09/17 0000 Signed Impressions: Service Date/Time: Monday, January 09, 2017 09:02 - CONCLUSION: No percutaneous access for safe biopsy. Mass is probably adenopathy and not adrenal.. Mark Simon MD FACR Chest X-Ray 01/07/17 1133 Signed Impressions: Service Date/Time: Saturday, January 07, 2017 13:13 - CONCLUSION: No acute cardiopulmonary abnormality is identified. Shaggy Bryson MD Pelvis X-Ray 01/07/17 0000 Signed Impressions: Service Date/Time: Saturday, January 07, 2017 13:14 - CONCLUSION: No acute abnormality is identified. Shaggy Bryson MD Lower Extremity Ultrasound 01/07/17 0000 Signed Impressions: Service Date/Time: Saturday, January 07, 2017 11:55 - CONCLUSION: No DVT is identified within either lower extremity. Shaggy Bryson MD CT Angiography 01/07/17 0000 Signed Impressions: Service Date/Time: Saturday, January 07, 2017 13:45 - CONCLUSION: 1. Moderate COPD changes. 2. No large or central pulmonary embolus identified. 3. Abnormal soft tissue mass involving the left adrenal gland and retroperitoneum concerning for malignancy. CT imaging through the abdomen is warranted for more definitive assessment. Estevan Simon MD Abdomen/Pelvis CT 01/07/17 0000 Signed Impressions: Service Date/Time: Saturday, January 07, 2017 15:18 - CONCLUSION: 1. There is an abnormal mass abutting and potentially arising from the left adrenal gland measuring up to 3.3 cm. This mass is new compared to the February 2016 exam. 2. There is new lymphadenopathy in the hepatoduodenal and gastrohepatic ligaments. These findings could represent metastatic disease or lymphoma. The left adrenal region mass could also represent a primary adrenal gland tumor. Suggest correlation with the clinical history. 3. Liver features diagnostic of cirrhosis. No focal liver lesion is identified. Shaggy Bryson MD Patient/Family Conference Present at Family Conference: patient Family Conference Time (mins): 42 Family Conference Location: Bedside Issues Discussed: * Palliative care role, purpose, approach * Additional medical, psychosocial, and spiritual history * Patients general health, functional status, and cognitive changes in the months leading up to the current hospitalization * Patient/family understanding of the current medical problems * Patient/family understanding of prognosis * Patients goals of care as best understood from advance directives and/or conversations and/or values * Current medical treatment options and benefits/burdens of those options * Likely scenarios comparing ongoing aggressive care with a transition to comfort measures only * Questions answered to the best of my ability * Palliative care contact information provided Assessment and Plan Disease Oriented Problem List: (1) COPD (chronic obstructive pulmonary disease) (2) Rheumatoid arthritis flare (3) DM2 (diabetes mellitus, type 2) (4) Bilateral leg edema (5) HTN (hypertension) (6) Adrenal mass, left Comment: could not biopsy. Given functional status/ respiratory issue, not a candidate for treament even if there is malignancy. (7) Kidney insufficiency Symptom Scale: Pertinent Non-Medical Issues Psychosocial: Spiritual: Legal: Ethical issues impacting care: Important Contacts Gigi Gunter (Boyfriend/partner/ "") Health Care Surrogate [phone] Gabe Garcia (brother) [phone] Prognosis 62-year-old, with end-stage COPD, newly diagnosed adrenal mass. Could not biopsy. Prognosis overall is poor and is hospice appropriate Code Status: Full Code Plan == capacity- pt has capacity to make medical decisions. == Code: Full == symptom dyspnea/pain- no new med steven. == Health Care Surrogate: Gigi Gunter (boyfriend/ "") Alternate: Gabe Garcia ( brother). == goals: Pt previously on Hospice Care, (per pt not [facility])Had a long talk with patient regarding her condition, and current clinical findings. I explained the process of COPD, the etiology, and pathology. I told her that unfortunately there is no cure, and that she is likely given the decline and from this respiratory disease.I discussed with patient about adrenal mass, and how even if they're able to perform biopsy, given her respiratory/functional status she would not tolerate treatment. She relates that she understand that, and that her mother from COPD 5 years ago. Her mother was not on hospice. She related however that her mother was a DNR and in [place]. On discussion of CODE STATUS, I told her that the ventilator, CPR, and resuscitation, would not reverse her COPD. I told her I worry that she may get all the trauma and none of the benefit that goes along with it. She related that, what ever keeps me alive for another day, I would be amenable to do. Spoke in more detail with her, and asked her what her definition of feeling alive, and living is? Is someone on a ventilator, who cannot be weaned off, and dependent on artificial nutrition considered living? What type of quality of life that she expects? Patient became very vague, but acknowledged that if she was not responding, she is not talking, and just on"machines" she is okay with letting her go. I asked her if she has spoken to her "" (not legally ) about that. She says she has. I asked her if patient was to feel short of breath again, which she wanted to come back to the hospital. She says she has no choice. She stated she is appreciated of hospice, but feel that hospice and what they can do is limited. Pt's designated health care surrogate will be in tomorrow. Will plan on meeting with him and pt again. Time Spent Total Floor Time (mins): 68 Face to Face Time (mins): 45 >50% Counseling/Coord of Care: Yes Thank you for the opportunity to participate in the care of Ms. Negrete. Attestation To help prompt me to consider important information that might be impacting today's encounter and assessment, information from prior notes written by myself or my colleagues may have been "brought forward" into today's note. My signature on this note, however, is an attestation that I personally performed the exam, history, and/or decision-making noted today, and, unless otherwise indicated, the interactions with patient, family, and staff as well as the review of records all occurred today. I also attest that the listed assessment and stated plan reflect my best clinical judgment today based on the combination of historical information, prior notes, and today's exam/ interactions. When time spent is documented, it refers only to time spent today by the signer, or if indicated, combined time spent today by collaborating physician/nurse practitioner. Shadi Crews MD Jan 09, 2017 17:36 Shadi Crews MD Jan 09, 2017 17:36 today by the signer, or if indicated, combined time spent today by collaborating physician/nurse practitioner. Shadi Crews MD Jan 09, 2017 17:36
--- NOTE | 2017-01-09 18:30 | HHI.PR ---
Subjective Remarks 62 YOAA female with COPD exac, DM,HTN Has right adrenal mass Went for CT guided bx, mass not accessible, prob lymphadenopathy Breathing better has wheezing Objective Vital Signs Vital Signs Date Time Temp Pulse Resp B/P Pulse Ox O2 Delivery O2 Flow Rate FiO2 01/09/17 16:00 97.2 115 20 130/74 98 01/09/17 12:00 96.0 125 21 140/72 98 01/09/17 10:20 93 Nasal Cannula 3.00 01/09/17 08:00 98.6 111 20 119/72 97 01/09/17 05:30 97.1 118 20 137/64 94 01/09/17 05:03 97.1 118 21 137/64 94 01/09/17 00:05 125 114/66 01/08/17 23:54 98.4 119 21 114/66 94 01/08/17 22:00 118 01/08/17 21:44 20 01/08/17 20:14 97.0 115 20 113/61 96 I/O 01/08/17 01/08/17 01/08/17 01/09/17 01/09/17 01/09/17 07:00 15:00 23:00 07:00 15:00 23:00 Intake Total 480 ml 960 ml 480 ml 1000 ml Output Total 850 ml Balance 480 ml 110 ml 480 ml 1000 ml Intake Oral 480 ml 960 ml 480 ml IV Total 0 ml 0 ml 1000 ml Output Urine Total 850 ml # Voids 2 2 2 # Bowel Movements 0 Result Diagram: 01/08/17 0357 01/07/17 2258 Objective Remarks GENERAL: WBWN AA female, mild SOB SKIN: Warm and dry. HEAD: Normocephalic. EYES: No scleral icterus. No injection or drainage. NECK: Supple, trachea midline. No JVD or lymphadenopathy. CARDIOVASCULAR: Regular rate and rhythm without murmurs, gallops, or rubs. RESPIRATORY: Breath sounds equal bilaterally. No accessory muscle use. Exp rhonchi GASTROINTESTINAL: Abdomen soft, non-tender, nondistended. MUSCULOSKELETAL: No cyanosis, or edema. BACK: Nontender without obvious deformity. No CVA tenderness. A/P Assessment and Plan COPD Exac Bronchitis DM HTN H/O Hepatitis C Right adrenal mass vs lymphadenopathy. PLAN: IV Solumedrol Aerosol nebs Symbicort 2 puffs bid Cont Abx Supplement 02 Keshawn Vincent MD Jan 09, 2017 18:30
[2017-01-10] VITALS (8 sets, daily range): BP systolic 131–166; BP diastolic 72–95; PULSE 92–118; RESP 19–21; TEMP 96.8–99.6; O2SAT 94–100
[2017-01-10] MEDS ORDERED: INSULIN HUMAN REGULAR 1,000 UNITS/10 ML VIAL IV PUSH ONE ×3 (01:45→02:15)
[2017-01-10] MEDS: RESP: IPRATROPIUM 0.5 MG/2.5 ML NEB NEB SCH ×4 (04:49→21:12)
[2017-01-10] MEDS: methylPREDNISolone SOD SUCC 125 MG/2 ML VIAL IVP SCH ×4 (05:54→16:43)
[2017-01-10] MEDS: HEPARIN SODIUM - SQ 10,000 UNITS/ML VIAL SQ SCH ×3 (05:54→22:02)
[2017-01-10] MEDS: INSULIN ASPART SUPPLEMENTAL SCALE SQ SCH ×4 (05:56→22:14)
[2017-01-10] MEDS: oxyCODONE/ACETAMINOPHEN 10 MG/325 MG TAB PO PRN ×2 (05:57→18:22)
[2017-01-10] MEDS: PREGABALIN 75 MG CAP PO SCH ×3 (08:34→16:43)
[2017-01-10] MEDS: guaiFENesin E.R. 600 MG TAB PO SCH ×2 (08:34→22:02)
[2017-01-10] MEDS: SODIUM CHLORIDE 0.9% FLUSH 10 ML FLUSH IV FLUSH SCH ×2 (08:35→22:02)
[2017-01-10] MEDS: BUDESONIDE-FORMOTEROL 160/4.5 MCG INHALER INH SCH ×2 (08:35→22:03)
[2017-01-10] MEDS: INSULIN ASPART 1,000 UNITS/10 ML VIAL SQ SCH ×3 (08:40→16:58)
[2017-01-10] MEDS: INSULIN DETEMIR 100 UNITS/ML VIAL SQ SCH ×2 (08:40→22:17)
[2017-01-10] MEDS: DOCUSATE SODIUM 50 MG/SENNA 8.6 MG TAB PO SCH ×2 (08:41→21:00)
[2017-01-10] MEDS: LEVOFLOXACIN 250 MG TAB PO SCH (12:12)
--- NOTE | 2017-01-10 12:54 | HHI.PR ---
Subjective Remarks Follow up for severe COPD exacerbation, left adrenal mass. Patient reports no significant improvement of her breathing. No fever, chills. Resting in bed well. When she moves even a few feet, she gets severe short of breath. Objective Vitals Vital Signs Date Time Temp Pulse Resp B/P Pulse Ox O2 Delivery O2 Flow Rate FiO2 01/10/17 12:00 97.4 118 20 166/91 98 01/10/17 11:55 96 Nasal Cannula 3.00 01/10/17 08:00 97.8 117 19 131/82 94 01/10/17 04:00 98.4 115 21 134/81 97 01/10/17 00:00 96.8 115 21 141/81 96 01/09/17 22:00 119 01/09/17 20:16 95 Nasal Cannula 3.00 01/09/17 20:00 97.3 119 21 128/70 96 01/09/17 16:00 97.2 115 20 130/74 98 I/O 01/09/17 01/09/17 01/09/17 01/10/17 01/10/17 01/10/17 07:00 15:00 23:00 07:00 15:00 23:00 Intake Total 1000 ml 480 ml 360 ml 120 ml Balance 1000 ml 480 ml 360 ml 120 ml Intake Oral 480 ml 360 ml 120 ml IV Total 1000 ml 0 ml 0 ml # Voids 2 2 2 Result Diagram: 01/08/17 0357 01/10/17 0053 Imaging Last Impressions Abdomen CT 01/09/17 0000 Signed Impressions: Service Date/Time: Monday, January 09, 2017 09:02 - CONCLUSION: No percutaneous access for safe biopsy. Mass is probably adenopathy and not adrenal.. Mark Simon MD FACR Chest X-Ray 01/07/17 1133 Signed Impressions: Service Date/Time: Saturday, January 07, 2017 13:13 - CONCLUSION: No acute cardiopulmonary abnormality is identified. Shaggy Bryson MD Pelvis X-Ray 01/07/17 0000 Signed Impressions: Service Date/Time: Saturday, January 07, 2017 13:14 - CONCLUSION: No acute abnormality is identified. Shaggy Bryson MD Lower Extremity Ultrasound 01/07/17 0000 Signed Impressions: Service Date/Time: Saturday, January 07, 2017 11:55 - CONCLUSION: No DVT is identified within either lower extremity. Shaggy Bryson MD CT Angiography 01/07/17 0000 Signed Impressions: Service Date/Time: Saturday, January 07, 2017 13:45 - CONCLUSION: 1. Moderate COPD changes. 2. No large or central pulmonary embolus identified. 3. Abnormal soft tissue mass involving the left adrenal gland and retroperitoneum concerning for malignancy. CT imaging through the abdomen is warranted for more definitive assessment. Estevan Simon MD Abdomen/Pelvis CT 01/07/17 0000 Signed Impressions: Service Date/Time: Saturday, January 07, 2017 15:18 - CONCLUSION: 1. There is an abnormal mass abutting and potentially arising from the left adrenal gland measuring up to 3.3 cm. This mass is new compared to the February 2016 exam. 2. There is new lymphadenopathy in the hepatoduodenal and gastrohepatic ligaments. These findings could represent metastatic disease or lymphoma. The left adrenal region mass could also represent a primary adrenal gland tumor. Suggest correlation with the clinical history. 3. Liver features diagnostic of cirrhosis. No focal liver lesion is identified. Shaggy Bryson MD Objective Remarks GENERAL: Alert, NAD - difficult for her to speak in full sentences. SKIN: Warm and dry. HEAD: Normocephalic. EYES: No scleral icterus. No injection or drainage. NECK: Supple, trachea midline. No JVD or lymphadenopathy. CARDIOVASCULAR: Regular rate and rhythm without murmurs, gallops, or rubs. RESPIRATORY: Poor air entry, no appreciable wheezing. GASTROINTESTINAL: Abdomen soft, non-tender, nondistended. MUSCULOSKELETAL: No cyanosis. 1+ edema bilaterally. BACK: Nontender without obvious deformity. No CVA tenderness. Procedures None. A/P Problem List: (1) Benign hypertension ICD Code: I10 Status: Chronic (2) COPD exacerbation ICD Code: J44.1 Status: Acute (3) Diabetes mellitus, type 2 ICD Code: E11.9 Status: Chronic (4) Tachycardia ICD Code: R00.0 Status: Acute (5) COPD (chronic obstructive pulmonary disease) ICD Code: J44.9 Status: Acute (6) Bilateral leg edema ICD Code: R60.0 Status: Acute (7) Dyspnea on exertion ICD Code: R06.09 Status: Acute (8) Hyperglycemia due to type 2 diabetes mellitus ICD Code: E11.65 Status: Acute Assessment and Plan 62-year-old female with a past medical history significant for hypertension, diabetes mellitus, COPD, rheumatoid arthritis, dyslipidemia and hepatitis C who presents to [facility] ED with complaints of progressive shortness of breath and bilateral leg swelling. COPD exacerbation CTA shows moderate COPD changes and no evidence of PE Scheduled DuoNeb Prednisone 10mg TID. Incentive spirometry Supplemental oxygen to keep patient's O2 sats above 90%. Continue Levaquin PO. Consulted Pulmonology (Dr. Vincent). Tachycardia EKG personally reviewed showing sinus tachycardia Likely due to COPD exacerbation. CT PE did not show any PE. Bilateral lower extremity swelling Bilateral Dopplers negative for DVT Will discontinue IV lasix. BNP was 10. Continue patient's home dose of potassium chloride 20 mEq daily Insulin-dependent diabetes Hyperglycemia - glucose this afternoon about 490. Continue Levemir 35 units BID. Change sliding scale insulin to Aspart medium scale Continue pre-meal insulin Aspart 8 units TIDAC. Generalized deconditioning Patient uses a scooter for mobilization PT/OT Incidental finding of abnormal soft tissue mass left adrenal gland concerning for malignancy CT abd/pelvis was obtained following incidental finding of abnormal soft tissue mass of the left adrenal gland as seen on the CTA personally interpreted revealing an abnormal mass abutting and potentially arising from the left adrenal gland measuring up to 3.3 cm new compared to February 2016 exam, new lymphadenopathy in the hepatoduodenal and gastrohepatic ligaments possibly representing metastatic disease or lymphoma. Left adrenal region mass possibly representing primary adrenal gland tumor. Consult interventional radiology for biopsy Consult Oncology. Appreciate Dr. Mckeon's input. Agree with Dr. Mckeon regarding patient's respiratory status and overall deconditioning. Patient's ECOG score is probably at least 3. I discussed with Radiologist (Dr. Terri Simon) and Dr. Mckeon at length on 2016. We believe surgical bx would be more harmful for this patient at this point. Should her respiratory status improves in future, surgical biopsy could be re-considered. We will ask Palliative care team to come on board. Hepatitis C CT of the abdomen/pelvis shows liver features diagnosis of cirrhosis DVT prophylaxis Heparin subcutaneous Discharge plan: Likely discharge tomorrow. Sunshine Madrid DO Jan 10, 2017 12:54
[2017-01-10] MEDS ORDERED: oxyCODONE/ACETAMINOPHEN 5 MG/325 MG TAB PO ONE (14:00)
--- NOTE | 2017-01-10 14:20 | HHI.HCPN ---
Reason for visit a. To assist with evaluation and management of symptoms including:dyspnea, pain b. To assist medical decision maker(s) with: better understanding of current medical conditions; weighing benefits/burdens of medical treatment options; making medical treatment decisions. Subjective/Interval History Pt today endose more pain in the lower extremety. Pt's not at bedside as expected for family meeting. In general pt was less receptive to me then yesterday. Review goals of care, and again emphasize, that I am sorry I do not have better news, but that with her respiratory status, one of these times you will come in the hospital and will not make it like your mother. She feels like someone is forcing her to get biopsy. "No one did not show me any imaging." I told her I will be happy to show review imaging with her or her (who is not present). I told her she does not have to do the biopsy, and she can refuse. I also reemphasize given her respiratory disease, functionally even if it is cancer it is limited. She endorse is going home tomorrow, and amenable to get back on with [facility]. Family/friend interactions Was suppose to come for meeting, has not arrived. Advance Directives Living Will: Never completed Health Care Surrogate: Copy in medical record Durable Power of Machine Finisher: Never completed Objective Vital Signs Date Time Temp Pulse Resp B/P Pulse Ox O2 Delivery O2 Flow Rate FiO2 01/10/17 12:00 97.4 118 20 166/91 98 01/10/17 11:55 96 Nasal Cannula 3.00 01/10/17 08:00 97.8 117 19 131/82 94 01/10/17 04:00 98.4 115 21 134/81 97 01/10/17 00:00 96.8 115 21 141/81 96 01/09/17 22:00 119 01/09/17 20:16 95 Nasal Cannula 3.00 01/09/17 20:00 97.3 119 21 128/70 96 01/09/17 16:00 97.2 115 20 130/74 98 Intake & Output 01/10/17 01/10/17 07:00 19:00 Intake Total 840 ml 2040 ml Output Total 1700 ml Balance 840 ml 340 ml Intake Oral 840 ml 2040 ml IV Total 0 ml Output Urine Total 1700 ml # Voids 4 # Bowel Movements 0 Physical Exam CONSTITUTIONAL/GENERAL: Middle age lady, some dyspnea, have. Appears to have cushingnoid like features. SKIN: No jaundice, rashes, or lesions. Skin temperature appropriate. Not diaphoretic. HEAD: Atraumatic. Normocephalic. EYES: Extraocular motions intact. No scleral icterus. No injection or drainage. Fundi not examined. ENT: Hearing grossly normal. Nose without bleeding or purulent drainage. Throat without visible erythema, exudates, masses, or lesions. NECK: Trachea midline. Supple, nontender. No palpable thyroid enlargement or nodularity. CARDIOVASCULAR: Regular rate and rhythm without murmurs, gallops, or rubs. RESPIRATORY/CHEST:Wheezing on auscultation. . GASTROINTESTINAL: Abdomen soft, non-tender, nondistended. No guarding. Bowel sounds present. GENITOURINARY: Without palpable bladder distension. Griffin catheter in place. MUSCULOSKELETAL: 2+ edema on lower ext. LYMPHATICS: No palpable cervical or supraclavicular adenopathy. NEUROLOGICAL: Awake and alert. Motor and sensory grossly within normal limits. Follows commands. Cognitively sharp. Moves all extremities. PSYCHIATRIC: No obvious anxiety/depression. no apparent hallucinations or other psychotic thought process. Diagnostic Tests Laboratory Laboratory Tests Test 01/07/17 01/07/17 01/08/17 01/09/17 18:05 22:58 03:57 06:09 Urine Color LIGHT-YELLOW (YELLW/STRAW) Urine Turbidity CLEAR (CLEAR) Urine pH 5.0 (5.0-8.5) Urine Specific Louise 1.015 (1.002-1.035) Urine Protein NEG mg/dL (NEG-TRACE) Urine Glucose (UA) NEG mg/dL (NEG) Urine Ketones NEG mg/dL (NEG) Urine Occult Blood NEG (NEG) Urine Nitrite NEG (NEG) Urine Bilirubin NEG (NEG) Urine Urobilinogen LESS THAN 2.0 MG/DL (LESS THAN 2.0) Urine Leukocyte Esterase NEG (NEG) Urine RBC 1 /hpf (0-3) Urine WBC LESS THAN 1 /hpf (0-5) Urine Squamous Epithelial 1 /hpf (0-5) Cells Microscopic Urinalysis Comment CULT NOT INDICATED Sodium Level 138 MEQ/L (136-145) Potassium Level 4.9 MEQ/L (3.5-5.1) Chloride Level 105 MEQ/L (98-107) Carbon Dioxide Level 23.8 MEQ/L (21.0-32.0) Anion Gap 9 MEQ/L (5-15) Blood Urea Nitrogen 15 MG/DL (7-18) Creatinine 1.26 MG/DL (0.50-1.00) Estimat Glomerular Filtration 52 ML/MIN (>89) Rate Random Glucose 349 MG/DL (74-106) Hemoglobin A1c 6.9 % (4.3-6.0) Calcium Level 8.3 MG/DL (8.5-10.1) Phosphorus Level 4.5 MG/DL (2.5-4.9) Magnesium Level 2.0 MG/DL (1.5-2.5) Total Bilirubin 0.6 MG/DL (0.2-1.0) Aspartate Amino Transf 47 U/L (15-37) (AST/SGOT) Alanine Aminotransferase 37 U/L (10-53) (ALT/SGPT) Alkaline Phosphatase 147 U/L (45-117) Total Creatine Kinase 132 U/L 107 U/L (26-192) (26-192) Troponin I LESS THAN 0.02 LESS THAN 0.02 NG/ML NG/ML (0.02-0.05) (0.02-0.05) Total Protein 7.6 GM/DL (6.4-8.2) Albumin 2.2 GM/DL (3.4-5.0) Free Thyroxine 1.48 NG/DL (0.76-1.46) Thyroid Stimulating Hormone 0.320 uIU/ML 3rd Gen (0.358-3.740) White Blood Count 8.6 TH/MM3 (4.0-11.0) Red Blood Count 4.25 MIL/MM3 (4.00-5.30) Hemoglobin 11.0 GM/DL (11.6-15.3) Hematocrit 33.5 % (35.0-46.0) Mean Corpuscular Volume 78.7 FL (80.0-100.0) Mean Corpuscular Hemoglobin 26.0 PG (27.0-34.0) Mean Corpuscular Hemoglobin 33.0 % Concent (32.0-36.0) Red Cell Distribution Width 17.9 % (11.6-17.2) Platelet Count 302 TH/MM3 (150-450) Mean Platelet Volume 9.3 FL (7.0-11.0) Neutrophils (%) (Auto) 82.9 % (16.0-70.0) Lymphocytes (%) (Auto) 12.6 % (9.0-44.0) Monocytes (%) (Auto) 4.0 % (0.0-8.0) Eosinophils (%) (Auto) 0.0 % (0.0-4.0) Basophils (%) (Auto) 0.5 % (0.0-2.0) Neutrophils # (Auto) 7.1 TH/MM3 (1.8-7.7) Lymphocytes # (Auto) 1.1 TH/MM3 (1.0-4.8) Monocytes # (Auto) 0.3 TH/MM3 (0-0.9) Eosinophils # (Auto) 0.0 TH/MM3 (0-0.4) Basophils # (Auto) 0.0 TH/MM3 (0-0.2) CBC Comment DIFF FINAL Differential Comment Prothrombin Time 12.0 SEC (9.8-11.6) Prothromb Time International 1.1 RATIO Ratio Ferritin 410 NG/ML (8-252) Carcinoembryonic Antigen 2.2 NG/ML (0.2-5.0) Test 01/10/17 00:53 Random Glucose 414 MG/DL (74-106) Result Diagram: 01/08/17 0357 01/10/17 0053 Imaging Last Impressions Abdomen CT 01/09/17 0000 Signed Impressions: Service Date/Time: Monday, January 09, 2017 09:02 - CONCLUSION: No percutaneous access for safe biopsy. Mass is probably adenopathy and not adrenal.. Mark Simon MD FACR Chest X-Ray 01/07/17 1133 Signed Impressions: Service Date/Time: Saturday, January 07, 2017 13:13 - CONCLUSION: No acute cardiopulmonary abnormality is identified. Shaggy Bryson MD Pelvis X-Ray 01/07/17 0000 Signed Impressions: Service Date/Time: Saturday, January 07, 2017 13:14 - CONCLUSION: No acute abnormality is identified. Shaggy Bryson MD Lower Extremity Ultrasound 01/07/17 0000 Signed Impressions: Service Date/Time: Saturday, January 07, 2017 11:55 - CONCLUSION: No DVT is identified within either lower extremity. Shaggy Bryson MD CT Angiography 01/07/17 0000 Signed Impressions: Service Date/Time: Saturday, January 07, 2017 13:45 - CONCLUSION: 1. Moderate COPD changes. 2. No large or central pulmonary embolus identified. 3. Abnormal soft tissue mass involving the left adrenal gland and retroperitoneum concerning for malignancy. CT imaging through the abdomen is warranted for more definitive assessment. Estevan Simon MD Abdomen/Pelvis CT 01/07/17 0000 Signed Impressions: Service Date/Time: Saturday, January 07, 2017 15:18 - CONCLUSION: 1. There is an abnormal mass abutting and potentially arising from the left adrenal gland measuring up to 3.3 cm. This mass is new compared to the February 2016 exam. 2. There is new lymphadenopathy in the hepatoduodenal and gastrohepatic ligaments. These findings could represent metastatic disease or lymphoma. The left adrenal region mass could also represent a primary adrenal gland tumor. Suggest correlation with the clinical history. 3. Liver features diagnostic of cirrhosis. No focal liver lesion is identified. Shaggy Bryson MD Assessment and Plan Disease Oriented Problem List: (1) COPD (chronic obstructive pulmonary disease) (2) Rheumatoid arthritis flare (3) DM2 (diabetes mellitus, type 2) (4) Bilateral leg edema (5) HTN (hypertension) (6) Adrenal mass, left Comment: could not biopsy. Given functional status/ respiratory issue, not a candidate for treament even if there is malignancy. (7) Kidney insufficiency Symptom Scale: (1) Dyspnea 0-10 Scale: 5 (2) Pain 0-10 Scale: 8 Pertinent Non-Medical Issues Psychosocial: Spiritual: Legal: Ethical issues impacting care: Important Contacts Gigi Lyric (Boyfriend/partner/ "") Health Care Surrogate Gabe Garcia (brother) [phone] Prognosis 62-year-old, with end-stage COPD, newly diagnosed adrenal mass. Could not biopsy. Prognosis overall is poor and is hospice appropriate Code Status: Full Code Plan == capacity- pt has capacity to make medical decisions. == Code: Remains Full code. == symptom dyspnea/pain-more pain, will order 1 dose or Percocet . == Health Care Surrogate: Gigi Gunter (boyfriend/ "") Alternate: Gabe Garcia ( brother). == goals: She endorse she really does not want biopsy. today she is more amenable to go back to hospice on [facility]. "" did not make it to meeting. == palliative care will follow. d/w with attending physician. Attestation To help prompt me to consider important information that might be impacting today's encounter and assessment, information from prior notes written by myself or my colleagues may have been "brought forward" into today's note. My signature on this note, however, is an attestation that I personally performed the exam, history, and/or decision-making noted today, and, unless otherwise indicated, the interactions with patient, family, and staff as well as the review of records all occurred today. I also attest that the listed assessment and stated plan reflect my best clinical judgment today based on the combination of historical information, prior notes, and today's exam/ interactions. When time spent is documented, it refers only to time spent today by the signer, or if indicated, combined time spent today by collaborating physician/nurse practitioner. Shadi Crews MD Jan 10, 2017 14:20
--- NOTE | 2017-01-10 18:02 | HHI.PR ---
Subjective Remarks 62 YOAA female with COPD exac, DM,HTN Has right adrenal mass Went for CT guided bx, mass not accessible, prob lymphadenopathy Breathing better has wheezing " I want to go home tommorow" Objective Vital Signs Vital Signs Date Time Temp Pulse Resp B/P Pulse Ox O2 Delivery O2 Flow Rate FiO2 01/10/17 16:00 97.1 107 19 161/95 100 01/10/17 12:00 97.4 118 20 166/91 98 01/10/17 11:55 96 Nasal Cannula 3.00 01/10/17 08:00 97.8 117 19 131/82 94 01/10/17 04:00 98.4 115 21 134/81 97 01/10/17 00:00 96.8 115 21 141/81 96 01/09/17 22:00 119 01/09/17 20:16 95 Nasal Cannula 3.00 01/09/17 20:00 97.3 119 21 128/70 96 I/O 01/09/17 01/09/17 01/09/17 01/10/17 01/10/17 01/10/17 07:00 15:00 23:00 07:00 15:00 23:00 Intake Total 1000 ml 480 ml 360 ml 2040 ml Output Total 1700 ml Balance 1000 ml 480 ml 360 ml 340 ml Intake Oral 480 ml 360 ml 2040 ml IV Total 1000 ml 0 ml 0 ml Output Urine Total 1700 ml # Voids 2 2 2 # Bowel Movements 0 Result Diagram: 01/08/17 0357 01/10/17 0053 Objective Remarks GENERAL: WBWN AA female, mild SOB SKIN: Warm and dry. HEAD: Normocephalic. EYES: No scleral icterus. No injection or drainage. NECK: Supple, trachea midline. No JVD or lymphadenopathy. CARDIOVASCULAR: Regular rate and rhythm without murmurs, gallops, or rubs. RESPIRATORY: Breath sounds equal bilaterally. No accessory muscle use. Exp rhonchi GASTROINTESTINAL: Abdomen soft, non-tender, nondistended. MUSCULOSKELETAL: No cyanosis, or edema. BACK: Nontender without obvious deformity. No CVA tenderness. A/P Assessment and Plan COPD Exac Bronchitis DM HTN H/O Hepatitis C Right adrenal mass vs lymphadenopathy. PLAN: DC Solumedrol pREDNISONE 10 MG TID. Aerosol nebs Symbicort 2 puffs bid Cont Abx Supplement 02 DC plans for home. Aneja,Keshawn Dev MD Jan 10, 2017 18:02
[2017-01-10] MEDS: predniSONE 10 MG TAB PO SCH (18:22)
[2017-01-11] VITALS: BP 146/99; PULSE 100; RESP 20; TEMP 97.2; O2SAT 96
[2017-01-11] MEDS: oxyCODONE/ACETAMINOPHEN 10 MG/325 MG TAB PO PRN ×2 (01:12→09:22)
[2017-01-11] MEDS: RESP: IPRATROPIUM 0.5 MG/2.5 ML NEB NEB SCH ×2 (03:41→09:11)
[2017-01-11] MEDS: HEPARIN SODIUM - SQ 10,000 UNITS/ML VIAL SQ SCH (05:35)
[2017-01-11] MEDS: INSULIN ASPART SUPPLEMENTAL SCALE SQ SCH ×2 (05:35→11:00)
[2017-01-11 08:00] VITALS: BP 140/100; PULSE 115; RESP 20; TEMP 97; O2SAT 96
--- NOTE | 2017-01-11 08:57 | HHI.PR ---
Subjective Remarks 62 YOAA female with COPD exac, DM,HTN Has right adrenal mass Went for CT guided bx, mass not accessible, prob lymphadenopathy Breathing better Wheezing improved Objective Vital Signs Vital Signs Date Time Temp Pulse Resp B/P Pulse Ox O2 Delivery O2 Flow Rate FiO2 01/11/17 08:00 97.0 115 20 140/100 96 01/11/17 00:00 97.2 100 20 146/99 96 01/10/17 21:14 99 Nasal Cannula 3.00 01/10/17 20:00 96.9 109 20 142/89 95 01/10/17 16:00 97.1 107 19 161/95 100 01/10/17 12:00 97.4 118 20 166/91 98 01/10/17 11:55 96 Nasal Cannula 3.00 I/O 01/10/17 01/10/17 01/10/17 01/11/17 01/11/17 01/11/17 07:00 15:00 23:00 07:00 15:00 23:00 Intake Total 360 ml 2040 ml 360 ml 240 ml 240 ml Output Total 1700 ml 1300 ml 300 ml Balance 360 ml 340 ml -940 ml -60 ml 240 ml Intake Oral 360 ml 2040 ml 360 ml 240 ml 240 ml IV Total 0 ml 0 ml 0 ml Output Urine Total 1700 ml 1300 ml 300 ml # Voids 2 # Bowel Movements 0 1 Result Diagram: 01/08/17 0357 01/10/17 0053 Objective Remarks GENERAL: WBWN AA female, mild SOB SKIN: Warm and dry. HEAD: Normocephalic. EYES: No scleral icterus. No injection or drainage. NECK: Supple, trachea midline. No JVD or lymphadenopathy. CARDIOVASCULAR: Regular rate and rhythm without murmurs, gallops, or rubs. RESPIRATORY: Breath sounds equal bilaterally. No accessory muscle use. Exp rhonchi GASTROINTESTINAL: Abdomen soft, non-tender, nondistended. MUSCULOSKELETAL: No cyanosis, or edema. BACK: Nontender without obvious deformity. No CVA tenderness. A/P Assessment and Plan COPD Exac Bronchitis DM HTN H/O Hepatitis C Right adrenal mass vs lymphadenopathy. PLAN: Aerosol nebs Symbicort 2 puffs bid Cont Abx Supplement 02 Prednisone 10 mg tid DC plans for home. Will FU in office 1 week. Keshawn Vincent MD Jan 11, 2017 08:57
[2017-01-11] MEDS: DOCUSATE SODIUM 50 MG/SENNA 8.6 MG TAB PO SCH (09:00)
[2017-01-11 09:14] VITALS: O2SAT 99
[2017-01-11] MEDS: predniSONE 10 MG TAB PO SCH ×2 (09:18→12:06)
[2017-01-11] MEDS: guaiFENesin E.R. 600 MG TAB PO SCH (09:18)
[2017-01-11] MEDS: PREGABALIN 75 MG CAP PO SCH ×2 (09:19→12:06)
[2017-01-11] MEDS ORDERED: PRED10 PO (09:22)
[2017-01-11] MEDS ORDERED: LEVA250T14 PO (09:22)
[2017-01-11] MEDS ORDERED: SYMB160A INH (09:22)
[2017-01-11] MEDS ORDERED: PERC5TAB12 PO (09:22)
[2017-01-11] MEDS: INSULIN ASPART 1,000 UNITS/10 ML VIAL SQ SCH ×2 (09:23→12:00)
[2017-01-11] MEDS: SODIUM CHLORIDE 0.9% FLUSH 10 ML FLUSH IV FLUSH SCH (09:24)
[2017-01-11] MEDS: INSULIN DETEMIR 100 UNITS/ML VIAL SQ SCH (09:24)
[2017-01-11] MEDS: BUDESONIDE-FORMOTEROL 160/4.5 MCG INHALER INH SCH (09:24)
[2017-01-11] MEDS ORDERED: VENTAER INH (09:26)
--- NOTE | 2017-01-11 09:27 | HHI.DS ---
Discharge Summary Admission Date Jan 07, 2017 at 4:59 pm Discharge Date: Jan 11, 2017 Admitting Diagnosis COPD Exacerbation, lower leg edema (1) Benign hypertension ICD Code: I10 - Benign hypertension (2) COPD exacerbation ICD Code: J44.1 - Obstructive chronic bronchitis with exacerbation (3) Diabetes mellitus, type 2 ICD Code: E11.9 - Type 2 diabetes mellitus (4) Tachycardia ICD Code: R00.0 - Tachycardia (5) COPD (chronic obstructive pulmonary disease) ICD Code: J44.9 - Chronic obstructive pulmonary disease (6) Bilateral leg edema ICD Code: R60.0 - Localized edema (7) Dyspnea on exertion ICD Code: R06.09 - Other forms of dyspnea (8) Hyperglycemia due to type 2 diabetes mellitus ICD Code: E11.65 - Type 2 diabetes mellitus with hyperglycemia Procedures None. Brief History - From Admission Written by Glenis Christianson PA-C acting as scribe for Dr. Cabrera on 01/07/17 at 16:55. This is a 62-year-old female with a past medical history significant for hypertension, diabetes mellitus, COPD, rheumatoid arthritis, dyslipidemia and hepatitis C who presents to [facility] ED with complaints of progressive shortness of breath and bilateral leg swelling. Patient states this has been ongoing for the past 4 days. She denies any associated chest pain. Patient also reports history of mechanical fall about a week ago suffering injuries to both lower legs. Patient states she felt like her legs were "feverish". Patient states she's been compliant with all of her medications. She uses her nebulizer 4 times a day. She does require oxygen use at home. She uses a scooter for ambulation. She has an extensive history of tobacco use but reports quitting 3 weeks ago. In the ED, chest x-ray showed no acute cardiopulmonary abnormality. CTA showed moderate COPD changes no evidence of large or central pulmonary embolus was identified. Bilateral venous Doppler studies were negative for DVTs. CBC/BMP: 01/08/17 0357 01/10/17 0053 Significant Findings Laboratory Tests Test 01/09/17 01/10/17 06:09 00:53 Ferritin 410 NG/ML (8-252) Random Glucose 414 MG/DL (74-106) Imaging Last Impressions Abdomen CT 01/09/17 0000 Signed Impressions: Service Date/Time: Monday, January 09, 2017 09:02 - CONCLUSION: No percutaneous access for safe biopsy. Mass is probably adenopathy and not adrenal.. Mark Simon MD FACR Chest X-Ray 01/07/17 1133 Signed Impressions: Service Date/Time: Saturday, January 07, 2017 13:13 - CONCLUSION: No acute cardiopulmonary abnormality is identified. Shaggy Bryson MD Pelvis X-Ray 01/07/17 0000 Signed Impressions: Service Date/Time: Saturday, January 07, 2017 13:14 - CONCLUSION: No acute abnormality is identified. Shaggy Bryson MD Lower Extremity Ultrasound 01/07/17 0000 Signed Impressions: Service Date/Time: Saturday, January 07, 2017 11:55 - CONCLUSION: No DVT is identified within either lower extremity. Shaggy Brysno MD CT Angiography 01/07/17 0000 Signed Impressions: Service Date/Time: Saturday, January 07, 2017 13:45 - CONCLUSION: 1. Moderate COPD changes. 2. No large or central pulmonary embolus identified. 3. Abnormal soft tissue mass involving the left adrenal gland and retroperitoneum concerning for malignancy. CT imaging through the abdomen is warranted for more definitive assessment. Estevan Simon MD Abdomen/Pelvis CT 01/07/17 0000 Signed Impressions: Service Date/Time: Saturday, January 07, 2017 15:18 - CONCLUSION: 1. There is an abnormal mass abutting and potentially arising from the left adrenal gland measuring up to 3.3 cm. This mass is new compared to the February 2016 exam. 2. There is new lymphadenopathy in the hepatoduodenal and gastrohepatic ligaments. These findings could represent metastatic disease or lymphoma. The left adrenal region mass could also represent a primary adrenal gland tumor. Suggest correlation with the clinical history. 3. Liver features diagnostic of cirrhosis. No focal liver lesion is identified. Shaggy Bryson MD PE at Discharge GENERAL: Alert, NAD - difficult for her to speak in full sentences. SKIN: Warm and dry. HEAD: Normocephalic. EYES: No scleral icterus. No injection or drainage. NECK: Supple, trachea midline. No JVD or lymphadenopathy. CARDIOVASCULAR: Regular rate and rhythm without murmurs, gallops, or rubs. RESPIRATORY: Poor air entry, no appreciable wheezing. GASTROINTESTINAL: Abdomen soft, non-tender, nondistended. MUSCULOSKELETAL: No cyanosis. 1+ edema bilaterally. BACK: Nontender without obvious deformity. No CVA tenderness. Pt update on day of discharge Patient is doing well at rest. However, on minimal exertion, she gets short of breath. No fever, chills. We again discussed regarding biopsy of adrenal mass should her respiratory status improve in future. Hospital Course 62-year-old female with a past medical history significant for hypertension, diabetes mellitus, COPD, rheumatoid arthritis, dyslipidemia and hepatitis C who presents to [facility] ED with complaints of progressive shortness of breath and bilateral leg swelling. COPD exacerbation CTA shows moderate COPD changes and no evidence of PE Scheduled DuoNeb Prednisone 10mg TID. Incentive spirometry Supplemental oxygen to keep patient's O2 sats above 90%. Continue Levaquin PO. Consulted Pulmonology (Dr. Vincent). Tachycardia EKG personally reviewed showing sinus tachycardia Likely due to COPD exacerbation. CT PE did not show any PE. Bilateral lower extremity swelling Bilateral Dopplers negative for DVT Will discontinue IV lasix. BNP was 10. Continue patient's home dose of potassium chloride 20 mEq daily Insulin-dependent diabetes Hyperglycemia - glucose this afternoon about 490. Continue Levemir 35 units BID. Change sliding scale insulin to Aspart medium scale Continue pre-meal insulin Aspart 8 units TIDAC. Generalized deconditioning Patient uses a scooter for mobilization PT/OT Incidental finding of abnormal soft tissue mass left adrenal gland concerning for malignancy CT abd/pelvis was obtained following incidental finding of abnormal soft tissue mass of the left adrenal gland as seen on the CTA personally interpreted revealing an abnormal mass abutting and potentially arising from the left adrenal gland measuring up to 3.3 cm new compared to February 2016 exam, new lymphadenopathy in the hepatoduodenal and gastrohepatic ligaments possibly representing metastatic disease or lymphoma. Left adrenal region mass possibly representing primary adrenal gland tumor. Consult interventional radiology for biopsy Consult Oncology. Appreciate Dr. Mckeon's input. Agree with Dr. Mckeon regarding patient's respiratory status and overall deconditioning. Patient's ECOG score is probably at least 3. I discussed with Radiologist (Dr. Terri Simon) and Dr. Mckeon at length on 2016. We believe surgical bx would be more harmful for this patient at this point. Should her respiratory status improves in future, surgical biopsy could be re-considered. We will ask Palliative care team to come on board. Hepatitis C CT of the abdomen/pelvis shows liver features diagnosis of cirrhosis Pt Condition on Discharge: Fair Discharge Disposition: Hospice/ Home Discharge Time: > 30 minutes Discharge Instructions DIET: Follow Instructions for: Diabetic Diet Activities you can perform: Regular-No Restrictions Follow up Referrals: PCP Follow-up - 1 Week Pulmonology - 3 Weeks with Keshawn Vincent MD New Medications: Albuterol 18 GM Inh (Ventolin Hfa 18 GM Inh) 90 Mcg/Act Aer 2 PUFF INH Q4-6H PRN for SHORTNESS OF BREATH, #1 INHALER 0 Refills Oxycodone-Acetaminophen (Percocet) 5-325 mg Tab 1 TAB PO Q6H PRN for PAIN, #20 TAB 0 Refills Prednisone (Prednisone) 10 Mg Tab 10 MG PO BID for COPD, #10 TAB 0 Refills Take 1 tablet twice a day X 3 days THEN Take 1 tablet once a day X 4 days THEN Take home dose (Prednisone 5mg ) once a day. Budesonide-Formoterol Inh (Symbicort Inh) 160-4.5 Mcg/Act Aero 2 PUFF INH Q12HR for COPD, #1 INHALER 5 Refills Levofloxacin (Levaquin) 250 Mg Tablet 250 MG PO Q24H for Infection, #4 TAB Continued Medications: Albuterol Neb (Albuterol Neb) 2.5 Mg/3 Ml Neb 2.5 MG NEB Q6HR PRN for SHORTNESS OF BREATH, #60 NEBULE 0 Refills While awake Insulin Aspart Inj (Novolog Inj) 1,000 Unit/10 Ml Vial 0 SQ DIRECTED for Blood Sugar Management, #10 ML 0 Refills Sliding Scale as directed. Insulin Glargine Inj (Lantus Inj) 1,000 Unit/10 Ml Vial 35 UNITS SQ BID for Blood Sugar Management, VIAL 0 Refills Pregabalin (Lyrica) 150 Mg Cap 150 MG PO TID, #90 CAP 0 Refills Sitagliptin-Metformin (Janumet) 50-1,000 Mg Tab Unknown Dose PO DAILY for Blood Sugar Management, #0 TAB 0 Refills Discontinued Medications: Furosemide (Lasix) 40 Mg Tab 40 MG PO BID for 7 Days, TAB 0 Refills Hydrocodone-Acetaminophen (Hydrocodone-Acetaminophen) 10-325 mg Tab 1 TAB PO TID PRN for PAIN, #15 TAB 0 Refills Potassium Chloride ER (Potassium Chloride ER) 20 Meq Tab 20 MEQ PO DAILY for Electrolyte Replacement for 5 Days, TAB 0 Refills Prednisone (Prednisone) 5 Mg Tab 5 MG PO DIRECTED for copd for 6 Days, TAB 0 Refills 20 mg po daily for two days then 10 mg po daily for two days then 5 mg po daily for two days then stop. Sunshine Madrid DO Jan 11, 2017 09:27
[2017-01-11 12:00] VITALS: BP 163/101; PULSE 112; RESP 20; TEMP 97; O2SAT 100
[2017-01-11] MEDS: LEVOFLOXACIN 250 MG TAB PO SCH (12:06)
== END 2017-01-11 13:09 | disposition hospice, home (50) | DRG 191 ==
LOC: NEPE 11:11 → NEDA 16:41 → OBSVTOIN 16:59 → N07A 21:22
PROVIDERS: ADMIT Hospitalist; ATTEND Hospitalist
PROC: 3E0F7GC Introduction of Other Therapeutic Substance into Respiratory Tract, Via Natural or Artificial Opening (ICD-10-PCS; principal; 2017-01-07)
PROC: 0T9B70Z Drainage of Bladder with Drainage Device, Via Natural or Artificial Opening (ICD-10-PCS; 2017-01-07)
DX: J44.1 Chronic obstructive pulmonary disease with (acute) exacerbation (principal); J96.10 Chronic respiratory failure, unspecified whether with hypoxia or hypercapnia; E11.65 Type 2 diabetes mellitus with hyperglycemia; Z99.81 Dependence on supplemental oxygen; K74.60 Unspecified cirrhosis of liver; D49.7 Neoplasm of unspecified behavior of endocrine glands and other parts of nervous system; I10 Essential (primary) hypertension; B19.20 Unspecified viral hepatitis C without hepatic coma; G47.30 Sleep apnea, unspecified; R60.0 Localized edema; R00.0 Tachycardia, unspecified; G43.909 Migraine, unspecified, not intractable, without status migrainosus; M10.9 Gout, unspecified; E78.00 Pure hypercholesterolemia, unspecified; M06.9 Rheumatoid arthritis, unspecified; E78.5 Hyperlipidemia, unspecified; M81.0 Age-related osteoporosis without current pathological fracture; E66.9 Obesity, unspecified; Z79.4 Long term (current) use of insulin; Z87.891 Personal history of nicotine dependence; R59.1 Generalized enlarged lymph nodes; Z82.5 Family history of asthma and other chronic lower respiratory diseases; Z80.9 Family history of malignant neoplasm, unspecified; Z51.5 Encounter for palliative care; N28.9 Disorder of kidney and ureter, unspecified
CPT/HCPCS: 71010; 71275; 72170; 74150; 74177; 76937; 80048; 80053; 81001; 82378; 82550; 82728; 82947; 82948; 83036; 83735; 83880; 84100; 84439; 84443; 84484; 85025; 85610; 93005; 93970; 94150; 94640; 94664; 96374; 96375; 96376; J1644; J1815; J1940; J2270; J2405; J2930; J7040; J7512; J7644; Q9967

== ENCOUNTER 2017-02-04 09:49 | Inpatient (IN) | payer MEDICAID ==
[2017-02-04] VITALS (16 sets, daily range): BP systolic 101–130; BP diastolic 65–75; PULSE 118–133; RESP 16–24; TEMP 97.7–98.3; O2SAT 96–98
[~2017-02-04] VITALS: Ht 160 cm; Wt 92.6 kg
[~2017-02-04 09:49] MED LIST changes: -HYDR-3583 PO; +LEVA250T14 PO; -METO25TA3 PO; +PERC5TAB12 PO; +PRED10 PO; -PRED5TAB PO; +SYMB160A INH; +VENTAER INH; -XARE15TA PO
[2017-02-04] MEDS ORDERED: SODIUM CHLORIDE 0.9% FLUSH 10 ML FLUSH IVF PRN (10:00)
[2017-02-04] MEDS ORDERED: RESP: BUDESONIDE 0.5 MG/2 ML NEB NEB ONE (10:00)
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
[2017-02-04] MEDS: RESP: ALBUTEROL 2.5 MG/IPRATROPIUM 0.5 MG NEB (SCH) INH ×2 (10:19→10:20)
[2017-02-04 10:23] LABS: AUTOMATED NEUTROPHIL # 4.8 TH/MM3 (1.8-7.7); BASOPHIL # 0.1 TH/MM3 (0-0.2); BASOPHIL % 1.3 % (0.0-2.0); EOSINOPHIL # 0.4 TH/MM3 (0-0.4); EOSINOPHIL % 4.3 % (0.0-4.0); HEMO FLAGS DIFF FINAL; LYMPH % 35.7 % (9.0-44.0); LYMPHOCYTE # 3.6 TH/MM3 (1.0-4.8); MEAN CELL VOLUME 78.3 FL (80.0-100.0); MEAN CORPUSCULAR HEMOGLOBIN 25.5 PG (27.0-34.0); MEAN CORPUSCULAR HGB CONC 32.6 % (32.0-36.0); MONO % 10.5 % (0.0-8.0); NEUT % 48.2 % (16.0-70.0); PLATELET COUNT 299 TH/MM3 (150-450); RED BLOOD COUNT 5.11 MIL/MM3 (4.00-5.30); RED CELL DISTRIBUTION WIDTH 17.5 % (11.6-17.2)
--- NOTE | 2017-02-04 10:42 | RADRPT ---
EXAM DATE/TIME: 02/04/2017 10:32 [facility] COMPARISON: CHEST SINGLE AP, January 07, 2017, 13:13. INDICATIONS : Short of breath. MEDICAL HISTORY : Chronic obstructive pulmonary disease. Hypertension Hypercholesterolemia. SURGICAL HISTORY : None. ENCOUNTER: Initial ACUITY: 1 day PAIN SCORE: 0/10 LOCATION: Bilateral chest FINDINGS: A single view of the chest demonstrates the lungs to be symmetrically hyper aerated without evidence of mass, infiltrate or effusion. The cardiomediastinal contours are unremarkable. Osseous structure s are intact. CONCLUSION: No acute disease. COPD. Deo Isabel MD on February 04, 2017 at 10:39 Board Certified Radiologist. This report was verified electronically.
[2017-02-04 10:47] LABS: ALT (GPT) 30 U/L (10-53)
[2017-02-04 10:49] LABS: ALKALINE PHOSPHATASE 122 U/L (45-117); TOTAL BILIRUBIN ADULT 0.5 MG/DL (0.2-1.0)
[2017-02-04 11:00] LABS: ANION GAP 7 MEQ/L (5-15); AST (GOT) 42 U/L (15-37); BICARBONATE 25.6 MEQ/L (21.0-32.0); BLOOD UREA NITROGEN 17 MG/DL (7-18); CHLORIDE 109 MEQ/L (98-107); GLOMERULAR FILTRATION RATE 85 ML/MIN (>89); SODIUM (NA) 142 MEQ/L (136-145)
[2017-02-04 11:01] LABS: POTASSIUM 3.8 MEQ/L (3.5-5.1)
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
[2017-02-04] MEDS ORDERED: RESP: ALBUTEROL 2.5 MG/IPRATROPIUM 0.5 MG NEB (PRN) NEB (12:15)
[2017-02-04] MEDS ORDERED: ACETAMINOPHEN 325 MG TAB PO PRN (12:15)
[2017-02-04] MEDS ORDERED: ALUMINUM/MAGNESIUM/SIMETH 30 ML CUP PO PRN (12:15)
[2017-02-04] MEDS ORDERED: ONDANSETRON HCL 4 MG/2 ML VIAL IV PRN (12:15)
[2017-02-04] MEDS ORDERED: DOCUSATE SODIUM 100 MG CAP PO PRN (12:15)
[2017-02-04] MEDS ORDERED: SODIUM CHLORIDE 0.9% FLUSH 10 ML FLUSH IV FLUSH PRN (12:15)
[2017-02-04] MEDS ORDERED: DEXTROSE 50% IN WATER 50 ML VIAL(D50) IV PRN (12:30)
[2017-02-04] MEDS ORDERED: GLUCAGON 1 MG/ML VIAL OTHER PRN (12:30)
[2017-02-04] MEDS: RESP: ALBUTEROL 2.5 MG/IPRATROPIUM 0.5 MG NEB (SCH) NEB ×2 (13:26→19:34)
[2017-02-04] MEDS: PREGABALIN 75 MG CAP PO SCH ×2 (14:05→17:45)
[2017-02-04] MEDS: HEPARIN SODIUM - SQ 10,000 UNITS/ML VIAL SQ SCH (14:05)
[2017-02-04] MEDS: methylPREDNISolone SOD SUCC 40 MG/1 ML VIAL IV PUSH SCH ×2 (14:06→21:44)
[2017-02-04] MEDS: oxyCODONE/ACETAMINOPHEN 5 MG/325 MG TAB PO PRN ×2 (14:15→21:44)
[2017-02-04] MEDS: INSULIN ASPART SUPPLEMENTAL SCALE SQ SCH ×2 (16:00→21:42)
[2017-02-04] MEDS: INSULIN DETEMIR 100 UNITS/ML VIAL SQ SCH (21:42)
[2017-02-04] MEDS: BUDESONIDE-FORMOTEROL 160/4.5 MCG INHALER INH SCH (21:43)
[2017-02-04] MEDS: SODIUM CHLORIDE 0.9% FLUSH 10 ML FLUSH IV FLUSH SCH (21:43)
[2017-02-05] VITALS (23 sets, daily range): BP systolic 105–154; BP diastolic 70–92; PULSE 110–142; RESP 18–22; TEMP 97.5–98.6; O2SAT 93–100
[2017-02-05] MEDS: HEPARIN SODIUM - SQ 10,000 UNITS/ML VIAL SQ SCH ×2 (02:04→13:13)
[2017-02-05] MEDS: oxyCODONE/ACETAMINOPHEN 5 MG/325 MG TAB PO PRN ×3 (02:04→21:59)
[2017-02-05] MEDS: methylPREDNISolone SOD SUCC 40 MG/1 ML VIAL IV PUSH SCH ×3 (06:16→21:05)
[2017-02-05] MEDS: INSULIN ASPART SUPPLEMENTAL SCALE SQ SCH (06:17)
[2017-02-05 06:57] LABS: AUTOMATED NEUTROPHIL # 8.9 TH/MM3 (1.8-7.7); BASOPHIL # 0.1 TH/MM3 (0-0.2); BASOPHIL % 0.9 % (0.0-2.0); EOSINOPHIL % 0.1 % (0.0-4.0); HEMATOCRIT 35.2 % (35.0-46.0); HEMO FLAGS DIFF FINAL; LYMPH % 13.5 % (9.0-44.0); LYMPHOCYTE # 1.6 TH/MM3 (1.0-4.8); MEAN CELL VOLUME 80.2 FL (80.0-100.0); MEAN CORPUSCULAR HEMOGLOBIN 25.7 PG (27.0-34.0); MEAN CORPUSCULAR HGB CONC 32.1 % (32.0-36.0); MONO % 8.9 % (0.0-8.0); NEUT % 76.6 % (16.0-70.0); PLATELET COUNT 272 TH/MM3 (150-450); RED BLOOD COUNT 4.39 MIL/MM3 (4.00-5.30); RED CELL DISTRIBUTION WIDTH 17.8 % (11.6-17.2); WHITE BLOOD COUNT 11.6 TH/MM3 (4.0-11.0)
[2017-02-05 07:05] LABS: BICARBONATE 25.8 MEQ/L (21.0-32.0); POTASSIUM 4.8 MEQ/L (3.5-5.1)
[2017-02-05] MEDS: RESP: ALBUTEROL 2.5 MG/IPRATROPIUM 0.5 MG NEB (SCH) NEB (07:17)
--- NOTE | 2017-02-05 08:14 | HHI.PR ---
Subjective Remarks Follow-up COPD exacerbation 02/05/17-patient seen and examined, still wheezing some shortness of breath. Tachycardia however denies any chest pain Objective Vitals Vital Signs Date Time Temp Pulse Resp B/P (MAP) Pulse Ox O2 Delivery O2 Flow Rate FiO2 02/05/17 07:44 98.4 126 18 113/76 (88) 98 02/05/17 07:18 98 Nasal Cannula 3.00 02/05/17 06:00 116 02/05/17 05:00 110 02/05/17 04:00 113 02/05/17 03:54 98.5 113 20 105/70 (82) 97 02/05/17 03:00 121 02/05/17 02:00 114 02/05/17 01:00 118 02/05/17 00:00 115 02/05/17 00:00 98.3 115 22 122/80 (94) 96 02/04/17 23:00 118 02/04/17 22:00 118 02/04/17 21:00 130 02/04/17 20:00 132 02/04/17 20:00 98.3 126 22 123/67 (85) 97 02/04/17 19:38 98 Nasal Cannula 3.00 02/04/17 19:00 132 02/04/17 18:01 122 02/04/17 17:00 124 02/04/17 16:01 125 02/04/17 15:00 127 02/04/17 14:28 97.7 124 24 104/66 (79) 98 02/04/17 13:32 126 18 118/71 (87) 97 Nasal Cannula 3.00 02/04/17 12:58 129 16 101/65 (77) 97 Nasal Cannula 3.00 02/04/17 10:19 98 Nasal Cannula 3.00 02/04/17 10:03 122 20 130/75 (93) 96 Nasal Cannula 3.00 02/04/17 10:03 120 16 96 Nasal Cannula 3.00 02/04/17 10:03 96 Nasal Cannula 3.00 02/04/17 09:57 97.9 133 20 130/75 (93) I/O 02/04/17 02/04/17 02/04/17 02/05/17 02/05/17 02/05/17 07:00 15:00 23:00 07:00 15:00 23:00 Intake Total 480 ml 720 ml Output Total 0 ml Balance 480 ml 720 ml Intake Oral 480 ml 720 ml Output Urine Total 0 ml # Voids 0 2 # Bowel Movements 0 0 Result Diagram: 02/05/17 0555 02/05/17 0555 Imaging Last Impressions Chest X-Ray 02/04/17 0959 Signed Impressions: Service Date/Time: Saturday, February 04, 2017 10:32 - CONCLUSION: No acute disease. COPD. Deo Isabel MD Objective Remarks GENERAL: NAD SKIN: Warm and dry. HEAD: Normocephalic. EYES: No scleral icterus. No injection or drainage. NECK: Supple, trachea midline. No JVD or lymphadenopathy. CARDIOVASCULAR: Regular rate and rhythm without murmurs, gallops, or rubs. RESPIRATORY: Breath sounds decrease bilaterally. No accessory muscle use. expiratory wheezes bilaterally GASTROINTESTINAL: Abdomen soft, non-tender, nondistended. MUSCULOSKELETAL: No cyanosis, or edema. BACK: Nontender without obvious deformity. No CVA tenderness. A/P Problem List: (1) COPD exacerbation ICD Code: J44.1 - Obstructive chronic bronchitis with exacerbation Status: Acute Assessment and Plan 62-year-old female with COPD exacerbation Chest x-ray noted and reviewed by me without any acute pulmonary disease Increase Solu-Medrol to 40 mg IV every 8 hours and continue Spiriva, Symbicort, schedule DuoNeb and when necessary, azithromycin, Mucinex Maintain oxygen saturation above 92% Check sputum culture if indicated Consider CT angiogram to rule out PE Diabetes type 2 Labile blood glucose due to steroids therapy Continue insulin sliding scale and basal insulin Left knee pain Chronic Continue pain medication accordingly DVT prophylaxis: Heparin Code Status Discharge Planning Discharge home when medically stable in 1-2 days Delgado Mitchell MD Feb 05, 2017 08:14
[2017-02-05] MEDS: BUDESONIDE-FORMOTEROL 160/4.5 MCG INHALER INH SCH ×2 (09:13→21:11)
[2017-02-05] MEDS: AZITHROMYCIN 250 MG TAB PO SCH (09:14)
[2017-02-05] MEDS: SODIUM CHLORIDE 0.9% FLUSH 10 ML FLUSH IV FLUSH SCH ×2 (09:14→21:09)
[2017-02-05] MEDS: PREGABALIN 75 MG CAP PO SCH ×3 (09:14→18:16)
[2017-02-05] MEDS: guaiFENesin E.R. 600 MG TAB PO SCH ×2 (09:14→21:04)
[2017-02-05] MEDS: INSULIN DETEMIR 100 UNITS/ML VIAL SQ SCH ×2 (09:17→21:08)
--- NOTE | 2017-02-05 14:04 | EKG ---
Date Performed: 02/04/2017 Time Performed: 11:05:55 PTAGE: 62 years EKG: SINUS TACHYCARDIA ABNORMAL RHYTHM ECG Compared to prior tracing no significant change PREVIOUS TRACING : 01/07/2017 11.31 DOCTOR: Juliane Hartmann Interpretating Date/Time 02/05/2017 13:57:55
[2017-02-05] MEDS: HIGH DOSE INSULIN NOVOLOG SUPPLEMENTAL SCALE SQ SCH ×3 (14:30→21:09)
[2017-02-05] MEDS: TIOTROPIUM BROMIDE 18 MCG INH INH SCH (14:31)
[2017-02-05] MEDS: RESP: LEVALBUTEROL HYDROCHLORIDE 1.25 MG/3 ML NEB (PRN) NEB ×2 (15:05→22:05)
[2017-02-05] MEDS ORDERED: HYDR-3535 PO (19:56)
[2017-02-05] MEDS ORDERED: ATROPINE SULFATE 1 MG/10 ML SYRINGE ONE (22:26)
[2017-02-05] MEDS ORDERED: EPINEPHrine HCL (1:10,000) 1 MG/10 ML SYRINGE ONE (22:26)
[2017-02-06] VITALS (9 sets, daily range): BP systolic 125–154; BP diastolic 58–86; PULSE 109–127; RESP 18–22; TEMP 97.5–98.4; O2SAT 94–98
[2017-02-06] MEDS: RESP: LEVALBUTEROL HYDROCHLORIDE 1.25 MG/3 ML NEB (PRN) NEB ×4 (00:17→16:17)
[2017-02-06] MEDS: HEPARIN SODIUM - SQ 10,000 UNITS/ML VIAL SQ SCH ×2 (02:30→12:33)
[2017-02-06] MEDS: methylPREDNISolone SOD SUCC 40 MG/1 ML VIAL IV PUSH SCH ×3 (06:18→21:16)
[2017-02-06] MEDS: oxyCODONE/ACETAMINOPHEN 5 MG/325 MG TAB PO PRN ×2 (06:19→21:24)
[2017-02-06] MEDS: guaiFENesin E.R. 600 MG TAB PO SCH ×2 (09:17→21:16)
[2017-02-06] MEDS: PREGABALIN 75 MG CAP PO SCH ×3 (09:17→17:18)
[2017-02-06] MEDS: AZITHROMYCIN 250 MG TAB PO SCH (09:17)
[2017-02-06] MEDS: INSULIN DETEMIR 100 UNITS/ML VIAL SQ SCH ×2 (09:18→21:18)
[2017-02-06] MEDS: HIGH DOSE INSULIN NOVOLOG SUPPLEMENTAL SCALE SQ SCH ×4 (09:18→21:17)
[2017-02-06] MEDS: TIOTROPIUM BROMIDE 18 MCG INH INH SCH (09:19)
[2017-02-06] MEDS: SODIUM CHLORIDE 0.9% FLUSH 10 ML FLUSH IV FLUSH SCH ×2 (09:19→21:16)
[2017-02-06] MEDS: BUDESONIDE-FORMOTEROL 160/4.5 MCG INHALER INH SCH ×2 (09:19→21:18)
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
[2017-02-07] VITALS (8 sets, daily range): BP systolic 131–182; BP diastolic 68–108; PULSE 99–112; RESP 18–24; TEMP 97.5–98.3; O2SAT 95–99
[2017-02-07] MEDS: HEPARIN SODIUM - SQ 10,000 UNITS/ML VIAL SQ SCH ×2 (01:36→12:58)
[2017-02-07] MEDS: methylPREDNISolone SOD SUCC 40 MG/1 ML VIAL IV PUSH SCH ×2 (06:03→12:58)
[2017-02-07] MEDS: oxyCODONE/ACETAMINOPHEN 5 MG/325 MG TAB PO PRN ×3 (06:04→23:45)
[2017-02-07] MEDS: AZITHROMYCIN 250 MG TAB PO SCH (08:45)
[2017-02-07] MEDS: PREGABALIN 75 MG CAP PO SCH ×3 (08:45→17:13)
[2017-02-07] MEDS: HIGH DOSE INSULIN NOVOLOG SUPPLEMENTAL SCALE SQ SCH ×4 (08:45→21:25)
[2017-02-07] MEDS: INSULIN DETEMIR 100 UNITS/ML VIAL SQ SCH ×2 (08:45→21:24)
[2017-02-07] MEDS: SODIUM CHLORIDE 0.9% FLUSH 10 ML FLUSH IV FLUSH SCH ×2 (08:46→21:00)
[2017-02-07] MEDS: BUDESONIDE-FORMOTEROL 160/4.5 MCG INHALER INH SCH ×2 (08:46→21:00)
[2017-02-07] MEDS: TIOTROPIUM BROMIDE 18 MCG INH INH SCH (08:46)
[2017-02-07] MEDS: guaiFENesin E.R. 600 MG TAB PO SCH ×2 (08:46→21:23)
[2017-02-07] MEDS: RESP: LEVALBUTEROL HYDROCHLORIDE 1.25 MG/3 ML NEB (PRN) NEB ×3 (09:29→20:48)
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
[2017-02-07] MEDS ORDERED: ENALAPRIL MALEATE 10 MG TAB PO SCH (17:30)
[2017-02-07] MEDS ORDERED: cloNIDine HCL 0.1 MG TAB PO PRN (17:45)
[2017-02-07] MEDS: CARVEDILOL 3.125 MG TAB PO SCH ×2 (18:00→21:23)
[2017-02-08] VITALS (8 sets, daily range): BP systolic 128–156; BP diastolic 82–98; PULSE 95–127; RESP 18–22; TEMP 97.8–98.2; O2SAT 94–100
[2017-02-08] MEDS: HEPARIN SODIUM - SQ 10,000 UNITS/ML VIAL SQ SCH ×2 (01:01→13:36)
[2017-02-08] MEDS: oxyCODONE/ACETAMINOPHEN 5 MG/325 MG TAB PO PRN ×3 (05:23→21:34)
[2017-02-08 09:11] LABS: HEMATOCRIT 41.7 % (35.0-46.0); MEAN CELL VOLUME 79.2 FL (80.0-100.0); MEAN CORPUSCULAR HEMOGLOBIN 25.4 PG (27.0-34.0); MEAN CORPUSCULAR HGB CONC 32.1 % (32.0-36.0); PLATELET COUNT 280 TH/MM3 (150-450); RED BLOOD COUNT 5.26 MIL/MM3 (4.00-5.30); RED CELL DISTRIBUTION WIDTH 17.4 % (11.6-17.2); WHITE BLOOD COUNT 14.6 TH/MM3 (4.0-11.0)
[2017-02-08] MEDS: HIGH DOSE INSULIN NOVOLOG SUPPLEMENTAL SCALE SQ SCH ×4 (09:20→21:35)
[2017-02-08] MEDS: AZITHROMYCIN 250 MG TAB PO SCH (09:21)
[2017-02-08] MEDS: CARVEDILOL 3.125 MG TAB PO SCH ×2 (09:21→21:34)
[2017-02-08] MEDS: TIOTROPIUM BROMIDE 18 MCG INH INH SCH (09:21)
[2017-02-08] MEDS: PREGABALIN 75 MG CAP PO SCH ×3 (09:21→17:07)
[2017-02-08] MEDS: guaiFENesin E.R. 600 MG TAB PO SCH ×2 (09:21→21:34)
[2017-02-08] MEDS: BUDESONIDE-FORMOTEROL 160/4.5 MCG INHALER INH SCH ×2 (09:21→22:40)
[2017-02-08] MEDS: INSULIN DETEMIR 100 UNITS/ML VIAL SQ SCH ×2 (09:21→21:35)
[2017-02-08] MEDS: predniSONE 20 MG TAB PO SCH (09:21)
[2017-02-08] MEDS: SODIUM CHLORIDE 0.9% FLUSH 10 ML FLUSH IV FLUSH SCH ×2 (09:21→22:40)
[2017-02-08 09:58] LABS: REVIEW FLAG FINAL
--- NOTE | 2017-02-08 16:36 | HHI.PR ---
Subjective Remarks Patient with persistent shortness of breath, does not believe she can manage at home. Hoping to go home tomorrow. Objective Vitals Vital Signs Date Time Temp Pulse Resp B/P (MAP) Pulse Ox O2 Delivery O2 Flow Rate FiO2 02/08/17 12:00 98.2 100 20 128/82 (97) 96 02/08/17 10:19 98 Nasal Cannula 3.00 02/08/17 09:31 Nasal Cannula 3.00 02/08/17 09:31 120 02/08/17 08:00 97.9 115 20 136/97 (110) 98 02/08/17 04:00 Nasal Cannula 3.00 02/08/17 04:00 97.8 98 18 156/98 (117) 100 02/08/17 00:00 Nasal Cannula 3.00 02/08/17 00:00 97.8 127 22 132/88 (103) 94 02/07/17 20:49 95 Nasal Cannula 3.00 02/07/17 20:00 110 02/07/17 20:00 Nasal Cannula 3.00 02/07/17 20:00 97.9 100 20 144/88 (106) 95 I/O 02/07/17 02/07/17 02/07/17 02/08/17 02/08/17 02/08/17 07:00 15:00 23:00 07:00 15:00 23:00 Intake Total 800 ml 960 ml 480 ml Balance 800 ml 960 ml 480 ml Intake Oral 800 ml 960 ml 480 ml # Voids 4 2 3 # Bowel Movements 0 1 1 1 Result Diagram: 02/08/1782402/08/17824 Objective Remarks GENERAL: Obese female in no apparent distress. CARDIOVASCULAR: Normal rate and regular rhythm without murmurs, gallops, or rubs. RESPIRATORY: Poor air movement. Markedly diminished breath sounds at the bases. Faint rhonchi throughout GASTROINTESTINAL: Abdomen soft, non-tender, non-distended. Normal active bowel sounds MUSCULOSKELETAL: Extremities without cyanosis, or edema. NEURO: Alert & Oriented x4 to person, place, time, situation. Moves all ext x4 PSYCH: Appropriate mood and affect. A/P Problem List: (1) COPD exacerbation ICD Code: J44.1 - Obstructive chronic bronchitis with exacerbation Status: Acute Assessment and Plan 62-year-old female admitted for COPD exacerbation: Improving Chest x-ray noted a without any acute pulmonary disease Continue oral prednisone, continue Spiriva, Symbicort, schedule DuoNeb and when necessary, azithromycin, Mucinex Maintain oxygen saturation above 92% Diabetes type 2 Labile blood glucose due to steroids therapy Continue insulin sliding scale and basal insulin Left knee pain Chronic Continue pain medication accordingly Hypertension: Patient reports she was previously on blood pressure medications. -Continue Coreg, low-dose, tachycardia better. - Continue to monitor. DVT prophylaxis: Heparin Discharge Planning Probable discharge tomorrow if continues to improve. Kelton Saldana MD Feb 08, 2017 16:36
[2017-02-09] VITALS: BP 136/96; PULSE 100; RESP 20; TEMP 97.6; O2SAT 99
[2017-02-09 04:00] VITALS: BP 137/92; PULSE 89; RESP 20; TEMP 97.7; O2SAT 95
[2017-02-09] MEDS: oxyCODONE/ACETAMINOPHEN 5 MG/325 MG TAB PO PRN (06:38)
[2017-02-09] MEDS: HEPARIN SODIUM - SQ 10,000 UNITS/ML VIAL SQ SCH (06:38)
[2017-02-09 08:00] VITALS: BP 151/104; PULSE 87; RESP 20; TEMP 97.8; O2SAT 97
[2017-02-09] MEDS: HIGH DOSE INSULIN NOVOLOG SUPPLEMENTAL SCALE SQ SCH ×2 (08:00→12:00)
[2017-02-09] MEDS ORDERED: amLODIPine BESYLATE 5 MG TAB PO SCH (10:00)
[2017-02-09] MEDS: AZITHROMYCIN 250 MG TAB PO SCH (10:10)
[2017-02-09] MEDS: CARVEDILOL 3.125 MG TAB PO SCH (10:10)
[2017-02-09] MEDS: PREGABALIN 75 MG CAP PO SCH ×2 (10:10→13:37)
[2017-02-09] MEDS: INSULIN DETEMIR 100 UNITS/ML VIAL SQ SCH (10:11)
[2017-02-09] MEDS: guaiFENesin E.R. 600 MG TAB PO SCH (10:11)
[2017-02-09] MEDS: predniSONE 20 MG TAB PO SCH (10:12)
[2017-02-09] MEDS: BUDESONIDE-FORMOTEROL 160/4.5 MCG INHALER INH SCH (10:13)
[2017-02-09] MEDS: TIOTROPIUM BROMIDE 18 MCG INH INH SCH (10:13)
[2017-02-09] MEDS: SODIUM CHLORIDE 0.9% FLUSH 10 ML FLUSH IV FLUSH SCH (10:14)
[2017-02-09 12:00] VITALS: BP 119/86; PULSE 94; RESP 20; TEMP 97.7; O2SAT 99
[2017-02-09] MEDS ORDERED: PRED10 PO (12:36)
[2017-02-09] MEDS ORDERED: AMLO5 PO (12:36)
[2017-02-09] MEDS ORDERED: CARV3.125 PO (12:36)
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
[2017-02-09] MEDS: RESP: LEVALBUTEROL HYDROCHLORIDE 1.25 MG/3 ML NEB (PRN) NEB (12:55)
== END 2017-02-09 13:50 | disposition home or self-care (01) | DRG 192 ==
LOC: NEPC 09:49 → NEDA 12:03 → HCIN 13:55 → N04B 02-05 22:34
PROVIDERS: ADMIT Family Medicine; ATTEND Family Medicine
DX: J44.1 Chronic obstructive pulmonary disease with (acute) exacerbation (principal); Z99.81 Dependence on supplemental oxygen; I10 Essential (primary) hypertension; E11.9 Type 2 diabetes mellitus without complications; M06.9 Rheumatoid arthritis, unspecified; R00.0 Tachycardia, unspecified; E66.9 Obesity, unspecified; M10.9 Gout, unspecified; Z68.36 Body mass index [BMI] 36.0-36.9, adult; M81.0 Age-related osteoporosis without current pathological fracture; Z79.4 Long term (current) use of insulin; Z86.14 Personal history of Methicillin resistant Staphylococcus aureus infection; Z86.19 Personal history of other infectious and parasitic diseases; Z87.891 Personal history of nicotine dependence
CPT/HCPCS: 71010; 76937; 80048; 80053; 82948; 85025; 85027; 93005; 94640; 94664; J0171; J0461; J1644; J1815; J2405; J2920; J7512; J7614; J7626

== ENCOUNTER 2017-08-10 14:07 | Inpatient (IN) | payer MEDICAID ==
[2017-08-10] VITALS (9 sets, daily range): BP systolic 90–118; BP diastolic 50–80; PULSE 68–83; RESP 16–20; TEMP 97.7–98; O2SAT 68–100
[~2017-08-10] VITALS: Ht 160 cm; Wt 91.0 kg
[~2017-08-10 14:07] MED LIST changes: +AMLO5 PO; +CARV3.125 PO; -LEVA250T14 PO
[2017-08-10] MEDS ORDERED: IOHEXOL 350 MG/ML 10 ML VIAL (for RAD DIAG) IVCONTRAST ONE (14:08)
[2017-08-10] MEDS ORDERED: SODIUM CHLORIDE 0.9% FLUSH 10 ML FLUSH IV FLUSH PRN ×3 (14:45→19:15)
[2017-08-10] MEDS ORDERED: DEXTROSE 50% IN WATER 50 ML SYRINGE IV PUSH ONE (15:00)
--- NOTE | 2017-08-10 15:16 | RADRPT ---
EXAM DATE/TIME: 08/10/2017 14:51 [facility] COMPARISON: CHEST SINGLE AP, February 04, 2017, 10:32. INDICATIONS : Shortness of breath and weakness. MEDICAL HISTORY : Diabetes mellitus type II. Chronic obstructive pulmonary disease. Hypertension Hypercholesterol emia. SURGICAL HISTORY : None. ENCOUNTER: Initial ACUITY: 1 day PAIN SCORE: Non-responsive. LOCATION: Bilateral chest FINDINGS: There are mild chronic interstitial changes. Heart is mildly enlarged. Mediastinal contours are withi n normal limits. No pneumothorax is seen. The visualized bony structures are grossly intact. CONCLUSION: 1. COPD changes. No acute abnormality. Stable compared to prior dated 04/12. Estevan Simon MD on August 10, 2017 at 15:13 Board Certified Radiologist. This report was verified electronically.
--- NOTE | 2017-08-10 15:24 | PD ---
HPI Chief Complaint: Edema Time Seen by Provider: 14:30 Travel History International Travel<30 days: No Contact w/Intl Traveler<30days: No Traveled to known affect area: No History of Present Illness HPI Patient is a 62-year-old female presenting to the emergency for evaluation of bilateral lower extremity edema and abdominal pain. Patient states the swelling has been ongoing for 1 week, the abdominal pain started 2 weeks ago. She states that the abdominal pain is in the bilateral upper quadrants and feels like a band around her stomach. She reports that the edema in her lower extremities has been getting worse. She denies any shortness of breath, chest pain, fever, chills. Family member with her states that she has not been eating as well. Patient does deny any nausea or vomiting. Symptom onset was gradual, symptom severity is moderate, there are no alleviating factors. Patient is currently on metoprolol Lasix. Currently patient is a poor historian. PFSH Past Medical History Autoimmune Disease: Yes (Rheumatoid Arthritis) Cancer: Yes (Possible cancer on kidney) High Cholesterol: Yes Chest Pain: Yes COPD: Yes Diabetes: Yes Gout: Yes Headaches: Yes Hepatitis: Yes (HEPATITIS C) Hypertension: Yes Immunizations Current: Yes Migraines: Yes Pneumonia: Yes PNEUMOCCOCAL Vaccine (Year): 2 ?: Not Menopausal: Yes : 0 Para: 0 Miscarriage: 0 : 0 Past Surgical History Cardiac Surgery: Yes Eye Surgery: Yes (cataracts) Neurologic Surgery: Yes Other Surgery: Yes (right knee gout drain infection) Social History Alcohol Use: No Tobacco Use: No Substance Use: No Allergies-Medications (Allergen,Severity, Reaction): Coded Allergies: *MDRO Multi-Drug Resistant Organism (Verified Adverse Reaction, Unknown, ) MRSA wound 11/2012. MRSA PCR Screen negative 11/03/14 and 11/05/14. Cleared per Infection Control MRSA PCR Screen NEGATIVE - 04/30/2015 Reported Meds & Prescriptions Reported Meds & Active Scripts Active Ventolin Hfa 18 GM Inh (Albuterol Sulfate) 90 Mcg/Act Aer 2 Puff INH Q4-6H PRN Reported Lyrica (Pregabalin) 150 Mg Cap 150 Mg PO TID PRN Indomethacin 50 Mg Cap 50 Mg PO BID Take with food, milk, or antacids to decrease stomach adverse effects. Metoprolol Tartrate 50 Mg Tab 50 Mg PO BID Bumetanide 1 Mg Tab 1 Mg PO BID Methadone (Methadone HCl) 5 Mg Tab 5 Mg PO BID Alprazolam 0.25 Mg Tab 0.25 Mg PO Q4H PRN Prednisone 10 Mg Tab 10 Mg PO DAILY Hydrocodone-Acetaminophen 10-325 mg Tab 1 Tab PO Q4H PRN Novolog Inj (Insulin Aspart) 1,000 Unit/10 Ml Vial 0 SQ DIRECTED Sliding Scale as directed. Lantus Inj (Insulin Glargine) 1,000 Unit/10 Ml Vial 35 Units SQ BID Albuterol Neb (Albuterol Sulfate) 2.5 Mg/3 Ml Neb 2.5 Mg NEB Q6HR PRN While awake Review of Systems ROS Limitations: Altered Mental Status Except as stated in HPI: all other systems reviewed are Neg Cardiovascular: Positive: Dyspnea on exertion, Edema, No: Chest Pain or Discomfort Gastrointestinal: Positive: Abdominal Pain, No: Nausea, Vomiting Musculoskeletal: Positive: Myalgias Skin: Positive Other (Weeping skin) Neurologic: Positive: Weakness Physical Exam Narrative GENERAL: Overweight, drowsy -[place] female. Presenting in no acute distress. SKIN: Clammy, diaphoretic. Weeping to left l lower extremity HEAD: Atraumatic. Normocephalic. EYES: Pupils equal and round. + scleral icterus. No injection or drainage. ENT: No nasal bleeding or discharge. Mucous membranes pink and moist. NECK: Trachea midline. No JVD. CARDIOVASCULAR: Regular rate and rhythm. 2+ pitting peripheral edema. RESPIRATORY: No accessory muscle use. Diminished in bases, no wheezes, rhonchi , rales noted. GASTROINTESTINAL: Abdomen firm, mildly distended, mildly tender to palpation in upper quadrants. Hepatic and splenic margins not palpable. Positive bowel sounds MUSCULOSKELETAL: Extremities without clubbing, cyanosis, or edema. No obvious deformities. NEUROLOGICAL: Drowsy but arousable. No obvious cranial nerve deficits. Motor grossly within normal limits. Five out of 5 muscle strength in the arms and legs. Normal speech. PSYCHIATRIC: Appropriate mood and affect; insight and judgment normal. Data Data Last Documented VS Vital Signs Date Time Temp Pulse Resp B/P (MAP) Pulse Ox O2 Delivery O2 Flow Rate FiO2 08/10/17 18:44 68 18 92/50 (64) 99 Nasal Cannula 2.00 08/10/17 16:00 98.0 Orders Orders Complete Blood Count With Diff (3/17/18 14:31) Comprehensive Metabolic Panel (08/10/17 14:31) Lipase (08/10/17 14:31) Prothrombin Time / Inr (Pt) (08/10/17 14:31) Act Partial Throm Time (Ptt) (08/10/17 14:31) Urinalysis - C+S If Indicated (08/10/17 14:31) Iv Access Insert/Monitor (08/10/17 14:31) Ecg Monitoring (08/10/17 14:31) Oximetry (08/10/17 14:31) Sodium Chloride 0.9% Flush (Ns Flush) (08/10/17 14:45) Electrocardiogram (08/10/17 14:31) B-Type Natriuretic Peptide (08/10/17 14:31) Magnesium (Mg) (08/10/17 14:31) Chest, Single Ap (08/10/17 14:31) Cath For Specimen (08/10/17 14:31) Dextrose 50% In Chilo (Syr) Inj (D50w (Syr (08/10/17 15:00) Dextrose 50% In Chilo (Syr) Inj (D50w (Syr (08/10/17 15:00) Ct Abd/Pel W Iv Contrast(Rout) (08/10/17 ) Ammonia (08/10/17 14:58) Dext 5%-Nacl 0.9% 1000 Ml Inj (D5w-Ns 10 (08/10/17 16:15) Blood Glucose (08/10/17 17:20) Hydrocortisone Inj (Solucortef Inj) (08/10/17 17:30) Sodium Chlor 0.9% 1000 Ml Inj (Ns 1000 M (08/10/17 17:30) Lactic Acid Sepsis Protocol (08/10/17 17:23) Iohexol 350 Inj (Omnipaque 350 Inj) (08/10/17 14:08) Blood Culture (08/10/17 18:52) Admit Order (Ed Use Only) (08/10/17 18:49) Labs Laboratory Tests Test 08/10/17 14:50 08/10/17 15:05 08/10/17 16:00 White Blood Count 14.8 TH/MM3 Red Blood Count 4.69 MIL/MM3 Hemoglobin 11.8 GM/DL Hematocrit 35.0 % Mean Corpuscular Volume 74.7 FL Mean Corpuscular Hemoglobin 25.1 PG Mean Corpuscular Hemoglobin Concent 33.6 % Red Cell Distribution Width 23.9 % Platelet Count 425 TH/MM3 Mean Platelet Volume 9.1 FL Neutrophils (%) (Auto) 78.9 % Lymphocytes (%) (Auto) 12.4 % Monocytes (%) (Auto) 7.6 % Eosinophils (%) (Auto) 0.8 % Basophils (%) (Auto) 0.3 % Neutrophils # (Auto) 11.7 TH/MM3 Lymphocytes # (Auto) 1.8 TH/MM3 Monocytes # (Auto) 1.1 TH/MM3 Eosinophils # (Auto) 0.1 TH/MM3 Basophils # (Auto) 0.0 TH/MM3 CBC Comment AUTO DIFF Differential Comment AUTO DIFF CONFIRMED Platelet Estimate NORMAL Platelet Morphology Comment ENLARGED Target Cells 2+ Prothrombin Time 14.4 SEC Prothromb Time International Ratio 1.4 RATIO Activated Partial Thromboplast Time 40.0 SEC Blood Urea Nitrogen 26 MG/DL Creatinine 1.38 MG/DL Random Glucose 15 MG/DL Total Protein 8.6 GM/DL Albumin 1.5 GM/DL Calcium Level 8.2 MG/DL Magnesium Level 2.3 MG/DL Alkaline Phosphatase 658 U/L Aspartate Amino Transf (AST/SGOT) 185 U/L Alanine Aminotransferase (ALT/SGPT) 64 U/L Total Bilirubin 20.1 MG/DL Sodium Level 138 MEQ/L Potassium Level 3.1 MEQ/L Chloride Level 107 MEQ/L Carbon Dioxide Level 19.3 MEQ/L Anion Gap 12 MEQ/L Estimat Glomerular Filtration Rate 47 ML/MIN B-Type Natriuretic Peptide 40 PG/ML Lipase 73 U/L Ammonia LESS THAN 20 MCMOL/L Urine Color DARK-YELLOW Urine Turbidity CLEAR Urine pH 5.5 Urine Specific [place] 1.008 Urine Protein NEG mg/dL Urine Glucose (UA) NEG mg/dL Urine Ketones NEG mg/dL Urine Occult Blood NEG Urine Nitrite NEG Urine Bilirubin LARGE Urine Urobilinogen LESS THAN 2.0 MG/DL Urine Leukocyte Esterase NEG Urine RBC 1 /hpf Urine WBC 1 /hpf Urine Squamous Epithelial Cells <1 /hpf Urine Bacteria RARE /hpf Urine Hyaline Casts 12 /lpf Urine Mucus FEW /lpf Microscopic Urinalysis Comment CULT NOT INDICATED MDM Medical Decision Making Medical Screen Exam Complete: Yes Emergency Medical Condition: Yes Medical Record Reviewed: Yes Interpretation(s) Last Impressions Chest X-Ray 08/10/17 1431 Signed Impressions: Service Date/Time: Thursday, August 10, 2017 14:51 - CONCLUSION: 1. COPD changes. No acute abnormality. Stable compared to prior dated 9/0 04/12. Estevan Simon MD Abdomen/Pelvis CT 08/10/17 0000 Signed Impressions: Service Date/Time: Thursday, August 10, 2017 17:47 - CONCLUSION: 1. Large conglomerate kendra mass in the upper abdomen centered around zoltan hepatis and the celiac axis measuring up to 10.6 x 7.9 centimeters. There may also be a primary mass in the pancreatic head. There is obstruction of the biliary ductal system with measurements given above. Gallbladder is markedly distended possibly with early cholecystitis. There is probable direct invasion into the left lobe and caudate lobe of the liver. There may also be partial thrombosis of the portal vein. 2. Trace free fluid in the pelvis. Sonu Lazcano MD Laboratory Tests Test 08/10/17 14:50 08/10/17 15:05 08/10/17 16:00 White Blood Count 14.8 TH/MM3 Red Blood Count 4.69 MIL/MM3 Hemoglobin 11.8 GM/DL Hematocrit 35.0 % Mean Corpuscular Volume 74.7 FL Mean Corpuscular Hemoglobin 25.1 PG Mean Corpuscular Hemoglobin Concent 33.6 % Red Cell Distribution Width 23.9 % Platelet Count 425 TH/MM3 Mean Platelet Volume 9.1 FL Neutrophils (%) (Auto) 78.9 % Lymphocytes (%) (Auto) 12.4 % Monocytes (%) (Auto) 7.6 % Eosinophils (%) (Auto) 0.8 % Basophils (%) (Auto) 0.3 % Neutrophils # (Auto) 11.7 TH/MM3 Lymphocytes # (Auto) 1.8 TH/MM3 Monocytes # (Auto) 1.1 TH/MM3 Eosinophils # (Auto) 0.1 TH/MM3 Basophils # (Auto) 0.0 TH/MM3 CBC Comment AUTO DIFF Differential Comment AUTO DIFF CONFIRMED Platelet Estimate NORMAL Platelet Morphology Comment ENLARGED Target Cells 2+ Prothrombin Time 14.4 SEC Prothromb Time International Ratio 1.4 RATIO Activated Partial Thromboplast Time 40.0 SEC Blood Urea Nitrogen 26 MG/DL Creatinine 1.38 MG/DL Random Glucose 15 MG/DL Total Protein 8.6 GM/DL Albumin 1.5 GM/DL Calcium Level 8.2 MG/DL Magnesium Level 2.3 MG/DL Alkaline Phosphatase 658 U/L Aspartate Amino Transf (AST/SGOT) 185 U/L Alanine Aminotransferase (ALT/SGPT) 64 U/L Total Bilirubin 20.1 MG/DL Sodium Level 138 MEQ/L Potassium Level 3.1 MEQ/L Chloride Level 107 MEQ/L Carbon Dioxide Level 19.3 MEQ/L Anion Gap 12 MEQ/L Estimat Glomerular Filtration Rate 47 ML/MIN B-Type Natriuretic Peptide 40 PG/ML Lipase 73 U/L Ammonia LESS THAN 20 MCMOL/L Urine Color DARK-YELLOW Urine Turbidity CLEAR Urine pH 5.5 Urine Specific [place] 1.008 Urine Protein NEG mg/dL Urine Glucose (UA) NEG mg/dL Urine Ketones NEG mg/dL Urine Occult Blood NEG Urine Nitrite NEG Urine Bilirubin LARGE Urine Urobilinogen LESS THAN 2.0 MG/DL Urine Leukocyte Esterase NEG Urine RBC 1 /hpf Urine WBC 1 /hpf Urine Squamous Epithelial Cells <1 /hpf Urine Bacteria RARE /hpf Urine Hyaline Casts 12 /lpf Urine Mucus FEW /lpf Microscopic Urinalysis Comment CULT NOT INDICATED Vital Signs Date Time Temp Pulse Resp B/P (MAP) Pulse Ox O2 Delivery O2 Flow Rate FiO2 08/10/17 14:40 97 Nasal Cannula 2.00 08/10/17 14:31 97.9 74 16 110/61 (77) 98 Nasal Cannula 2.00 08/10/17 14:15 97.8 83 16 104/60 (75) 100 Differential Diagnosis CHF versus metabolic abnormality versus cholecystitis versus obstruction versus hypoglycemia versus other Narrative Course Patient is a 62-year-old female presenting to the emergency department for evaluation of bilateral lower extremity edema, abdominal pain. Patient's vital signs are stable, she was extremely drowsy but arousable upon presentation to the room. Her blood glucose was assessed at 32. Patient was given 1 amp of D50 , she continued to be difficult to arouse, a second amp of D50 was administered. Patient was awake, oriented and verbal. Labs and imaging ordered and pending. Patient is on telemetry monitoring continuous pulse oximetry. IV access was established. Patient started on D5 normal saline to keep blood because normalized. Patient was also seen and evaluated by my attending physician. She was given 100 mg of hydrocortisone, she remained hypotensive despite IV fluid resuscitation. CBC with a white count of 14.8 with left shift Chemistry with potassium 3.1, BUN/creatinine 26/1.38, glucose resulted at 15, this was already addressed with the bedside blood glucose in the D50. Lipase is normal, liver enzymes are elevated, alkaline phosphatase is 658. Ammonia level is less than 20. Urinalysis is not consistent with a urinary tract infection. Chest x-ray shows COPD changes, no acute abnormality, it is stable when compared to prior. CT of the abdomen and pelvis shows large conglomerate kendra mass in the upper abdomen centered around zoltan hepatis and the celiac axis measuring up to 10.6 x 7.9 cm. There may also be a primary mass in the pancreatic head. There is obstruction of the biliary ductal system with measurements given above. Gallbladder is markedly distended possibly with early cholecystitis. There is probable direct invasion of the left lobe and caudate lobe of the liver. There may also be partial thrombosis of the portal vein. There is trace free fluid in the pelvis. Zosyn and vancomycin ordered. Patient will be placed in intensive care, discussed with Dr. Trimble who accepted admission. Sepsis Criteria SIRS Criteria (2 or more): WBC > 47967, < 4000 or > 10% bands Diagnosis Primary Impression: Hypoglycemia Additional Impressions: Hypotension Qualified Codes: I95.9 - Hypotension, unspecified Abdominal mass Qualified Codes: R19.00 - Intra-abdominal and pelvic swelling, mass and lump, unspecified site Acute renal insufficiency Jaundice Admitting Information Admitting Physician Requests: Admit Condition: Stable Samanta Kent Aug 10, 2017 15:24
[2017-08-10 15:26] LABS: AUTOMATED NEUTROPHIL # 11.7 TH/MM3 (1.8-7.7); BASOPHIL % 0.3 % (0.0-2.0); EOSINOPHIL # 0.1 TH/MM3 (0-0.4); EOSINOPHIL % 0.8 % (0.0-4.0); HEMOGLOBIN 11.8 GM/DL (11.6-15.3); LYMPH % 12.4 % (9.0-44.0); LYMPHOCYTE # 1.8 TH/MM3 (1.0-4.8); MEAN CELL VOLUME 74.7 FL (80.0-100.0); MEAN CORPUSCULAR HEMOGLOBIN 25.1 PG (27.0-34.0); MEAN CORPUSCULAR HGB CONC 33.6 % (32.0-36.0); MEAN PLATELET VOLUME 9.1 FL (7.0-11.0); MONO % 7.6 % (0.0-8.0); MONOCYTE # 1.1 TH/MM3 (0-0.9); NEUT % 78.9 % (16.0-70.0); PLATELET COUNT 425 TH/MM3 (150-450); RED BLOOD COUNT 4.69 MIL/MM3 (4.00-5.30); RED CELL DISTRIBUTION WIDTH 23.9 % (11.6-17.2); WHITE BLOOD COUNT 14.8 TH/MM3 (4.0-11.0)
[2017-08-10 15:31] LABS: INTERNATIONAL NORMALIZED RATIO 1.4 RATIO; PROTHROMBIN TIME - PATIENT 14.4 SEC (9.8-11.6)
[2017-08-10 15:53] LABS: ALBUMIN 1.5 GM/DL (3.4-5.0); ALKALINE PHOSPHATASE 658 U/L (45-117); ALT (GPT) 64 U/L (10-53); AST (GOT) 185 U/L (15-37); BICARBONATE 19.3 MEQ/L (21.0-32.0); BLOOD UREA NITROGEN 26 MG/DL (7-18); CALCIUM 8.2 MG/DL (8.5-10.1); CHLORIDE 107 MEQ/L (98-107); CREATININE 1.38 MG/DL (0.50-1.00); GLOMERULAR FILTRATION RATE 47 ML/MIN (>89); MAGNESIUM 2.3 MG/DL (1.5-2.5); SODIUM (NA) 138 MEQ/L (136-145); TOTAL PROTEIN 8.6 GM/DL (6.4-8.2)
[2017-08-10 15:55] LABS: TOTAL BILIRUBIN ADULT 20.1 MG/DL (0.2-1.0)
[2017-08-10 15:56] LABS: GLUCOSE,RANDOM 15 MG/DL (74-106)
[2017-08-10] MEDS ORDERED: DEXT 5%-NACL 0.9% 1000 ML INJ 1,000 ML IV ONE (16:15)
[2017-08-10 16:19] LABS: TARGET CELLS 2+ (NORMAL)
[2017-08-10 16:25] LABS: BACTERIA, URINE RARE /hpf; BILIRUBIN, URINE LARGE (NEG); BLOOD, URINE NEG (NEG); GLUCOSE,URINE NEG (NEG); HYALINE CAST, URINE 12 /lpf (RARE); KETONE, URINE NEG (NEG); MUCUS URINE FEW /lpf (OCC); NITRITE,URINE NEG (NEG); PH, URINE 5.5 (5.0-8.5); SQUAMOUS EPITHELIAL CELL URINE <1 /hpf (0-5); URINE COLOR DARK-YELLOW (YELLW/STRAW); URINE LEUKOCYTE ESTERASE NEG (NEG)
[2017-08-10] MEDS ORDERED: METH5TAB PO (16:29)
[2017-08-10] MEDS ORDERED: ALPR0.25 PO (16:29)
[2017-08-10] MEDS ORDERED: PRED10 PO (16:29)
[2017-08-10] MEDS ORDERED: BUME1TAB PO (16:29)
[2017-08-10] MEDS ORDERED: INDO50CA PO (16:29)
[2017-08-10] MEDS ORDERED: HYDR-3583 PO (16:29)
[2017-08-10] MEDS ORDERED: LYRI150C PO (16:29)
[2017-08-10] MEDS ORDERED: METO50TA PO (16:29)
[2017-08-10] MEDS ORDERED: SODIUM CHLOR 0.9% 1000 ML INJ 1,000 ML IV ONE ×3 (17:30→19:07)
[2017-08-10] MEDS ORDERED: HYDROCORTISONE SOD SUCCINATE 100 MG VIAL IV PUSH ONE (17:30)
--- NOTE | 2017-08-10 18:36 | RADRPT ---
EXAM DATE/TIME: 08/10/2017 17:47 [facility] COMPARISON: CT ABDOMEN & PELVIS W CONTRAST, January 07, 2017, 15:18. CT CONSULTATION, January 09, 2017, 9:18. INDICATIONS : Abdominal pain. IV CONTRAST: 90 cc Omnipaque 350 (iohexol) IV ORAL CONTRAST: No oral contrast ingested. RADIATION DOSE: 11.11 CTDIvol (mGy) MEDICAL HISTORY : Rheumatoid arthritis. Hepatitis C. Diabetes mellitus type 2.Hypertension. SURGICAL HISTORY : None. ENCOUNTER: Initial ACUITY: 1 day PAIN SCALE: 5/10 LOCATION: Bilateral lower quadrant TECHNIQUE: Volumetric scanning of the abdomen and pelvis was performed. Using automated exposure control and ad justment of the mA and/or kV according to patient size, radiation dose was kept as low as reasonably achievable to obtain optimal diagnostic quality images. DICOM format image data is available electro nically for review and comparison. FINDINGS: Comparison is January 07. There is some chronic distal airway disease at the lung bases similar to karolina or exam. Bullous lesion right lung base is stable. Since previous exam and there is marked interval increase in size of soft tissue masses in the upper retroperitoneum but only around the celiac axis. This probably represents necrotic adenopathy with co nglomerate mass measuring up to 10.6 x 7.9 cm on the coronal images. It may also be a pancreatic mass primary. There is obstruction of the distal common bile duct and abnormal biliary ductal dilatation up to 2.3 cm in diameter. The gallbladder is markedly distended. The mass in zoltan hepatis may be invading the left lobe of the liver as well and possibly the caudate lobe. No significant abnormality the spleen or kidneys. Within the pelvis there is a small amount free fluid. Griffin catheter in bladder. CONCLUSION: 1. Large conglomerate kendra mass in the upper abdomen centered around zoltan hepatis and the celiac ax is measuring up to 10.6 x 7.9 centimeters. There may also be a primary mass in the pancreatic head. T here is obstruction of the biliary ductal system with measurements given above. Gallbladder is marked ly distended possibly with early cholecystitis. There is probable direct invasion into the left lobe and caudate lobe of the liver. There may also be partial thrombosis of the portal vein. 2. Trace free fluid in the pelvis. Sonu Lazcano MD on August 10, 2017 at 18:14 Board Certified Radiologist. This report was verified electronically.
[2017-08-10] MEDS: SODIUM CHLOR 0.9% 1000 ML INJ 1,000 ML IV SCH ×2 (19:07→23:53)
[2017-08-10] MEDS ORDERED: SODIUM CHLOR 0.9% 1000 ML INJ 100 ML IV ONE (19:07)
[2017-08-10] MEDS ORDERED: PILL SPLITTER OTHER PRN (19:15)
[2017-08-10] MEDS ORDERED: RESP: ALBUTEROL 2.5 MG/IPRATROPIUM 0.5 MG NEB (PRN) INH (19:15)
[2017-08-10] MEDS ORDERED: CHLORHEXIDINE GLUCONATE 2 % 1 PACK (2 CLOTHS) TOP PRN (19:15)
[2017-08-10] MEDS ORDERED: SENNOSIDES 8.6 MG TAB PO PRN (19:15)
[2017-08-10] MEDS ORDERED: MAGNESIUM HYDROXIDE SUSP 30 ML CUP PO PRN (19:15)
[2017-08-10] MEDS ORDERED: PREGABALIN 75 MG CAP PO PRN (19:15)
[2017-08-10] MEDS ORDERED: ALPRAZolam 0.25 MG TAB PO PRN (19:15)
[2017-08-10] MEDS ORDERED: BISACODYL 10 MG SUPP RECTAL PRN (19:15)
[2017-08-10] MEDS ORDERED: MISCELLANEOUS NURSING INFORMATION XX SCH (19:15)
[2017-08-10] MEDS ORDERED: LACTULOSE SYRUP 20 GM/30 ML CUP PO PRN (19:15)
[2017-08-10] MEDS ORDERED: ACETAMINOPHEN 325 MG TAB PO PRN (19:15)
[2017-08-10] MEDS ORDERED: GLUCAGON 1 MG/ML VIAL OTHER PRN (19:30)
[2017-08-10] MEDS ORDERED: DEXTROSE 50% IN WATER 50 ML VIAL(D50) IV PUSH PRN (19:30)
[2017-08-10] MEDS ORDERED: VANCOMYCIN INJ 1,000 MG in SODIUM CHLOR 0.9% 250 ML INJ 250 ML IV ONE (19:30)
[2017-08-10] MEDS ORDERED: PIPERACIL-TAZO 4.5 GM PREMIX 100 ML IV ONE (19:30)
--- NOTE | 2017-08-10 19:46 | HHI.HP ---
HPI Service Critical Care Medicine Primary Care Physician Non-Staff Admission Diagnosis HYPOGLYCEMIA, ABDOMINAL MASS, SEPSIS Diagnosis: Travel History International Travel<30 Days: No Contact w/Intl Traveler <30 Da: No Traveled to Known Affected Are: No History of Present Illness 62-year-old female presenting to the emergency for evaluation of bilateral lower extremity edema and abdominal pain. Patient states the swelling has been ongoing for 1 week, the abdominal pain started 2 weeks ago. She states that the abdominal pain is in the bilateral upper quadrants and feels like a band around her stomach. She reports that the edema in her lower extremities has been getting worse. She denies any shortness of breath, chest pain, fever, chills. Family member with her states that she has not been eating as well. The CT of the abdomen shows markedly distended gallbladder possibly with early cholecystitis and conglomerate kendra mass in the upper abdomen centered around zoltan hepatis. Her blood pressure in the emergency department fluctuates between a systolic of 80s to 100s, her glucose under Barros profile is 15 and the patient is admitted to ICU with the diagnosis of severe abdominal sepsis. Review of Systems Constitutional: DENIES: Diaphoretic episodes, Fatigue, Fever, Weight gain, Weight loss, Chills, Dizziness, Change in appetite, Night Sweats Endocrine: DENIES: Abnorml menstrual pattern, Heat/cold intolerance, Polydipsia , Polyuria, Polyphagia Eyes: DENIES: Blurred vision, Diplopia, Eye inflammation, Eye pain, Vision loss , Photosensitivity, Double Vision Ears, nose, mouth, throat: DENIES: Tinnitus, Hearing loss, Vertigo, Nasal discharge, Oral lesions, Throat pain, Hoarseness, Ear Pain, Running Nose, Epistaxis, Sinus Pain, Toothache, Odynophagia Respiratory: DENIES: Apneas, Cough, Snoring, Wheezing, Hemoptysis, Sputum production, Shortness of breath Cardiovascular: DENIES: Chest pain, Palpitations, Syncope, Dyspnea on Exertion , PND, Lower Extremity Edema, Orthopnea, Claudication Gastrointestinal: COMPLAINS OF: Abdominal pain, Nausea, Anorexia, DENIES: Black stools, Bloody stools, Constipation, Diarrhea, Vomiting, Difficulty Swallowing Genitourinary: DENIES: Abnormal vaginal bleeding, Dysmenorrhea, Dyspareunia, Sexual dysfunction, Urinary frequency, Urinary incontinence, Urgency, Hematuria , Dysuria, Nocturia, Vaginal discharge Musculoskeletal: COMPLAINS OF: Joint Swelling, DENIES: Joint pain, Muscle aches , Stiffness, Back pain, Neck pain Integumentary: DENIES: Abnormal pigmentation, Pruritus, Rash, Nail changes, Breast masses, Breast skin changes, Nipple discharge Hematologic/lymphatic: DENIES: Bruising, Lymphadenopathy Immunologic/allergic: DENIES: Eczema, Urticaria Neurologic: DENIES: Abnormal gait, Headache, Localized weakness, Paresthesias, Seizures, Speech Problems, Tremor, Poor Balance Psychiatric: DENIES: Anxiety, Confusion, Mood changes, Depression, Hallucinations, Agitation, Suicidal Ideation, Homicidal Ideation, Delusions Past Family Social History Allergies: Coded Allergies: *MDRO Multi-Drug Resistant Organism (Verified Adverse Reaction, Unknown, ) MRSA wound 11/2012. MRSA PCR Screen negative 11/03/14 and 11/05/14. Cleared per Infection Control MRSA PCR Screen NEGATIVE - 04/30/2015 Past Medical History Type 2 diabetes COPD Hepatitis C Rheumatoid arthritis Obesity Gout History of sinus tachycardia Osteoporosis Past Surgical History History of right knee septic arthritis requiring washout and debridement 2008 Reported Medications Reported Meds & Active Scripts Active Ventolin Hfa 18 GM Inh (Albuterol Sulfate) 90 Mcg/Act Aer 2 Puff INH Q4-6H PRN Reported Lyrica (Pregabalin) 150 Mg Cap 150 Mg PO TID PRN Indomethacin 50 Mg Cap 50 Mg PO BID Take with food, milk, or antacids to decrease stomach adverse effects. Metoprolol Tartrate 50 Mg Tab 50 Mg PO BID Bumetanide 1 Mg Tab 1 Mg PO BID Methadone (Methadone HCl) 5 Mg Tab 5 Mg PO BID Alprazolam 0.25 Mg Tab 0.25 Mg PO Q4H PRN Prednisone 10 Mg Tab 10 Mg PO DAILY Hydrocodone-Acetaminophen 10-325 mg Tab 1 Tab PO Q4H PRN Novolog Inj (Insulin Aspart) 1,000 Unit/10 Ml Vial 0 SQ DIRECTED Sliding Scale as directed. Lantus Inj (Insulin Glargine) 1,000 Unit/10 Ml Vial 35 Units SQ BID Albuterol Neb (Albuterol Sulfate) 2.5 Mg/3 Ml Neb 2.5 Mg NEB Q6HR PRN While awake Active Ordered Medications Current Medications Medications (Trade) Dose Ordered Sig/Dillan Route PRN Reason Start Time Stop Time Status Last Admin Dose Admin Sodium Chloride (NS Flush) 2 ml UNSCH PRN IV FLUSH FLUSH AFTER USING IV ACCESS 08/10/17 14:45 Alprazolam (Xanax) 0.25 mg Q4H PRN PO ANXIETY 08/10/17 19:15 Methadone HCl (Dolophine) 5 mg BID PO 08/10/17 21:00 Prednisone (Deltasone) 10 mg DAILY PO 08/11/17 09:00 Pregabalin (Lyrica) 150 mg TID PRN PO PAIN 08/10/17 19:15 Miscellaneous (Pill Splitter) 1 ea UNSCH PRN OTHER SEE LABEL COMMENTS 08/10/17 19:15 Piperacillin Sod/ Tazobactam Sod 100 ml @ 200 mls/hr ONCE ONCE IV 08/10/17 19:30 08/10/17 19:59 Vancomycin HCl 1000 mg/Sodium Chloride 250 ml @ 250 mls/hr ONCE ONCE IV 08/10/17 19:30 08/10/17 20:29 Sodium Chloride 1,000 ml @ 175 mls/hr Q5H43M IV 08/10/17 19:07 UNV Sodium Chloride (NS Flush) 2 ml UNSCH PRN IV FLUSH FLUSH AFTER USING IV ACCESS 08/10/17 19:15 UNV Sodium Chloride (NS Flush) 2 ml BID IV FLUSH 08/10/17 21:00 UNV Famotidine (Pepcid Inj) 20 mg Q12HR IV PUSH 08/10/17 21:00 UNV Albuterol/ Ipratropium (Duoneb Neb) 1 ampule Q4HR NEB INH 08/10/17 20:00 UNV Albuterol/ Ipratropium (Duoneb Neb) 1 ampule Q2HR NEB PRN INH WHEEZING 08/10/17 19:15 UNV Heparin Sodium (Porcine) (Heparin Inj) 5,000 units Q8H SQ 08/10/17 19:15 UNV Piperacillin Sod/ Tazobactam Sod 100 ml @ 200 mls/hr Q6H IV 08/10/17 19:15 UNV Sodium Chloride 1,000 ml @ 1,000 mls/hr Q1H ONCE IV 08/10/17 19:07 08/10/17 20:06 UNV Sodium Chloride 1,000 ml @ 1,000 mls/hr Q1H ONCE IV 08/10/17 19:07 08/10/17 20:06 UNV Sodium Chloride 100 ml @ 1,000 mls/hr Q6M ONCE IV 08/10/17 19:07 08/10/17 19:12 UNV Miscellaneous Information 1 Q361D XX 08/10/17 19:15 UNV Chlorhexidine Gluconate (Chlorhexidine 2% Cloth) 3 pack Taper DAILY@04 TOP 08/11/17 04:00 08/07/18 03:59 UNV Chlorhexidine Gluconate (Chlorhexidine 2% Cloth) 3 pack UNSCH PRN TOP HYGIENIC CARE 08/10/17 19:15 UNV Sodium Chloride (NS Flush) 2 ml UNSCH PRN IV FLUSH FLUSH AFTER USING IV ACCESS 08/10/17 19:15 UNV Sodium Chloride (NS Flush) 2 ml BID IV FLUSH 08/10/17 21:00 UNV Acetaminophen (Tylenol) 650 mg Q6H PRN PO PAIN 1-5 AND/OR FEVER >101F 08/10/17 19:15 UNV Morphine Sulfate (Morphine Inj) 2 mg Q2H PRN IV PUSH PAIN SCALE 6 TO 10 08/10/17 19:15 UNV Senna/Docusate Sodium (Brianna-Colace) 1 tab BID PO 08/10/17 21:00 UNV Magnesium Hydroxide (Milk Of Magnesia Liq) 30 ml Q12H PRN PO Mild constipation 08/10/17 19:15 UNV Sennosides (Senokot) 17.2 mg Q12H PRN PO Moderate constipation 08/10/17 19:15 UNV Bisacodyl (Dulcolax Supp) 10 mg DAILY PRN RECTAL SEVERE CONSITIPATION 08/10/17 19:15 UNV Lactulose (Lactulose Liq) 30 ml DAILY PRN PO SEVERE CONSITIPATION 08/10/17 19:15 UNV Dextrose (D50w (Vial) Inj) 50 ml UNSCH PRN IV PUSH HYPOGLYCEMIA-SEE COMMENTS 08/10/17 19:30 UNV Glucagon (Glucagon Inj) 1 mg UNSCH PRN OTHER HYPOGLYCEMIA-SEE COMMENTS 08/10/17 19:30 UNV Insulin Aspart (NovoLOG SUPPLEMENTAL SCALE) 1 ACHS SLIDING SCALE SQ 08/10/17 21:00 UNV Family History Mother, COPD Social History History of tobacco use of 2ppd since the age of 14 but patient reports quitting last year. She denies any alcohol use or illicit drug use. Physical Exam Vital Signs Vital Signs Date Time Temp Pulse Resp B/P (MAP) Pulse Ox O2 Delivery O2 Flow Rate FiO2 08/10/17 18:44 68 18 92/50 (64) 99 Nasal Cannula 2.00 08/10/17 17:28 69 18 103/63 (76) 100 Nasal Cannula 2.00 08/10/17 16:00 98.0 68 18 90/53 (65) 98 Nasal Cannula 2.00 08/10/17 14:40 97 Nasal Cannula 2.00 08/10/17 14:31 97.9 74 16 110/61 (77) 98 Nasal Cannula 2.00 08/10/17 14:15 97.8 83 16 104/60 (75) 100 Physical Exam GENERAL: Overweight, drowsy -[place] female. Presenting in no acute distress. SKIN: Clammy, diaphoretic. Weeping to left l lower extremity HEAD: Atraumatic. Normocephalic. EYES: Pupils equal and round. +++ scleral icterus. No injection or drainage. ENT: No nasal bleeding or discharge. Mucous membranes pink and moist. NECK: Trachea midline. No JVD. CARDIOVASCULAR: Regular rate and rhythm. 2+ pitting peripheral edema. RESPIRATORY: No accessory muscle use. Diminished in bases, no wheezes, rhonchi , rales noted. GASTROINTESTINAL: Abdomen firm, mildly distended, mildly tender to palpation in upper quadrants. Hepatic and splenic margins not palpable. Positive bowel sounds MUSCULOSKELETAL: Extremities without clubbing, cyanosis, or edema. No obvious deformities. NEUROLOGICAL: Drowsy but arousable. No obvious cranial nerve deficits. Motor grossly within normal limits. Five out of 5 muscle strength in the arms and legs. Normal speech. Laboratory Laboratory Tests Test 08/10/17 14:50 08/10/17 15:05 08/10/17 16:00 08/10/17 19:10 White Blood Count 14.8 Red Blood Count 4.69 Hemoglobin 11.8 Hematocrit 35.0 Mean Corpuscular Volume 74.7 Mean Corpuscular Hemoglobin 25.1 Mean Corpuscular Hemoglobin Concent 33.6 Red Cell Distribution Width 23.9 Platelet Count 425 Mean Platelet Volume 9.1 Neutrophils (%) (Auto) 78.9 Lymphocytes (%) (Auto) 12.4 Monocytes (%) (Auto) 7.6 Eosinophils (%) (Auto) 0.8 Basophils (%) (Auto) 0.3 Neutrophils # (Auto) 11.7 Lymphocytes # (Auto) 1.8 Monocytes # (Auto) 1.1 Eosinophils # (Auto) 0.1 Basophils # (Auto) 0.0 CBC Comment AUTO DIFF Differential Comment AUTO DIFF CONFIRMED Platelet Estimate NORMAL Platelet Morphology Comment ENLARGED Target Cells 2+ Prothrombin Time 14.4 Prothromb Time International Ratio 1.4 Activated Partial Thromboplast Time 40.0 Blood Urea Nitrogen 26 Creatinine 1.38 Random Glucose 15 Total Protein 8.6 Albumin 1.5 Calcium Level 8.2 Magnesium Level 2.3 Alkaline Phosphatase 658 Aspartate Amino Transf (AST/SGOT) 185 Alanine Aminotransferase (ALT/SGPT) 64 Total Bilirubin 20.1 Sodium Level 138 Potassium Level 3.1 Chloride Level 107 Carbon Dioxide Level 19.3 Anion Gap 12 Estimat Glomerular Filtration Rate 47 B-Type Natriuretic Peptide 40 Lipase 73 Ammonia LESS THAN 20 Urine Color DARK-YELLOW Urine Turbidity CLEAR Urine pH 5.5 Urine Specific [place] 1.008 Urine Protein NEG Urine Glucose (UA) NEG Urine Ketones NEG Urine Occult Blood NEG Urine Nitrite NEG Urine Bilirubin LARGE Urine Urobilinogen LESS THAN 2.0 Urine Leukocyte Esterase NEG Urine RBC 1 Urine WBC 1 Urine Squamous Epithelial Cells <1 Urine Bacteria RARE Urine Hyaline Casts 12 Urine Mucus FEW Microscopic Urinalysis Comment CULT NOT INDICATED Date/Time Source Procedure Growth Status 08/10/17 19:00 Blood Peripheral Aerobic Blood Culture Pending Received 08/10/17 19:00 Blood Peripheral Anaerobic Blood Culture Pending Received Result Diagram: 08/10/17 1450 08/10/17 1450 Imaging Last 24 hours Impressions Chest X-Ray 08/10/17 1431 Signed Impressions: Service Date/Time: Thursday, August 10, 2017 14:51 - CONCLUSION: 1. COPD changes. No acute abnormality. Stable compared to prior dated 04/12. Estevan Simon MD Abdomen/Pelvis CT 08/10/17 0000 Signed Impressions: Service Date/Time: Thursday, August 10, 2017 17:47 - CONCLUSION: 1. Large conglomerate kendra mass in the upper abdomen centered around zoltan hepatis and the celiac axis measuring up to 10.6 x 7.9 centimeters. There may also be a primary mass in the pancreatic head. There is obstruction of the biliary ductal system with measurements given above. Gallbladder is markedly distended possibly with early cholecystitis. There is probable direct invasion into the left lobe and caudate lobe of the liver. There may also be partial thrombosis of the portal vein. 2. Trace free fluid in the pelvis. Sonu Lazcano MD Septic Shock Reassessment Septic shock perfusion: reassessment completed Caprini VTE Risk Assessment Caprini VTE Risk Assessment: Mod/High Risk (score >= 2) Caprini Risk Assessment Model Point Value = 1 Point Value = 2 Point Value = 3 Point Value = 5 Age 41-60 Minor surgery BMI > 25 kg/m2 Swollen legs Varicose veins or History of unexplained or recurrent spontaneous Oral contraceptives or hormone replacement Sepsis (< 1 month) Serious lung disease, including pneumonia (< 1 month) Abnormal pulmonary function Acute myocardial infarction Congestive heart failure (< 1 month) History of inflammatory bowel disease Medical patient at bed rest Age 61-74 Arthroscopic surgery Major open surgery (> 45 min) Laparoscopic surgery (> 45 min) Malignancy Confined to bed (> 72 hours) Immobilizing plaster cast Central venous access Age >= 75 History of VTE Family history of VTE Factor V Leiden Prothrombin [id number] Lupus anticoagulant Anticardiolipin antibodies Elevated serum homocysteine Heparin-induced thrombocytopenia Other congenital or acquired thrombophilia Stroke (< 1 month) Elective arthroplasty Hip, pelvis, or leg fracture Acute spinal cord injury (< 1 month) Prophylaxis Regimen Total Risk Factor Score Risk Level Prophylaxis Regimen 0-1 Low Early ambulation 2 Moderate Order ONE of the following: *Sequential Compression Device (SCD) *Heparin 5000 units SQ BID 3-4 Higher Order ONE of the following medications: *Heparin 5000 units SQ TID *Enoxaparin/Lovenox 40 mg SQ daily (WT < 150 kg, CrCl > 30 mL/min) *Enoxaparin/Lovenox 30 mg SQ daily (WT < 150 kg, CrCl > 10-29 mL/min) *Enoxaparin/Lovenox 30 mg SQ BID (WT < 150 kg, CrCl > 30 mL/min) AND/OR *Sequential Compression Device (SCD) 5 or more Highest Order ONE of the following medications: *Heparin 5000 units SQ TID (Preferred with Epidurals) *Enoxaparin/Lovenox 40 mg SQ daily (WT < 150 kg, CrCl > 30 mL/min) *Enoxaparin/Lovenox 30 mg SQ daily (WT < 150 kg, CrCl > 10-29 mL/min) *Enoxaparin/Lovenox 30 mg SQ BID (WT < 150 kg, CrCl > 30 mL/min) AND *Sequential Compression Device (SCD) Assessment and Plan Assessment and Plan Abdominal sepsis - Gallbladder likely the source - Cholecystostomy tube placement stat by interventional radiology - IR assistance gladly appreciated - Blood cultures - Zosyn - Follow-up cultures and de-escalate per sensitivity Abdominal mass with obstructive icterus - Likely pancreatic Ca - Gastroenterology consultation - Cholecystostomy tube placement - Further workup per GI Hypotension - Aggressive IV fluid hydration - Goal map above 65 Hypoglycemia - Due to sepsis - D50 IV when necessary Diabetes mellitus - Hold long acting insulin due to hypoglycemia - Insulin sliding scale 1 indicated COPD - No exacerbation - DuoNeb scheduled and when necessary - Continue home dose prednisone DVT GI prophylaxis - Teds SCDs - Subcutaneous heparin - Pepcid Critical Care: The total critical care time was 35 minutes. Time to perform other separately billable procedures was not included in the critical care time. Tip Trimble MD Aug 10, 2017 19:46
[2017-08-10 19:48] LABS: LACTIC ACID SEPSIS PROTOCOL 2.5 mmol/L (0.4-2.0)
[2017-08-10] MEDS ORDERED: MIDAZOLAM HCL 2 MG/2 ML VIAL ONE (20:44)
[2017-08-10] MEDS: FAMOTIDINE 20 MG/2 ML VIAL IV PUSH SCH (21:00)
[2017-08-10] MEDS: INSULIN ASPART SUPPLEMENTAL SCALE SQ SCH (21:00)
[2017-08-10] MEDS: DOCUSATE SODIUM 50 MG/SENNA 8.6 MG TAB PO SCH (21:00)
[2017-08-10] MEDS ORDERED: SODIUM CHLORIDE 0.9% FLUSH 10 ML FLUSH IV FLUSH SCH (21:00)
[2017-08-10] MEDS: METHADONE HCL 10 MG TAB PO SCH (21:00)
[2017-08-10] MEDS ORDERED: SODIUM CHLORIDE 0.9% 10 ML VIAL IRRIGATION SCH ×2 (21:15→21:30)
--- NOTE | 2017-08-10 21:15 | PD.RAD ---
Post Procedure Progress Note Pre Procedure Diagnosis: (1) Sepsis (2) Jaundice Post Procedure Diagnosis: (1) Jaundice (2) Sepsis Procedure Date: Aug 10, 2017 Supervising Radiologist: Estevan Simon Estimated blood loss: none Plan of Activity Patient to Unit: Critical Care Patient Condition: Poor Additional Comments: 8 urdu drainage catheter placed in the patients distended gallbladder. Immediate return of 500cc of dark, thick bile Full dictated report to follow. See PACS Report for procedural detail/treatment Estevan Simon MD Aug 10, 2017 21:15
[2017-08-10] MEDS: RESP: ALBUTEROL 2.5 MG/IPRATROPIUM 0.5 MG NEB (SCH) INH ×2 (21:42→23:58)
--- NOTE | 2017-08-10 21:51 | RADRPT ---
EXAM DATE/TIME: 08/10/2017 20:53 [facility] COMPARISON: No previous studies available for comparison. INDICATIONS : Patient presents with cholecystitis in need of cholecystostomy tube. MEDICAL HISTORY : Type 2 Diabetes COPD Hepatitis C Rheumatoid Arthritis Obesity Gout Osteoporosis History of sinus tachycardia SURGICAL HISTORY : History of right knee septic arthritis requiring washot and debridement 2008 ENCOUNTER: Initial ACUITY: 2 weeks PAIN SCORE: 6/10 LOCATION: Bilateral Abdomen FLUORO TIME: 0.7 minutes IMAGE SERIES: 1 SEDATION TIME: 15 minutes MEDICATION(S): 1.) 1 mg midazolam (Versed) IV 2.) 50 mcg fentanyl (Sublimaze) IV DEVICE(S): 1.) 8 Mont[place]erratian 8F Hardesty Drainage Catheter with Nitinol PROCEDURE : 1. Ultrasound guided puncture of the gallbladder. 2. Percutaneous cholangiogram. 3. Percutaneous cholecystostomy tube placement. 4. Conscious sedation with continuous EKG and oximetry monitoring. The risks, benefits and alternatives to the procedure were explained and verbal and written consent w as obtained. The site was prepped in sterile fashion. Full sterile technique was used, including ca p, mask, sterile gloves and gown and a large sterile sheet. Hand hygiene and 2% chlorhexidine and/or betadine/alcohol prep was utilized per protocol for cutaneous antisepsis. Sterile gel and sterile p robe cover were utilized for ultrasound guidance. The skin and subcutaneous tissues were infiltrated with local anesthetic solution. With ultrasound and fluoroscopic guidance the gallbladder was punctured with a micropuncture set and a 4 [place]errat[place] dilator was placed. Injection of positive contrast demonstrates position within the gallb ladder. A 0.035 guidewire was placed within the gallbladder lumen and the tract was dilated. An 8 Fr ench drainage catheter was passed into the gallbladder without difficulty. There was immediate return of approximately 600 cc of dark, thick, green bile. Conscious sedation was performed with the prescribed dosages and duration as above in the presence of an independent trained radiology nurse to assist in the monitoring of the patient. EKG and oximetry remained stable throughout the procedure. The patient tolerated the procedure well and there were n o complications. The patient was sent to post anesthesia recovery in stable condition. CONCLUSION: Uncomplicated percutaneous cholecystostomy as above. Estevan Simon MD on August 10, 2017 at 21:47 Board Certified Radiologist. This report was verified electronically.
[2017-08-10] MEDS: SODIUM CHLORIDE 0.9% FLUSH 10 ML FLUSH IV FLUSH SCH (22:42)
[2017-08-10] MEDS: HEPARIN SODIUM - SQ 10,000 UNITS/ML VIAL SQ SCH (23:52)
[2017-08-10] MEDS: CHLORHEXIDINE GLUCONATE 2 % 1 PACK (2 CLOTHS) TOP SCH (23:54)
[2017-08-10] MEDS: PIPERACIL-TAZO 4.5 GM PREMIX 100 ML IV SCH (23:54)
[2017-08-11] VITALS (8 sets, daily range): BP systolic 84–109; BP diastolic 51–72; PULSE 67–97; RESP 14–30; TEMP 98–98.6; O2SAT 86–100
[2017-08-11] MEDS: RESP: ALBUTEROL 2.5 MG/IPRATROPIUM 0.5 MG NEB (SCH) INH ×6 (04:13→20:09)
[2017-08-11 06:09] LABS: BASOPHIL % 0.1 % (0.0-2.0); EOSINOPHIL % 0.1 % (0.0-4.0); HEMATOCRIT 37.1 % (35.0-46.0); HEMOGLOBIN 12.3 GM/DL (11.6-15.3); LYMPH % 11.6 % (9.0-44.0); LYMPHOCYTE # 1.6 TH/MM3 (1.0-4.8); MEAN CELL VOLUME 76.1 FL (80.0-100.0); MEAN CORPUSCULAR HEMOGLOBIN 25.3 PG (27.0-34.0); MEAN CORPUSCULAR HGB CONC 33.2 % (32.0-36.0); MEAN PLATELET VOLUME 9.3 FL (7.0-11.0); MONO % 7.2 % (0.0-8.0); PLATELET COUNT 428 TH/MM3 (150-450); RED BLOOD COUNT 4.87 MIL/MM3 (4.00-5.30); RED CELL DISTRIBUTION WIDTH 25.6 % (11.6-17.2); WHITE BLOOD COUNT 13.6 TH/MM3 (4.0-11.0)
[2017-08-11 06:18] LABS: ALBUMIN 1.3 GM/DL (3.4-5.0); ALKALINE PHOSPHATASE 608 U/L (45-117); ALT (GPT) 56 U/L (10-53); AST (GOT) 131 U/L (15-37); BLOOD UREA NITROGEN 25 MG/DL (7-18); CALCIUM 7.7 MG/DL (8.5-10.1); CHLORIDE 109 MEQ/L (98-107); CREATININE 1.51 MG/DL (0.50-1.00); GLOMERULAR FILTRATION RATE 42 ML/MIN (>89); GLUCOSE,RANDOM 118 MG/DL (74-106); SODIUM (NA) 139 MEQ/L (136-145); TOTAL BILIRUBIN ADULT 15.3 MG/DL (0.2-1.0); TOTAL PROTEIN 8.1 GM/DL (6.4-8.2)
[2017-08-11] MEDS: SODIUM CHLOR 0.9% 1000 ML INJ 1,000 ML IV SCH ×3 (06:33→17:59)
[2017-08-11] MEDS: HEPARIN SODIUM - SQ 10,000 UNITS/ML VIAL SQ SCH ×3 (06:42→21:25)
[2017-08-11] MEDS: PIPERACIL-TAZO 4.5 GM PREMIX 100 ML IV SCH ×3 (06:42→17:58)
[2017-08-11 07:14] LABS: TARGET CELLS 3+ (NORMAL)
[2017-08-11] MEDS: DOCUSATE SODIUM 50 MG/SENNA 8.6 MG TAB PO SCH ×2 (07:40→21:00)
[2017-08-11] MEDS: predniSONE 10 MG TAB PO SCH (07:40)
[2017-08-11] MEDS: METHADONE HCL 10 MG TAB PO SCH ×2 (07:40→21:24)
[2017-08-11] MEDS: INSULIN ASPART SUPPLEMENTAL SCALE SQ SCH ×4 (07:41→21:00)
[2017-08-11] MEDS: SODIUM CHLORIDE 0.9% FLUSH 10 ML FLUSH IV FLUSH SCH ×2 (07:41→21:23)
[2017-08-11] MEDS: FAMOTIDINE 20 MG/2 ML VIAL IV PUSH SCH ×2 (07:41→21:24)
[2017-08-11] MEDS: MORPHINE SULFATE 4 MG/ML INJ IV PUSH PRN ×2 (08:41→17:56)
--- NOTE | 2017-08-11 11:10 | PD.CONS ---
HPI History of Present Illness This is a 62 year old female who presented with BLE edema and abd pain. She admits abd currently. Denies n/v, weight loss. She is not on any blood thinners. CT showed distended gallbladder, poss cholecystitis, kendra mass upper abd adn zoltan hepatis, poss pancreatic head mass/obstruction. She is s/p cholecystostomy tube. Pt is limited historian. (Joycelyn Russell) PFSH Past Medical History edema Type 2 diabetes COPD Hepatitis C Rheumatoid arthritis Obesity Gout History of sinus tachycardia Osteoporosis Past Surgical History I & D right knee (Joycelyn Russell) Coded Allergies: *MDRO Multi-Drug Resistant Organism (Verified Adverse Reaction, Unknown, ) MRSA wound 11/2012. MRSA PCR Screen negative 11/03/14 and 11/05/14. Cleared per Infection Control MRSA PCR Screen NEGATIVE - 04/30/2015 Family History unable to provide Social History denies toxic habits (Joycelyn Russell) Review of Systems Gastrointestinal: COMPLAINS OF: Abdominal pain, Constipation, DENIES: Nausea, Vomiting otherwise noncontributory (Joycelyn Russell) GI Exam Vitals I&O Vital Signs Date Time Temp Pulse Resp B/P (MAP) Pulse Ox O2 Delivery O2 Flow Rate FiO2 08/11/17 09:03 99 Nasal Cannula 1.00 08/11/17 04:00 98.1 77 14 99/72 (81) 97 08/11/17 04:00 77 08/11/17 00:00 98.0 67 15 109/69 (82) 100 08/11/17 00:00 67 08/10/17 22:00 83 08/10/17 21:44 97.7 79 20 118/80 (93) 99 08/10/17 20:04 76 16 102/67 (79) 97 Nasal Cannula 2.00 08/10/17 18:44 68 18 92/50 (64) 99 Nasal Cannula 2.00 08/10/17 17:28 69 18 103/63 (76) 100 Nasal Cannula 2.00 08/10/17 16:00 98.0 68 18 90/53 (65) 98 Nasal Cannula 2.00 08/10/17 14:40 97 Nasal Cannula 2.00 08/10/17 14:31 97.9 74 16 110/61 (77) 98 Nasal Cannula 2.00 08/10/17 14:15 97.8 83 16 104/60 (75) 100 I/O 08/10/17 08/10/17 08/10/17 08/11/17 08/11/17 08/11/17 07:00 15:00 23:00 07:00 15:00 23:00 Intake Total 1000 ml 1450 ml Output Total 2350 ml Balance 1000 ml -900 ml Intake Oral 0 ml IV Total 1000 ml 1450 ml Output Urine Total 1200 ml Drainage Total 1150 ml # Bowel Movements 0 Imaging Last Impressions Chest X-Ray 08/10/17 1431 Signed Impressions: Service Date/Time: Thursday, August 10, 2017 14:51 - CONCLUSION: 1. COPD changes. No acute abnormality. Stable compared to prior dated 04/12. Estevan Simon MD Percutaneous Cholangiogram 08/10/17 0000 Signed Impressions: Service Date/Time: Thursday, August 10, 2017 20:53 - CONCLUSION: Uncomplicated percutaneous cholecystostomy as above. Estevan Simon MD Abdomen/Pelvis CT 08/10/17 0000 Signed Impressions: Service Date/Time: Thursday, August 10, 2017 17:47 - CONCLUSION: 1. Large conglomerate kendra mass in the upper abdomen centered around zoltan hepatis and the celiac axis measuring up to 10.6 x 7.9 centimeters. There may also be a primary mass in the pancreatic head. There is obstruction of the biliary ductal system with measurements given above. Gallbladder is markedly distended possibly with early cholecystitis. There is probable direct invasion into the left lobe and caudate lobe of the liver. There may also be partial thrombosis of the portal vein. 2. Trace free fluid in the pelvis. Sonu Lazcano MD Laboratory Test 08/10/17 14:50 08/10/17 15:05 08/10/17 16:00 08/10/17 19:10 White Blood Count 14.8 TH/MM3 Red Blood Count 4.69 MIL/MM3 Hemoglobin 11.8 GM/DL Hematocrit 35.0 % Mean Corpuscular Volume 74.7 FL Mean Corpuscular Hemoglobin 25.1 PG Mean Corpuscular Hemoglobin Concent 33.6 % Red Cell Distribution Width 23.9 % Platelet Count 425 TH/MM3 Mean Platelet Volume 9.1 FL Neutrophils (%) (Auto) 78.9 % Lymphocytes (%) (Auto) 12.4 % Monocytes (%) (Auto) 7.6 % Eosinophils (%) (Auto) 0.8 % Basophils (%) (Auto) 0.3 % Neutrophils # (Auto) 11.7 TH/MM3 Lymphocytes # (Auto) 1.8 TH/MM3 Monocytes # (Auto) 1.1 TH/MM3 Eosinophils # (Auto) 0.1 TH/MM3 Basophils # (Auto) 0.0 TH/MM3 CBC Comment AUTO DIFF Differential Comment AUTO DIFF CONFIRMED Platelet Estimate NORMAL Platelet Morphology Comment ENLARGED Target Cells 2+ Prothrombin Time 14.4 SEC Prothromb Time International Ratio 1.4 RATIO Activated Partial Thromboplast Time 40.0 SEC Blood Urea Nitrogen 26 MG/DL Creatinine 1.38 MG/DL Random Glucose 15 MG/DL Total Protein 8.6 GM/DL Albumin 1.5 GM/DL Calcium Level 8.2 MG/DL Magnesium Level 2.3 MG/DL Alkaline Phosphatase 658 U/L Aspartate Amino Transf (AST/SGOT) 185 U/L Alanine Aminotransferase (ALT/SGPT) 64 U/L Total Bilirubin 20.1 MG/DL Sodium Level 138 MEQ/L Potassium Level 3.1 MEQ/L Chloride Level 107 MEQ/L Carbon Dioxide Level 19.3 MEQ/L Anion Gap 12 MEQ/L Estimat Glomerular Filtration Rate 47 ML/MIN B-Type Natriuretic Peptide 40 PG/ML Lipase 73 U/L Ammonia LESS THAN 20 MCMOL/L Urine Color DARK-YELLOW Urine Turbidity CLEAR Urine pH 5.5 Urine Specific [place] 1.008 Urine Protein NEG mg/dL Urine Glucose (UA) NEG mg/dL Urine Ketones NEG mg/dL Urine Occult Blood NEG Urine Nitrite NEG Urine Bilirubin LARGE Urine Urobilinogen LESS THAN 2.0 MG/DL Urine Leukocyte Esterase NEG Urine RBC 1 /hpf Urine WBC 1 /hpf Urine Squamous Epithelial Cells <1 /hpf Urine Bacteria RARE /hpf Urine Hyaline Casts 12 /lpf Urine Mucus FEW /lpf Microscopic Urinalysis Comment CULT NOT INDICATED Lactic Acid Level 2.5 mmol/L Test 08/10/17 22:00 08/10/17 22:30 08/11/17 05:20 Nasal Screen MRSA (PCR) MRSA NOT DETECTED Lactic Acid Level 2.3 mmol/L White Blood Count 13.6 TH/MM3 Red Blood Count 4.87 MIL/MM3 Hemoglobin 12.3 GM/DL Hematocrit 37.1 % Mean Corpuscular Volume 76.1 FL Mean Corpuscular Hemoglobin 25.3 PG Mean Corpuscular Hemoglobin Concent 33.2 % Red Cell Distribution Width 25.6 % Platelet Count 428 TH/MM3 Mean Platelet Volume 9.3 FL Neutrophils (%) (Auto) 81.0 % Lymphocytes (%) (Auto) 11.6 % Monocytes (%) (Auto) 7.2 % Eosinophils (%) (Auto) 0.1 % Basophils (%) (Auto) 0.1 % Neutrophils # (Auto) 11.0 TH/MM3 Lymphocytes # (Auto) 1.6 TH/MM3 Monocytes # (Auto) 1.0 TH/MM3 Eosinophils # (Auto) 0.0 TH/MM3 Basophils # (Auto) 0.0 TH/MM3 CBC Comment AUTO DIFF Differential Comment AUTO DIFF CONFIRMED Platelet Estimate NORMAL Platelet Morphology Comment ENLARGED Target Cells 3+ Blood Urea Nitrogen 25 MG/DL Creatinine 1.51 MG/DL Random Glucose 118 MG/DL Total Protein 8.1 GM/DL Albumin 1.3 GM/DL Calcium Level 7.7 MG/DL Alkaline Phosphatase 608 U/L Aspartate Amino Transf (AST/SGOT) 131 U/L Alanine Aminotransferase (ALT/SGPT) 56 U/L Total Bilirubin 15.3 MG/DL Sodium Level 139 MEQ/L Potassium Level 4.1 MEQ/L Chloride Level 109 MEQ/L Carbon Dioxide Level 19.0 MEQ/L Anion Gap 11 MEQ/L Estimat Glomerular Filtration Rate 42 ML/MIN Date/Time Source Procedure Growth Status 08/10/17 19:00 Blood Peripheral Aerobic Blood Culture Pending Received 08/10/17 19:00 Blood Peripheral Anaerobic Blood Culture Pending Received Physical Examination HEENT: PERRL; normocephalic; atraumatic; +mild icterus CHEST: CTA CARDIAC: RRR ABDOMEN: Soft, nondistended, mild upper quadrant TTP; bowel sounds are present in all four quadrants. RUQ drain with bilious fluid EXTREMITIES: No clubbing, cyanosis, or edema. SKIN: Normal; no rash; no jaundice. LICENSED MIDWIFE: slow to answer, answers simple questions (Joycelyn Russell) Assessment and Plan Plan ASSESSMENT - abd pain, elevated LFTs,abnormal imaging - obstructive pattern. CT showing mass upper abd around zoltan hepatis, poss pancreatic mass, biliary obstruction, distended GB, prob invasion to liver. s/p cholecystostomy by IR PLAN - consider EUS - CA 19-9 - AFP - rck LFTs am - clear liquid diet - consider oncology consult - further recs to follow pt seen by myself and DR Mai and this note is on his behalf (Joycelyn Russell) Physician Comments Seen and examined with joshua Hirsch as above. Will need ERCP with stenting once patient more stable, currently draining via cholecystomy tube. Will follow up with you. Thank you for the consult. (Osmin Mai MD) Joycelyn Russell Aug 11, 2017 11:10 Osmin Mai MD Aug 11, 2017 13:09
--- NOTE | 2017-08-11 12:35 | EKG ---
Date Performed: 08/10/2017 Time Performed: 14:32:56 PTAGE: 62 years EKG: Sinus rhythm MODERATE INTRAVENTRICULAR CONDUCTION DELAY BORDERLINE ECG Compared to PREVIOUS TRACING , heart rate is back into the normal range. Intraventricular conduction disturbance is new. PREVIOUS TRACIN02/04/2017 11.05 DOCTOR: Oj Malhotra Interpretating Date/Time 08/11/2017 12:34:36
--- NOTE | 2017-08-11 18:40 | HHI.CCPN ---
Subjective Remarks/Hospital Course 62-year-old female presenting to the emergency for evaluation of bilateral lower extremity edema and abdominal pain. Patient states the swelling has been ongoing for 1 week, the abdominal pain started 2 weeks ago. She states that the abdominal pain is in the bilateral upper quadrants and feels like a band around her stomach. She reports that the edema in her lower extremities has been getting worse. She denies any shortness of breath, chest pain, fever, chills. Family member with her states that she has not been eating as well. The CT of the abdomen shows markedly distended gallbladder possibly with early cholecystitis and conglomerate kendra mass in the upper abdomen centered around zoltan hepatis. Her blood pressure in the emergency department fluctuates between a systolic of 80s to 100s, her glucose under Barros profile is 15 and the patient is admitted to ICU with the diagnosis of severe abdominal sepsis. Subjective: 08/11: Afebrile .Draining large amounts of bilious fluid from cholecystostomy tube. Patient reported some pain relief, since procedure. Pt continues on clear liquid diet, with 100% consumption, tolerated well. Objective Vital Signs Date Time Temp Pulse Resp B/P (MAP) Pulse Ox O2 Delivery O2 Flow Rate FiO2 08/11/17 09:03 99 Nasal Cannula 1.00 08/11/17 04:00 98.1 77 14 99/72 (81) Intake and Output 08/11/17 08/11/17 08/12/17 08:00 16:00 00:00 Intake Total 1450 ml Output Total 2350 ml Balance -900 ml Result Diagram: 08/11/17 0520 08/11/17 0520 Imaging Last 24 hours Impressions Chest X-Ray 08/10/17 1431 Signed Impressions: Service Date/Time: Thursday, August 10, 2017 14:51 - CONCLUSION: 1. COPD changes. No acute abnormality. Stable compared to prior dated 04/12. Estevan Simon MD Abdomen/Pelvis CT 08/10/17 0000 Signed Impressions: Service Date/Time: Thursday, August 10, 2017 17:47 - CONCLUSION: 1. Large conglomerate kendra mass in the upper abdomen centered around zoltan hepatis and the celiac axis measuring up to 10.6 x 7.9 centimeters. There may also be a primary mass in the pancreatic head. There is obstruction of the biliary ductal system with measurements given above. Gallbladder is markedly distended possibly with early cholecystitis. There is probable direct invasion into the left lobe and caudate lobe of the liver. There may also be partial thrombosis of the portal vein. 2. Trace free fluid in the pelvis. Sonu Lazcano MD Objective Remarks GENERAL: Overweight, drowsy -[place] female. Currently no acute distress. SKIN: Warm and dry. Weeping to left lower extremity HEAD: Atraumatic. Normocephalic. EYES: Pupils equal and round. +++ scleral icterus. No injection or drainage. ENT: No nasal bleeding or discharge. Mucous membranes pink and moist. NECK: Trachea midline. No JVD. CARDIOVASCULAR: Regular rate and rhythm. 2+ pitting peripheral edema. RESPIRATORY: No accessory muscle use. Diminished in bases, no wheezes, rhonchi , rales noted. GASTROINTESTINAL: Abdomen firm, mildly distended, mildly tender to palpation in upper quadrants. Hepatic and splenic margins not palpable. Positive bowel sounds MUSCULOSKELETAL: Extremities without clubbing, cyanosis, or edema. No obvious deformities. NEUROLOGICAL: Drowsy but arousable. No obvious cranial nerve deficits. Motor grossly within normal limits. 5/5 muscle strength in the arms and legs. Normal speech. A/P Assessment and Plan Abdominal sepsis - Gallbladder likely the source - Cholecystostomy tube placement stat by interventional radiology - IR assistance gladly appreciated - Blood cultures - Zosyn - Follow-up cultures and de-escalate per sensitivity Abdominal mass with obstructive icterus - Likely pancreatic Ca - Gastroenterology consultation - Cholecystostomy tube placement - Further workup per GI Hypotension - Aggressive IV fluid hydration - Maintain MAP above 65 Hypoglycemia - Due to sepsis - D50 IV when necessary Diabetes mellitus - Hold long acting insulin due to hypoglycemia - Insulin sliding scale 1 indicated COPD - No exacerbation - DuoNeb scheduled and when necessary - Continue home dose prednisone DVT GI prophylaxis - Teds SCDs - Subcutaneous heparin - Pepcid Critical Care: my billing statement This patient remains critically ill with one or more organ systems which are or may become a threat to life. I have spent in excess of 30 minutes discontinuously in the care and management of this patient. This time is exclusive of procedures, and includes, but is not limited to, evaluation of the patient, review of the medical record, discussions with family, consultants, nursing staff, or respiratory therapy, and documentation in the medical record. Physician Valarie Woody MD Aug 11, 2017 18:40
--- NOTE | 2017-08-11 21:48 | PD ---
Physical Exam Date Seen by Provider: Aug 10, 2017 Time Seen by Provider: 17:00 Narrative 62-year-old female came to the emergency room with history of bilateral lower extremity edema. However patient appeared sick and lethargic. Patient has history of diabetes and a bedside blood glucose revealed a sugar of 21. Patient was immediately given 2 A of D50. She was seen by my nurse that dictation I am supervising her. Repeat blood glucose after an hour of the D50 was 53. At this point patient was put on a D5 half-normal saline drip. This stabilized her blood glucose but rest of the blood test results came back which showed leukocytosis, lactic acidosis and significantly elevated bilirubin and liver function tests. Clinically patient continued to remain lethargic and appeared jaundice. She was started on Zosyn and vancomycin as per sepsis protocol. Her blood pressure started to drop and was in 80s to 90s systolic. Patient was given 2 more liters of IV fluid bolus. This brought her blood pressure to high 90s to low 100s systolic A CAT scan of her abdomen and pelvis showed a large pancreatic head mass causing biliary ductal obstruction. At this point decision was made to admit the patient to the intensive is given her hemodynamic instability and brittle hypoglycemia. I discussed the case with Dr. Trimble who accepted the patient. Data Data Last Documented VS Orders Orders Complete Blood Count With Diff (08/10/17 14:31) Comprehensive Metabolic Panel (08/10/17 14:31) Lipase (08/10/17 14:31) Prothrombin Time / Inr (Pt) (08/10/17 14:31) Act Partial Throm Time (Ptt) (08/10/17 14:31) Urinalysis - C+S If Indicated (08/10/17 14:31) Iv Access Insert/Monitor (08/10/17 14:31) Ecg Monitoring (08/10/17 14:31) Oximetry (08/10/17 14:31) Sodium Chloride 0.9% Flush (Ns Flush) (08/10/17 14:45) Electrocardiogram (08/10/17 14:31) B-Type Natriuretic Peptide (08/10/17 14:31) Magnesium (Mg) (08/10/17 14:31) Chest, Single Ap (08/10/17 14:31) Cath For Specimen (08/10/17 14:31) Dextrose 50% In [place] (Syr) Inj (D50w (Syr (08/10/17 15:00) Dextrose 50% In [place] (Syr) Inj (D50w (Syr (08/10/17 15:00) Ct Abd/Pel W Iv Contrast(Rout) (08/10/17 ) Ammonia (08/10/17 14:58) Dext 5%-Nacl 0.9% 1000 Ml Inj (D5w-Ns 10 (08/10/17 16:15) Blood Glucose (08/10/17 17:20) Hydrocortisone Inj (Solucortef Inj) (08/10/17 17:30) Sodium Chlor 0.9% 1000 Ml Inj (Ns 1000 M (08/10/17 17:30) Iohexol 350 Inj (Omnipaque 350 Inj) (08/10/17 14:08) Blood Culture (08/10/17 18:52) Admit Order (Ed Use Only) (08/10/17 18:49) Labs Laboratory Tests Test 08/10/17 14:50 08/10/17 15:05 08/10/17 16:00 White Blood Count 14.8 TH/MM3 Red Blood Count 4.69 MIL/MM3 Hemoglobin 11.8 GM/DL Hematocrit 35.0 % Mean Corpuscular Volume 74.7 FL Mean Corpuscular Hemoglobin 25.1 PG Mean Corpuscular Hemoglobin Concent 33.6 % Red Cell Distribution Width 23.9 % Platelet Count 425 TH/MM3 Mean Platelet Volume 9.1 FL Neutrophils (%) (Auto) 78.9 % Lymphocytes (%) (Auto) 12.4 % Monocytes (%) (Auto) 7.6 % Eosinophils (%) (Auto) 0.8 % Basophils (%) (Auto) 0.3 % Neutrophils # (Auto) 11.7 TH/MM3 Lymphocytes # (Auto) 1.8 TH/MM3 Monocytes # (Auto) 1.1 TH/MM3 Eosinophils # (Auto) 0.1 TH/MM3 Basophils # (Auto) 0.0 TH/MM3 CBC Comment AUTO DIFF Differential Comment AUTO DIFF CONFIRMED Platelet Estimate NORMAL Platelet Morphology Comment ENLARGED Target Cells 2+ Prothrombin Time 14.4 SEC Prothromb Time International Ratio 1.4 RATIO Activated Partial Thromboplast Time 40.0 SEC Blood Urea Nitrogen 26 MG/DL Creatinine 1.38 MG/DL Random Glucose 15 MG/DL Total Protein 8.6 GM/DL Albumin 1.5 GM/DL Calcium Level 8.2 MG/DL Magnesium Level 2.3 MG/DL Alkaline Phosphatase 658 U/L Aspartate Amino Transf (AST/SGOT) 185 U/L Alanine Aminotransferase (ALT/SGPT) 64 U/L Total Bilirubin 20.1 MG/DL Sodium Level 138 MEQ/L Potassium Level 3.1 MEQ/L Chloride Level 107 MEQ/L Carbon Dioxide Level 19.3 MEQ/L Anion Gap 12 MEQ/L Estimat Glomerular Filtration Rate 47 ML/MIN B-Type Natriuretic Peptide 40 PG/ML Lipase 73 U/L Ammonia LESS THAN 20 MCMOL/L Urine Color DARK-YELLOW Urine Turbidity CLEAR Urine pH 5.5 Urine Specific [place] 1.008 Urine Protein NEG mg/dL Urine Glucose (UA) NEG mg/dL Urine Ketones NEG mg/dL Urine Occult Blood NEG Urine Nitrite NEG Urine Bilirubin LARGE Urine Urobilinogen LESS THAN 2.0 MG/DL Urine Leukocyte Esterase NEG Urine RBC 1 /hpf Urine WBC 1 /hpf Urine Squamous Epithelial Cells <1 /hpf Urine Bacteria RARE /hpf Urine Hyaline Casts 12 /lpf Urine Mucus FEW /lpf Microscopic Urinalysis Comment CULT NOT INDICATED MDM Supervised Visit with YOEL: Yes Critical Care Narrative Aggregate critical care time was 45 minutes. Time to perform other separately billable procedures was not included in the critical care time. My time did not include minutes spent treating any other patients simultaneously or on activities that did not directly contribute to the patient's treatment. The services I provided to this patient were to treat and/or prevent clinically significant deterioration that could result in: Sepsis, septic shock, obstructive jaundice, critical hypoglycemia I provided critical care services requiring my management, as noted below: Chart data review, documentation time, medication orders and management, vital sign assessments/reviewing monitor data, ordering and reviewing lab tests, ordering and interpreting/reviewing x-rays and diagnostic studies, care of the patient and discussion of the patient with the admitting physicians. Diagnosis Primary Impression: Hypoglycemia Additional Impressions: Abdominal mass Qualified Codes: R19.00 - Intra-abdominal and pelvic swelling, mass and lump, unspecified site Jaundice Acute renal insufficiency Hypotension Qualified Codes: I95.9 - Hypotension, unspecified Condition: Stable Cleveland Banegas MD Aug 11, 2017 21:48
[2017-08-12] VITALS (12 sets, daily range): BP systolic 89–105; BP diastolic 52–69; PULSE 91–107; RESP 11–20; TEMP 98.1–98.7; O2SAT 95–100
[2017-08-12] MEDS: RESP: ALBUTEROL 2.5 MG/IPRATROPIUM 0.5 MG NEB (SCH) INH ×7 (00:12→23:50)
[2017-08-12] MEDS: SODIUM CHLOR 0.9% 1000 ML INJ 1,000 ML IV SCH ×5 (01:28→23:49)
[2017-08-12] MEDS: PIPERACIL-TAZO 4.5 GM PREMIX 100 ML IV SCH ×5 (01:44→23:50)
[2017-08-12 03:45] LABS: AUTOMATED NEUTROPHIL # 7.9 TH/MM3 (1.8-7.7); BASOPHIL # 0.1 TH/MM3 (0-0.2); BASOPHIL % 0.8 % (0.0-2.0); EOSINOPHIL # 0.2 TH/MM3 (0-0.4); EOSINOPHIL % 1.4 % (0.0-4.0); HEMATOCRIT 32.9 % (35.0-46.0); HEMOGLOBIN 11.2 GM/DL (11.6-15.3); LYMPH % 17.8 % (9.0-44.0); LYMPHOCYTE # 1.9 TH/MM3 (1.0-4.8); MEAN CELL VOLUME 75.1 FL (80.0-100.0); MEAN CORPUSCULAR HEMOGLOBIN 25.6 PG (27.0-34.0); MEAN CORPUSCULAR HGB CONC 34.1 % (32.0-36.0); MEAN PLATELET VOLUME 8.9 FL (7.0-11.0); MONO % 6.7 % (0.0-8.0); MONOCYTE # 0.7 TH/MM3 (0-0.9); NEUT % 73.3 % (16.0-70.0); PLATELET COUNT 370 TH/MM3 (150-450); RED BLOOD COUNT 4.38 MIL/MM3 (4.00-5.30); RED CELL DISTRIBUTION WIDTH 24.6 % (11.6-17.2); WHITE BLOOD COUNT 10.8 TH/MM3 (4.0-11.0)
[2017-08-12] MEDS: CHLORHEXIDINE GLUCONATE 2 % 1 PACK (2 CLOTHS) TOP SCH (04:00)
[2017-08-12 04:48] LABS: CA 19-9 17.2 U/ML (0.0-35.0)
[2017-08-12 05:17] LABS: ALBUMIN 1.2 GM/DL (3.4-5.0); BICARBONATE 17.5 MEQ/L (21.0-32.0); CALCIUM 7.2 MG/DL (8.5-10.1); CREATININE 1.48 MG/DL (0.50-1.00); MAGNESIUM 2.1 MG/DL (1.5-2.5); PHOSPHORUS 2.6 MG/DL (2.5-4.9); TOTAL BILIRUBIN ADULT 8.6 MG/DL (0.2-1.0); TOTAL PROTEIN 7.6 GM/DL (6.4-8.2)
[2017-08-12] MEDS: HEPARIN SODIUM - SQ 10,000 UNITS/ML VIAL SQ SCH ×3 (06:24→23:49)
[2017-08-12] MEDS: INSULIN ASPART SUPPLEMENTAL SCALE SQ SCH ×4 (08:00→21:00)
[2017-08-12] MEDS: SODIUM CHLORIDE 0.9% FLUSH 10 ML FLUSH IV FLUSH SCH ×2 (09:42→21:03)
[2017-08-12] MEDS: FAMOTIDINE 20 MG/2 ML VIAL IV PUSH SCH ×2 (09:42→21:02)
[2017-08-12] MEDS: predniSONE 10 MG TAB PO SCH (09:42)
[2017-08-12] MEDS: METHADONE HCL 10 MG TAB PO SCH ×2 (09:42→21:02)
[2017-08-12] MEDS: DOCUSATE SODIUM 50 MG/SENNA 8.6 MG TAB PO SCH ×2 (09:42→21:02)
[2017-08-12] MEDS ORDERED: POTASSIUM CHLORIDE 25 MEQ EFFERVESCENT TAB PO ONE (10:15)
--- NOTE | 2017-08-12 10:37 | HHI.GIFU ---
Subjective Remarks Pt resting in bed, napping. tolerating clears, she says eating a little bit at a time. Soreness near drain site. (Joycelyn Russell) Objective Vitals I&O Vital Signs Date Time Temp Pulse Resp B/P (MAP) Pulse Ox O2 Delivery O2 Flow Rate FiO2 08/12/17 09:16 95 Nasal Cannula 2.00 08/12/17 04:00 97 08/12/17 04:00 98.7 97 15 89/56 (67) 99 08/12/17 00:00 100 08/12/17 00:00 98.5 100 14 97/53 (68) 100 08/11/17 22:24 16 08/11/17 20:08 95 Nasal Cannula 2.00 08/11/17 20:00 98.1 97 16 89/60 (70) 99 08/11/17 20:00 97 08/11/17 16:00 98.5 93 23 92/64 (73) 86 08/11/17 16:00 93 08/11/17 12:00 92 08/11/17 12:00 98.6 92 22 84/58 (67) 96 I/O 08/11/17 08/11/17 08/11/17 08/12/17 08/12/17 08/12/17 07:00 15:00 23:00 07:00 15:00 23:00 Intake Total 1450 ml 960 ml 1320 ml 250 ml Output Total 2350 ml 1450 ml 1250 ml Balance -900 ml -490 ml 70 ml 250 ml Intake Oral 0 ml 960 ml 120 ml IV Total 1450 ml 1200 ml 250 ml Output Urine Total 1200 ml 650 ml 650 ml Drainage Total 1150 ml 800 ml 600 ml # Bowel Movements 0 0 0 Laboratory Laboratory Tests Test 08/12/17 02:59 White Blood Count 10.8 Red Blood Count 4.38 Hemoglobin 11.2 Hematocrit 32.9 Mean Corpuscular Volume 75.1 Mean Corpuscular Hemoglobin 25.6 Mean Corpuscular Hemoglobin Concent 34.1 Red Cell Distribution Width 24.6 Platelet Count 370 Mean Platelet Volume 8.9 Neutrophils (%) (Auto) 73.3 Lymphocytes (%) (Auto) 17.8 Monocytes (%) (Auto) 6.7 Eosinophils (%) (Auto) 1.4 Basophils (%) (Auto) 0.8 Neutrophils # (Auto) 7.9 Lymphocytes # (Auto) 1.9 Monocytes # (Auto) 0.7 Eosinophils # (Auto) 0.2 Basophils # (Auto) 0.1 CBC Comment DIFF FINAL Differential Comment Blood Urea Nitrogen 21 Creatinine 1.48 Random Glucose 89 Total Protein 7.6 Albumin 1.2 Calcium Level 7.2 Phosphorus Level 2.6 Magnesium Level 2.1 Alkaline Phosphatase 495 Aspartate Amino Transf (AST/SGOT) 97 Alanine Aminotransferase (ALT/SGPT) 49 Total Bilirubin 8.6 Sodium Level 140 Potassium Level 3.0 Chloride Level 110 Carbon Dioxide Level 17.5 Anion Gap 13 Estimat Glomerular Filtration Rate 43 Protein Corrected Calcium 7.0 Tumor Marker Alpha Fetoprotein 2704.3 CA 19-9 Antigen 17.2 Date/Time Source Procedure Growth Status 08/10/17 19:00 Blood Peripheral Aerobic Blood Culture - Preliminary NO GROWTH IN 1 DAY Resulted 08/10/17 19:00 Blood Peripheral Anaerobic Blood Culture - Preliminary NO GROWTH IN 1 DAY Resulted Imaging Last Impressions Chest X-Ray 08/10/17 1431 Signed Impressions: Service Date/Time: Thursday, August 10, 2017 14:51 - CONCLUSION: 1. COPD changes. No acute abnormality. Stable compared to prior dated 04/12. Estevan Simon MD Percutaneous Cholangiogram 08/10/17 0000 Signed Impressions: Service Date/Time: Thursday, August 10, 2017 20:53 - CONCLUSION: Uncomplicated percutaneous cholecystostomy as above. Estevan Simon MD Abdomen/Pelvis CT 08/10/17 0000 Signed Impressions: Service Date/Time: Thursday, August 10, 2017 17:47 - CONCLUSION: 1. Large conglomerate kendra mass in the upper abdomen centered around zoltan hepatis and the celiac axis measuring up to 10.6 x 7.9 centimeters. There may also be a primary mass in the pancreatic head. There is obstruction of the biliary ductal system with measurements given above. Gallbladder is markedly distended possibly with early cholecystitis. There is probable direct invasion into the left lobe and caudate lobe of the liver. There may also be partial thrombosis of the portal vein. 2. Trace free fluid in the pelvis. Sonu Lazcano MD Physical Exam HEENT: PERRL; normocephalic; atraumatic; CHEST: wheezes CARDIAC: RRR ABDOMEN: Soft, mildly distended, RUQ TTP; no hepatosplenomegaly; bowel sounds are present in all four quadrants. RUQ drain with brown bilious output EXTREMITIES: No clubbing, cyanosis, or edema. SKIN: Normal; no rash; no jaundice. FILAMENT SHAPER: No focal deficits; alert and oriented times three. (Joycelyn Russell) Assessment and Plan Plan ASSESSMENT - abd pain, elevated LFTs,abnormal imaging - obstructive pattern. CT showing mass upper abd around zoltan hepatis, poss pancreatic mass, biliary obstruction, distended GB, prob invasion to liver. s/p cholecystostomy by IR 08/12/18 ruq soreness, around drain site. LFTs trending down. AFP 2704.3 elevated. CA 19-9 not elevated. WBC WNL. has been hypotensive. tolerating small amounts of clears at a time PLAN - ERCP with stent when more stabe - clear liquid diet - consider oncology consult - further recs to follow pt seen by myself and DR Pagan and myself and this note is on her behalf (Joycelyn Russell) Physician Comments seen, examined agree with above consult oncology consult ir for ct guided biopsy of mass (Micaela Pagan MD) Joycelyn Russell Aug 12, 2017 10:37 Micaela Pagan MD Aug 12, 2017 11:33
[2017-08-12] MEDS ORDERED: CALCIUM GLUCONATE INJ 2 GM in SODIUM CHLORIDE 0.9% INJ 100 ML IV ONE (11:00)
--- NOTE | 2017-08-12 13:27 | HHI.CCPN ---
Subjective Remarks/Hospital Course 62-year-old female presenting to the emergency for evaluation of bilateral lower extremity edema and abdominal pain. Patient states the swelling has been ongoing for 1 week, the abdominal pain started 2 weeks ago. She states that the abdominal pain is in the bilateral upper quadrants and feels like a band around her stomach. She reports that the edema in her lower extremities has been getting worse. She denies any shortness of breath, chest pain, fever, chills. Family member with her states that she has not been eating as well. The CT of the abdomen shows markedly distended gallbladder possibly with early cholecystitis and conglomerate kendra mass in the upper abdomen centered around zoltan hepatis. Her blood pressure in the emergency department fluctuates between a systolic of 80s to 100s, her glucose under Barros profile is 15 and the patient is admitted to ICU with the diagnosis of severe abdominal sepsis. Subjective: 08/11: Afebrile .Draining large amounts of bilious fluid from cholecystostomy tube. Patient reported some pain relief, since procedure. Pt continues on clear liquid diet, with 100% consumption, tolerated well. 08/12: Afebrile. Patient complains of moderate pain. Tumor marker AFP results 2704.3. Oncology has been consulted has been consulted, as well as hospice. Patient tolerating a clear liquid diet. Objective Vital Signs Date Time Temp Pulse Resp B/P (MAP) Pulse Ox O2 Delivery O2 Flow Rate FiO2 08/12/17 12:24 97 Nasal Cannula 1.00 08/12/17 10:46 16 08/12/17 04:00 97 08/12/17 04:00 98.7 89/56 (67) Intake and Output 08/12/17 08/12/17 08/13/17 08:00 16:00 00:00 Intake Total 1320 ml 250 ml Output Total 1250 ml Balance 70 ml 250 ml Result Diagram: 08/12/17 0259 08/12/17 0259 Imaging Last Impressions Chest X-Ray 08/10/17 1431 Signed Impressions: Service Date/Time: Thursday, August 10, 2017 14:51 - CONCLUSION: 1. COPD changes. No acute abnormality. Stable compared to prior dated 0 04/12. Estevan Simon MD Percutaneous Cholangiogram 08/10/17 0000 Signed Impressions: Service Date/Time: Thursday, August 10, 2017 20:53 - CONCLUSION: Uncomplicated percutaneous cholecystostomy as above. Estevan Simon MD Abdomen/Pelvis CT 08/10/17 0000 Signed Impressions: Service Date/Time: Thursday, August 10, 2017 17:47 - CONCLUSION: 1. Large conglomerate kendra mass in the upper abdomen centered around zoltan hepatis and the celiac axis measuring up to 10.6 x 7.9 centimeters. There may also be a primary mass in the pancreatic head. There is obstruction of the biliary ductal system with measurements given above. Gallbladder is markedly distended possibly with early cholecystitis. There is probable direct invasion into the left lobe and caudate lobe of the liver. There may also be partial thrombosis of the portal vein. 2. Trace free fluid in the pelvis. Sonu Lazcano MD Last 24 hours Impressions Chest X-Ray 08/10/17 1431 Signed Impressions: Service Date/Time: Thursday, August 10, 2017 14:51 - CONCLUSION: 1. COPD changes. No acute abnormality. Stable compared to prior dated 04/12. Estevan Simon MD Abdomen/Pelvis CT 08/10/17 0000 Signed Impressions: Service Date/Time: Thursday, August 10, 2017 17:47 - CONCLUSION: 1. Large conglomerate kendra mass in the upper abdomen centered around zoltan hepatis and the celiac axis measuring up to 10.6 x 7.9 centimeters. There may also be a primary mass in the pancreatic head. There is obstruction of the biliary ductal system with measurements given above. Gallbladder is markedly distended possibly with early cholecystitis. There is probable direct invasion into the left lobe and caudate lobe of the liver. There may also be partial thrombosis of the portal vein. 2. Trace free fluid in the pelvis. Sonu Lazcano MD Objective Remarks GENERAL: Overweight, drowsy -[place]aur[place] female. Currently no acute distress. SKIN: Warm and dry. Weeping to left lower extremity HEAD: Atraumatic. Normocephalic. EYES: Pupils equal and round. +++ scleral icterus. No injection or drainage. ENT: No nasal bleeding or discharge. Mucous membranes pink and moist. NECK: Trachea midline. No JVD. CARDIOVASCULAR: Regular rate and rhythm. 2+ pitting peripheral edema. RESPIRATORY: No accessory muscle use. Diminished in bases, no wheezes, rhonchi , rales noted. GASTROINTESTINAL: Abdomen firm, mildly distended, mildly tender to palpation in upper quadrants. Hepatic and splenic margins not palpable. Positive bowel sounds MUSCULOSKELETAL: Extremities without clubbing, cyanosis, or edema. No obvious deformities. NEUROLOGICAL: Drowsy but arousable. No obvious cranial nerve deficits. Motor grossly within normal limits. 5/5 muscle strength in the arms and legs. Normal speech. A/P Assessment and Plan Abdominal sepsis - Gallbladder likely the source - Cholecystostomy tube placement stat by interventional radiology - IR assistance gladly appreciated - Blood cultures - Zosyn - Follow-up cultures and de-escalate per sensitivity Abdominal mass with obstructive icterus - AFP 2704.3 oncology following, Dr. Mckeon-plan for transfer/returned to hospice facility. Patient placed on DNR status. - Gastroenterology following , Dr. Pagan - Cholecystostomy tube placement - Further workup per GI Hypotension - Aggressive IV fluid hydration - Maintain MAP above 65 Hypoglycemia - Due to sepsis - D50 IV when necessary Diabetes mellitus - Hold long acting insulin due to hypoglycemia - Insulin sliding scale 1 indicated COPD - No exacerbation - DuoNeb scheduled and when necessary - Continue home dose prednisone DVT GI prophylaxis - Teds SCDs - Subcutaneous heparin - Pepcid Critical Care: Level II follow-up Discussed with Dr. Mckeon, patient and SERVICES DELIVERY DRIVER at bedside. Patient previously registered with hospice. CODE STATUS change after discussion with Dr. Mckeon to DNR. Plan is for transfer/returned to hospice. Physician Valarie Woody MD Aug 12, 2017 13:26
--- NOTE | 2017-08-12 14:41 | MB ---
cc: Oj Mckeon MD DATE OF CONSULT: REASON FOR CONSULTATION: Abnormal findings on CT scan of the abdomen in a patient with end-stage lung disease and acute cholecystitis, status post drain placement. PATIENT PROFILE OF PRESENT ILLNESS: The patient is a 62-year-old black female. She is single. She has a boyfriend. She has never . She has no children. She lives alone in an apartment and receives help from her boyfriend. She moved to [place] at the age of 12. She has been on disability due to end-stage COPD. She tells me that she is now with the hospice program. 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 She currently does not smoke. She stopped smoking in approximately 11/2016. In the past, she had smoked up to 2 packs of cigarettes per day for many years. There is no history of excessive alcohol intake. HISTORY OF PRESENT ILLNESS: The patient is a 62-year-old female who has end-stage COPD. She is oxygen dependent. On 01/07/2017 she had a CAT scan of the abdomen and was found to have a mildly nodular liver consistent with cirrhosis. There was a mass abutting and potentially arising from the left adrenal gland measuring 3.3 cm. She was evaluated for possible needle biopsy and was not felt to be a candidate. She was not felt to be a candidate for an open biopsy as well and returned home. At that time, she also had abnormal soft tissue in the hepatoduodenal ligament and aortocaval lymph nodes were enlarged. She has a background history of rheumatoid arthritis, hepatitis C, and cirrhosis. She has not been treated for these diseases. She is now admitted with a history of upper abdominal pain for several weeks. On 08/10/2017 she had an uncomplicated percutaneous cholecystostomy and now has a drainage tube in place. On the same day, she had a CT of the abdomen and pelvis with contrast. There is marked interval increase in the size of the soft tissue masses in the upper retroperitoneum around the celiac access. There is necrotic adenopathy with a conglomerate mass measuring 10.6 cm on the coronal images. There also is a possibility of a pancreatic mass. The mass in the zoltan hepatis appears to invade the left lobe of the liver and possibly the caudate lobe. In addition to the above, she has laboratory studies which are very telling. On 08/12/2017 a tumor alpha fetoprotein is 2704, CA 19-9 is 17. Previous CEA dating back to 01/09/2017 was 2.2. Presently, she is having significant upper abdominal pain. She states there has been no weight loss. She is short of breath at rest and remains oxygen dependent. PAST SURGICAL HISTORY: 1. Current placement of a drainage tube in the gallbladder. 2. 06/30/2008 septic right knee. PAST MEDICAL HISTORY: 1. COPD. 2. Diabetes. 3. Rheumatoid arthritis. 4. Hypertension. 5. Cirrhosis. 6. Hepatitis C. 7. Gout. ALLERGIES: NO KNOWN ALLERGIES. CURRENT MEDICATIONS: 1. DuoNebs. 2. Piperacillin/tazobactam. 3. Methadone 5 mg p.o. b.i.d. 4. Prednisone 10 a day. 5. Pepcid. 6. Lyrica p.r.n. REVIEW OF SYSTEMS: No change in vision or hearing. No chest pain, palpitations. The patient is short of breath at rest. She is oxygen dependent. GI: Notable for upper abdominal pain. GENITOURINARY: No dysuria or frequency. MUSCULOSKELETAL: Some mild arthritic pains. NEUROLOGIC: Generalized but no focal weakness. SKIN: Intact. PHYSICAL EXAMINATION: GENERAL: Reveals both acute and chronically ill-appearing female. She is cushingoid. She is lying supine in bed. It is difficult for her to finish a sentence as she is short of breath at rest. O2 saturation nasal cannula 2 liters 95%. VITAL SIGNS: Blood pressure is 90/60, respiratory rate is 18, pulse is 98 and she is afebrile. HEENT: Normocephalic. Sclerae and conjunctivae normal. Oropharynx unremarkable. No adenopathy. HEART: Regular rhythm. LUNGS: Reveal diffuse expiratory wheezes bilaterally with very little air movement. ABDOMEN: Soft. There is upper abdominal fullness in the midline and tenderness. There is a drainage tube from the right upper quadrant with bile. EXTREMITIES: +1 edema. MUSCULOSKELETAL: No bone pain. NEUROLOGIC: No focal weakness. PSYCHIATRIC: The patient understands conversations well. ASSESSMENT: The patient is a 62-year-old female. She has end-stage COPD. She presents with an alpha fetoprotein of 2704, hepatitis C, cirrhosis, upper abdominal adenopathy and I believe mass in the liver or at least with direct extension of tumor into the liver. Given the elevated alpha fetoprotein I feel that she has a hepatocellular carcinoma which occurs in the setting of hepatitis C and cirrhosis. She has end-stage pulmonary disease. RECOMMENDATIONS: 1. I do not feel a biopsy is going to alter the course of her disease and will put her at risk of complications. 2. She tells me she has been with hospice. I will reconsult hospice. I discussed CPR with her. She does not want CPR. Therefore, in summary orders have been written for: 1) hospice consult, 2) no CPR. 3: I spoke with Dr. Guzman her critical care MD and reviewed my recommendations and she is in agreement. Nothing further to add and will return PRN. MD JAVI Conrad/CADE/ilya , 01:35 PM , 02:19 PM CASIE
[2017-08-13] VITALS (10 sets, daily range): BP systolic 101–133; BP diastolic 66–92; PULSE 91–103; RESP 12–40; TEMP 98.3–98.8; O2SAT 97–100
[2017-08-13] MEDS: RESP: ALBUTEROL 2.5 MG/IPRATROPIUM 0.5 MG NEB (SCH) INH ×3 (02:59→12:22)
[2017-08-13] MEDS: CHLORHEXIDINE GLUCONATE 2 % 1 PACK (2 CLOTHS) TOP SCH (04:00)
[2017-08-13 04:52] LABS: BASOPHIL # 0.2 TH/MM3 (0-0.2); BASOPHIL % 1.5 % (0.0-2.0); EOSINOPHIL % 0.3 % (0.0-4.0); HEMATOCRIT 33.4 % (35.0-46.0); HEMOGLOBIN 11.2 GM/DL (11.6-15.3); LYMPH % 14.2 % (9.0-44.0); LYMPHOCYTE # 1.7 TH/MM3 (1.0-4.8); MEAN CELL VOLUME 77.8 FL (80.0-100.0); MEAN CORPUSCULAR HEMOGLOBIN 26.1 PG (27.0-34.0); MEAN CORPUSCULAR HGB CONC 33.6 % (32.0-36.0); MONO % 9.2 % (0.0-8.0); MONOCYTE # 1.1 TH/MM3 (0-0.9); NEUT % 74.8 % (16.0-70.0); PLATELET COUNT 344 TH/MM3 (150-450); RED CELL DISTRIBUTION WIDTH 24.6 % (11.6-17.2); WHITE BLOOD COUNT 12.1 TH/MM3 (4.0-11.0)
[2017-08-13 05:11] LABS: ALBUMIN 1.1 GM/DL (3.4-5.0); AST (GOT) 113 U/L (15-37); BICARBONATE 18.1 MEQ/L (21.0-32.0); BLOOD UREA NITROGEN 15 MG/DL (7-18); CALCIUM 7.7 MG/DL (8.5-10.1); CHLORIDE 114 MEQ/L (98-107); CREATININE 1.29 MG/DL (0.50-1.00); GLOMERULAR FILTRATION RATE 51 ML/MIN (>89); GLUCOSE,RANDOM 85 MG/DL (74-106); SODIUM (NA) 142 MEQ/L (136-145)
[2017-08-13 05:14] LABS: ALKALINE PHOSPHATASE 398 U/L (45-117); ALT (GPT) 46 U/L (10-53); TOTAL BILIRUBIN ADULT 7.7 MG/DL (0.2-1.0); TOTAL PROTEIN 7.7 GM/DL (6.4-8.2)
[2017-08-13] MEDS: SODIUM CHLOR 0.9% 1000 ML INJ 1,000 ML IV SCH ×2 (05:44→09:40)
[2017-08-13] MEDS: HEPARIN SODIUM - SQ 10,000 UNITS/ML VIAL SQ SCH ×2 (05:44→14:00)
[2017-08-13] MEDS: PIPERACIL-TAZO 4.5 GM PREMIX 100 ML IV SCH ×2 (05:45→13:00)
[2017-08-13] MEDS: INSULIN ASPART SUPPLEMENTAL SCALE SQ SCH ×2 (08:00→12:00)
[2017-08-13] MEDS: SODIUM CHLORIDE 0.9% FLUSH 10 ML FLUSH IV FLUSH SCH (09:00)
[2017-08-13] MEDS: FAMOTIDINE 20 MG/2 ML VIAL IV PUSH SCH (09:39)
[2017-08-13] MEDS: METHADONE HCL 10 MG TAB PO SCH (09:40)
[2017-08-13] MEDS: DOCUSATE SODIUM 50 MG/SENNA 8.6 MG TAB PO SCH (09:40)
[2017-08-13] MEDS: predniSONE 10 MG TAB PO SCH (09:40)
--- NOTE | 2017-08-13 11:21 | HHI.GIFU ---
Subjective Remarks pt resting in bed. c/o leg swelling. (Joycelyn Russell) Objective Vitals I&O Vital Signs Date Time Temp Pulse Resp B/P (MAP) Pulse Ox O2 Delivery O2 Flow Rate FiO2 08/13/17 10:56 16 08/13/17 10:00 100 08/13/17 10:00 100 22 121/73 (89) 97 08/13/17 09:00 97 40 08/13/17 08:42 100 Nasal Cannula 1.00 08/13/17 08:00 98.6 93 16 102/67 (79) 100 08/13/17 08:00 93 08/13/17 04:00 101 08/13/17 04:00 98.8 101 28 133/82 (99) 100 08/13/17 00:00 91 08/13/17 00:00 98.3 91 17 101/66 (78) 100 08/12/17 21:14 100 08/12/17 20:00 98.6 91 11 99/64 (76) 98 08/12/17 20:00 91 08/12/17 18:00 104 08/12/17 16:00 99 08/12/17 16:00 98.5 99 11 98/62 (74) 98 08/12/17 14:00 99 08/12/17 12:24 97 Nasal Cannula 1.00 08/12/17 12:00 98.5 98 15 105/69 (81) 98 08/12/17 12:00 98 I/O 08/12/17 08/12/17 08/12/17 08/13/17 08/13/17 08/13/17 07:00 15:00 23:00 07:00 15:00 23:00 Intake Total 1320 ml 250 ml 1865 ml 1616 ml 350 ml Output Total 1250 ml 1250 ml 1200 ml 250 ml Balance 70 ml 250 ml 615 ml 416 ml 100 ml Intake Oral 120 ml 350 ml 120 ml 350 ml IV Total 1200 ml 250 ml 1515 ml 1496 ml Output Urine Total 650 ml 750 ml 900 ml 250 ml Drainage Total 600 ml 500 ml 300 ml # Bowel Movements 0 0 0 0 Laboratory Laboratory Tests Test 08/13/17 03:52 White Blood Count 12.1 Red Blood Count 4.30 Hemoglobin 11.2 Hematocrit 33.4 Mean Corpuscular Volume 77.8 Mean Corpuscular Hemoglobin 26.1 Mean Corpuscular Hemoglobin Concent 33.6 Red Cell Distribution Width 24.6 Platelet Count 344 Mean Platelet Volume 9.0 Neutrophils (%) (Auto) 74.8 Lymphocytes (%) (Auto) 14.2 Monocytes (%) (Auto) 9.2 Eosinophils (%) (Auto) 0.3 Basophils (%) (Auto) 1.5 Neutrophils # (Auto) 9.0 Lymphocytes # (Auto) 1.7 Monocytes # (Auto) 1.1 Eosinophils # (Auto) 0.0 Basophils # (Auto) 0.2 CBC Comment DIFF FINAL Differential Comment Blood Urea Nitrogen 15 Creatinine 1.29 Random Glucose 85 Total Protein 7.7 Albumin 1.1 Calcium Level 7.7 Alkaline Phosphatase 398 Aspartate Amino Transf (AST/SGOT) 113 Alanine Aminotransferase (ALT/SGPT) 46 Total Bilirubin 7.7 Sodium Level 142 Potassium Level 3.8 Chloride Level 114 Carbon Dioxide Level 18.1 Anion Gap 10 Estimat Glomerular Filtration Rate 51 Date/Time Source Procedure Growth Status 08/10/17 19:00 Blood Peripheral Aerobic Blood Culture - Preliminary NO GROWTH IN 3 DAYS Resulted 08/10/17 19:00 Blood Peripheral Anaerobic Blood Culture - Preliminary NO GROWTH IN 3 DAYS Resulted Imaging Last Impressions Chest X-Ray 08/10/17 1431 Signed Impressions: Service Date/Time: Thursday, August 10, 2017 14:51 - CONCLUSION: 1. COPD changes. No acute abnormality. Stable compared to prior dated 04/12. Estevan Simon MD Percutaneous Cholangiogram 08/10/17 0000 Signed Impressions: Service Date/Time: Thursday, August 10, 2017 20:53 - CONCLUSION: Uncomplicated percutaneous cholecystostomy as above. Estevan Simon MD Abdomen/Pelvis CT 08/10/17 0000 Signed Impressions: Service Date/Time: Thursday, August 10, 2017 17:47 - CONCLUSION: 1. Large conglomerate kendra mass in the upper abdomen centered around zoltan hepatis and the celiac axis measuring up to 10.6 x 7.9 centimeters. There may also be a primary mass in the pancreatic head. There is obstruction of the biliary ductal system with measurements given above. Gallbladder is markedly distended possibly with early cholecystitis. There is probable direct invasion into the left lobe and caudate lobe of the liver. There may also be partial thrombosis of the portal vein. 2. Trace free fluid in the pelvis. Sonu Lazcano MD Physical Exam HEENT: PERRL; normocephalic; atraumatic; CHEST: wheezes CARDIAC: RRR ABDOMEN: Soft, mildly distended, RUQ TTP; no hepatosplenomegaly; bowel sounds are present in all four quadrants. RUQ drain with brown bilious output EXTREMITIES: No clubbing, cyanosis, + BLE edema, LLE 1 cm open wound draining serous fluid SKIN: Normal; no rash; no jaundice. PROBATE JUDGE: No focal deficits; alert and oriented times three. (Joycelyn Russell) Assessment and Plan Plan ASSESSMENT - abd pain, elevated LFTs,abnormal imaging - obstructive pattern. CT showing mass upper abd around zoltan hepatis, poss pancreatic mass, biliary obstruction, distended GB, prob invasion to liver. s/p cholecystostomy by IR 08/12/18 ruq soreness, around drain site. LFTs trending down. AFP 2704.3 elevated. CA 19-9 not elevated. WBC WNL. has been hypotensive. tolerating small amounts of clears at a time 08/13/17 BLE edema today. oncology consult appreciated. pt is on hospice apparently, they have been consulted PLAN - further mgmt per hospice - supportive care - GI will sign off, please reconsult if needed pt seen by myself and DR Pagan and myself and this note is on her behalf (Joycelyn Russell) Physician Comments agree with above call us if not hospice candidate and aggressive care desired may need to reconsult IR prior to dc for possible internalization of biliary drain if technically possible gi will sign off call us as needed (Micaela Pagan MD) Joycelyn Russell Aug 13, 2017 11:21 Micaela Pagan MD Aug 13, 2017 12:42
--- NOTE | 2017-08-13 12:06 | HHI.CCPN ---
Subjective Remarks/Hospital Course 62-year-old female presenting to the emergency for evaluation of bilateral lower extremity edema and abdominal pain. Patient states the swelling has been ongoing for 1 week, the abdominal pain started 2 weeks ago. She states that the abdominal pain is in the bilateral upper quadrants and feels like a band around her stomach. She reports that the edema in her lower extremities has been getting worse. She denies any shortness of breath, chest pain, fever, chills. Family member with her states that she has not been eating as well. The CT of the abdomen shows markedly distended gallbladder possibly with early cholecystitis and conglomerate kendra mass in the upper abdomen centered around zoltan hepatis. Her blood pressure in the emergency department fluctuates between a systolic of 80s to 100s, her glucose under Barros profile is 15 and the patient is admitted to ICU with the diagnosis of severe abdominal sepsis. Subjective: 08/11: Afebrile .Draining large amounts of bilious fluid from cholecystostomy tube. Patient reported some pain relief, since procedure. Pt continues on clear liquid diet, with 100% consumption, tolerated well. 08/12: Afebrile. Patient complains of moderate pain. Tumor marker AFP results 2704.3. Oncology has been consulted has been consulted, as well as hospice. Patient tolerating a clear liquid diet. 08/13: No acute events overnight. Hemodynamically stable . Cholecystostomy tube draining . Patient's code status changed to DNR discussion with Dr. Mckeon. Discussed with hematology oncology/ Dr. Mckeon, no further interventions planned. Patient to return to hospice, but concern for ability to perform ADLs. Case management undergoing evaluation. Objective Vital Signs Date Time Temp Pulse Resp B/P (MAP) Pulse Ox O2 Delivery O2 Flow Rate FiO2 08/13/17 10:56 16 08/13/17 10:00 100 08/13/17 10:00 121/73 (89) 97 08/13/17 08:42 Nasal Cannula 1.00 08/13/17 08:00 98.6 Intake and Output 08/13/17 08/13/17 08/14/17 08:00 16:00 00:00 Intake Total 1320 ml 350 ml Output Total 1200 ml 250 ml Balance 120 ml 100 ml Result Diagram: 08/13/17 0352 08/13/17 0352 Imaging Last Impressions Chest X-Ray 08/10/17 1431 Signed Impressions: Service Date/Time: Thursday, August 10, 2017 14:51 - CONCLUSION: 1. COPD changes. No acute abnormality. Stable compared to prior dated 04/12. Estevan Simon MD Percutaneous Cholangiogram 08/10/17 0000 Signed Impressions: Service Date/Time: Thursday, August 10, 2017 20:53 - CONCLUSION: Uncomplicated percutaneous cholecystostomy as above. Estevan Simon MD Abdomen/Pelvis CT 08/10/17 0000 Signed Impressions: Service Date/Time: Thursday, August 10, 2017 17:47 - CONCLUSION: 1. Large conglomerate kendra mass in the upper abdomen centered around zoltan hepatis and the celiac axis measuring up to 10.6 x 7.9 centimeters. There may also be a primary mass in the pancreatic head. There is obstruction of the biliary ductal system with measurements given above. Gallbladder is markedly distended possibly with early cholecystitis. There is probable direct invasion into the left lobe and caudate lobe of the liver. There may also be partial thrombosis of the portal vein. 2. Trace free fluid in the pelvis. Sonu Lazcano MD Last 24 hours Impressions Chest X-Ray 08/10/17 1431 Signed Impressions: Service Date/Time: Thursday, August 10, 2017 14:51 - CONCLUSION: 1. COPD changes. No acute abnormality. Stable compared to prior dated 04/12. Estevan Simon MD Abdomen/Pelvis CT 08/10/17 0000 Signed Impressions: Service Date/Time: Thursday, August 10, 2017 17:47 - CONCLUSION: 1. Large conglomerate kendra mass in the upper abdomen centered around zoltan hepatis and the celiac axis measuring up to 10.6 x 7.9 centimeters. There may also be a primary mass in the pancreatic head. There is obstruction of the biliary ductal system with measurements given above. Gallbladder is markedly distended possibly with early cholecystitis. There is probable direct invasion into the left lobe and caudate lobe of the liver. There may also be partial thrombosis of the portal vein. 2. Trace free fluid in the pelvis. Sonu Lazcano MD Objective Remarks GENERAL: Overweight, drowsy -Serbian female. Currently no acute distress. SKIN: Warm and dry. Weeping to left lower extremity HEAD: Atraumatic. Normocephalic. EYES: Pupils equal and round. +++ scleral icterus. No injection or drainage. ENT: No nasal bleeding or discharge. Mucous membranes pink and moist. NECK: Trachea midline. No JVD. CARDIOVASCULAR: Regular rate and rhythm. 2+ pitting peripheral edema. RESPIRATORY: No accessory muscle use. Diminished in bases, no wheezes, rhonchi , rales noted. GASTROINTESTINAL: Abdomen firm, mildly distended, mildly tender to palpation in upper quadrants. Hepatic and splenic margins not palpable. Positive bowel sounds MUSCULOSKELETAL: Extremities without clubbing, cyanosis, or edema. No obvious deformities. NEUROLOGICAL: Drowsy but arousable. No obvious cranial nerve deficits. Motor grossly within normal limits. 5/5 muscle strength in the arms and legs. Normal speech. A/P Assessment and Plan Abdominal sepsis - Gallbladder likely the source - Cholecystostomy tube placement stat by interventional radiology-draining - IR assistance gladly appreciated - Blood cultures - Zosyn - Follow-up cultures and de-escalate per sensitivity Abdominal mass with obstructive icterus - AFP 2704.3 oncology following, Dr. Mckeon-plan for transfer/returned to hospice facility. Patient placed on DNR status on 08/12 - Gastroenterology following , Dr. Pagan - Cholecystostomy tube placement Hypotension-resolved - IV fluid hydration- 42cc/hr - Maintain MAP above 65 Hypoglycemia - Due to sepsis - D50 IV when necessary Diabetes mellitus - Hold long acting insulin due to hypoglycemia - Insulin sliding scale 1 indicated COPD - No exacerbation - DuoNeb scheduled and when necessary - Continue home dose prednisone DVT GI prophylaxis - Teds SCDs - Subcutaneous heparin - Pepcid Critical Care: Level II follow-up Discussed with Dr. Mckeon, patient and HOME OFFICE CLAIM SPECIALIST at bedside. Patient previously registered with hospice. CODE STATUS change after discussion with Dr. Mckeon to DNR. Plan is for transfer/returned to a Hospice facility. Planned transfer [facility] in a.m.. Plan transfer to [facility] floor upon bed availability. Physician Valarie Woody MD Aug 13, 2017 12:06
--- NOTE | 2017-08-13 13:26 | HHI.DS ---
Discharge Summary Admission Date Aug 10, 2017 at 18:53 Admitting Diagnosis HYPOGLYCEMIA, ABDOMINAL MASS, SEPSIS Brief History 62-year-old female presenting to the emergency for evaluation of bilateral lower extremity edema and abdominal pain. Patient states the swelling has been ongoing for 1 week, the abdominal pain started 2 weeks ago. She states that the abdominal pain is in the bilateral upper quadrants and feels like a band around her stomach. She reports that the edema in her lower extremities has been getting worse. She denies any shortness of breath, chest pain, fever, chills. Family member with her states that she has not been eating as well. The CT of the abdomen shows markedly distended gallbladder possibly with early cholecystitis and conglomerate kendra mass in the upper abdomen centered around zoltan hepatis. Her blood pressure in the emergency department fluctuates between a systolic of 80s to 100s, her glucose under Barros profile is 15 and the patient is admitted to ICU with the diagnosis of severe abdominal sepsis. CBC/BMP: 08/13/17 0352 08/13/17 0352 Significant Findings Laboratory Tests Test 08/10/17 14:50 08/10/17 15:05 08/10/17 16:00 08/10/17 19:10 White Blood Count 14.8 TH/MM3 (4.0-11.0) Mean Corpuscular Volume 74.7 FL (80.0-100.0) Mean Corpuscular Hemoglobin 25.1 PG (27.0-34.0) Red Cell Distribution Width 23.9 % (11.6-17.2) Neutrophils (%) (Auto) 78.9 % (16.0-70.0) Neutrophils # (Auto) 11.7 TH/MM3 (1.8-7.7) Monocytes # (Auto) 1.1 TH/MM3 (0-0.9) Platelet Morphology Comment ENLARGED (NORMAL) Target Cells 2+ (NORMAL) Prothrombin Time 14.4 SEC (9.8-11.6) Activated Partial Thromboplast Time 40.0 SEC (24.3-30.1) Blood Urea Nitrogen 26 MG/DL (7-18) Creatinine 1.38 MG/DL (0.50-1.00) Random Glucose 15 MG/DL (74-106) Total Protein 8.6 GM/DL (6.4-8.2) Albumin 1.5 GM/DL (3.4-5.0) Calcium Level 8.2 MG/DL (8.5-10.1) Alkaline Phosphatase 658 U/L (45-117) Aspartate Amino Transf (AST/SGOT) 185 U/L (15-37) Alanine Aminotransferase (ALT/SGPT) 64 U/L (10-53) Total Bilirubin 20.1 MG/DL (0.2-1.0) Potassium Level 3.1 MEQ/L (3.5-5.1) Carbon Dioxide Level 19.3 MEQ/L (21.0-32.0) Estimat Glomerular Filtration Rate 47 ML/MIN (>89) Urine Color DARK-YELLOW (YELLW/STRAW) Urine Bilirubin LARGE (NEG) Urine Bacteria RARE /hpf (NONE) Urine Mucus FEW /lpf (OCC) Lactic Acid Level 2.5 mmol/L (0.4-2.0) Test 08/10/17 22:00 08/10/17 22:30 08/11/17 05:20 08/12/17 02:59 Lactic Acid Level 2.3 mmol/L (0.4-2.0) White Blood Count 13.6 TH/MM3 (4.0-11.0) Mean Corpuscular Volume 76.1 FL (80.0-100.0) 75.1 FL (80.0-100.0) Mean Corpuscular Hemoglobin 25.3 PG (27.0-34.0) 25.6 PG (27.0-34.0) Red Cell Distribution Width 25.6 % (11.6-17.2) 24.6 % (11.6-17.2) Neutrophils (%) (Auto) 81.0 % (16.0-70.0) 73.3 % (16.0-70.0) Neutrophils # (Auto) 11.0 TH/MM3 (1.8-7.7) 7.9 TH/MM3 (1.8-7.7) Monocytes # (Auto) 1.0 TH/MM3 (0-0.9) Platelet Morphology Comment ENLARGED (NORMAL) Target Cells 3+ (NORMAL) Blood Urea Nitrogen 25 MG/DL (7-18) 21 MG/DL (7-18) Creatinine 1.51 MG/DL (0.50-1.00) 1.48 MG/DL (0.50-1.00) Random Glucose 118 MG/DL (74-106) Albumin 1.3 GM/DL (3.4-5.0) 1.2 GM/DL (3.4-5.0) Calcium Level 7.7 MG/DL (8.5-10.1) 7.2 MG/DL (8.5-10.1) Alkaline Phosphatase 608 U/L (45-117) 495 U/L (45-117) Aspartate Amino Transf (AST/SGOT) 131 U/L (15-37) 97 U/L (15-37) Alanine Aminotransferase (ALT/SGPT) 56 U/L (10-53) Total Bilirubin 15.3 MG/DL (0.2-1.0) 8.6 MG/DL (0.2-1.0) Chloride Level 109 MEQ/L (98-107) 110 MEQ/L (98-107) Carbon Dioxide Level 19.0 MEQ/L (21.0-32.0) 17.5 MEQ/L (21.0-32.0) Estimat Glomerular Filtration Rate 42 ML/MIN (>89) 43 ML/MIN (>89) Hemoglobin 11.2 GM/DL (11.6-15.3) Hematocrit 32.9 % (35.0-46.0) Potassium Level 3.0 MEQ/L (3.5-5.1) Protein Corrected Calcium 7.0 MG/DL (8.5-10.1) Tumor Marker Alpha Fetoprotein 2704.3 NG/ML (0.5-8.0) Test 08/13/17 03:52 White Blood Count 12.1 TH/MM3 (4.0-11.0) Hemoglobin 11.2 GM/DL (11.6-15.3) Hematocrit 33.4 % (35.0-46.0) Mean Corpuscular Volume 77.8 FL (80.0-100.0) Mean Corpuscular Hemoglobin 26.1 PG (27.0-34.0) Red Cell Distribution Width 24.6 % (11.6-17.2) Neutrophils (%) (Auto) 74.8 % (16.0-70.0) Monocytes (%) (Auto) 9.2 % (0.0-8.0) Neutrophils # (Auto) 9.0 TH/MM3 (1.8-7.7) Monocytes # (Auto) 1.1 TH/MM3 (0-0.9) Creatinine 1.29 MG/DL (0.50-1.00) Albumin 1.1 GM/DL (3.4-5.0) Calcium Level 7.7 MG/DL (8.5-10.1) Alkaline Phosphatase 398 U/L (45-117) Aspartate Amino Transf (AST/SGOT) 113 U/L (15-37) Total Bilirubin 7.7 MG/DL (0.2-1.0) Chloride Level 114 MEQ/L (98-107) Carbon Dioxide Level 18.1 MEQ/L (21.0-32.0) Estimat Glomerular Filtration Rate 51 ML/MIN (>89) Hospital Course 62-year-old female presenting to the emergency for evaluation of bilateral lower extremity edema and abdominal pain. Patient states the swelling has been ongoing for 1 week, the abdominal pain started 2 weeks ago. She states that the abdominal pain is in the bilateral upper quadrants and feels like a band around her stomach. She reports that the edema in her lower extremities has been getting worse. She denies any shortness of breath, chest pain, fever, chills. Family member with her states that she has not been eating as well. The CT of the abdomen shows markedly distended gallbladder possibly with early cholecystitis and conglomerate kendra mass in the upper abdomen centered around zoltan hepatis. Her blood pressure in the emergency department fluctuates between a systolic of 80s to 100s, her glucose under Barros profile is 15 and the patient is admitted to ICU with the diagnosis of severe abdominal sepsis. Subjective: 08/11: Afebrile .Draining large amounts of bilious fluid from cholecystostomy tube. Patient reported some pain relief, since procedure. Pt continues on clear liquid diet, with 100% consumption, tolerated well. 08/12: Afebrile. Patient complains of moderate pain. Tumor marker AFP results 2704.3. Oncology has been consulted has been consulted, as well as hospice. Patient tolerating a clear liquid diet. 08/13: No acute events overnight. Hemodynamically stable . Cholecystostomy tube draining . Patient's code status changed to DNR discussion with Dr. Mckeon. Discussed with hematology oncology/ Dr. Mckeon, no further interventions planned. Patient to return to [facility], after evaluation by [facility] and discussion with patient's significant other. Planned home management of continuous care with patient's significant other, to include cholecystostomy tube drainage and management and site care Pt Condition on Discharge: Stable Discharge Disposition: Hospice/ Home Discharge Instructions DIET: Follow Instructions for: Full Liquid Diet Activities you can perform: Continue Bedrest Valarie Guzman MD Aug 13, 2017 13:26
== END 2017-08-13 15:25 | disposition hospice, home (50) | DRG 445 ==
LOC: NEPC 14:07 → NEDA 18:53 → HIMW 21:34
PROVIDERS: ADMIT Internal Medicine Critical Care Medicine; ATTEND Internal Medicine Critical Care Medicine
PROC: 0F9430Z Drainage of Gallbladder with Drainage Device, Percutaneous Approach (ICD-10-PCS; principal; 2017-08-10)
PROC: BF121ZZ Fluoroscopy of Gallbladder using Low Osmolar Contrast (ICD-10-PCS; 2017-08-10)
DX: K81.0 Acute cholecystitis (principal); C22.0 Liver cell carcinoma; E11.649 Type 2 diabetes mellitus with hypoglycemia without coma; Z79.4 Long term (current) use of insulin; K74.60 Unspecified cirrhosis of liver; Z99.81 Dependence on supplemental oxygen; J44.9 Chronic obstructive pulmonary disease, unspecified; B19.20 Unspecified viral hepatitis C without hepatic coma; Z66 Do not resuscitate; M06.9 Rheumatoid arthritis, unspecified; Z79.52 Long term (current) use of systemic steroids; I10 Essential (primary) hypertension; E66.3 Overweight; Z68.35 Body mass index [BMI] 35.0-35.9, adult; M81.0 Age-related osteoporosis without current pathological fracture; M10.9 Gout, unspecified; Z87.891 Personal history of nicotine dependence
CPT/HCPCS: 47490; 71045; 74177; 76937; 80053; 81001; 82105; 82140; 83605; 83690; 83735; 83880; 84100; 85025; 85610; 85730; 86301; 87040; 87641; 93005; 94640; 94664; 96361; 96374; 96375; 99152; C1729; C1769; J0610; J1644; J1720; J1815; J2250; J2270; J2543; J3010; J3370; J7030; J7042; J7050; J7512; P9612; Q9967

== ENCOUNTER 2017-09-01 00:48 | Inpatient (IN) | payer MEDICAID ==
[~2017-09-01 00:48] MED LIST changes: +ALPR0.25 PO; -AMLO5 PO; +BUME1TAB PO; -CARV3.125 PO; +HYDR-3583 PO; +INDO50CA PO; -JANU50TA8 PO; +METH5TAB PO; +METO50TA PO; -PERC5TAB12 PO; -SYMB160A INH
[2017-09-01] MEDS ORDERED: SODIUM CHLOR 0.9% 1000 ML INJ 800 ML IV ONE (00:59)
[2017-09-01] MEDS ORDERED: SODIUM CHLOR 0.9% 1000 ML INJ 1,000 ML IV ONE (00:59)
[2017-09-01 01:00] VITALS: O2SAT 0
[2017-09-01] MEDS ORDERED: VANCOMYCIN INJ 1,000 MG in SODIUM CHLOR 0.9% 250 ML INJ 250 ML IV ONE (01:00)
[2017-09-01] MEDS ORDERED: PIPERACIL-TAZO 4.5 GM PREMIX 100 ML IV ONE (01:00)
--- NOTE | 2017-09-01 01:07 | PD ---
HPI Chief Complaint: Acute respiratory failure, unresponsive Time Seen by Provider: 00:59 Travel History International Travel<30 days: No Contact w/Intl Traveler<30days: No Traveled to known affect area: No History of Present Illness HPI 62-year-old female brought in by ambulance from home intubated for unresponsiveness. 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 Patient arrives intubated with a 7.5 Marshallese ET tube and unresponsive. EMS noted a bottle of morphine at her bedside and administered Narcan without improvement in her mental status. They also noted her blood sugar to be in the 40s and administered a bolus of IV dextrose. Patient's chart was reviewed and shows that she was admitted in July and diagnosed with large abdominal mass with markedly distended gallbladder with possibly early cholecystitis with mass centered around the zoltan hepatis. Cholecystostomy tube was placed. Patient was evaluated by oncology. Patient was discharged home on 08/13/17 on home hospice with a CODE STATUS of DNR. [facility] Past Medical History Arthritis: Yes Asthma: No Autoimmune Disease: Yes (Rheumatoid Arthritis) Anxiety: No Depression: No Heart Rhythm Problems: Yes Cancer: Yes (Possible cancer on kidney) Cardiovascular Problems: Yes (high heart rate) High Cholesterol: Yes Chemotherapy: No Chest Pain: Yes Congestive Heart Failure: No COPD: Yes Cerebrovascular Accident: No Diabetes: Yes Endocrine: Yes GERD: No Gout: Yes Genitourinary: No Headaches: Yes Hepatitis: Yes (HEPATITIS C) Hiatal Hernia: No Hypertension: Yes Immune Disorder: No Kidney Stones: No Musculoskeletal: Yes Neurologic: No Psychiatric: No Reproductive: No Respiratory: Yes (COPD) Immunizations Current: Yes Migraines: Yes Pneumonia: Yes Radiation Therapy: No Renal Failure: No Seizures: No Sickle Cell Disease: No Sleep Apnea: No Thyroid Disease: No Ulcer: No PNEUMOCCOCAL Vaccine (Year): 2 Menopausal: Yes : 0 Para: 0 Miscarriage: 0 : 0 Past Surgical History Abdominal Surgery: No AICD: No Arteriovenous Shunt: No Cardiac Surgery: Yes Ear Surgery: No Endocrine Surgery: No Eye Surgery: Yes (cataracts) Genitourinary Surgery: No Gynecologic Surgery: No Insulin Pump: No Joint Replacement: No Neurologic Surgery: Yes Oral Surgery: No Pacemaker: No Thoracic Surgery: No Other Surgery: Yes (right knee gout drain infection) Social History Alcohol Use: No Tobacco Use: No Substance Use: No Allergies-Medications (Allergen,Severity, Reaction): Coded Allergies: *MDRO Multi-Drug Resistant Organism (Verified Adverse Reaction, Unknown, ) MRSA wound 11/2012. MRSA PCR Screen negative 11/03/14 and 11/05/14. Cleared per Infection Control MRSA PCR Screen NEGATIVE - 04/30/2015 Reported Meds & Prescriptions Reported Meds & Active Scripts Active Ventolin Hfa 18 GM Inh (Albuterol Sulfate) 90 Mcg/Act Aer 2 Puff INH Q4-6H PRN Reported Lyrica (Pregabalin) 150 Mg Cap 150 Mg PO TID PRN Indomethacin 50 Mg Cap 50 Mg PO BID Take with food, milk, or antacids to decrease stomach adverse effects. Metoprolol Tartrate 50 Mg Tab 50 Mg PO BID Bumetanide 1 Mg Tab 1 Mg PO BID Methadone (Methadone HCl) 5 Mg Tab 5 Mg PO BID Alprazolam 0.25 Mg Tab 0.25 Mg PO Q4H PRN Prednisone 10 Mg Tab 10 Mg PO DAILY Hydrocodone-Acetaminophen 10-325 mg Tab 1 Tab PO Q4H PRN Novolog Inj (Insulin Aspart) 1,000 Unit/10 Ml Vial 0 SQ DIRECTED Sliding Scale as directed. Lantus Inj (Insulin Glargine) 1,000 Unit/10 Ml Vial 35 Units SQ BID Albuterol Neb (Albuterol Sulfate) 2.5 Mg/3 Ml Neb 2.5 Mg NEB Q6HR PRN While awake Review of Systems ROS Limitations: Intubated, Unresponsive Physical Exam Narrative GENERAL: Well-developed, well-nourished, intubated, unresponsive SKIN: Focused skin assessment warm/dry. HEAD: Atraumatic. Normocephalic. EYES: Pupils equal and round. No scleral icterus. No injection or drainage. ENT: Mucous membranes pink and moist. NECK: Trachea midline. No JVD. CARDIOVASCULAR: Regular rate and rhythm. RESPIRATORY: Intubated. Clear lung sounds bilaterally. GASTROINTESTINAL: Abdomen soft, nondistended. Cholecystostomy tube with dark bilious drainage. MUSCULOSKELETAL: No obvious deformities. No clubbing. No cyanosis. No edema. NEUROLOGICAL: Unresponsive. Data Data Last Documented VS Vital Signs Date Time Temp Pulse Resp B/P (MAP) Pulse Ox O2 Delivery O2 Flow Rate FiO2 09/01/17 01:19 96.7 153 14 75/40 (52) 09/01/17 01:00 0 100 Orders Orders Sepsis Workup Initiated (09/01/17 ) Electrocardiogram (09/01/17 00:59) Complete Blood Count With Diff (09/01/17 00:59) Comprehensive Metabolic Panel (09/01/17 00:59) Lactic Acid Sepsis Protocol (09/01/17 00:59) Urinalysis - C+S If Indicated (09/01/17 00:59) Blood Culture (09/01/17 00:59) Chest, Single Ap (09/01/17 00:59) Ecg Monitoring (09/01/17 00:59) Iv Access Insert/Monitor (09/01/17 00:59) Oximetry (09/01/17 00:59) Sodium Chlor 0.9% 1000 Ml Inj (Ns 1000 M (09/01/17 00:59) Sodium Chlor 0.9% 1000 Ml Inj (Ns 1000 M (09/01/17 00:59) Vancomycin Inj (Vancomycin Inj) (09/01/17 01:00) Piperacil-Tazo 4.5 Gm Premix (Zosyn 4.5 (09/01/17 01:00) Arterial Blood Gas (Abg) (09/01/17 ) Admit Order (Ed Use Only) (09/01/17 01:42) Labs Laboratory Tests Test 09/01/17 01:00 Blood Gas Puncture Site LT BRACHIAL Blood Gas Patient Temperature 98.6 Blood Gas HCO3 6 mmol/L Blood Gas Base Excess -23.0 mmol/L Blood Gas Oxygen Saturation 98 % Arterial Blood pH 7.05 Arterial Blood Partial Pressure CO2 21 mmHg Arterial Blood Partial Pressure O2 416 mmHg Arterial Blood Oxygen Content 15.9 Vol % Arterial Blood Carboxyhemoglobin 0.0 % Arterial Blood Methemoglobin 1.1 % Blood Gas Hemoglobin 10.8 G/DL Oxygen Delivery Device VENTILATOR Blood Gas Ventilator Setting PRVC Blood Gas Inspired Oxygen 100 % MDM Medical Decision Making Medical Screen Exam Complete: Yes Emergency Medical Condition: Yes Differential Diagnosis Sepsis, pneumonia, PE, acute respiratory failure Narrative Course 1:15 AM: The patient's Gigi Gunter is at the bedside. He is the patient's healthcare surrogate. He was made aware of how critical the patient is. He does not want to withdraw life support, however we will honor the patient's DNR should she go into cardiac arrest. Sepsis workup was performed, and the patient was empirically written for IV Zosyn and IV vancomycin. [facility] hospice was contacted. Case discussed with vice president consulting services Dr. Wen who will admit the patient to her service. 3:15 AM: I was called to the bedside by the patient's nurse as the cardiac cath technician shows asystole. Transthoracic cardiac ultrasound was performed by me and shows no cardiac activity. Patient was pronounced at this time. The patient's and healthcare surrogate Gigi Gunter was at the bedside at time of . Diagnosis Primary Impression: Sepsis Qualified Codes: A41.9 - Sepsis, unspecified organism Additional Impression: Acute respiratory failure Qualified Codes: J96.00 - Acute respiratory failure, unspecified whether with hypoxia or hypercapnia Admitting Information Admitting Physician Requests: Admit Dino Poole MD Sep 01, 2017 01:07
[2017-09-01 01:19] VITALS: BP 75/40; PULSE 153; RESP 14; TEMP 96.7
--- NOTE | 2017-09-01 01:46 | RADRPT ---
EXAM DATE/TIME: 09/01/2017 01:04 [facility] COMPARISON: CHEST SINGLE AP, August 10, 2017, 14:51. INDICATIONS : E-T tube placement. MEDICAL HISTORY : Rheumatoid arthritis. Hepatitis C. Diabetes mellitus type II. HTN SURGICAL HISTORY : None. ENCOUNTER: Initial ACUITY: 1 day PAIN SCORE: Non-responsive. LOCATION: Bilateral chest FINDINGS: Single AP view of the chest. Nasogastric tube is in place with the tip below the [id number] of the radiograph. Endotracheal tube is in place with the tip 5 cm above the naomi. Lungs are clear. Cardi omediastinal silhouette within normal limits. No evidence of pleural effusion or pneumothorax. CONCLUSION: Endotracheal tube and nasogastric tube in place. No acute cardiopulmonary disease identified. Nikhil Jamison MD on September 01, 2017 at 1:43 Board Certified Radiologist. This report was verified electronically.
[2017-09-01] MEDS ORDERED: DEXTROSE 10% INJ 1,000 ML IV SCH (02:15)
[2017-09-01 02:18] LABS: AMORPHOUS SEDIMENT, URINE RARE; BACTERIA, URINE MANY /hpf; BILIRUBIN, URINE MOD (NEG); BLOOD, URINE MOD (NEG); GLUCOSE,URINE NEG (NEG); KETONE, URINE NEG (NEG); NITRITE,URINE NEG (NEG); SQUAMOUS EPITHELIAL CELL URINE <1 /hpf (0-5); URINE LEUKOCYTE ESTERASE LARGE (NEG)
[2017-09-01 02:19] LABS: URINE COLOR DARK-BROWN (YELLW/STRAW)
[2017-09-01 03:04] LABS: ALKALINE PHOSPHATASE 223 U/L (45-117); ALT (GPT) 111 U/L (10-53); AST (GOT) 534 U/L (15-37); BLOOD UREA NITROGEN 73 MG/DL (7-18); CALCIUM 7.9 MG/DL (8.5-10.1); GLOMERULAR FILTRATION RATE 6 ML/MIN (>89); TOTAL PROTEIN 9.6 GM/DL (6.4-8.2)
[2017-09-01 03:05] LABS: BICARBONATE 5.4 MEQ/L (21.0-32.0); CHLORIDE 109 MEQ/L (98-107); SODIUM (NA) 139 MEQ/L (136-145)
[2017-09-01 03:06] LABS: GLUCOSE,RANDOM 43 MG/DL (74-106)
--- NOTE | 2017-09-01 05:28 | HHI.HP ---
HPI Service Critical Care Medicine Primary Care Physician Unknown Admission Diagnosis Sepsis, acute respiratory failure Diagnosis: Travel History International Travel<30 Days: No Contact w/Intl Traveler <30 Da: No Traveled to Known Affected Are: No History of Present Illness 62-year-old -[place]i female with past medical history of diabetes, end- stage COPD on home O2, hepatitis C, cirrhosis, rheumatoid arthritis, gout, osteoporosis. She had recent percutaneous cholecystostomy August 10 2017 due to biliary obstruction and sepsis. She was found to have a mass in her upper abdomen around the zoltan hepatis. Due to poor functional status, further workup and treatment was not felt to be of benefit. Per patient's discussion with Dr. Mckeon (oncology) and Dr. Guzman with critical care medicine patient had indicated she wished to be DNR. She was discharged home with [facility] hospice. Her significant other states she has had very little to eat since discharge 08/13, mostly drinking broth. He states that earlier 08/31 multiple family members were visiting her and she was speaking with them. He thought she did not look well and repeatedly asked her how she was doing and she stated "I am fine". He states that around 8 or 9 PM her mental status began to change. She became unresponsive and [facility] was called. There was morphine at the bedside so [facility] administered Narcan 2 mg IV without response. Glucose was 47 and she was administered dextrose with initial improvement in blood glucose. They intubated her for airway protection without any medications. Apparently significant other did not understand questions about code status at that point. Dr. Poole has consulted me to assist with the case. Upon my arrival to the ED patients pupils are fixed and dilated with GCS 3. Repeat glucose is 180. Labs are pending except for ABG that demonstrates pH 7.05/PCO2 of 21/PaO2 416./Base deficit -23. She was hypotensive with blood pressure 70s over 40s. She was given 2 L normal saline bolus. During prior hospitalization she had designated her significant other, Gigi Gunter, as her healthcare surrogate. I discussed with him the fact that she had indicated to to physicians that she wished to be DO NOT RESUSCITATE. He stated he understood that and planned to honor her wishes for DNR status. She appeared to be dying with progressive bradycardia and he requested that he be allowed to sit at her bedside. Room was prepared for him to be at her bedside. She was pronounced at 03:15. Review of Systems ROS Limitations: Intubated, Altered Mental Status, Unresponsive Past Family Social History Allergies: Coded Allergies: *MDRO Multi-Drug Resistant Organism (Verified Adverse Reaction, Unknown, ) MRSA wound 11/2012. MRSA PCR Screen negative 11/03/14 and 11/05/14. Cleared per Infection Control MRSA PCR Screen NEGATIVE - 04/30/2015 Past Medical History Diabetes COPD on home oxygen Hepatitis C Rheumatoid arthritis Obesity Gout Osteoporosis Cirrhosis Hepatic mass Past Surgical History Operative debridement of right knee for septic arthritis Percutaneous cholecystostomy 08/10/17 Reported Medications Unable to obtain from patient due to clinical condition. Her significant other states that she was on morphine at home. Her insulin has been discontinued. Family History Unable to obtain from patient due to clinical condition. Social History She is a former smoker who quit smoking in 2017 Previously smoked 2 packs of cigarettes per day for many years. No history of excessive alcohol use She was never . She has no children. She has a significant other who she has previously designated as her healthcare surrogate. Physical Exam Vital Signs Vital Signs Date Time Temp Pulse Resp B/P (MAP) Pulse Ox O2 Delivery O2 Flow Rate FiO2 09/01/17 01:19 96.7 153 14 75/40 (52) 09/01/17 01:00 0 100 Physical Exam GENERAL: Chronically ill-appearing unresponsive -Israeli female who is orotracheally intubated. SKIN: Dry and poorly perfused HEAD: Atraumatic. Normocephalic. EYES: Pupils 5 mm and fixed bilaterally. +Icterus ENT: No nasal bleeding or discharge. Mucous membranes dry NECK: Trachea midline. Jugular veins flat. CARDIOVASCULAR: Bradycardic, no murmurs rubs or gallops appreciated RESPIRATORY: Orotracheally intubated, bilateral rhonchi, overbreathing vent. GASTROINTESTINAL: Protuberant and distended. Cholecystostomy tube is present in the right upper quadrant with bilious drainage. Absent bowel sounds. MUSCULOSKELETAL: Extremities without clubbing, cyanosis. NEUROLOGICAL: Pupils fixed and dilated. No corneal reflex. No cough, no gag, no response to deep noxious stimuli. GCS 3 Laboratory Laboratory Tests Test 09/01/17 01:00 09/01/17 01:50 Blood Gas Puncture Site LT BRACHIAL Blood Gas Patient Temperature 98.6 Blood Gas HCO3 6 Blood Gas Base Excess -23.0 Blood Gas Oxygen Saturation 98 Arterial Blood pH 7.05 Arterial Blood Partial Pressure CO2 21 Arterial Blood Partial Pressure O2 416 Arterial Blood Oxygen Content 15.9 Arterial Blood Carboxyhemoglobin 0.0 Arterial Blood Methemoglobin 1.1 Blood Gas Hemoglobin 10.8 Oxygen Delivery Device VENTILATOR Blood Gas Ventilator Setting PRVC Blood Gas Inspired Oxygen 100 Urine Color DARK-BROWN Urine Turbidity CLOUDY Urine pH 6.0 Urine Specific [place] 1.018 Urine Protein 100 Urine Glucose (UA) NEG Urine Ketones NEG Urine Occult Blood MOD Urine Nitrite NEG Urine Bilirubin MOD Urine Urobilinogen 2.0 Urine Leukocyte Esterase LARGE Urine RBC 4 Urine WBC Urine Squamous Epithelial Cells <1 Urine Amorphous Sediment RARE Urine Bacteria MANY Microscopic Urinalysis Comment CATH-CULTURE IND Blood Urea Nitrogen 73 Creatinine 8.00 Random Glucose 43 Total Protein 9.6 Albumin 1.0 Calcium Level 7.9 Alkaline Phosphatase 223 Aspartate Amino Transf (AST/SGOT) 534 Alanine Aminotransferase (ALT/SGPT) 111 Total Bilirubin 7.0 Sodium Level 139 Potassium Level 7.5 Chloride Level 109 Carbon Dioxide Level 5.4 Anion Gap 25 Estimat Glomerular Filtration Rate 6 Date/Time Source Procedure Growth Status 09/01/17 01:50 Urine Catheterized Urine Urine Culture Pending Received Result Diagram: 09/01/17 0150 Caprini VTE Risk Assessment Caprini Risk Assessment Model Point Value = 1 Point Value = 2 Point Value = 3 Point Value = 5 Age 41-60 Minor surgery BMI > 25 kg/m2 Swollen legs Varicose veins or History of unexplained or recurrent spontaneous Oral contraceptives or hormone replacement Sepsis (< 1 month) Serious lung disease, including pneumonia (< 1 month) Abnormal pulmonary function Acute myocardial infarction Congestive heart failure (< 1 month) History of inflammatory bowel disease Medical patient at bed rest Age 61-74 Arthroscopic surgery Major open surgery (> 45 min) Laparoscopic surgery (> 45 min) Malignancy Confined to bed (> 72 hours) Immobilizing plaster cast Central venous access Age >= 75 History of VTE Family history of VTE Factor V Leiden Prothrombin [id number] Lupus anticoagulant Anticardiolipin antibodies Elevated serum homocysteine Heparin-induced thrombocytopenia Other congenital or acquired thrombophilia Stroke (< 1 month) Elective arthroplasty Hip, pelvis, or leg fracture Acute spinal cord injury (< 1 month) Prophylaxis Regimen Total Risk Factor Score Risk Level Prophylaxis Regimen 0-1 Low Early ambulation 2 Moderate Order ONE of the following: *Sequential Compression Device (SCD) *Heparin 5000 units SQ BID 3-4 Higher Order ONE of the following medications: *Heparin 5000 units SQ TID *Enoxaparin/Lovenox 40 mg SQ daily (WT < 150 kg, CrCl > 30 mL/min) *Enoxaparin/Lovenox 30 mg SQ daily (WT < 150 kg, CrCl > 10-29 mL/min) *Enoxaparin/Lovenox 30 mg SQ BID (WT < 150 kg, CrCl > 30 mL/min) AND/OR *Sequential Compression Device (SCD) 5 or more Highest Order ONE of the following medications: *Heparin 5000 units SQ TID (Preferred with Epidurals) *Enoxaparin/Lovenox 40 mg SQ daily (WT < 150 kg, CrCl > 30 mL/min) *Enoxaparin/Lovenox 30 mg SQ daily (WT < 150 kg, CrCl > 10-29 mL/min) *Enoxaparin/Lovenox 30 mg SQ BID (WT < 150 kg, CrCl > 30 mL/min) AND *Sequential Compression Device (SCD) Assessment and Plan Assessment and Plan Coma Shock with multiorgan failure Acute respiratory failure Acute severe metabolic acidemia Acute renal failure Acute hyperkalemia Hypoglycemia Transaminitis Large liver mass Cholecystostomy tube in place. Diabetes mellitus COPD Hepatitis C Rheumatoid arthritis Obesity Gout Osteoporosis 62-year-old very unfortunate -Israeli female end-stage COPD and recent diagnosis of hepatic mass and cirrhosis. She has been on home hospice and previously indicated that she wished to be DNR. Due to misunderstanding regarding CODE STATUS patient was intubated by [facility]. This point she is comatose with multiorgan dysfunction and appears that she will in the next minutes to hours. Her significant other is her healthcare surrogate and he intends to honor her wishes. He attempted to contact hospice when she initially became unresponsive but states "they hung up on me" (or got disconnected). She appears completely comfortable on vent and likely will have hemodynamic collapse soon even while maintaining mechanical ventilation so will not perform terminal extubation. Significant other, Gigi Gunter, is aware that she is expected to tonight and is staying at her bedside. She was pronounced at 03:[address] Poole. Level 3 H&P Daksha Wen MD Sep 01, 2017 05:28
--- NOTE | 2017-09-01 07:51 | HHI.DS ---
Summary Note Date of : Sep 01, 2017 Time Of : 314 Admission Date Sep 01, 2017 at 01:43 Admitting Diagnosis Sepsis, acute respiratory failure Diagnosis at Time of : Brief History 62-year-old -[place] female with past medical history of diabetes, end- stage COPD on home O2, hepatitis C, cirrhosis, rheumatoid arthritis, gout, osteoporosis. She had recent percutaneous cholecystostomy August 10 2017 due to biliary obstruction and sepsis. She was found to have a mass in her upper abdomen around the zoltan hepatis. Due to poor functional status, further workup and treatment was not felt to be of benefit. Per patient's discussion with Dr. Mckeon (oncology) and Dr. Guzman with critical care medicine patient had indicated she wished to be DNR. She was discharged home with [facility] hospice. Her significant other states she has had very little to eat since discharge 08/13, mostly drinking broth. He states that earlier 08/31 multiple family members were visiting her and she was speaking with them. He thought she did not look well and repeatedly asked her how she was doing and she stated "I am fine". He states that around 8 or 9 PM her mental status began to change. She became unresponsive and [facility] was called. There was morphine at the bedside so [facility] administered Narcan 2 mg IV without response. Glucose was 47 and she was administered dextrose with initial improvement in blood glucose. They intubated her for airway protection without any medications. Apparently significant other did not understand questions about code status at that point. Dr. Poole has consulted me to assist with the case. Upon my arrival to the ED patients pupils are fixed and dilated with GCS 3. Repeat glucose is 180. Labs are pending except for ABG that demonstrates pH 7.05/PCO2 of 21/PaO2 416./Base deficit -23. She was hypotensive with blood pressure 70s over 40s. She was given 2 L normal saline bolus. During prior hospitalization she had designated her significant other, Gigi Gunter, as her healthcare surrogate. I discussed with him the fact that she had indicated to to physicians that she wished to be DO NOT RESUSCITATE. He stated he understood that and planned to honor her wishes for DNR status. She appeared to be dying with progressive bradycardia and he requested that he be allowed to sit at her bedside. Room was prepared for him to be at her bedside. She was pronounced at 03:15. CBC/BMP: 09/01/17 0150 Significant Findings Laboratory Tests Test 09/01/17 01:00 09/01/17 01:50 Blood Gas HCO3 6 mmol/L (22-26) Blood Gas Base Excess -23.0 mmol/L (-2-2) Arterial Blood pH 7.05 (7.380-7.420) Arterial Blood Partial Pressure CO2 21 mmHg (38-42) Arterial Blood Partial Pressure O2 416 mmHg (61-120) Blood Gas Hemoglobin 10.8 G/DL (12.0-16.0) Urine Color DARK-BROWN (YELLW/STRAW) Urine Turbidity CLOUDY (CLEAR) Urine Protein 100 mg/dL (NEG-TRACE) Urine Occult Blood MOD (NEG) Urine Bilirubin MOD (NEG) Urine Leukocyte Esterase LARGE (NEG) Urine RBC 4 /hpf (0-3) Urine Bacteria MANY /hpf (NONE) Blood Urea Nitrogen 73 MG/DL (7-18) Creatinine 8.00 MG/DL (0.50-1.00) Random Glucose 43 MG/DL (74-106) Total Protein 9.6 GM/DL (6.4-8.2) Albumin 1.0 GM/DL (3.4-5.0) Calcium Level 7.9 MG/DL (8.5-10.1) Alkaline Phosphatase 223 U/L (45-117) Aspartate Amino Transf (AST/SGOT) 534 U/L (15-37) Alanine Aminotransferase (ALT/SGPT) 111 U/L (10-53) Total Bilirubin 7.0 MG/DL (0.2-1.0) Potassium Level 7.5 MEQ/L (3.5-5.1) Chloride Level 109 MEQ/L (98-107) Carbon Dioxide Level 5.4 MEQ/L (21.0-32.0) Anion Gap 25 MEQ/L (5-15) Estimat Glomerular Filtration Rate 6 ML/MIN (>89) Daksha Wen MD Sep 01, 2017 07:51
--- NOTE | 2017-09-01 07:52 | DEATH SUM ---
Summary Demographics Date Pronounced : Sep 01, 2017 Time Of : 314 Pronounced By: DR. MENENDEZ Preliminary Cause of : Multi Organ Failure Daksha Wen MD Sep 01, 2017 07:52
--- NOTE | 2017-09-01 15:25 | EKG ---
Date Performed: 09/01/2017 Time Performed: 00:58:46 PTAGE: 62 years EKG: Sinus rhythm MODERATE INTRAVENTRICULAR CONDUCTION DELAY QT interval prolonged for rate Compared to previous danyel ng, HR is faster, otherwise no significant change BORDERLINE ECG PREVIOUS TRACING : 08/10/2017 14.32 DOCTOR: Oj Malhotra Interpretating Date/Time 09/01/2017 15:24:11
== END 2017-09-01 03:15 | disposition expired | DRG 871 ==
LOC: NEPE 00:48 → NEDA 01:43
PROVIDERS: ADMIT Emergency Medicine; ATTEND Emergency Medicine
DX: A41.9 Sepsis, unspecified organism (principal); J96.00 Acute respiratory failure, unspecified whether with hypoxia or hypercapnia; I46.9 Cardiac arrest, cause unspecified; R57.9 Shock, unspecified; N17.9 Acute kidney failure, unspecified; R16.0 Hepatomegaly, not elsewhere classified; E87.2 Acidosis; E11.649 Type 2 diabetes mellitus with hypoglycemia without coma; E87.5 Hyperkalemia; J44.9 Chronic obstructive pulmonary disease, unspecified; I10 Essential (primary) hypertension; M06.9 Rheumatoid arthritis, unspecified; M19.90 Unspecified osteoarthritis, unspecified site; E78.00 Pure hypercholesterolemia, unspecified; R40.2432 Glasgow coma scale score 3-8, at arrival to emergency department; E66.9 Obesity, unspecified; M10.9 Gout, unspecified; M81.0 Age-related osteoporosis without current pathological fracture; K74.60 Unspecified cirrhosis of liver; Z99.81 Dependence on supplemental oxygen; Z87.891 Personal history of nicotine dependence; Z86.19 Personal history of other infectious and parasitic diseases; Z66 Do not resuscitate
CPT/HCPCS: 36600; 43753; 71045; 80053; 81001; 82805; 87086; 93005; J7030